=== PATIENT | female | born 1970 | race Caucasian/White ===

== ENCOUNTER 2022-09-09 09:45 | Outpatient (OUT) | payer OTHER, SELFPAY ==
--- NOTE | 2022-09-09 09:55 | MM_ITS ---
Patient: SADIE FORRESTER Exam Date: 09/09/2022 : 1970 Gender:F Ordering : DR. Marisa Duran D.O. Admission #: [id number] Family : Order #: [id number] CLICK HERE TO VIEW EXAM RADIOLOGY REPORT PROCEDURE: MM TOMOSYNTHESIS SCREENING BI COMPARISON: MG MAMM SCREEN AKANKSHA W CAD, 12/24/2019. MG MAMM SCREEN 3D AKANKSHA CAD, 01/07/2021. INDICATIONS: Screening Calculator Name NCI Breast Cancer Risk Assessment Tool 5 Year Breast Cancer Risk 0.60% Lifetime Breast Cancer Risk 6.00% Personal Breast Cancer No Personal Ovarian Cancer No Treatments None Family Cancers Grandmother-maternal with breast cancer at age ~55. LOCATION: [facility] BREAST COMPOSITION: Scattered areas fibroglandular density. FINDINGS: DIAGNOSTIC CATEGORY 1--NEGATIVE. NO CHANGE FROM COMPARISON ASSESSMENT. Bilateral scattered dilated blood vessels. Scattered benign-appearing calcifications are present. RIGHT BREAST: No significant suspicious finding. LEFT BREAST: No significant suspicious finding. RECOMMENDATIONS: ROUTINE MAMMOGRAM AND CLINICAL EVALUATION IN 12 MONTHS. PLEASE NOTE: A NORMAL MAMMOGRAM DOES NOT EXCLUDE THE POSSIBILITY OF BREAST CANCER. A CLINICALLY SUSPICIOUS PALPABLE LUMP SHOULD BE BIOPSIED. Dictated by: Storm Wood MD on 09/09/2022 at 12:37 Approved by: Storm Wood MD on 09/09/2022 at 12:39
== END 2022-09-09 09:46 | disposition home or self-care (01) ==
LOC: MAMMO 09:50
PROVIDERS: PCP Family Medicine; Visit Provider Family Medicine
DX: Z12.31 Encounter for screening mammogram for malignant neoplasm of breast (principal); Z80.3 Family history of malignant neoplasm of breast
CPT/HCPCS: 77063; 77067

== ENCOUNTER 2022-10-12 20:36 | Emergency (ER) | payer OTHER, SELFPAY ==
[2022-10-12 20:42] VITALS: BP 171/90; PULSE 78; RESP 24; TEMP 36.9; O2SAT 96; BMI 86.4
--- NOTE | 2022-10-12 20:51 | ECG_ITS ---
[facility] Test Date: 2022-10-12 Pat Name: SADIE FORRESTER Department: Room: - Gender: Female Management Information Systems Director: : 1970 Requested By: Order Number: [id number] Reading MD: SANA ABRAMS Measurements Intervals Gilbert Rate: 76 P: 65 LA: 152 QRS: 64 QRSD: 90 T: 61 QT: 396 QTc: 426 Interpretive Statements 1100 Sinus rhythm 8102 Low QRS voltage in chest leads 9120 atypical ECG No previous ECG available for comparison Electronically Signed On 10-13-2022 7:07:51 EDT by SANA ABRAMS
--- NOTE | 2022-10-12 21:24 | ED_ITS ---
HPI - Female Genitourinary General Chief complaint: Urogenital-Female Stated complaint: UTI, FLANK PAIN Time Seen by Provider: 10/12/22 21:14 Source: patient Mode of arrival: walk-in Limitations: no limitations History of Present Illness HPI Narrative: past history of recurrent UTIs. States she started another one yesterday. Has urgency and frequency and suprapubic pain. Mild nausea. No flank pain or fever. Has an appointment upcoming with her Urologist but not until next week. Related Data Allergies Allergy/AdvReac Type Severity Reaction Status Date / Time No Known Drug Allergies Allergy Verified 10/12/22 20:46 Review of Systems ROS Status of ROS 10 or more systems reviewed and unremarkable except as noted in history and below Exam Constitutional Vital Signs, click to edit/add: Last Vital Signs Temp 98.4 F 10/12/22 20:42 Pulse 78 10/12/22 20:42 Resp 24 10/12/22 20:42 BP 171/90 H 10/12/22 20:42 Pulse Ox 96 10/12/22 20:42 O2 Del Method Room Air 10/12/22 20:42 Common normals: no apparent distress, oriented x3, alert and well nourished Eye Common normals: EOMs intact bilaterally and conjunctivae normal Respiratory Common normals: normal respiratory effort, no retractions, no use of accessory muscles and clear to auscultation bilaterally Cardio Common normals: regular rate, regular rhythm, S1 normal heart sound and S2 normal heart sound GI Other: mild suprapubic tenderness Extremity Common normals: normal to inspection and no joint enlargement Neuro Common normals: oriented x3, CN's II-XII intact bilaterally, moves all extremiti es, no focal motor deficits and no sensory deficits noted Psych Appearance: grossly normal Course Vital Signs Vital signs: Vital Signs Temperature 98.4 F 10/12/22 20:42 Pulse Rate 78 10/12/22 20:42 Respiratory Rate 24 10/12/22 20:42 Blood Pressure 171/90 H 10/12/22 20:42 Pulse Oximetry 96 10/12/22 20:42 Oxygen Delivery Method Room Air 10/12/22 20:42 Temperature 98.4 F 10/12/22 20:42 Pulse Rate 78 10/12/22 20:42 Respiratory Rate 24 10/12/22 20:42 Blood Pressure 171/90 H 10/12/22 20:42 Pulse Oximetry 96 10/12/22 20:42 Oxygen Delivery Method Room Air 10/12/22 20:42 MDM - Female Genitourinary MDM Narrative Medical decision making narrative: patient has past history of recurrent UTI. Now presents with onset of UTI symptoms that started yesterday. Urgency, frequency, nausea. UA ordered and pending UA returned without obvious pyuria. Patient is quite certain she has a UTI due to her past history. Urine culture ordered. She is discharged home and advised to follow up with her Urologist Discharge Plan Discharge Chief Complaint: Urogenital-Female Clinical Impression: Dysuria Patient Disposition: Home, Self-Care Instructions: Dysuria (ED) Additional Instructions: follow up with your Urologist as planned Stand Alone Forms: Portal Instructions Referrals: Marisa Duran [Primary Care Provider] - 1 week
[2022-10-12] MEDS: PROMETHAZINE HCL 25 MG TABLET PO (21:36)
[2022-10-12] MEDS: PHENAZOPYRIDINE 100 MG TABLET 200 MG PO (21:36)
[2022-10-12] MEDS: LEVOFLOXACIN 500 MG TABLET PO (21:36)
--- NOTE | 2022-10-12 21:41 | PC.NURSE ---
pt presents to ED because pt states that last week she wasn't feeling well and didn't drink or move around much. pt states that when she does this she usually gets a uti afterwards or kidney infection. pt states that 2 days ago she started to have urinary urgency, frequency, burning, and cramping. denies blood in urine. no abdominal pain. pt states she also feels like she is having palpitations but usually has that happen when she gets uti's.
[2022-10-12 21:47] LABS: Bilirubin Urine NEGATIVE (NEGATIVE); Blood Urine NEGATIVE (NEGATIVE); Clarity Urine CLEAR (CLEAR); Color Urine YELLOW (YELLOW); Glucose Urine UA 250 mg/dL (NEGATIVE); Ketones Urine NEGATIVE (NEGATIVE); Leukocyte Esterase Urine NEGATIVE (NEGATIVE); Nitrite Urine NEGATIVE (NEGATIVE); Protein Urine NEGATIVE (NEG/TRACE); Specific Gravity Urine >=1.030 (1.005-1.025); Urobilinogen Urine 0.2 EU/dL (0.2-1.0); pH Urine 5.5 (5.0-9.0)
[2022-10-12 22:24] LABS: Urine Microscopic Indicated NO
--- NOTE | 2022-10-16 09:26 | PC.NURSE ---
0925 c+s reviewed by dr solo patel for macrobid 100mg po bid times 7 days called to pt preferred pharmacy and called and LM for pt. Padma Ahumada RN
== END 2022-10-12 22:28 | disposition home or self-care (01) ==
PROVIDERS: Emergency Provider Internal Medicine; PCP Family Medicine
DX: R30.0 Dysuria (principal); Z87.440 Personal history of urinary (tract) infections
CPT/HCPCS: 81003; 87086; 87150; 87186; 93005; 99284

== ENCOUNTER 2023-02-10 11:41 | Outpatient (OUT) | payer OTHER, SELFPAY ==
[2023-02-10 12:00] LABS: Bilirubin Urine NEGATIVE (NEGATIVE); Blood Urine SMALL (NEGATIVE); Clarity Urine CLEAR (CLEAR); Color Urine LT. YELLOW (YELLOW); Glucose Urine UA >=1000 mg/dL (NEGATIVE); Ketones Urine TRACE mg/dL (NEGATIVE); Leukocyte Esterase Urine SMALL (NEGATIVE); Nitrite Urine NEGATIVE (NEGATIVE); Protein Urine NEGATIVE (NEG/TRACE); Specific Gravity Urine 1.025 (1.005-1.025); Urobilinogen Urine 0.2 EU/dL (0.2-1.0)
== END 2023-02-10 11:42 | disposition home or self-care (01) ==
LOC: LAB 11:42
PROVIDERS: PCP Family Medicine; Visit Provider Urology
DX: R39.9 Unspecified symptoms and signs involving the genitourinary system (principal)
CPT/HCPCS: 81003; 87086; 87150; 87186

== ENCOUNTER 2023-07-24 12:40 | Outpatient (OUT) | payer OTHER, SELFPAY ==
--- NOTE | 2023-07-24 13:02 | XR_ITS ---
The [address] [address] Patient Name: SADIE FORRESTER MRN: [id number] date: 1970 Sex: F Assigned Patient Location: [facility] Current Patient Location: Accession/Order Number: [id number] Exam Date: 07/24/2023 13:05 Report Date: 07/25/2023 10:34 At the request of: BAHMAN LANDA Procedure: XR abdomen 1V EXAMINATION: XR abdomen 1V HISTORY: Kidney stone N20.0 COMPARISON: XR KUB 05/25/2021 FINDINGS: KIDNEY/URETER - RIGHT: No visible renal or ureteral calcifications. KIDNEY/URETER - LEFT: No visible renal or ureteral calcifications. PELVIS: No visible ureteral stones. Stable small right pelvic calcification favoring a phlebolith. BOWEL: No abnormal dilation or deviation. BONES: Joint space narrowing and degenerative changes of the hip joints. OTHER: Negative. No abnormal gaseous collections. XR/XR abdomen 1V IMPRESSION: 1. No appreciable urinary tract calculi. Electronically authenticated by: MARIA DE JESUS LYNNE Date: 07/25/2023 10:34
== END 2023-07-24 12:41 | disposition home or self-care (01) ==
LOC: RAD 12:43
PROVIDERS: PCP Family Medicine; Visit Provider Physician Assistant
DX: N20.0 Calculus of kidney (principal)
CPT/HCPCS: 74018

== ENCOUNTER 2024-06-26 15:20 | Outpatient (OUT) | payer OTHER, SELFPAY ==
--- OUTSIDE RECORDS SUMMARY | 2021-05-12 10:00 | XMS_ITS | Continuity of Care Document ---
Author Organization [facility] Address [address] [place] [address] [place] [address] Phone Care Team Providers Care Bias Binding Folder Name Role Phone Catarina Lou Unavailable Unavailable Procedures Procedure Date PSYCH DIAGNOSTIC EVALUATION PSYCL/NRPSYC TST PHY/QHP 1ST PSYCL/NRPSYC TST PHY/QHP EA OFFICE/OUTPATIENT VISIT, [facility] Advance Directives Directive Yes / No Effective Date File Name No Information Encounters Encounter Description Practice Location Reason(s) For Visit Diagnoses Date Provider Providers Copied on Encounter PSYCH DIAGNOSTIC EVALUATION [facility], [address] [place] [address], [id number], tel:[phone] [facility] Weight [facility] No Information Carmine Elmore. [address], [id number], [place]. tel:[phone] Referring Provider: Catarina Lou, [address] [place] [address], [place], [address]. tel:[phone] OFFICE/OUTPATI ENT VISIT, [facility], [address] [place] [address], [id number], tel:[phone] [facility] Weight [facility] Surgery No Information Ira Kolb. [address] [place] [address] [place], [id number], . tel:[phone] Referring Provider: Cortes Siegel, [address] [facility] [address], [place], [address]. tel:[phone] Family History Family Member Type Diagnosis Age At Onset No Information Payers Payer name Insurance type Covered green party ID Bernabe mayberry(s) Gary CI [id number] Social History Type Description Quantity Date Captured Comments Sex Female Smoking Status No Information Chief Complaint And Reason For Visit No Information Reason For Referral Reason For Referral No Information History Of Present Illness Encounter Date Complaint History Of Prese nt Illness No Information Functional Status Date Functional Assessmen t No Information Instructions Date Instruction Additional Infor mation No Information Assessments Type Assessment Date No Information Patient Care Teams Name Effective Dates (start - stop) Status Members No Information
--- OUTSIDE RECORDS SUMMARY | 2024-03-22 06:00 | XMS_ITS ---
Author Organization [facility] Address [address] [place] [id number] Care Team Providers Care Business Division Chair Name Role Phone Bobo Valdivia Primary Care Provider REASON FOR VISIT f/u hypothyroid Social History Sex Assigned At : Social History Observation Description Sex Assigned At Female Encounters Encounter Location Date Provider Diagnosis Main [address] [place] [id number] 03/22/2024 Bobo Valdivia Plan Of Treatment Next Appt Details Provider Name:Bobo Valdivia, 08/23/2024 11:00:00 AM, [address] [place], [place], [id number], Progress Notes * Savannah FORRESTER SDOB:[birth year] (54 yo F)Acc No.[id number]:03/22/2024 Patient: Savannah MORALEZ Provider: Dayana Valdivia :1970 A ge:54 Y S ex:Female Date:03/22/2024 Address:[address] [place], [place] [id number] Subjective: * Chief Complaints: * 1 . F/u hypothyroid. * Medical History: Objective: * Vitals: Assessment: Plan: * Treatment: * Billing Information: * Visit Code: * Procedure Codes: * Electronic signature of MARY JANE Rose on 06/26/2024 at 03:25 PM EDT Sign off status: Pending * Provider: Dayana Valdivia Date: 0 03/22/2024 Generated for García mccray/Svetlana/Karlee on: 0 06/26/2024 03:25 PM EDT
--- OUTSIDE RECORDS SUMMARY | 2024-06-26 15:24 | XMS_ITS | Encounter Summary ---
Author Organization [employer] Address [id number] [address] [place] [address] Care Team Providers Care Mid Level Net Developer Name Role Phone Services, [facility] Primary Care Provider Encounter Details Date Type Department Care Team (Late st Contact Info) Description 11/24/2020 Orders Only [facility] [address] [place] [address] External, Scanning Provider Social History Tobacco Use Types Packs/Day Years Used Date Smoking Tobacco: Former Cigarettes Smokeless Tobacco: Never Alcohol Use Standard Drinks/Week Comments Yes 0 (1 standard drink = 0.6 oz pur e alcohol) rarely Social Connection and Isolat ion Panel [NHANES] Answer Date Recorded In a typical week, how many times do you talk on the phone with family, friends, or neighbors? More than three times a week 12/30/2019 How often do you get togethe r with friends or relatives? More than three times a week 12/30/2019 How often do you attend chur ch or uatsdin services? Never 12/30/2019 Do you belong to any clubs o r organizations such as shinto groups, unions, fraternal or athletic groups, or school groups? Yes 12/30/2019 How often do you attend meet ings of the clubs or organizations you belong to? 1 to 4 times per year 12/30/2019 Are you , , di vorced, , never , or living with a partner? 12/30/2019 AUDIT-C Answer Date Recorded Q1: How often do you have a drink containing alc ohol? Monthly or less 12/30/2019 Q2: How many drinks containi ng alcohol do you have on a typical day when you are drinking? 1 or 2 12/30/2019 Q3: How often do you have si x or more drinks on one occasion? Less than monthly 12/30/2019 PHQ-2 Answer Date Recorded Total Score 0 12/30/2019 Childcare Answer Date Recorded Childcare Unknown 07/18/2018 Employment Answer Date Recorded Employment Unknown 07/18/2018 Purpose - Life Answer Date Recorded Purpose and direction in life Unknown Comments No Sex and Gender Information Value Date Recorded Sex Assigned at Not on file Legal Sex Female 11:33 AM EDT Gender Identity Not on file Sexual Orientation Not on file COVID-19 Exposure Response Date Recorded In the last month, have you been in contact with someone who was confirmed or suspected to have Coronavirus / COVID-19? No / Unsure 11/24/2020 1:01 PM EDT documented as of this encounter Plan of Treatment Upcoming Encounters Date Type Department Care Team (Late st Contact Info) Description 07/17/2024 2:00 PM EDT Office Visit [facility] [address] [place] [address] Chetna Coats, CHIEF COUNSEL-FORKLIFT SUPERVISOR [address] [place], [place] [id number] documented as of this encounter Goals Goal Patient Goal Type Associated Problems Recent Progress Patient-Stated? Author Discharge home General Yes Clarisse Purdy, RN Note: Evaluation of progress towards goal: Plan to discharge home with supportive spouse. documented as of this encounter Procedures Procedure Name Priority Date/Time Associated Diagnosis Comments MULTIPLE LABS Routine 11/13/2020 LIPID PROFILE Routine 11/13/2020 ECHO COMPLETE WO CONTRAST Routine 08/13/2020 documented in this encounter Results * Lipid profile (11/13/2020) External Cholesterol 163 MANUALLY TRANSCRIBED RESULTS External Cholesterol:Hdl 3.7 MANUALLY TRANSCRIBED RESULTS External Hdl Cholesterol 44 MANUALLY TRANSCRIBED RESULTS External Ldl (Calc) 75 MANUALLY TRANSCRIBED RESULTS External Triglycerides 216 MANUALLY TRANSCRIBED RESULTS External Very Low Lipoprotein 44 MANUALLY TRANSCRIBED RESULTS us Scanning Provider External LAB BLOOD ORDERABLES Edited Result - Final Performing Organization Address City/[facility]/ZIP Co de Phone Number MANUALLY TRANSCRIBED RESULTS * Multiple labs (11/13/2020) us Scanning Provider External PA IMAGING Final Result Performing Organization Address City/[facility] Co de Phone Number MANUALLY TRANSCRIBED RESULTS * Echo complete W/O contrast (08/13/2020) Anatomical Region Laterality Modality Chest N/A Ultrasound us Scanning Provider External CV ECHO ORDERABLES Fi nal Result documented in this encounter Visit Diagnoses Not on filedocumented in this encounter Additional Health Concerns Infection Onset Date Last Indicated Resolved Time Respiratory Rule-Out 04/10/2024 04/10/2024 025 5:27 PM EST Assessment Noted Time PHQ-9 Depression Total Score: 0 12/30/19 20 1:56 PM EST documented as of this encounter Care Teams Mid Level Net Developer Relationship Specialty Start Date End Date Services, [facility] [address] [place], [place] PCP - General Family Medicine 04/10/24 documented as of this encounter
--- OUTSIDE RECORDS SUMMARY | 2024-06-26 15:24 | XMS_ITS | Encounter Summary ---
Author Organization [employer] Address [id number] [address] [place] [address] Care Team Providers Care Fruit Loader Machine Operator Name Role Phone Services, [facility] Primary Care Provider Encounter Details Date Type Department Care Team (Late st Contact Info) Description 11/27/2020 Orders Only [facility] [address] [place] [address] External, Scanning Provider Social History [...] often do you attend chur ch or baptist services? Never 12/30/2019 Do you belong to any clubs o r organizations such as yazidi groups, unions, fraternal or athletic groups, or [...] have Coronavirus / COVID-19? No / Unsure 11/30/2020 12:58 PM EDT documented as of this encounter Plan of Treatment Upcoming Encounters Date Type Department Care Team (Late st Contact Info) Description 07/17/2024 2:00 PM EDT Office Visit [facility] [address] [place] [address] Chetna Coats, TAPE KELLER OPERATOR-LOGISTIC MANAGER [address] [place], [place] [id number] documented as of this encounter Goals Goal Patient Goal Type Associated Problems Recent Progress Patient-Stated? Author Discharge home General Yes Clarisse Purdy, RN Note: Evaluation of progress towards goal: Plan to discharge home with supportive spouse. documented as of this encounter Procedures Procedure Name Priority Date/Time Associated Diagnosis Comments MULTIPLE LABS Routine 08/13/2020 ECHO DOPPLER Routine 08/13/2020 ECG 12-LEAD Routine 04/10/2020 documented in this encounter Results * Multiple labs (08/13/2020) us Scanning Provider External IA IMAGING Final Result MANUALLY TRANSCRIBED RESULTS * Echo Doppler (08/13/2020) Anatomical Region Laterality Modality Chest N/A Ultrasound us Scanning Provider External CV ECHO ORDERABLES Fi nal Result * ECG 12 lead (04/10/2020) us Scanning Provider External ECG ORDERABLES Final Result MANUALLY TRANSCRIBED RESULTS documented in this encounter Visit Diagnoses Not on filedocumented in this encounter Additional Health Concerns Infection Onset Date Last Indicated Resolved Time Respiratory Rule-Out 04/10/2024 04/10/2024 025 5:27 PM EST Assessment Noted Time PHQ-9 Depression Total Score: 0 12/30/19 20 1:56 PM EST documented as of this encounter Care Teams Fruit Loader Machine Operator Relationship Specialty Start Date End Date Services, [facility] [address] [place], [place] PCP - General Family Medicine 04/10/24 documented as of this encounter
--- OUTSIDE RECORDS SUMMARY | 2024-06-26 15:24 | XMS_ITS | Encounter Summary ---
Author Organization [facility] Address [id number] [address] [place] [address] Care Team Providers Care Hatchery Man Name Role Phone Services, [facility] Primary Care Provider Encounter Details Date Type Department Care Team (Late st Contact Info) Description 02/17/2021 Orders Only [facility] [address] [place] [address] Ref Prov, [place] [address] Social History Tobacco Use Types Packs/Day Years Used Date Smoking Tobacco: Former Cigarettes 0.5 20 1 2011 Smokeless Tobacco: Never Alcohol Use Standard Drinks/Week [...] often do you attend chur ch or temple services? Never 12/30/2019 Do you belong to any clubs o r organizations such as congregation groups, unions, fraternal or athletic groups, or [...] have Coronavirus / COVID-19? No / Unsure 02/17/2021 2:31 PM EST documented as of this encounter Plan of Treatment Upcoming Encounters Date Type Department Care Team (Late st Contact Info) Description 07/17/2024 2:00 PM EDT Office Visit [facility] [address] [place] [address] Chetna Coats, TUNNEL WORKER-CASH VAN SALESPERSON [address] [place] [address], [address] [address] documented as of this encounter Goals Goal Patient Goal Type Associated Problems Recent Progress Patient-Stated? Author Discharge home General Yes Clarisse Purdy, LUIS Note: Evaluation of progress towards goal: Plan to discharge home with supportive spouse. documented as of this encounter Procedures Procedure Name Priority Date/Time Associated Diagnosis Comments GENERAL SLEEP STUDY Routine 11/12/2003 documented in this encounter Results * General sleep study (11/12/2003) us Not In System Ref Prov SLEEP CENTER ORDERABLES F inal Result [facility] [address] [facility] [place] [address] documented in this encounter Visit Diagnoses Not on filedocumented in this encounter Additional Health Concerns Infection Onset Date Last Indicated Resolved Time Respiratory Rule-Out 04/10/2024 04/10/2024 025 5:27 PM EST Assessment Noted Time PHQ-9 Depression Total Score: 0 12/30/19 20 1:56 PM EST documented as of this encounter Care Teams Hatchery Man Relationship Specialty Start Date End Date [facility], [facility] [address] [place], [place] PCP - General Family Medicine 04/10/24 documented as of this encounter
--- OUTSIDE RECORDS SUMMARY | 2024-06-26 15:24 | XMS_ITS | Encounter Summary ---
Author Organization [employer] Address [id number] [address] [place] [address] Care Team Providers Care Applied Biology Professor Name Role Phone Services, [facility] Primary Care Provider Reason for Visit * Reason Comments Med Refill Encounter Details Date Type Department Care Team (Late st Contact Info) Description 06/10/2024 Refill [facility] [address] [place] [address] Earnest Johnson, ART GILDER-CLAMP OPERATOR [address] [place], [place] [id number] Med Refill Social History Tobacco Use Types Packs/Day Years Used Date Smoking Tobacco: Former Cigarettes 0.5 20 1 - 2011 Smokeless Tobacco: Never Alcohol Use Standard [...] often do you attend chur ch or jain services? Never 12/30/2019 Do you belong to any clubs o r organizations such as sikh groups, unions, fraternal or athletic groups, or [...] Employment Answer Date Recorded Employment Unknown 07/18/2018 Hunger Screening Answer Date Recorded Within the past 12 months we worried whether our food would run out before we got money to buy more. Never True 05/17/2024 Within the past 12 months th e food we bought just didn't last and we didn't have money to get more. Never True 05/17/2024 Purpose - Life Answer Date Recorded Purpose and direction in life Unknown Comments No Sex and Gender Information Value Date Recorded Sex Assigned at Not on file Legal Sex Female 11:33 AM EDT Gender Identity Not on file Sexual Orientation Not on file documented as of this encounter Miscellaneous Notes * Telephone Encounter - Melissa Sánchez RN - 06/10/2024 12:27 AM EDT Ov-05/17/24 Lipid-02/17/23 New lipid order placed and letter sent 06/12/24 documented in this encounter Plan of Treatment Upcoming Encounters Date Type Department Care Team (Late st Contact Info) Description 07/17/2024 2:00 PM EDT Office Visit [facility] [address] [place] [address] Chetna Coats, ART GILDER-CLAMP OPERATOR [address] [facility], [address] [place] [address] Scheduled Orders Name Type Priority Associated Diagnoses Orde r Schedule Lipid panel Lab Routine Hyperlipidemia, unspecified hyperlipidemia type Mixed hyperlipidemia 1 Occurrences starting 06/12/2024 until 06/12/2025 documented as of this encounter Goals Goal Patient Goal Type Associated Problems Recent Progress Patient-Stated? Author Discharge home General Yes Clarisse Purdy, RN Note: Evaluation of progress towards goal: Plan to discharge home with supportive spouse. documented as of this encounter Visit Diagnoses Diagnosis Hyperlipidemia, unspecified hyperlipidemia type- Primary Mixed hyperlipidemia documented in this encounter Additional Health Concerns Assessment Noted Time PHQ-9 Depression Total Score: 0 12/30/19 20 1:56 PM EST documented as of this encounter Care Teams Applied Biology Professor Relationship Specialty Start Date End Date [facility], [facility] [address] [place], [place] PCP - General Family Medicine 04/10/24 documented as of this encounter
--- OUTSIDE RECORDS SUMMARY | 2024-06-26 15:25 | XMS_ITS | Encounter Summary ---
Author Organization [facility] Address [id number] [address] [place] [address] Care Team Providers Care Chief Of Party Name Role Phone Services, [facility] Primary Care Provider Encounter Details Date Type Department Care Team (Late st Contact Info) Description 10/12/2022 Orders Only [facility] [address] [place] [phone] Ina, Ronda, INTERLOCKING MACHINE OPERATOR Mixed hyperlipidemia Social History Tobacco Use Types Packs/Day Years [...] often do you attend chur ch or denominational services? Never 12/30/2019 Do you belong to any clubs o r organizations such as mormonism groups, unions, fraternal or athletic groups, or [...] got money to buy more. Never True 06/29/2022 Within the past 12 months th e food we bought just didn't last and we didn't have money to get more. Never True 06/29/2022 Purpose - Life Answer Date Recorded Purpose and direction in life Unknown Comments No Sex and Gender Information Value Date Recorded Sex Assigned at Not on file Legal Sex Female 11:33 AM EDT Gender Identity Not on file Sexual Orientation Not on file documented as of this encounter Plan of Treatment Upcoming Encounters Date Type Department Care Team (Late st Contact Info) Description 07/17/2024 2:00 PM EDT Office Visit [facility] [address] [place] [address] Chetna Coats, VICE CHANCELLOR-ANTIQUE FURNITURE REPRODUCER [address] [facility], [address] [address] documented as of this encounter Goals Goal Patient Goal Type Associated Problems Recent Progress Patient-Stated? Author Discharge home General Yes Clarisse Purdy, RN Note: Evaluation of progress towards goal: Plan to discharge home with supportive spouse. documented as of this encounter Procedures Procedure Name Priority Date/Time Associated Diagnosis Comments LIPID PROFILE Routine 10/07/2022 Mixed hyperlipidemia documented in this encounter Results * Lipid profile (10/07/2022) External Cholesterol 148 SUNQUEST External Cholesterol:Hdl 4.1 SUNQUEST External Hdl Cholesterol 36 SUNQUEST External Ldl (Calc) 50 SUNQUEST External Triglycerides 310 SUNQUEST External Very Low Lipoprotein 62 SUNQUEST 10/07/2022 us Mireya Feldman PA-C LAB BLOOD ORDERABLES Final Resu lt SUNQUEST documented in this encounter Visit Diagnoses Diagnosis Mixed hyperlipidemia documented in this encounter Additional Health Concerns Infection Onset Date Last Indicated Resolved Time Respiratory Rule-Out 04/10/2024 04/10/2024 025 5:27 PM EST Assessment Noted Time PHQ-9 Depression Total Score: 0 12/30/19 20 1:56 PM EST documented as of this encounter Care Teams Chief Of Party Relationship Specialty Start Date End Date Services, [facility] [address] [place] PCP - General Family Medicine 04/10/24 documented as of this encounter
--- OUTSIDE RECORDS SUMMARY | 2024-06-26 15:25 | XMS_ITS | Encounter Summary ---
Author Organization [facility] Address [address] [place] [address] Care Team Providers Care Rubber Belt Splicer Name Role Phone Marisa Duran Primary Care Provider [phone] Devin Guy MD Unavailable Unavailable Reason for Visit * Reason Comments Med Refill Encounter Details Date Type Department Care Team ([facility] Contact Info) Description 08/03/2023 Refill [facility] [address] [facility] [address] [place] [address] Gloria Briggs DO [address] [facility] [address] [place] [address] Social History Tobacco Use Types Packs/Day Years Used Date Smoking Tobacco: Former Cigarettes Smokeless Tobacco: Never Alcohol Use Standard Drinks/Week Comments Not Currently 0 (1 standard drink = 0.6 oz pur e alcohol) AUDIT-C Answer Date Recorded Q1: How often do you have a drink containing alcohol? Never 07/18/2022 Q2: How many drinks containi ng alcohol do you have on a typical day when you are drinking? Patient does not drink Q3: How often do you have si x or more drinks on one occasion? Never 07/18/2022 Comments Unknown Sex and Gender Information Value Date Recorded Sex Assigned at Not on file Legal Sex Female 8:14 PM EDT Gender Identity Not on file Sexual Orientation Not on file documented as of this encounter Plan of Treatment Upcoming Encounters Date Type Department Care Team ([facility] Contact Info) Description 08/16/2024 10:45 AM EDT Office Visit [facility] [address] [facility] [address] [place] [address] Gloria Briggs DO [address] [place] [address] 08/29/2024 2:15 PM EDT Office Visit [facility] [address] [place] [address] Brenda Blackwood MD [address] [place] [address] documented as of this encounter Visit Diagnoses Not on filedocumented in this encounter Care Teams Rubber Belt Splicer Relationship Specialty Start Date End Date Marisa Duran DO [address] [place] [address] PCP - General Family Medicine 08/01/22 Devin Guy MD [address] [place] [address] Referring Physician Neurology 04/27/23 documented as of this encounter
--- OUTSIDE RECORDS SUMMARY | 2024-06-26 15:25 | XMS_ITS | Encounter Summary ---
Author Organization [employer] [facility] Address [id number] [address] [place] [address] Care Team Providers Care Rackman Name Role Phone [facility], [facility] Primary Care Provider Encounter Details Date Type Department Care Team (Late st Contact Info) Description 03/07/2022 Telephone [facility] [address] [address] Izzy Jones Social History Tobacco Use Types Packs/Day Years [...] often do you attend chur ch or catholic services? Never 12/30/2019 Do you belong to any clubs o r organizations such as latter day groups, unions, fraternal or athletic groups, or [...] encounter Miscellaneous Notes * Telephone Encounter - Izzy Jones - 03/07/2022 2:12 PM EST TRIED TO GET HER BREO APPROVED THROUGH [facility] BUT THE INSURANCE CARD ON FILE DOES NOT HAVE ALLTHE INFO I NEEDED/ WE NEED THE RXBIN, PCN, AND GROUP LEFT MESSAGE FOR PT TO CALL BACK (PT IS SEEN IN [place]/ [place]) * Telephone Encounter - Leslie Cerna LPN - 03/07/2022 2:12 PM EST Pt has used Symbicort in the past and was only switched Breo because insurance preferred. Symbicortis not the preferred choice. I will send in Symbicort 160. documented in this encounter Plan of Treatment Upcoming Encounters Date Type Department Care Team (Late st Contact Info) Description 07/17/2024 2:00 PM EDT Office Visit [facility] [address] [facility] [address] [place] [address] Chetna Coats, SEAMAN OFFICER-BLUEPRINT BLOCKER [address] [facility], [address] [place] [address] documented as of this encounter Goals Goal Patient Goal Type Associated Problems Recent Progress Patient-Stated? Author Discharge home General Yes Clarisse Purdy, RN Note: Evaluation of progress towards goal: Plan to discharge home with supportive spouse. documented as of this encounter Visit Diagnoses Diagnosis Persistent asthma without complication, unspecified asthma severity- Primary documented in this encounter Additional Health Concerns Infection Onset Date Last Indicated Resolved Time Respiratory Rule-Out 04/10/2024 04/10/2024 025 5:27 PM EST Assessment Noted Time PHQ-9 Depression Total Score: 0 12/30/19 20 1:56 PM EST documented as of this encounter Care Teams Rackman Relationship Specialty Start Date End Date [facility] [address] [place], [place] PCP - General Family Medicine 04/10/24 documented as of this encounter
--- OUTSIDE RECORDS SUMMARY | 2024-06-26 15:25 | XMS_ITS | Encounter Summary ---
Author Organization [facility] Address [address] [place] [address] Care Team Providers Care Line Camera Operator Name Role Phone Marisa Duran Primary Care Provider [phone] Devin Guy MD Unavailable Unavailable Encounter Details Date Type Department Care Team (Late Contact Info) Description 02/20/2023 Orders Only [facility] [address] [facility] 230 [place] [address] A, Unknown Practice [address] [place], [place] [phone] Social History Tobacco Use Types Packs/Day Years [...] Encounters Date Type Department Care Team (Late Contact Info) Description 08/16/2024 10:45 AM EDT Office Visit [facility] [address] [address] [facility] 230 [place] [phone] Gloria Briggs DO [address] [place] [address] 08/29/2024 2:15 PM EDT Office Visit [facility] [address] [place] [address] Brenda Blackwood MD [address] [facility] [address] [place] [address] documented as of this encounter Procedures Procedure Name Priority Date/Time Associated Diagnosis Comments CHEST Routine 02/17/2023 8:46 AM EST documented in this encounter Results * CHEST (02/17/2023 8:46 AM EST) Anatomical Region Laterality Modality Radiographic Latrice ging us Unknown Practice A IMG XR PROCEDURES Final Resul t documented in this encounter Visit Diagnoses Not on filedocumented in this encounter Care Teams Line Camera Operator Relationship Specialty Start Date End Date Marisa Duran DO [address] [facility] [place] [address] PCP - General Family Medicine 08/01/22 Devin Guy MD [address] [facility] [place] [address] Referring Physician Neurology 04/27/23 documented as of this encounter
--- OUTSIDE RECORDS SUMMARY | 2024-06-26 15:25 | XMS_ITS | Encounter Summary ---
Author Organization [employer] [facility] Address [id number] [address] [place] [address] Care Team Providers Care Project Geologist Name Role Phone Services, [facility] Primary Care Provider Encounter Details Date Type Department Care Team (Late st Contact Info) Description 04/10/2024 Telephone [facility] [address] [facility] [place] [address] Hope Isaac, [facility] Social History Tobacco Use Types Packs/Day Years Used Date Smoking Tobacco: Former Cigarettes 0.5 20 2011 Smokeless Tobacco: Never Alcohol Use Standard [...] often do you attend chur ch or episcopal services? Never 12/30/2019 Do you belong to any clubs o r organizations such as taoism groups, unions, fraternal or athletic groups, or [...] got money to buy more. Never True 04/10/2024 Within the past 12 months th e food we bought just didn't last and we didn't have money to get more. Never True 04/10/2024 Purpose - Life Answer Date Recorded Purpose and direction in life Unknown Comments No Sex and Gender Information Value Date Recorded Sex Assigned at Not on file Legal Sex Female 11:33 AM EDT Gender Identity Not on file Sexual Orientation Not on file documented as of this encounter Miscellaneous Notes * Telephone Encounter - Hope Isaac CMA - 04/10/2024 3:36 PM EST Patient called in asking to be seen for appointment. Patient stated she was having extreme SOB and difficulty breathing. Patient stated she just finished water exercise and is out of breath. She saidSOB is with very little exertion over last few weeks. Patient sounded very out of breath over the phone. Patient was advised if having that much difficulty breathing she should go to ED to be evaluated. Patient was agreeable. * Telephone Encounter - ERON Elaine - 04/10/2024 3:36 PM EST Agree thanks documented in this encounter Plan of Treatment Upcoming Encounters Date Type Department Care Team (Late st Contact Info) Description 07/17/2024 2:00 PM EDT Office Visit [facility] [address] [facility] [address] [place] [address] Chetna Coats, FINANCIAL COUNSELOR-VERTICAL ROLL OPERATOR [address] [facility], [address] [place] [address] documented as of this encounter [...] documented as of this encounter Care Teams Project Geologist Relationship Specialty Start Date End Date Services, [facility] [address] [place], [place] PCP - General Family Medicine 04/10/24 documented as of this encounter
--- OUTSIDE RECORDS SUMMARY | 2024-06-26 15:25 | XMS_ITS | Patient Health Record ---
Author Organization [facility] [place] Address [address] [place] [address] Care Team Providers Care Experimental Rocket Sled Mechanic Name Role Phone None, Unknown or Primary Care Provider Unavailab le Reason For Referral No Information Plan Of Treatment No Information Insurance Providers Payer Name Payer Address Payer Phone Subscriber Number Group Number Insured Name Patient Relationship to Insured Coverage Start Date Coverage End Date SELF PAY ON PATIENT DEMOGRAPHICS Savannah Akhtar Self - patient is the insured [id number]
--- OUTSIDE RECORDS SUMMARY | 2024-06-26 15:25 | XMS_ITS | Encounter Summary ---
Author Organization [employer] [facility] [employer] Address [id number] [address] [place] [address] Care Team Providers Care Slurry Man Name Role Phone Services, [facility] Primary Care Provider Encounter Details Date Type Department Care Team (Late st Contact Info) Description 05/09/2022 Telephone [facility] [address] [address] Chetna Coats, DRAWER IN DOBBY LOOM-APPLICATION ENGINEER [address] [facility], [address] [place] [phone] Social History Tobacco Use Types Packs/Day Years [...] often do you attend chur ch or amish services? Never 12/30/2019 Do you belong to any clubs o r organizations such as moravian groups, unions, fraternal or athletic groups, or [...] encounter Miscellaneous Notes * Telephone Encounter - Radha Hutchinson - 05/09/2022 2:51 PM EDT Patient called and needs a 90 day script sent to [facility] in [place]/her insurance at first did not cover; however, now they will cover it but it has to be the 90 days * Telephone Encounter - Cat Erickson RN - 05/09/2022 2:51 PM EDT What script does she need? * Telephone Encounter - Radha Hutchinson - 05/09/2022 2:51 PM EDT Symbicort , I'm sorry, Patient needed Symbicort * Telephone Encounter - Cat Ericksno RN - 05/09/2022 2:51 PM EDT Scipt sent in Mar states right on script may give 90 days if insurance allows I think she should recheck with Pharmacy? Let me know if problems Thx * Telephone Encounter - Radha Durhamsonia - 05/09/2022 2:51 PM EDT LM for patient to check with pharmacy documented in this encounter Plan of Treatment Upcoming Encounters Date Type Department Care Team (Late st Contact Info) Description 07/17/2024 2:00 PM EDT Office Visit [facility] [address] [facility] [facility] [place] [phone] Chetna Coats, DRAWER IN DOBBY LOOM-APPLICATION ENGINEER [address] [place] [address], [address] [place] [address] documented as of this encounter Goals Goal [...] documented as of this encounter Care Teams Slurry Man Relationship Specialty Start Date End Date [facility], [facility] [address] [place], [place] PCP - General Family Medicine 04/10/24 documented as of this encounter
--- OUTSIDE RECORDS SUMMARY | 2024-06-26 15:25 | XMS_ITS | Encounter Summary ---
Author Organization [facility] Address [address] [place] [address] Care Team Providers Care Grading Clerk Name Role Phone Marisa Duran DO Primary Care Provider [phone] Devin Guy MD Unavailable Unavailable Reason for Visit * Reason Comments Med Refill Encounter Details Date Type Department Care Team (Late Contact Info) Description 06/13/2024 Refill [facility]ANIEL[facility] ABRAHAM [address] [place] [address] Izzy Charles PA [address] [place] [address] Anxiety Social History Tobacco Use Types Packs/Day Years Used Date Smoking Tobacco: Former Cigarettes Smokeless Tobacco: Never Alcohol Use Standard Drinks/Week Comments Yes 0 (1 standard drink = 0.6 oz pur e alcohol) AUDIT-C Answer Date Recorded Q1: How often do you have a drink containing alc ohol? Monthly or less 11/24/2023 Q2: How many drinks containi ng alcohol do you have on a typical day when you are drinking? 1 or 2 11/24/2023 Q3: How often do you have si x or more drinks on one occasion? Never 11/24/2023 PHQ-2 Answer Date Recorded Patient Health Questionnaire-2 Score 0 05/10/2024 Comments No Sex and Gender Information Value Date Recorded Sex Assigned at Not on file Legal Sex Female 8:14 PM EDT Gender Identity Not on file Sexual Orientation Not on file documented as of this encounter Plan of Treatment Upcoming Encounters Date Type Department Care Team (Late Contact Info) Description 08/16/2024 10:45 AM EDT Office Visit [facility] [address] [place] [address] Gloria Briggs DO [address] [place] [address] 08/29/2024 2:15 PM EDT Office Visit [facility] [address] [place] [address] Brenda Blackwood MD [address] [place] [address] documented as of this encounter Visit Diagnoses Diagnosis Anxiety Anxiety state, unspecified documented in this encounter Care Teams Grading Clerk Relationship Specialty Start Date End Date Marisa Duran DO [address] [place] [address] PCP - General Family Medicine 08/01/22 Devin Guy MD [address] [place] [address] Referring Physician Neurology 04/27/23 documented as of this encounter
--- OUTSIDE RECORDS SUMMARY | 2024-06-26 15:25 | XMS_ITS | Encounter Summary ---
Author Organization [employer] [facility] [employer] Address [id number] [address] [place] [address] Care Team Providers Care Design Engineer Products Name Role Phone Services, [facility] Primary Care Provider Encounter Details Date Type Department Care Team (Late st Contact Info) Description 02/10/2022 Orders Only [facility] [address] [facility] [place] [address] Leslie Cerna LPN Persistent asthma without complication, unspecified asthma severity Social History Tobacco Use Types Packs/Day Years [...] have Coronavirus / COVID-19? No / Unsure 01/20/2022 2:42 PM EST documented as of this encounter Plan of Treatment Upcoming Encounters Date Type Department Care Team (Late st Contact Info) Description 07/17/2024 2:00 PM EDT Office Visit [facility] [address] [facility] [place] [address] Chetna Coats, SOFTWARE VALIDATION TECHNICIAN-FLAME CUTTING MACHINE OPERATOR HELPER [address] [facility], [address] [place] [phone] documented as of this encounter Goals Goal Patient Goal Type Associated Problems Recent Progress Patient-Stated? Author Discharge home General Yes Clarisse Purdy, RN Note: Evaluation of progress towards goal: Plan to discharge home with supportive spouse. documented as of this encounter Visit Diagnoses Diagnosis Persistent asthma without complication, unspecified asthma severity documented in this encounter Additional Health Concerns Infection Onset Date Last Indicated Resolved Time Respiratory Rule-Out 04/10/2024 04/10/2024 025 5:27 PM EST Assessment Noted Time PHQ-9 Depression Total Score: 0 12/30/19 20 1:56 PM EST documented as of this encounter Care Teams Design Engineer Products Relationship Specialty Start Date End Date Services, [facility] [address] [place], [place] PCP - General Family Medicine 04/10/24 documented as of this encounter
--- OUTSIDE RECORDS SUMMARY | 2024-06-26 15:25 | XMS_ITS | Encounter Summary ---
Author Organization [facility] Address [address] [place] [address] Care Team Providers Care Associate Professor Of Physics Name Role Phone Marisa Duran Primary Care Provider [phone] Devin Guy MD Unavailable Unavailable Encounter Details Date Type Department Care Team (Late Contact Info) Description 06/07/2024 Abstract [facility] [address] [facility] 230 [place] [phone] Gloria Briggs DO [address] [facility] [address] [place] [address] Social History Tobacco Use Types Packs/Day Years [...] [address] [place] [address] Gloria Briggs DO [address] [place] [address] 08/29/2024 2:15 PM EDT Office Visit [facility] [address] [place] [address] Brenda Blackwood MD [address] [place] [address] documented as of this encounter Visit Diagnoses Not on filedocumented in this encounter Care Teams Associate Professor Of Physics Relationship Specialty Start Date End Date Marisa Duran DO [address] [place], [place] [phone] PCP - General Family Medicine 08/01/22 Devin Guy MD [address] [place] [address] Referring Physician Neurology 04/27/23 documented as of this encounter
--- OUTSIDE RECORDS SUMMARY | 2024-06-26 15:25 | XMS_ITS | Encounter Summary ---
Author Organization [employer] Address [id number] [address] [place] [address] Care Team Providers Care Assistant Golf Course Superintendent Name Role Phone Services, [facility] Primary Care Provider Encounter Details Date Type Department Care Team (Late st Contact Info) Description 05/10/2022 Orders Only [facility] [address] [phone] Cat Erickson RN Persistent asthma without complication, unspecified asthma severity [...] often do you attend chur ch or zoroastrian services? Never 12/30/2019 Do you belong to any clubs o r organizations such as anabaptism groups, unions, fraternal or athletic groups, or [...] Office Visit [facility] [address] [facility] [place] [address] Chetna Coats, SUPERVISOR FRUIT GRADING-HOG TENDER [address] [place] [address], [address] [place], [place] [phone] documented as of this encounter Goals Goal [...] documented as of this encounter Care Teams Assistant Golf Course Superintendent Relationship Specialty Start Date End Date Services, [facility] [address] [place] PCP - General Family Medicine 04/10/24 documented as of this encounter
--- OUTSIDE RECORDS SUMMARY | 2024-06-26 15:25 | XMS_ITS | Encounter Summary ---
Author Organization [employer] Address [id number] [place] [address] Care Team Providers Care Planograph Operator Name Role Phone Services, [facility] Primary Care Provider Encounter Details Date Type Department Care Team (Late st Contact Info) Description 05/02/2022 Orders Only [facility] [address] [place] [address] Dhara Callaway MA Essential hypertension; Mixed hyperlipidemia Social History Tobacco Use Types [...] often do you attend chur ch or alevism services? Never 12/30/2019 Do you belong to any clubs o r organizations such as scientology groups, unions, fraternal or athletic groups, or [...] Office Visit [facility] [address] [place] [address] Chetna Coats, CRISIS INTERVENTION SPECIALIST-LAUNDRY SUPERVISOR [address] [place] [address], [facility] [address] [phone] documented as of this encounter Goals Goal Patient Goal Type Associated Problems Recent Progress Patient-Stated? Author Discharge home General Yes Clarisse Purdy, RN Note: Evaluation of progress towards goal: Plan to discharge home with supportive spouse. documented as of this encounter Procedures Procedure Name Priority Date/Time Associated Diagnosis Comments MULTIPLE LABS Routine 04/29/2022 MAGNESIUM Routine 04/29/2022 Essential hypertension Mixed hyperlipidemia LIPID PROFILE Routine 04/29/2022 Essential hypertension Mixed hyperlipidemia BASIC METABOLIC PANEL Routine 04/29/2022 Essential hypertension Mixed hyperlipidemia documented in this encounter Results * Multiple labs (04/29/2022) 04/29/2022 us Scanning Provider External [place] [facility] Final Result Performing Organization Address [facility] Co de Phone Number MANUALLY TRANSCRIBED RESULTS * Basic Metabolic Panel (04/29/2022) 04/29/2022 us Carlos HINTON-C LAB BLOOD ORDERABLES Fin al Result Performing Organization Address [facility] Co de Phone Number SUNQUEST * Magnesium (04/29/2022) 04/29/2022 us Carlos HINTON-C LAB BLOOD ORDERABLES Fin al Result Performing Organization Address [facility] de Phone Number SUNQUEST * Lipid profile (04/29/2022) External Cholesterol 158 SUNQUEST External Cholesterol:Hdl 4.2 SUNQUEST External Hdl Cholesterol 38 SUNQUEST External Ldl (Calc) 74.6 SUNQUEST External Triglycerides 227 SUNQUEST External Very Low Lipoprotein 45.4 SUNQUEST 04/29/2022 Carlos HINTON-C LAB BLOOD ORDERABLES Fin al Result Performing Organization Address [facility] de Phone Number SUNQUEST documented in this encounter Visit Diagnoses Diagnosis Essential hypertension Unspecified essential hypertension Mixed hyperlipidemia documented in this encounter Additional Health Concerns Infection Onset Date Last Indicated Resolved Time Respiratory Rule-Out 04/10/2024 04/10/2024 025 5:27 PM EST Assessment Noted Time PHQ-9 Depression Total Score: 0 12/30/19 20 1:56 PM EST documented as of this encounter Care Teams Planograph Operator Relationship Specialty Start Date End Date Services, [facility] [address] [place] PCP - General Family Medicine 04/10/24 documented as of this encounter
--- OUTSIDE RECORDS SUMMARY | 2024-06-26 15:25 | XMS_ITS | Clinical Summary ---
Author Organization [facility] Address [address] [place] [address] Care Team Providers Care Inspector Poising Name Role Phone Marisa Duran DO Primary Care Provider [phone] Devin Guy MD Unavailable Unavailable Allergies No known active allergies Medications valsartan (Diovan) 320 MG tablet Take 320 mg by mouth in the morning. Active tamsulosin (Flomax) 0.4 MG 24 hr capsule Take 0.4 mg by mouth in the morning and 0.4 mg before bedtime. Active rosuvastatin (Crestor) 20 MG tablet Take 20 mg by mouth in the morning. 05/12/19 23 Active polyethylene glycol, PEG, 3350 (MiraLax) 17 GM/SCOOP powder Take 17 g by mouth 1 (one) time. Active oxybutynin (Ditropan) 5 MG tablet Take 5 mg by mouth in the morning and 5 mg before bedtime. 04/14/19 23 Active omeprazole (PriLOSEC) [address] capsule Take 20 mg by mouth in the morning and 20 mg in the evening. Take before meals. Active montelukast (Singulair) 10 MG tablet Take 10 mg by mouth 1 (one) time each day at the same time. Active metoprolol succinate XL (Toprol-XL) 25 MG 24 hr tablet Take 25 mg by mouth in the morning and 25 mg before bedtime. Active levothyroxine (Synthroid, Levoxyl) 25 MCG tablet Take 25 mcg by mouth in the morning. Take before meals. Active ipratropium-al buterol (Duo-Neb) 0.5-2.5 mg/3 mL nebulizer solution Take 3 mL by nebulization in the morning and 3 mL at noon and 3 mL in the evening and 3 mL before bedtime. 07/04/19 23 Active hydroCHLOROthi azide (HYDRODiuril) 25 MG tablet Take 25 mg by mouth in the morning and 25 mg before bedtime. Active Fluticasone-Sa lmeterol 250-50 MCG/ACT aerosol powder Inhale 1 puff in the morning and 1 puff in the evening. 07/04/19 23 Active Cranberry (RA Cranberry) 500 MG capsule Take by mouth Daily. Active allopurinol (Zyloprim) 100 MG tablet Take 200 mg by mouth Daily 11/07/19 24 Active Blood Pressure Monitoring (Blood Pressure Digital Soln) kit 07/14/19 24 Active OXcarbazepine (Trileptal) 300 MG tabletIndicati ons:Neuropathi c pain TAKE 1 TABLET BY MOUTH IN THE MORNING AND 2 TABLETS BEFORE BEDTIME 270 tablet 5 02/18/19 25 Active Accu-Chek Guide Test test stripIndicatio ns:Type 2 diabetes mellitus with peripheral neuropathy (CMS/HCC) USE DIRECTED TO TEST IN THE MORNING 100 strip 3 05/07/19 25 Active cyclobenzaprin e (Flexeril) 10 MG tabletIndicati ons:Muscle spasm TAKE 1 TABLET BY MOUTH EVERY DAY AT BEDTIME NEEDED 90 tablet 05/07/19 25 Active NovoLOG MIX 70/30 FLEXPEN (70-30) 100 UNIT/ML injectionIndic ations:Type 2 diabetes mellitus with peripheral neuropathy (CMS/HCC) 45 units breakfast and dinner 30 mL 3 05/11/19 25 Active Tirzepatide (Mounjaro) 7.5 MG/0.5ML solution auto-injectorI ndications:Typ e 2 diabetes mellitus with peripheral neuropathy (CMS/HCC) INJECT 7.5 MG UNDER THE SKIN 1 (ONE) TIME PER WEEK 2 mL 3 05/15/19 25 Active DULoxetine (Cymbalta) [address] capsuleIndicat ions:Anxiety Do not crush or chew.TAKE 1 CAPSULE BY MOUTH EVERY DAY FOR 90 DAYS 90 capsule 1 05/21/19 25 Active ALPRAZolam (Xanax) 0.25 MG tabletIndicati ons:Anxiety TAKE 1 TABLET (0.25 MG) BY MOUTH NEEDED AT BEDTIME FOR ANXIETY FOR UP TO 14 DAYS FILL 03/20/24 14 tablet 06/13/19 25 Active DULoxetine (Cymbalta) [address] capsuleIndicat ions:Anxiety TAKE 1 CAPSULE BY MOUTH EVERY DAY 90 capsule 1 06/14/19 25 Active ALPRAZolam (Xanax) 0.25 MG tabletIndicati ons:Anxiety TAKE 1 TABLET (0.25 MG) BY MOUTH NEEDED AT BEDTIME FOR ANXIETY FOR UP TO 14 DAYS 14 tablet 03/18/19 25 025 Discontinued Active Problems Problem Noted Date Diagnosed Date Vitamin D deficiency 11/24/2023 Type 2 diabetes mellitus wit h hyperglycemia, with long-term current use of insulin 11/24/2023 Headache 06/21/2023 Migraine 06/21/2023 Cervical radiculopathy at C6 06/21/2023 Lumbar spondylosis 06/21/2023 Median neuropathy 06/21/2023 Seizure disorder 06/21/2023 Back ache 06/21/2023 Cervical spondylosis 06/21/2023 Radiculitis, lumbosacral 06/21/2023 Vertigo 06/21/2023 Idiopathic intracranial hypertension 06/21/2023 LINDA (obstructive sleep apnea) 06/21/2023 Pseudotumor cerebri 06/21/2023 Benign paroxysmal positional vertigo due to bilateral vestibular disorder 06/21/2023 Tinnitus of right ear 06/21/2023 Anxiety 06/21/2023 PVC (premature ventricular contraction) 02/16/19 24 Weak urine stream 08/01/2022 Urinary urgency 08/01/2022 Stress incontinence 08/01/2022 Other urethral stricture, female 08/01/2022 Obstructive sleep apnea syndrome 08/01/2022 Nocturia 08/01/2022 Moderate persistent asthma without complication 08/01/2022 Microscopic hematuria 08/01/2022 History of seizures 08/01/2022 Incomplete bladder emptying 08/01/2022 Flank pain 08/01/2022 Overview (08/01/2022): Intermittent Rt pain Type 2 diabetes mellitus with peripheral neuropa thy 08/01/2022 Assessment & Plan (05/10/2024 12:38 PM EDT): During the appointment today all pertinent labs, imaging, health maintenance, and glucose readings were reviewed. Encouraged to check blood glucose throughout the day with some fasting and some PP readings. They are to bring their glucose meter/cgm in to all appointments. All of the patients questions, treatment options, and current care plan and goals were discussed. A copy of this along with pertinent instructions were given to the patient at the end of the appointment. The patient voices understanding of all of this and is to call in between appointments if they have any problems or questions. Savannah Akhtar is struggling to gain control of their diabetes. I am very concerned for diabetes related complications. , Discussed dietary changes at length. Encouraged to limit simple carbs and focus more on healthy protein/fat with all meals and snacks. They should also avoid any sugary drinks. , Discussed importance of checking blood glucose regularly and bringing them in to their appointment in order for me to better adjust their medications. , Instructed on the importance of taking insulin before eating. If it has been more than 30-45 min since eating they should not give the meal dose but should just give a correction insulin dose. , Instructions given today include: Insulin instructions and Dietary education. She needs to make sure she eats when she takes her insulin. She needs to focus on healthy proteins and there are a lot of proteins she can have that won't increase her risk for kidney stones. Will refer to sander setter for better information on this. Will increase insulin. Assessment & Plan (11/26/2023 7:49 PM EDT): During the appointment today all pertinent labs, imaging, health maintenance, and glucose readings were reviewed. Encouraged to check blood glucose throughout the day with some fasting and some PP readings. They are to bring their glucose meter/cgm in to all appointments. All of the patients questions, treatment options, and current care plan and goals were discussed. A copy of this along with pertinent instructions were given to the patient at the end of the appointment. The patient voices understanding of all of this and is to call in between appointments if they have any problems or questions. Savannah Akhtar is struggling to gain control of their diabetes. I am very concerned for diabetes related complications. , Discussed dietary changes at length. Encouraged to limit simple carbs and focus more on healthy protein/fat with all meals and snacks. They should also avoid any sugary drinks. , Discussed importance of checking blood glucose regularly and bringing them in to their appointment in order for me to better adjust their medications. , Instructed on the importance of taking insulin before eating. If it has been more than 30-45 min since eating they should not give the meal dose but should just give a correction insulin dose. , Instructed on the proper insulin injection technique either in the abdomen, upper outer thigh, or back of the arm. They are to rotate injection sites to prevent scar tissue. , Instructions given today include: Insulin instructions and Dietary education. Will stop lantus and change to premixed insulin. Stop ozempic and change to mounjaro to see if she can get more weight loss. She has to work on improving her diet and keeping a food journal. 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 03/03/2006 Hypothyroidism 03/03/2006 GERD (gastroesophageal reflux disease) 3 Resolved Problems Problem Noted Date Diagnosed Date Resolved Date Type 2 diabetes mellitus wit hout complications 03/03/2006 08/01/2022 Encounters Date Type Department Care Team Description 06/13/2024 Refill [facility] [address] [place] [address] Izzy Charles PA Anxiety 06/12/2024 Refill [facility] [address] [place] [phone] Izzy Charles PA Anxiety 06/07/2024 Abstract [facility] [address] [place] [id number] Gloria Briggs, 05/20/2024 Refill [facility] [address] [place] [phone] Aniya Daniel MA Anxiety 05/13/2024 Refill [facility] [address] [place] [phone] Gloria Briggs, DO Type 2 diabetes mellitus with peripheral neuropathy (CMS/HCC) 05/10/2024 10:45 AM EDT Office Visit [facility] [address] [place] [address] Gloria Briggs, DO Class 3 severe obesity due to excess calories with serious comorbidity and body mass index (BMI) of 60.0 to 69.9 in adult (Primary Dx); Type 2 diabetes mellitus with peripheral neuropathy (CMS/HCC); Type 2 diabetes mellitus with hyperglycemia, with long-term current use of insulin (CMS/HCC) 05/10/2024 Travel 05/04/2024 Refill [place] [address] [phone] Izzy Charles PA Muscle spasm 05/04/2024 Refill [facility] [address] [place] [address] Gloria Briggs, DO Type 2 diabetes mellitus with peripheral neuropathy (CMS/HCC) 04/25/2024 1:45 PM EDT Office Visit [place] [address] [phone] Devin Guy MD Lumbar radiculopathy; Lumbar spondylosis; Vertigo; Chronic migraine without aura without status migrainosus, not intractable (CMS/HCC); Obstructive sleep apnea syndrome; Cervical radiculopathy at C6; Alteration of awareness; Anxiety 04/25/2024 Bamboo flowsheet [place] [address] [phone] Devin Guy MD 04/24/2024 Telephone [facility] [address] [place] [address] Brenda Blackwood MD 04/18/2024 1:30 PM EDT Office Visit [facility] [address] [place] [address] Brenda Blackwood MD ASCUS of cervix with negative high risk HPV; Encounter for screening for cervical cancer 04/18/2024 Travel 04/06/2024 Refill [facility] [address] [place] [address] Devin Guy MD Muscle spasm from Last 3 Months Immunizations Immunization Administration Dates Next Due Hep B, adult 05/24/2022 Influenza Whole 11/12/2008 Tdap 05/24/2022 Family History Medical History Relation Name Comments Diabetes Father Hypertension Father Stroke Father Cancer Maternal Grandmother Diabetes Mother Relation Name Status Comments Father Maternal Grandmother Mother Social History Tobacco Use Types Packs/Day Years Used Date Smoking Tobacco: Former Cigarettes Smokeless Tobacco: Never Tobacco Cessation:Counseling Given: Not Answered Alcohol Use Standard Drinks/Week Comments Yes 0 [...] on file Sexual Orientation Not on file Last Filed Vital Signs Vital Sign Reading Time Taken Comments Blood Pressure 122/80 05/10/2024 10:57 AM EDT Pulse 74 05/10/2024 10:57 AM EDT Temperature 36.8 C (98.3 F) 05/10/2024 10:57 AM EDT Respiratory Rate - - Oxygen Saturation 95% 05/10/2024 10:57 AM EDT Inhaled Oxygen Concentration - - Weight 165 kg (363 lb) 05/10/2024 10:57 AM EDT Height 165.1 cm (5' 5 ) 05/10/2024 10:57 AM EDT Body Mass Index 60.41 05/10/2024 10:57 AM EDT Plan of Treatment Upcoming Encounters Date Type Department Care Team (Late st Contact Info) Description 08/16/2024 10:45 AM EDT Office Visit [facility] [address] [place] [address] Gloria Briggs DO [address] [place] [address] 08/29/2024 2:15 PM EDT Office Visit [facility] [address] [place] [address] Brenda Blackwood MD [address] [place] [address] Health Maintenance Due Date Last Done Comments CT Colonography 1972 Colonoscopy 1972 Colorectal Cancer Screening 1972 FIT-DNA 1972 FIT 1972 FOBT 1972 Sigmoidoscopy 1972 Mammogram 09/13/2024 09/14/2023, 02/07, 11/02/2018, Additional history exists Influenza Vaccine (Season Ended) 2024 11/13/19 09 Pap Smear 08/23/2026 08/24/2023 Cervical Cancer Screening 04/18/2029 HPV/Cotest 04/18/2029 04/18/2024, 08/24/2023 Procedures Procedure Name Priority Date/Time Associated Diagnosis Comments POCT GLYCOSYLATED HEMOGLOBIN (HGB A1C) Routine 05/10/2024 11:16 AM EDT Type 2 diabetes mellitus with peripheral neuropathy (CMS/HCC) IGP, APT HPV,RFX 16/18,45 Routine 04/18/2024 12:00 AM EDT ASCUS of cervix with negative high risk HPV Encounter for screening for cervical cancer BI MAMMOGRAM SCREENING TOMOSYNTHESIS BILATERAL Routine 09/14/2023 1:59 PM EDT Encounter for screening mammogram for malignant neoplasm of breast THINPREP TIS PAP AND HPV MRNA E6/E7 Routine 08/24/2023 12:00 AM EDT Screening for malignant neoplasm of cervix Encounter for gynecological examination without abnormal finding from Last 3 Months or Most Recently Relevant to Health Maintenance Results * (ABNORMAL) POCT glycosylated hemoglobin (Hb A1C) docked device (05/10/2024 11:16 AM EDT) Hemoglobin A1C 9.1 Blood Venous blood specimen / Unknown 05/10/2024 11:16 AM EDT Gloria Briggs DO POINT OF CARE TEST ENTER/E DIT ORDERABLES Final Result * IGP, APT HPV,RFX 16/18,45 (04/18/2024 12:00 AM EDT) Diagnosis: Comment [facility] Comment:NEGATIVE FOR INTRAEP ITHELIAL LESION OR MALIGNANCY. Specimen Adequacy: Comment [facility] Comment: Satisfactory for evaluation. Endocervical and/or squamous metaplastic cells (endocervical component) are present. Clinician Provided ICD10: Comment [facility] Comment: R87.610 Z12.4 Performed By: Comment [facility] Comment:Ronda Dyer, Cytotec hnologist (ASCP) Cyto Comments . [facility] Note: Comment [facility] Comment: The Pap smear is a screening test designed to aid in the detection of premalignant and malignant conditions of the uterine cervix. It is not a diagnostic procedure and should not be used as the sole means of detecting cervical cancer. Both false-positive and false-negative reports do occur. Test Methodology: Comment [facility] Comment: This liquid based ThinPrep(R) pap test was screened with the use of an image guided system. HPV Aptima Negative Negative [facility] Comment: This nucleic acid amplification test detects fourteen high-risk HPV types (16,18,31,33,35,39,45,51,52,56,58,59,66,68) without differentiation. Vaginal Fluid 04/18/2024 04/19/2024 Narrative [facility] - 04/22/2024 7:06 PM EDT Performed at: [facility] [address] [place], [place] [id number] Magnetic Tape Composer Operator: Jass Spicer MD, Phone: [phone] Performed at: 02 - [facility] [address], [place] [id number] Magnetic Tape Composer Operator: Rebeca Poe MD, Phone: [phone] Performed at: 03 - [facility] [address], [place] [id number] Magnetic Tape Composer Operator: Rebeca Poe MD, Phone: [phone] Specimen Comment: No. of containers..01 ThinPrep Vial us Brenda Blackwood MD LAB BLOOD ORDERABLES Final Res ult [facility] * Bilateral screening mammogram with tomosynthesis (09/14/2023 1:59 PM EDT) Anatomical Region Laterality Modality Breast Bilateral Mammography 09/21/2023 11:5 6 AM EDT Impressions 09/21/2023 12:51 PM EDT BIRADS 1 - Negative Follow-up: Routine Screening Mamm Board Certified Radiologists. Accredited by the ACR and FDA. MAMMOGRAPHY IS VERY IMPORTANT TO YOUR HEALTH. THE [employer] [employer] GUIDELINES RECOMMEND THAT WOMEN 40 YEARS OF AGE AND OLDER SHOULD HAVE A MAMMOGRAM EVERY YEAR. A REMINDER LETTER WILL BE SENT AT THE APPROPRIATE TIME. THIS FACILITY UTILIZES A REMINDER SYSTEM TO ENSURE ALL PATIENTS RECEIVE REMINDER NOTIFICATIONS AT THE APPROPRIATE TIME BASED ON THE RECOMMENDATIONS OF THIS EXAM. THIS INCLUDES REMINDERS FOR ROUTINE SCREENING MAMMOGRAMS, DIAGNOSTIC MAMMOGRAMS IN WHICH THE PATIENT IS ASKED TO RETURN FOR ADDITIONAL VIEWS, OR OTHER BREAST IMAGING INTERVENTIONS WHEN APPROPRIATE. THE PATIENT WILL BE PLACED IN THE APPROPRIATE REMINDER SYSTEM INCLUDING A REMINDER AT THE APPROPRIATE TIME FOR ANY PENDING ADDITIONAL VIEWS. TRANSCRIBED BY: ELECTRONICALLY SIGNED BY: Roly Sharpe MD Narrative 09/21/2023 12:51 PM EDT EXAMINATION: BI MAMMOGRAM SCREENING TOMOSYNTHESIS BILATERAL CLINICAL HISTORY:screening COMPARISON: November 02, 2018. RESULT: Density: The breasts are almost entirely fatty Overall appearance is stable. There is no suspicious mass, asymmetry, architectural distortion, or calcification Procedure Note Roly Sharpe MD - 09/21/2023 EXAMINATION: BI MAMMOGRAM SCREENING TOMOSYNTHESIS BILATERAL CLINICAL HISTORY:screening COMPARISON: November 02, 2018. RESULT: Density: The breasts are almost entirely fatty Overall appearance is stable. There is no suspicious mass, asymmetry, architectural distortion, orcalcification IMPRESSION: BIRADS 1 - Negative Follow-up: Routine Screening Mamm Board Certified Radiologists. Accredited by the ACR and FDA. MAMMOGRAPHY IS VERY IMPORTANT TO YOUR HEALTH. THE [employer] CANC[employer] SOCIETYGUIDELINES RECOMMEND THAT WOMEN 40 YEARS OF AGE AND OLDER SHOULD HAVE AMAMMOGRAM EVERY YEAR. A REMINDER LETTER WILL BE SENT AT THE APPROPRIATE TIME. THIS FACILITYUTILIZES A REMINDER SYSTEM TO ENSURE ALL PATIENTS RECEIVE REMINDERNOTIFICATIONS AT THE APPROPRIATE TIME BASED ON THE RECOMMENDATIONS OF THISEXAM. THIS INCLUDES REMINDERS FOR ROUTINE SCREENING MAMMOGRAMS, DIAGNOSTICMAMMOGRAMS IN WHICH THE PATIENT IS ASKED TO RETURN FOR ADDITIONAL VIEWS,OR OTHER BREAST IMAGING INTERVENTIONS WHEN APPROPRIATE. THE PATIENT WILLBE PLACED IN THE APPROPRIATE REMINDER SYSTEM INCLUDING A REMINDER AT THEAPPROPRIATE TIME FOR ANY PENDING ADDITIONAL VIEWS. TRANSCRIBED BY: ELECTRONICALLY SIGNED BY: Roly Sharpe MD us Brenda Blackwood MD IMG BI PROCEDURES Final Result * (ABNORMAL) THINPREP TIS PAP AND HPV MRNA E6/E7 (08/24/2023 12:00 AM EDT) CLINICAL INFORMATION [facility] Comment:None given LMP [facility] Comment:NONE GIVEN PREV. PAP [facility] Comment:NONE GIVEN PREV. BX [facility] Comment:NONE GIVEN SOURCE [facility] Comment:None given STATEMENT OF ADEQUACY [facility] Comment: Satisfactory for evaluation. Endocervical/transformation zone component present. GENERAL CATEGORIZATION (A) [facility] Comment:Cytology Results: Ep ithelial Cell Abnormality INTERPRETATION/RESU LT (A) [facility] Comment: Atypical Squamous Cells of Undetermined Significance (ASC-US) COMMENT [facility] Comment: This Pap test has been evaluated with computer assisted technology. DESKTOP ARCHITECT [facility] Comment: [facility], CT(ASCP) CT Screening Location: [place] [address] PATHOLOGIST [facility] Comment: Irving Esposito MD, PhD, M.B.A. Board Certified in Anatomic and Clinical Pathology Board Certified in Cytopathology (electronic signature) For questions regarding this report call Anatomic Pathology at [phone] (ALWAYS MESSAGE) [facility] Comment: EXPLANATORY NOTE: The Pap is a screening test for cervical cancer. It is not a diagnostic test and is subject to false negative and false positive results. It is most reliable when a satisfactory sample, regularly obtained, is submitted with relevant clinical findings and history, and when the Pap result is evaluated along with historic and current clinical information. HPV MRNA E6/E7 Not Detected Not Detected [facility] Comment: Methodology: Bioprocess Engineer-Mediated Amplification This assay detects E6/E7 viral messenger RNA (mRNA) from 14 high-risk HPV types (16,18,31,33,35,39,45,51,52,56,58,59,66,68). Cervical sources are required for HPV testing. If a vaginal source from a patient who has had a total hysterectomy with removal of cervix was submitted, please contact the testing laboratory for alternative testing options. For additional information, please refer to http://education.Synthace/faq/WBY803s3 (This link if provided for information/ educational purposes only.) Swab 08/24/2023 08/25/2023 12: 37 AM EDT Narrative Resulting Agency Comment Performing Organization Information Site ID: [id number] Name: [facility] Address: [address] [place] [address], [address] [place] [id number] Director: Phillip Poole MD Site ID: [id number] [facility] Address: [address] [place] [id number] Director: Irving Esposito Brenda Blackwood MD LAB CYTOLOGY ORDERABLES Final Result [facility] from Last 3 Months or Most Recently Relevant to Health Maintenance Insurance [employer] Care Teams Inspector Poising Relationship Specialty Start Date End Date Marisa Duran DO [address] [place], [place] [id number] PCP - General Family Medicine 08/01/22 Devin Guy MD [address] [place] [address] Referring Physician Neurology 04/27/23
--- OUTSIDE RECORDS SUMMARY | 2024-06-26 15:25 | XMS_ITS | Encounter Summary ---
Author Organization [facility] Address [address] [place] [address] Care Team Providers Care Toggler Name Role Phone Gloria Briggs DO Primary Care Provider [phone] Marisa [place]an DO Primary Care Provider [phone] Devin Guy MD Unavailable Unavailable Encounter Details Date Type Department Care Team ([facility] Contact Info) Description 07/20/2022 Abstract [facility] [address] [facility] [address] [place] [address] Gloria Briggs, DO [address] [facility] [address] [place] [address] Social History Tobacco Use Types Packs/Day Years Used Date Smoking Tobacco: Former Cigarettes Smokeless Tobacco: Never Tobacco Cessation:Counseling Given: Not Answered Alcohol Use Standard Drinks/Week Comments Not Currently [...] Upcoming Encounters Date Type Department Care Team ([facility] Contact Info) Description 08/16/2024 10:45 AM EDT Office Visit [facility] [address] [place] [phone] Gloria Briggs DO [address] [place] [address] 08/29/2024 2:15 PM EDT Office Visit [facility] OB [address] [place] [address] Brenda Blackwood MD [address] [place] [address] documented as of this encounter Visit Diagnoses Not on filedocumented in this encounter Care Teams Toggler Relationship Specialty Start Date End Date Gloria Briggs DO PCP - General Family Medicine 07/15/22 07/31/22 Marisa Duran DO [address] [place] [address] PCP - General Family Medicine 08/01/22 Devin Guy MD [address] [place] [address] Referring Physician Neurology 04/27/23 documented as of this encounter
--- OUTSIDE RECORDS SUMMARY | 2024-06-26 15:25 | XMS_ITS | Encounter Summary ---
Author Organization [facility] Address [address] [place] [address] Care Team Providers Care Inserting Machine Operator Name Role Phone Marisa Duran Primary Care Provider [phone] Devin Guy MD Unavailable Unavailable Encounter Details Date Type Department Care Team ([facility] Contact Info) Description 03/08/2023 Orders Only [facility] [address] [facility] [address] [place] [phone] A, Unknown Practice [address] [place], [place] [phone] Social History Tobacco Use Types Packs/Day Years [...] 08/16/2024 10:45 AM EDT Office Visit [facility] [address] [facility] [address] [facility] [address] [place] [phone] Gloria Briggs DO [address] [place] [address] 08/29/2024 2:15 PM EDT Office Visit [facility] [address] [place] [address] Brenda Blackwood MD [address] [place] [address] documented as of this encounter Procedures Procedure Name Priority Date/Time Associated Diagnosis Comments CARDIAC EVENT MONITOR Routine 02/17/2023 12:14 PM EST PFT COMPLETE Routine 02/17/2023 9:36 AM EST documented in this encounter Results * Cardiac event monitor (02/17/2023 12:14 PM EST) Anatomical Region Laterality Modality Heart Other us Unknown Practice A CV CARDIAC SERVICES PROCEDURE S Final Result * Pulmonary function testing (02/17/2023 9:36 AM EST) Anatomical Region Laterality Modality Radiographic Latrice ging us Unknown Practice A IMG XR PROCEDURES Final Resul t documented in this encounter Visit Diagnoses Not on filedocumented in this encounter Care Teams Inserting Machine Operator Relationship Specialty Start Date End Date Marisa Duran DO [address] [place] [address] PCP - General Family Medicine 08/01/22 Devin Guy MD [address] [place] [address] Referring Physician Neurology 04/27/23 documented as of this encounter
--- OUTSIDE RECORDS SUMMARY | 2024-06-26 15:25 | XMS_ITS | Encounter Summary ---
Author Organization [employer] Address [id number] [place] [address] Care Team Providers Care Senior Stock Plan Administrator Name Role Phone Services, [facility] Primary Care Provider Encounter Details Date Type Department Care Team (Late st Contact Info) Description 08/18/2023 Orders Only [facility] [address] [phone] Izzy Jones Persistent asthma without complication, unspecified asthma severity (Primary Dx) Social History Tobacco Use Types Packs/Day Years [...] often do you attend chur ch or yarsani services? Never 12/30/2019 Do you belong to any clubs o r organizations such as oriental orthodox groups, unions, fraternal or athletic groups, or [...] got money to buy more. Never True 02/16/2023 Within the past 12 months th e food we bought just didn't last and we didn't have money to get more. Never True 02/16/2023 Purpose - Life Answer Date Recorded Purpose [...] [facility] [address] [address] Chetna Coats, HAND BRUSH FILLER-RELIGIOUS EDUCATION TEACHER [address] [place] [address], [address] [place] [address] documented as of this encounter Goals [...] documented as of this encounter Care Teams Senior Stock Plan Administrator Relationship Specialty Start Date End Date [facility], [facility] [address] [place], [place] PCP - General Family Medicine 04/10/24 documented as of this encounter
--- OUTSIDE RECORDS SUMMARY | 2024-06-26 15:25 | XMS_ITS | Encounter Summary ---
Author Organization [facility] Address [address] [place] [address] Care Team Providers Care Phlebotomist Associate Name Role Phone Marisa Duran DO Primary Care Provider [phone] Devin Guy MD Unavailable Unavailable Reason for Visit * Reason Comments Med Refill Encounter Details Date Type Department Care Team (Late Contact Info) Description 06/12/2024 Refill DANIELLE ABRAHAM [address] [place] [address] Izzy Charles PA [address] [place] [address] Anxiety Social History Tobacco Use Types Packs/Day [...] [address] [place] [phone] Gloria Briggs DO [address] [place] [address] 08/29/2024 2:15 PM EDT Office Visit [facility] [address] [place] [address] Brenda Blackwood MD [address] [place] [address] documented as of this encounter Visit Diagnoses Diagnosis Anxiety Anxiety state, unspecified documented in this encounter Care Teams Phlebotomist Associate Relationship Specialty Start Date End Date Marisa Duran DO [address] [place] [address] PCP - General Family Medicine 08/01/22 Devin Guy MD [address] [place] [address] Referring Physician Neurology 04/27/23 documented as of this encounter
--- OUTSIDE RECORDS SUMMARY | 2024-06-26 15:25 | XMS_ITS | Encounter Summary ---
Author Organization [facility] Address [address] [place] [address] Care Team Providers Care Clinical Physician Assistant Name Role Phone Pcp, No VAULT KEEPER Primary Care Provider Unavailabl e Pcp, No VAULT KEEPER Primary Care Provider Unavailabl e Source Comments In the event this information is protected by the Federal Confidentiality of Alcohol and Drug AbusePatient Records regulations: The Federal rules restrict any use of the information to criminally investigate or prosecute any alcohol or drug abuse patient.[facility] Encounter Details Date Type Department Care Team (Late st Contact Info) Description 01/05/2006 Abstract General Surgery [address] [place], [place] [phone] Austyn Cohen Social History Tobacco Use Types Packs/Day Years Used Date Smoking Tobacco: Never Assessed Comments No Sex and Gender Information Value Date Recorded Sex Assigned at Not on file Legal Sex Female 8:04 AM EST Gender Identity Not on file Sexual Orientation Not on file documented as of this encounter Progress Notes * 01/05/2006 11:19 AM ESTThis 35 year old female submitted a completed questionnaire to [facility] for consideration of weight management surgery. Her history below is as outlined by the patient in her questionnaire response. WEIGHT HISTORY Pt states that her current height is 66 inches and her current weight is 381 #. Wt over time: Age 12 pt was 150 lbs Age 20 pt was 156 lbs. Age 27 pt was 190 lbs. Age 32 pt was 305 lbs. Heaviest weight, not counting pregnancies: 381 Diets Attempted: Atkins in 1999 over 3 months with weight loss of 0 #. Cabbage Soup in 2004 over 2 months with weight loss of 0 #. Grapefruit in 2000 over 1 months with weight loss of 0 #. Herbal Life Diet in 1999 over 4 months with weight loss of 10 #. Low Calorie in 2002 over 3 months with weight loss of 30 #. Metabolife in 1999 over 3 months with weight loss of 0 #. SlimFast in 2001 over 6 months with wieght loss of 0 #. TOPS in 1996 over 12 months with weight loss of 30 #. Weight Watchers in 2005 over months 4 with weight loss of 0 #. Diet Medications taken: Ionamin started in 2000 for 3 with 0 lb wt loss. Meridia started in 2000 for 3 with 0 lb wt loss. Xenical started in 2000 for 1 with 0 lb wt loss. Of the medications taken, which were physician supervised? Ionamin, Meridia and Xenical Behavioral Diet Measures: structured cabling technician 2003 for 6 mos 20lb loss MEDICATIONS Allergies: Review of patient's allergies indicates: No Known Allergies. Current Medications: There are no current hospital/outpatient medications on file PRIOR SURGERY: PAST SURGICAL HISTORY: DELIVERY ONLY - 1992, 1999 (, low cervical) LIGATE FALLOPIAN TUBE - 1999 (Tubal ligation) REMOVAL OF TONSILS,<12 Y/O (Tonsillectomy) REMOVAL ADENOIDS,PRIMARY,<12 Y/O (Adenoidectomy) Prior difficulty with anesthesia: No. 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 None. Therapy or medications for any emotional disorders? Depression in [address] Cantor. Current therapy: Yes. Hospitalized: No Anxiety in [address] Cantor. Current therapy: Yes. Hospitalized: No SOCIAL HISTORY Current workstatus: Retired from a Not answered on questionaire. Caffeine History: Coffee: 1 - 6 oz. servings. Tobacco History: Patient currently uses Cigarettes Pt started using tobacco at age 18; with 3 yrs of regular use. Pt. use is .25 ppd., attempted to quit 20 times, with the longest period of cessationbeing 6 years. Trigger which led back to smoking was stress Alcohol History: No, patient denies use. History of alcohol dependency: No. Drug History: No, patient denies history of drug use. 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 07/12. Performed by Dr. Byrne, whose phone # is [phone]. Did you have a PAP test at the time of this exam? Yes. Have you ever had an abnormal PAP test? No PCOS Screening: Menstrual Irregularity: Not on BCPs, 8 or fewer periods per year. and No periods for extended period of time (4 or more months)., Skin Problems: Skin tags and Weight & Insulin-based Problems: Excess weight centered around middle, Sudden, unexplained weight gain, Shaking, lack ofconcentration, uncontrollable hunger, or mood swings, 2 or more hrs. after meal, Diabetes and Family hx of diabetes, heart disease or HTN EPWORTH SLEEPINESS SCALE SCORE: 11 Observed Sleep Apnea: Yes Family hx sleep apnea: Yes, mother BINGE EATING SCORE (Eating Habits Checklist): 16 EXERCISE HABITS QUESTIONNAIRE Past week different in terms of extended injury, illness or vacation? No In past week has patient been more active than usual. In past week climbed UP avg 0 flights of stairs In past week walked an avg of 0 blocks per day Sport or recreation in past week: No sport. Avg. hrs / week watching TV / Cable / VCR: 2 - 5 Excluding TV time, avg. hrs / week spent sittin - 5 GRWQ Pt's Goal Wt: 160 lbs Dream Weight: 150 lbs Happy Weight: 160 lbs. Acceptable Weight: 200 lbs. Disappointing Weight: 201 lbs Single most important thing that pt. expects to change as result of wt loss: health Patient was referred to this program by [employer] Hilda Blanco Rn documented in this encounter Plan of Treatment Not on file documented as of this encounter Visit Diagnoses Not on filedocumented in this encounter Care Teams Clinical Physician Assistant Relationship Specialty Start Date End Date PcpCecily, VAULT KEEPER PCP - General 06/16/06 10/07/07 Pcp No, VAULT KEEPER PCP - General 10/28/05 06/05/06 documented as of this encounter
--- OUTSIDE RECORDS SUMMARY | 2024-06-26 15:25 | XMS_ITS | Clinical Summary ---
Author Organization [facility] Address [facility] [place] [address] Care Team Providers Care Underwriting Assistant Name Role Phone Unavailable Primary Care Provider Unavailabl e Allergies No known active allergies Medications * This document contains information received from the source organization and may not represent a complete record from that organization. GLUCOPHAGE 500 MG TAB Take one(1) tablet twice daily. 0 7 Active SINGULAIR 10 MG TAB Take one(1) tablet daily at bedtime. 0 7 Active NEXIUM 40 MG CAP Take one(1) capsule daily. 0 7 Active SYNTHROID 25 MCG TAB Take one(1) tablet daily. 0 7 Active CLARITIN 10 MG TAB Take one(1) tablet daily as needed for allergy symptoms. 0 7 Active ZONEGRAN 100 MG CAP Take one(1) tablet daily. 0 7 Active ASTELIN 137 MCG NASAL SPRAY AEROSOL Take 2 puffs per nostril twice daily. 0 7 Active CYMBALTA 60 MG CAP Take one(1) capsule daily. 0 7 Active TOPAMAX 25 MG TAB Take one(1) tablet daily. 0 7 Active XOPENEX 0.31 MG/3 ML SOLN FOR INHALATION TAKES 2 PUFFS PRN FOR SHORTNESS OF BREATH 0 7 Active NASONEX 50 MCG/ACTUATION SPRAY [place] twice in each nostril once daily. 0 7 Active ADVAIR DISKUS 250 MCG-50 MCG/DOSE FOR INHALATION Take one(1) inhalation twice daily; rinse and gargle mouth with water after each use. 0 7 Active BYETTA 5 MCG/0.02 ML PER DOSE SUB-Q PEN INJECTOR TAKES 1 INJECTION TWICE DAILY 0 7 Active sulfamethoxazole- trimethoprim (BACTRIM) 80-400 mg ORAL TabIndications:Un specified local infection of skin and subcutaneous tissue Take one(1) tablet two(2) times daily. 0 7 Active Active Problems Problem Noted Date Diagnosed Date Morbid obesity 03/03/2006 Type II or unspecified type diabetes mellitus without mention of complication, not stated as uncontrolled 03/03/2006 Unspecified sleep apnea 03/03/2006 Chronic obstructive asthma, unspecified 03/03/19 07 Esophageal reflux 03/03/2006 Localization-related (focal) (partial) epilepsy and epileptic syndromes with simple partial seizures, without mention of intractable epilepsy 03/03/2006 Depressive disorder, not elsewhere classified Unspecified hypothyroidism 03/03/2006 Family History Medical History Relation Comments Aneurysm Father obesity [Other] Mother Aneurysm Paternal Grandmother Relation Status Comments Brother 1 Alive Brother 2 Alive Father (Age 58) Maternal Grandfather Alive Maternal Grandmother Alive Mother (Age 55) Paternal Grandfather Alive Paternal Grandmother (Age 72) Social History Tobacco Use Types Packs/Day Years Used Date Smoking Tobacco: Never Assessed Comments No Sex and Gender Information Value Date Recorded Sex Assigned at Not on file Legal Sex Female 8:04 AM EST Gender Identity Not on file Sexual Orientation Not on file Last Filed Vital Signs Vital Sign Reading Time Taken Comments Blood Pressure 146/79 08/11/2006 2:21 PM EDT Pulse 85 08/11/2006 2:21 PM EDT Temperature - - Respiratory Rate - - Oxygen Saturation - - Inhaled Oxygen Concentration - - Weight 171 kg (377 lb) 12/04/2006 11:54 AM EDT Height 160 cm (5' 3 ) 12/04/2006 11:54 AM EDT Body Mass Index 66.78 12/04/2006 11:54 AM EDT Plan of Treatment Health Maintenance Due Date Last Done Comments Anxiety Screening 02/13/1990 Depression Screening 02/13/1990 HIV Screening 02/13/1990 Hepatitis C Screening 02/13/1990 DTaP,Tdap,Td Vaccine (1 - Tdap) 02/13/1991 Hepatitis B Vaccine (1 of 3 - 19+ 3-dose series) 02/13 Cervical Cancer Screening 02/13/[address] Colonography 02/13/2017 Cologuard (FIT-DNA) 02/13/2017 Colonoscopy 02/13/2017 Colorectal Cancer Screening 02/13/2017 Diabetes Screening 02/13/2017 03/03/2006 Fecal Occult Blood 02/13/2017 Lipid Screening 02/13/2017 03/03/2006 Sigmoidoscopy 02/13/2017 Pneumococcal Vaccine: 50+ (1 of 1 - PCV) 02/13/2022 Shingrix Vaccine (1 of 2) 02/13/2022 Covid-19 Vaccine (1 - season) 2023 Influenza Vaccine (Season Ended) 2024 Procedures Procedure Name Priority Date/Time Associated Diagnosis Comments COMPREHENSIVE METABOLIC PANEL Routine 03/03/2006 11:58 AM EST Morbid Obesity LIPID PANEL, FASTING Routine 03/03/2006 11:58 AM EST Morbid Obesity from Last 3 Months or Most Recently Relevant to Health Maintenance Results * (ABNORMAL) LIPID PANEL BASIC (03/03/2006 11:58 AM EST) Triglyceride 255(H) 30 - 149 mg/dL [facility] Cholesterol, Total 210(H) 100 - 199 mg/dL [facility] HDL Cholesterol 36(L) >55 mg/dL [facility] VLDL Cholesterol 51(H) 6 - 40 mg/dL [facility] LDL Cholesterol, Calculated 123 60 - 129 mg/dL [facility] Fasting Time 0 hrs [facility] TC:HDL Ratio 5.83(H) 1.00 - 5.00 [facility] LDL:HDL Ratio 3.42 0.50 - 3.55 [facility] Blood specimen (specimen) BLOOD SPECIMEN / Unknown 03/03/2006 11:58 AM EST Austyn Cohen LABORAT[facility] Final Result [facility] [address] [place] [address] * (ABNORMAL) COMP METABOLIC PANEL (03/03/2006 11:58 AM EST) Protein, Total 6.9 6.0 - 8.4 g/dL [facility] Albumin 3.9 3.5 - 5.0 g/dL [facility] Calcium 9.1 8.5 - 10.5 mg/dL [facility] Bilirubin, Total 0.4 0.0 - 1.5 mg/dL [facility] Alkaline Phosphatase 88 40 - 150 U/L [facility] AST 42(H) 7 - 40 U/L [facility] Glucose 113(H) 65 - 100 mg/dL [facility] BUN 13 8 - 25 mg/dL [facility] Creatinine 0.5(L) 0.7 - 1.4 mg/dL [facility] Sodium 139 132 - 148 mmol/L [facility] Potassium 3.6 3.5 - 5.0 mmol/L [facility] Chloride 103 98 - 110 mmol/L [facility] CO2 23 23 - 32 mmol/L [facility] Anion Gap 13 0 - 15 mmol/L [facility] ALT 45 0 - 45 U/L [facility] Blood specimen (specimen) BLOOD SPECIMEN / Unknown 03/03/2006 11:58 AM EST Austyn Cohen [facility] Final Result Performing Organization Address City/State/[facility] Co de Phone Number [facility] [address] [facility] [place] [phone] from Last 3 Months or Most Recently Relevant to Health Maintenance Insurance [employer] PPO
--- OUTSIDE RECORDS SUMMARY | 2024-06-26 15:25 | XMS_ITS | Clinical Summary ---
Author Organization [facility] Address [address] [place] [address] Care Team Providers Care Career Guidance Counselor Name Role Phone Unavailable Primary Care Provider Unavailabl e Social History Tobacco Use Types Packs/Day Years Used Date Smoking Tobacco: Never Assessed Comments Unknown Sex and Gender Information Value Date Recorded Sex Assigned at Not on file Legal Sex Female 9:42 PM EST Gender Identity Not on file Sexual Orientation Not on file Plan of Treatment Not on file
--- OUTSIDE RECORDS SUMMARY | 2024-06-26 15:25 | XMS_ITS | Encounter Summary ---
Author Organization [employer] Address [id number] [place] [address] Care Team Providers Care House Admin Name Role Phone Services, [facility] Primary Care Provider Encounter Details Date Type Department Care Team (Late st Contact Info) Description 03/20/2023 Telephone [facility] [address] [facility] [place] [place] [address] Virgilio Celestin CMA Social History Tobacco Use Types Packs/Day Years [...] often do you attend chur ch or holiness services? Never 12/30/2019 Do you belong to any clubs o r organizations such as baptist groups, unions, fraternal or athletic groups, or [...] Office Visit [facility] [address] [facility] [place] [place] [address] Chetna Coats, DUCTFIXING PLUMBER-JUVENILE PROBATION OFFICER [address] [place] [address], [address] [place] [address] documented as of this encounter [...] documented as of this encounter Care Teams House Admin Relationship Specialty Start Date End Date Services, [facility] [address] [place], [place] PCP - General Family Medicine 04/10/24 documented as of this encounter
--- OUTSIDE RECORDS SUMMARY | 2024-06-26 15:25 | XMS_ITS | Clinical Summary ---
Author Organization [employer] [facility] Address [id number] [address] [place] [address] Care Team Providers Care Sales Representative [employer] Name Role Phone Services, [facility] Primary Care Provider Allergies No known active allergies Medications tamsulosin (FLOMAX) 0.4 mg capsuleIndicat ions:urolithia sis Take 1 capsule (0.4 mg total) by mouth in the morning and 1 capsule (0.4 mg total) before bedtime. Indications: stones in the urinary tract. Active omeprazole 20 mg tablet,disinte grat, delay relIndications :gastroesophag eal reflux disease,heartb urn Take 20 mg by mouth 2 (two) times a day Indications: gastroesophageal reflux disease, heartburn. Active cyclobenzaprin e (FLEXERIL) 10 mg tablet Take 1 tablet (10 mg total) by mouth as needed. Active OXcarbazepine (TRILEPTAL) 300 mg tablet One tablet in AM, two in PM Active montelukast (SINGULAIR) 10 mg tabletIndicati ons:maintenanc e therapy for asthma Take 1 tablet (10 mg total) by mouth nightly Indications: controller medication for asthma. Active levothyroxine (SYNTHROID, LEVOTHROID) 25 MCG tabletIndicati ons:hypothyroi dism Take 1 tablet (25 mcg total) by mouth in the morning. Indications: a condition with low thyroid hormone levels. Active acetaminophen (TYLENOL) 500 mg tablet Take 1 tablet (500 mg total) by mouth every 6 (six) hours as needed for pain. 30 tablet Active cranberry 500 mg capsule Take by mouth daily. Active fluticasone propionate (FLONASE) 50 mcg/actuation nasal spray Administer 2 sprays into each nostril in the morning and 2 sprays before bedtime. Active oxybutynin (DITROPAN) 5 mg tablet 2 (two) times a day. Active inhalational spacing device (AEROCHAMBER MV) spacerIndicati ons:Persistent asthma without complication, unspecified asthma severity 1 each by miscellaneous route 2 (two) times a day. 1 each 2 022 Active ipratropium-al buteroL (DUONEB) 0.5 mg-3 mg(2.5 mg base)/3 mL nebulizerIndic ations:Persist ent asthma without complication, unspecified asthma severity Inhale 3 mL by nebulization in the morning and 3 mL at noon and 3 mL before bedtime. 360 mL 1 Active Additional Information Patient taking differently:3 mL nebulization3 times daily PRN, Reported on 05/17/2024 MIRALAX 17 gram/dose powder MIX 17 CAPSULS MIXED IN BEVERAGE OF CHOICE ONCE A DAY 30 DAY(S) Active duloxetine HCl (CYMBALTA ORAL) Take by mouth daily. Active hydroCHLOROthi azide (HYDRODIURIL) 25 mg tablet Take 1 tablet (25 mg total) by mouth 2 (two) times a day before meals. Active insulin glargine,hum.r ec.anlog (BASAGLAR KWIKPEN U-100 INSULIN) 100 unit/mL (3 mL) insulin pen Active albuterol (PROVENTIL HFA;VENTOLIN HFA) 90 mcg/actuation inhalerIndicat ions:Persisten t asthma without complication, unspecified asthma severity Inhale 2 puffs every 6 (six) hours as needed for wheezing. 18 g 6 024 Active allopurinoL (ZYLOPRIM) 100 mg tablet Take 2 tablets (200 mg total) by mouth in the morning and 2 tablets (200 mg total) before bedtime. Active ALPRAZolam (XANAX) 0.25 mg tablet Take 1 tablet (0.25 mg total) by mouth nightly as needed for anxiety. Active NovoLOG Mix 70-30FlexPen U-100 100 unit/mL (70-30) insulin pen Inject 35 Units under the skin in the morning and 35 Units in the evening. Inject before meals. Active MOUNJARO 7.5 mg/0.5 mL pen injector Inject 7.5 mg under the skin once a week. Active valsartan (DIOVAN) 320 mg tabletIndicati ons:Essential hypertension, benign Take 1 tablet (320 mg total) by mouth in the morning. 90 tablet 025 Active metoprolol succinate XL (TOPROL XL) 25 mg 24 hr tablet Take 1 tablet (25 mg total) by mouth in the morning and 1 tablet (25 mg total) before bedtime. 180 tablet 025 Active rosuvastatin (CRESTOR) 20 mg tablet TAKE 1 TABLET (20 MG TOTAL) BY MOUTH IN THE MORNING. 30 tablet 025 Active fluticasone propion-salmet Shanika (ADVAIR) 250-50 mcg/dose DISKUSIndicati ons:Persistent asthma without complication, unspecified asthma severity INHALE 1 PUFF IN THE MORNING AND BEFORE BEDTIME 60 each 2 025 Active rosuvastatin (CRESTOR) 20 mg tabletIndicati ons:hyperlipid emia TAKE 1 TABLET (20 MG TOTAL) BY MOUTH IN THE MORNING. INDICATIONS: EXCESSIVE FAT IN THE BLOOD. 90 tablet 3 024 2024 Discontinued Active Problems Problem Noted Date Diagnosed Date PVC (premature ventricular contraction) 02/16/19 24 Palpitations 02/16/2023 Shortness of breath 02/16/2023 Primary hypertension 01/20/2022 Mixed hyperlipidemia 01/20/2022 BMI 50.0-59.9, adult 11/24/2020 Headache 12/30/2019 Resolved Problems Problem Noted Date Diagnosed Date Resolved Date Left ventricular systolic dysfunction 01/20/2022 05/17/2024 Encounters Date Type Department Care Team Description 06/11/2024 Refill [facility]Sleep Medicine [address] [place] [address] Chetna Coats, PAINTER MAINTENANCE[employer] Persistent asthma without complication, unspecified asthma severity 06/10/2024 Refill [facility] Cardiology [address] [place] [phone] Johnson Earnest L, PAINTER MAINTENANCE[employer] Med Refill 06/07/2024 7:50 AM EDT - 06/07/2024 11:59 PM EDT Hospital Encounter [facility] - Stress Imaging [address] [place] [address] Chris Eason MD Discharge Disposition: Home 06/07/2024 7:50 AM EDT - 06/07/2024 11:59 PM EDT Hospital Encounter [facility] [address] [place] [address] Chris Eason MD Discharge Disposition: Home 06/06/2024 9:14 AM EDT - 06/06/2024 11:59 PM EDT Hospital Encounter [facility] [address] [place] [address] Chris Eason MD Discharge Disposition: Home 06/06/2024 8:55 AM EDT - 06/06/2024 9:13 AM EDT Hospital Encounter [facility] [address] [place] [address] Chris Eason MD Discharge Disposition: Home 06/06/2024 8:32 AM EDT - 06/06/2024 8:54 AM EDT Hospital Encounter [facility] - Cardiovascular [address] [place] [address] Chris Eason MD Shortness of breath; Primary hypertension Discharge Disposition: Home 06/06/2024 8:20 AM EDT - 06/06/2024 8:31 AM EDT Hospital Encounter [facility] - Pulmonary Function [address] [place] [address] Asthma, unspecified asthma severity, unspecified whether complicated, unspecified whether persistent Discharge Disposition: Home 06/06/2024 Travel 05/17/2024 10:15 AM EDT Office Visit [facility] [address] [place] [phone] Chris Eason MD Shortness of breath (Primary Dx); Primary hypertension 05/17/2024 Travel 05/16/2024 Telephone [facility] [address] [place] [phone] Dhara Bazzi CMA 04/29/2024 Refill [facility] [address] [facility] [phone] Megan Del Toro, LUIS Med Refill 04/22/2024 Refill [facility] [address] [place] [phone] Laxmi Vallejo LPN Med Refill 04/17/2024 Orders Only [facility] [address] [place] [address] Jane Lind RMA Asthma, unspecified asthma severity, unspecified whether complicated, unspecified whether persistent (Primary Dx) 04/17/2024 Travel 04/17/2024 Refill [facility] [address] [place] [phone] Chetna Coats, PAINTER MAINTENANCE-WELDER 2[employer]IFT 04/10/2024 4:20 PM EST - 04/10/2024 7:33 PM EST Emergency [facility] - Emergency [address] [place] [phone] Migel Valle MD Moderate asthma with exacerbation, unspecified whether persistent (Primary Dx) Discharge Disposition: Home 04/10/2024 Travel 04/10/2024 Telephone [facility] [address] [place] [phone] Hope Isaac, [employer] from Last 3 Months Immunizations No known immunizations Family History Medical History Relation Name Comments Heart disease Father Hyperlipidemia Father Hypertension Father Stroke Father Heart disease Mother Hyperlipidemia Mother Hypertension Mother Pneumonia Mother Breast cancer Neg Hx Relation Name Status Comments Father Mother Social History Tobacco Use Types Packs/Day Years Used Date Smoking Tobacco: Former Cigarettes 0.5 20 1 992 - 2012 Smokeless Tobacco: Never Tobacco Cessation:Counseling Given: Not [...] any clubs o r organizations such as denominational groups, unions, fraternal or athletic groups, or [...] Sign Reading Time Taken Comments Blood Pressure 124/78 05/17/2024 10:23 AM EDT Pulse 78 05/17/2024 10:23 AM EDT Temperature 36.8 C (98.3 F) 04/10/2024 4:14 PM EST Respiratory Rate 17 04/10/2024 7:09 PM EST Oxygen Saturation 98% 05/17/2024 10:23 AM EDT Inhaled Oxygen Concentration - - Weight 164.7 kg (363 lb) 06/06/2024 7:12 AM EDT Height 165.1 cm (5' 5 ) 06/06/2024 7:12 AM EDT Body Mass Index 60.41 06/06/2024 7:12 AM EDT Plan of Treatment Upcoming Encounters Date Type Department Care Team (Late st Contact Info) Description 07/17/2024 2:00 PM EDT Office Visit [facility] [address] [place] [phone] Chetna Coats, PAINTER MAINTENANCE[employer]WELDER [employer] [address] [place] [address], [address] [place] [phone] Health Maintenance Due Date Last Done Comments Depression Screening 1984 Adult BMI Follow Up Plan 02/13/1990 Pap Smear 02/13/1993 Zoster (Shingles) Vaccine (1 of 2) 02/13/2022 COVID-19 Vaccine (2023-2 5 season) 2023 06/06/2021, 02/17/2021, 07/07/2020, Additional history exists Influenza Vaccine 10/07/2024 11/12/2008 Adult BMI Screening 06/06/2025 06/06/2024 Tobacco Screening 06/06/2025 06/06/2024 DTaP,Tdap and Td Vaccines (2 - Td or Tdap) 05/24/2032 05/24/2022 Goals Goal Patient Goal Type Associated Problems Recent Progress Patient-Stated? Author Discharge home General Yes Clarisse Purdy, RN Note: Evaluation of progress towards goal: Plan to discharge home with supportive spouse. Medical Devices Not on file Procedures Procedure Name Priority Date/Time Associated Diagnosis Comments NUC STRESS LEXISCAN Routine 06/07/2024 9 :04 AM EDT Shortness of breath Primary hypertension SPIROMETRY AND DLCO Routine 06/06/2024 8 :46 AM EDT Asthma, unspecified asthma severity, unspecified whether complicated, unspecified whether persistent TROP I, HIGH SENSITIVITY 1 HOUR STAT 04/10/2024 6:10 PM EST XR CHEST 1 VW STAT 04/10/2024 5:09 PM EST TROPONIN I, HIGH SENSITIVITY STAT 04/10/2024 5:00 PM EST MAGNESIUM STAT 04/10/2024 5:00 PM EST D-DIMER STAT 04/10/2024 5:00 PM EST COMPREHENSIVE METABOLIC PANEL STAT 04/10/2024 5:00 PM EST CBC WITH AUTO DIFFERENTIAL STAT 04/10/2024 5:00 PM EST ECG 12-LEAD STAT 04/10/2024 4:25 PM EST SARS/FLU A+B/RSV BY NAAT/MOLECULAR (M4RT COLLECTION TUBE) STAT 04/10/2024 4:17 PM EST from Last 3 Months Results * Nuc stress Lexiscan (06/07/2024 9:04 AM EDT) Target HR 168 bpm SECTRAIECG HR 67 bpm SECTRAIECG Baseline Systolic BP 164 mmHg SECTRAIECG Diastolic BP 93 mmHg SECTRAIECG Stress peak HR 99 bpm SECTRAIECG Stress peak systolic BP 198 mmHg SECTRAIECG Diastolic BP 95 mmHg SECTRAIECG HR 85 bpm SECTRAIECG Stress recovery systolic BP 182 mmHg SECTRAIECG Diastolic BP 98 mmHg SECTRAIECG Percent HR 59 % SECTRAIECG Nuc Stress EF 72 % SECTRAIECG End diastolic volume (mL) 166 mL SECTRAIECG End systolic volume (mL) 47 mL SECTRAIECG TID 1.32 SECTRAIECG Anatomical Region Laterality Modality Chest N/A Nuclear Medicine , Nuclear Medicine Narrative 06/07/2024 12:47 PM EDT The stress ECG was negative. Stress Function Comments: Left ventricular function post-stress is normal. Stress ejection fraction is 72%. The stress end diastolic cavity size is normal. The stress end systolic cavity size is mildly enlarged. Perfusion Comments: Left ventricular perfusion is probably normal. Based on the perfusion study data, risk of cardiovascular events is low risk. Stress Findings A Lexiscan protocol was performed. A pharmacological stress test was performed using regadenoson. The patient reached the end of the protocol. The patient reported dyspnea, flushing and shortness of breath during the stress test. Symptoms began during stress and ended during recovery. ECG Baseline ECG indicates sinus rhythm. There were no arrhythmias during stress. The stress ECG was negative. Isotope Administration The isotope used for nuclear imaging was technetium sestamibi. Imaging was performed at rest after an administration on 06/07/2024 at 07:55 EDT of 32 mCi. Imaging was performed at peak stress after an administration on 06/06/2024 at 09:06 EDT of 32.2 mCi. Nuclear Study Quality A Lexiscan protocol was performed. Perfusion Comments Left ventricular perfusion is probably normal. Based on the perfusion study data, risk of cardiovascular events is low risk. Technically difficult study. Perfusion Defect There is a left ventricular function defect that is moderate to large in size with severe reduction in uptake present in the anterior location(s) that is fixed. The defect appears to be probable artifact. There is a left ventricular function defect that is small to moderate in size with severe reduction in uptake present in the inferior location(s) that is fixed. The defect appears to be an artifact. Perfusion Defect Conclusion TID ratio is 1.32. Stress Function Comments Left ventricular function post-stress is normal. Stress ejection fraction is 72%. The stress end diastolic cavity size is normal. The stress end systolic cavity size is mildly enlarged. us Chris Eason MD CV STRESS ORDERABLES Final Re sult * SPIROMETRY AND DLCO (06/06/2024 8:46 AM EDT) Narrative MANUALLY TRANSCRIBED RESULTS - 06/12/2024 11:56 AM EDT Patient gave good effort and data was reproducible. FEV1/FVC is 77 with FEV1 74% predicted or 1.88 L in forced vital capacity 72% predicted or 2.43 L Diffusion capacity is mildly impaired at 70 Impression: Combined mild obstructive and suggested mild restrictive physiology is demonstrated. This could be further characterized by repeat testing utilizing lung volumes however maybe related to body habitus. Diffusion capacity is mildly impaired. This can be seen an underlying emphysema, anemia, early interstitial lung disease, pulmonary vascular disease or pulmonary hypertension. Please correlate with clinical and radiographic data Chetna Coats PAINTER MAINTENANCE[employer]WELDER 2ND [employer] PFT ORDERABLES Final R esult MANUALLY TRANSCRIBED RESULTS * Troponin I, High Sensitivity 1 Hour (04/10/2024 6:10 PM EST) 1 Hour Trop I, High Sensitivity 4 <16 ng/L 04/10/2024 7:03 PM EST [facility] Blood Serum / Unknown 04/10/2024 6 :10 PM EST 04/10/2024 6:12 PM EST us Enedina Weber [employer]INTER MAINTENA[employer] LAB BLOOD ORDERABLES Final Result Performing Organization Address City/[facility] Co de Phone Number [address] [place] [address] * X-ray chest 1 view (04/10/2024 5:09 PM EST) Anatomical Region Laterality Modality Body, Chest N/A Computed Radiogr aphy 04/10/2024 5:09 PM EST Narrative 04/10/2024 5:10 PM EST STUDY: XR CHEST 1 VW INDICATION: Shortness of breath. COMPARISON: 02/17/2023 FINDINGS/IMPRESSION: * No acute cardiopulmonary process, by radiograph. Finalized by Tom Ji on 04/10/2024 5:10 PM Procedure Note Tom Ji MD - 04/10/2024 STUDY: XR CHEST 1 VW INDICATION: Shortness of breath. COMPARISON: 02/17/2023 FINDINGS/IMPRESSION: * No acute cardiopulmonary process, by radiograph. Finalized by Tom Ji on 04/10/2024 5:10 PM Enedina LITTLEJOHN IMG DIAGNOSTIC IMAGING ORD ERABLES Final Result * Troponin I, High Sensitivity (04/10/2024 5:00 PM EST) Pathologist [facility] Troponin I, High Sensitivity 5 <16 ng/L 04/10/2024 5:31 PM [facility] Blood Serum / Unknown 04/10/2024 5 :00 PM EST 04/10/2024 5:02 PM EST Enedina LITTLEJOHN LAB BLOOD ORDERABLES Final Result Performing Organization Address City/State/[facility] Co de Phone Number [address], [place] [address] * CBC auto differential (04/10/2024 5:00 PM EST) Pathologist [facility] White Blood Cells 8.3 4.0 - 11.0 X10E9/L 04/10/2024 5:17 PM [facility] RBC count 4.80 3.80 - 5.20 X10E12/L 04/10/2024 5:17 PM [facility] Hemoglobin 14.5 11.7 - 15.5 g/dL 04/10/2024 5:17 PM [facility] Hematocrit 41.0 35 - 47 % 04/10/2024 5:17 PM [facility] MCV 86 80 - 100 fL 04/10/2024 5:17 PM [facility] MCH 30.2 27 - 34 pg 04/10/2024 5:17 PM [facility] MCHC 35.4 32 - 36 g/dL 04/10/2024 5:17 PM [facility] RDW 15.0 11.5 - 15.0 % 04/10/2024 5:17 PM [facility] Platelets 156 150 - 450 X10E9/L 04/10/2024 5:17 PM [facility] MPV 9.0 7 - 12 fL 04/10/2024 5:17 PM [facility] % neutrophils 68.9 % 04/10/2024 5:17 PM [facility] % lymphocytes 18.6 % 04/10/2024 5:17 PM [facility] % monocytes 8.0 % 04/10/2024 5:17 PM [facility] % eosinophils 3.9 % 04/10/2024 5:17 PM [facility] % Basophils 0.6 % 04/10/2024 5:17 PM [facility] Neutrophils Absolute (A) 5.8 1.5 - 6.6 X10E9/L 04/10/2024 5:17 PM [facility] Lymphocytes Absolute 1.6 1.0 - 3.5 X10E9/L 04/10/2024 5:17 PM [facility] Monocytes Absolute 0.7 0 - 0.9 X10E9/L 04/10/2024 5:17 PM [facility] Eosinophils Absolute 0.3 0.0 - 0.4 X10E9/L 04/10/2024 5:17 PM [facility] Basophils Absolute 0.1 0.0 - 0.2 X10E9/L 04/10/2024 5:17 PM [facility] Blood Blood / Unknown 04/10/2024 5 :00 PM EST 04/10/2024 5:02 PM EST us Enedina Weber PAINTER MAINTENANCE[employer] LAB BLOOD ORDERABLES Final Result [facility] [address], [place] [address] * D-Dimer (04/10/2024 5:00 PM EST) D-dimer 218 <255 ng/mL DDU 04/10/2024 5:27 PM [facility] Comment: Results <255 ng/mL DDU: The presence of a VTE can safely be excluded with a negative D-Dimer result and Wells score. A negative result doesn't exclude the possibility of DIC. The test be repeated along with other diagnostic tests if the patient's symptoms persist or worsen. [email or web address] Blood (PLASMA) 04/10/2024 5: 00 PM EST 04/10/2024 5:02 PM EST Enedina Weber PAINTER MAINTENANCE[employer] LAB BLOOD ORDERABLES Final Result Performing Organization Address City/[facility]/[place] [address] * (ABNORMAL) Magnesium (04/10/2024 5:00 PM EST) Pathologist [facility] Magnesium 1.7(L) 1.8 - 2.6 mg/dL 04/10/2024 5:23 PM [facility] Blood (PLASMA) 04/10/2024 5: 00 PM EST 04/10/2024 5:02 PM EST Enedina Weber PAINTER MAINTENANCE[employer] LAB BLOOD ORDERABLES Final Result Performing Organization Address [facility]/[place] [address] * (ABNORMAL) Comprehensive metabolic panel (04/10/2024 5:00 PM EST) Sodium 136 134 - 146 mmol/L 04/10/2024 5:20 PM [facility] Potassium, Bld 3.6 3.5 - 5.0 mmol/L 04/10/2024 5:20 PM [facility] Chloride 105 98 - 109 mmol/L 04/10/2024 5:20 PM [facility] CO2 23 22 - 32 mmol/L 04/10/2024 5:20 PM [facility] Anion gap 8 5 - 15 mmol/L 04/10/2024 5:20 PM [facility] BUN 15 5 - 23 mg/dL 04/10/2024 5:23 PM [facility] Creatinine 0.59 0.40 - 1.00 mg/dL 04/10/2024 5:23 PM [facility] Comment:METHOD TRACEABLE TO IDNY STANDARD Glucose 253(H) 65 - 99 mg/dL 04/10/2024 5:20 PM [facility] Calcium 8.7 8.5 - 10.5 mg/dL 04/10/2024 5:20 PM [facility] Total Protein 6.9 6.0 - 8.0 g/dL 04/10/2024 5:23 PM [facility] Albumin 3.7 3.2 - 5.3 g/dL 04/10/2024 5:23 PM [facility] Alkaline Phosphatase 93 39 - 130 U/L 04/10/2024 5:23 PM [facility] AST 21 0 - 41 U/L 04/10/2024 5:23 PM [facility] ALT 21 0 - 31 U/L 04/10/2024 5:23 PM [facility] Total bilirubin 0.6 0.3 - 1.2 mg/dL 04/10/2024 5:23 PM [facility] eGFR (CKD-EPI)non-rac e dependent >90 >59 ml/min/1.7 3sq.m 04/10/2024 5:23 PM [facility] Comment: Reported eGFR is based on the CKD-EPI 2020 equation that does not use a race coefficient. Blood (PLASMA) 04/10/2024 5: 00 PM EST 04/10/2024 5:02 PM EST Enedina Weber [employer]INTER MAINTENAN[employer] LAB BLOOD ORDERABLES Final Result [facility] [address], [place] [address] * ECG 12 lead (04/10/2024 4:25 PM EST) 04/10/2024 4:25 PM EST Narrative TRACEMASTERVUE - 04/10/2024 5:56 PM EST us Migel Valle MD ECG ORDERABLES Final Result [facility] * SARS/FLU A+B/RSV by NAAT/Molecular (M4RT Collection Tube) (04/10/2024 4:17 PM EST) Pathologist [facility] FLU A PCR Negative Negative^Ne gative 04/10/2024 5:27 PM EST [facility] FLU B PCR Negative Negative^[facility] [place] 04/10/2024 5:27 PM EST [facility] RSV by PCR Negative Negative^[facility] [place] 04/10/2024 5:27 PM [facility] SARS CoV 2 BY PCR Not Detected Not Detected^No t Detected 04/10/2024 5:27 PM [facility] Comment: NOTE The Xpert Xpress SARS-CoV-2/Flu/RSV Plus test is a rapid, multiplexed real-time RT-PCR test intended for the simultaneous qualitative detection and differentiation of SARS-CoV-2, influenza A, influenza B and respiratory syncytial virus (RSV) viral RNA from individuals suspected of respiratory viral infection consistent with COVID-19 by their healthcare provider. This test has not been validated in asymptomatic patients. The Xpert Xpress SARS-CoV-2 test is intended for use by qualified and trained operators who are performing tests using either GeneGTI DX or GeneGonway systems and is limited to laboratories that meet the CLIA requirements to perform high and moderate complexity tests. The Xpert Xpress SARS-CoV-2/Flu/RSV Plus is only for use under the Food and Drug Administration's Emergency Use Authorization. Results are for the simultaneous detection and differentiation of SARS-CoV-2, influenza A, influenza B and RSV nucleic acids in clinical specimens. SARS-CoV-2, influenza A, influenza B and RSV RNA identified by this test are generally detectable in upper respiratory samples during the acute phase of infection. Positive results are indicative of the presence of the identified virus, but do not rule out bacterial infection or co-infection with other pathogens not detected by this test. Clinical correlation with patient history and other diagnostic information is necessary to determine patient infection status. The agent detected may not be the definite cause of disease. Negative results do not preclude SARS-CoV-2, influenza A, influenza B and RSV infection and should not be used as the sole basis for treatment or other patient management decisions. Negative results must be combined with clinical observations, patient history and epidemiological information. An Invalid result may occur with specimen-associated inhibition unable to be resolved with specimen repeat. Fact Sheet for Healthcare Providers: https://www.fda.gov/media/974281/download Fact Sheet for Patients: https://www.fda.gov/media/717332/download Nasopharyngeal structure / Unknown 04/10/2024 4:17 PM EST 04/10/2024 4:26 PM EST Migel Valle MD MICROBIOLOGY - GENERAL ORDERAB LES Final Result Performing Organization Address City/State/[facility] Co de Phone Number [address], [place] [address] from Last 3 Months Insurance [employer] Advance Directives * Full Code (Latest Code Status on File) Date Activated Date Inactivated Comments 12/30/2019 4:52 AM 12/31/2019 6:44 PM Care Teams Sales Representative [employer] Relationship Specialty Start Date End Date [facility], [place] [id number] [facility] [place] [place] [facility] - General Family Medicine 04/10/24
--- OUTSIDE RECORDS SUMMARY | 2024-06-26 15:27 | XMS_ITS | CCD ---
Author Organization [facility] Care Team Providers Care 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 Name Role Phone MARISA GILLIS Primary Care Physician Felix Jaquez Unavailable CHETNA COATS Consulting Unavailable MISC, DR PALM Primary Care Unavailable CHETNA COATS Attending Unavailable KREDANIEL, CHETNA Admitting Unavailable KARASIK ., DR CHUNG Consulting Unavailabl e MISC, DR PALM Primary Care Unavailable KARASIK ., DR CHUNG Attending Unavailabl e KARASIK ., DR CHUNG Admitting Unavailabl e ZIEBER, DR MARIA DE JESUS Pan Consulting Unavailable EVA COATSE Consulting Unavailable MISC, DR PALM Primary Care Unavailable CHETNA COATS Attending Unavailable KREDANIEL, CHETNA Admitting Unavailable KARASIK ., DR CHUNG Consulting Unavailabl e MISC, DR PALM Primary Care Unavailable KARASIK ., DR CHUNG Attending Unavailabl e KARASIK ., DR CHUNG Admitting Unavailabl e KARASIK ., DR CHUNG Consulting Unavailabl e MISC, DR PALM Primary Care Unavailable KARASIK ., DR CHUNG Attending Unavailabl e KARASIK ., DR CHUNG Admitting Unavailabl e PETZNICK, DR TOTH Primary Care Unavailable DHARA PERKINS Attending Unavailable DHARA PERKINS Admitting Unavailable SAMSA .NILSON Consulting Unavailable SAMSA ., NILSON Attending Unavailable SAMSA .NILSON Admitting Unavailable PETMENDEZ, DR TOTH Primary Care Unavailable TYESHA .WHIT Consulting Unavailable HAY ., DR LAWSON Consulting Unavailable PETMENDEZ, DR TOTH Primary Care Unavailable HAY ., DR LAWSON Attending Unavailable HAY ., DR LAWSON Admitting Unavailable ZIEBER, DR MARIA DE JESUS Pan Consulting Unavailable WHIT CHAUHAN Attending Unavailable TYESHA .WHIT Admitting Unavailable PETZNTHIAGO, DR TOTH Primary Care Unavailable GRECHNY ., MARY JANE AGUILA Consulting Unavailmaggie ARAMBULA ., WHIT Consulting Unavailable GREGORIODHARA Consulting Unavailable MISC, DR PALM Primary Care Unavailable GREGORIODHARA SUNSHINE Attending Unavailable GREGORIODHARA SUNSHINE Admitting Unavailable MISC, DR PALM Consulting Unavailable MISC, DR PALM Primary Care Unavailable MISC, DR PALM Attending Unavailable MISC, DR PALM Admitting Unavailable GREGORIODHARA SUNSHINE Consulting Unavailable MISC, DR PALM Primary Care Unavailable GREGORIO, DHARA Attending Unavailable GREGORIODHARA SUNSHINE Admitting Unavailable MISC, DR PALM Consulting Unavailable MISC, DR PALM Primary Care Unavailable MISC, DR PALM Attending Unavailable MISC, DR PALM Admitting Unavailable ZIEBER, DR MARIA DE JESUS Pan Consulting Unavailable Rumschlag, DO Marisa Primary Care Provider MD Felix Jaquez Attending Provider Rumschlag, Marisa Primary Care Unavailable Felix Jaquez Attending Unavailable Felix Jaquez Admitting Unavailable CHETNA COATS Attending Unavailable RUMSCHLAG, MARISA K Referring Unavailable RUMSCHLAG, MARISA K Primary Care Unavailable Rumschlag DO, Marisa Primary Care Provider Maria De Jesus Guy MD Unavailable Rumschlag DO, Marisa K Primary Care Provider [phone] DHARA PERKINS Attending Unavailable RUMSCHLAG, MARISA Primary Care Unavailable DHARA PERKINS Admitting Unavailable GREGORIODHARA SUNSHINE Attending Unavailable RUMSCHLAG, MARISA Primary Care Unavailable Services, Pending [facility] To [facility] Primary Care Provider RUMSCHLAG, MARISA Primary Care Unavailable BATSHEVA PERKINS Attending Unavailab le RUMSCHLAG, MARISA Primary Care Unavailable GREGORIOBATSHEVA SUNSHINE Attending Unavailab le RUMSCHLAG, MARISA Primary Care Unavailable BATSHEVA PERKINS Attending Unavailab le BATSHEVA PERKINS Admitting Unavailab le GREGORIOBATSHEVA SUNSHINE Attending Unavailab le RUMSCHLAG, MARISA Primary Care Unavailable IZZY CHARLES Attending Unavailable HUBBARD, PENOLA P Attending Unavailable HUBBARD, PENOLA P Referring Unavailable HUBBARD, PENOLA P Referring Unavailable HUBBARD, BRENDA P Attending Unavailable JULIETTE CANTOR Attending Unavailable JULIETTE CANTOR Referring Unavailable GLORIA SARABIA Attending Unavailable TRACY, IZZY Attending Unavailable BENECHARY, MARIA DE JESUS Attending Unavailable IZZY CHARLES Referring Unavailable HAYDEE, BRENDA Hardin Attending Unavailable ZAKIYA, MARIA DE JESUS Attending Unavailable GLORIA SARABIA Attending Unavailable Services, [facility] Provider Maria De Jesus Guy MD Unavailable Unavailable SERVICES, [facility] Unava ilable YUE RICKETTS Attending Unavailable ELMODINA Attending Unavailable SERVICES, [facility] Unava ilable CHETNA COATS Referring Unavailable SERVICES, [facility] Unava ilable ELMO, DINA D Attending Unavailable ELMO, DINA D Referring Unavailable SERVICES, [facility] Unava ilable ELMO, DINA D Attending Unavailable ELMO, DINA D Referring Unavailable SERVICES, [facility] Unava ilable ELMO, DINA D Attending Unavailable ELMO, DINA D Referring Unavailable SERVICES, [facility] Unava ilable ELMO, DINA D Attending Unavailable ELMO, DINA D Referring Unavailable SERVICES, [facility] Unava ilable Allergies Allergy Classification Reported Allergen(s) Allergy Type Date of Onset Reaction(s) Facility (2 sources) Adhesive bandage Drug allergy (disorder) 6 [facility] Repository (2 sources) No Known Medication Allergies; Translations: [No Known Medication Allergies] Propensity to adverse reactions (disorder) [facility] Repository Medications Current Medications Medication Drug Class(es) Dates Sig (Normalized) Sig (Original) acetaminophen 500 mg oral tablet (18 sources) Start: 12-31-2019 take 1 tablet by mouth every six hours as needed for pain acetaminophen (TYLENOL) 500 mg tablet Take 1 tablet (500 mg total) by mouth every 6 (six) hours as needed for pain. 30 tablet 12/31/2019 Active [id number] 200 actuat albuterol 0.09 mg/actuat metered dose inhaler (13 sources) beta2-Adrenergic Agonist Start: 08-18-2023 take 2 puff(s) by inhalation every six hours as needed for wheezing albuterol (PROVENTIL HFA;VENTOLIN HFA) 90 mcg/actuation inhaler Indications: Persistent asthma without complication, unspecified asthma severity Inhale 2 puffs every 6 (six) hours as needed for wheezing. 18 g 6 08/18/2023 Active Start: 12-07-2020 take 2.5 mg by inhal ation every six hours albuterol 0.083% Inh Shelby 3 mL 2.5 mg, 3 mL, NEB, q6hr, 120 EA, Refill(s) 0 Start Date: 12/07/20 Status: Ordered Start: 12-07-2020 take 2.5 mg by inhal ation every six hours albuterol 0.083% Inh Shelby 3 mL 2.5 mg, 3 mL, NEB, q6hr, 120 EA, Refill(s) 0 Start Date: 12/07/20 Status: Ordered albuterol 0.833 mg/ml / ipratropium bromide 0.167 mg/ml inhalation solution (20 sources) Anticholinergic, beta2-Adrenergic Agonist Start: 07-03-2022 ipratropium-albuterol (Duo-Neb) 0.5-2.5 mg/3 mL nebulizer solution Take 3 mL by nebulization in the morning and 3 mL at noon and 3 mL in the evening and 3 mL before bedtime. 07/03/2022 Active Start: 04-28-2021 End: 02-16-2023 ipratropium-albuteroL (DUONE B) 0.5 mg-3 mg(2.5 mg base)/3 mL nebulizer Indications: Persistent asthma without complication, unspecified asthma severity Inhale 3 mL by nebulization in the morning and 3 mL at noon and 3 mL before bedtime. 360 mL 1 04/28/2021 Active Start: 05-29-2020 take 1 mL by inhalat ion four times daily Ipratropium-Albuterol (Duoneb) 0.5 mg-3 mg(2.5 mg base)/3 mL Solution For Nebulization Active 3 ML INHALATION Four times daily May 29, 2020 12:00am take 1 puff(s) by in halation every six hours as needed Ipratropium-Albuterol 0.5-2.5 (3) MG/3ML 1 puff as needed Inhalation every 6 hrs Active allopurinol 100 mg oral tablet (20 sources) Xanthine Oxidase Inhibitor Start: 07-04-2023 take 2 tablets by mouth once daily allopurinol (Zyloprim) 100 MG tablet Take 200 mg by mouth Daily 11/07/2023 Active ALPRAZolam 0.25 mg oral tablet (20 sources) Benzodiazepine Start: 03-18-2024 End: 06-12-2024 ALPRAZolam (Xanax) 0.25 MG tablet Indications: Anxiety TAKE 1 TABLET (0.25 MG) BY MOUTH NEEDED AT BEDTIME FOR ANXIETY FOR UP TO 14 DAYS FILL 03/20/24 14 tablet 06/12/2024 Active Start: 09-07-2023 End: 03-04-2024 ALPRAZolam (Xanax) 0.25 MG t ablet Indications: Anxiety TAKE 1 TABLET (0.25 MG) BY MOUTH NEEDED AT BEDTIME FOR ANXIETY FOR UP TO 14 DAYS 14 tablet 02/19/2024 03/04/2024 Active take 1 tablet by zuleika th once daily as needed for anxiety ALPRAZolam (XANAX) 0.25 mg tablet Take 1 tablet (0.25 mg total) by mouth nightly as needed for anxiety. Active Blood Pressure Monitoring (Blood Pressure Digital Soln) kit (16 sources) Start: 07-14-2023 Blood Pressure Monitoring (Blood Pressure Digital Soln) kit 07/14/2023 Active Budesonide / formoterol (2 sources) Corticosteroid, beta2-Adrenergic Agonist Symbicort Active budesonide-formotero l 80 mcg-4.5 mcg/inh Inh Aer w/adapter (1 source) Start: 12-07-2020 take 2 puff(s) by inhalation twice daily budesonide-formoter ol 80 mcg-4.5 mcg/inh Inh Aer w/adapter 2 puff(s), Inhalation, BID, Asthma Start Date: 12/07/20 Status: Ordered 24 hr buPROPion hydrochloride 300 mg extended release oral tablet (2 sources) Aminoketone Start: 05-29-2020 End: 12-09-2022 take 300 mg by mouth once daily buPROPion 300 mg, Oral, Daily, Refills(s) 0, Depression Start Date: 10/03/20 Status: Ordered cholecalciferol 0.05 mg oral tablet (8 sources) Vitamin D Start: 05-29-2020 take 1 tablet by mouth once daily Cholecalciferol (Vitamin D3) (Vitamin D3) 50 mcg (2,000 unit) Tablet Active 50 MCG PO Daily May 29, 2020 12:00am End: 11-24-2023 take 1 capsule by mouth once daily cholecalciferol (Vitamin D-3) 25 MCG (1000 UT) capsule Take 1,000 Units by mouth 1 (one) time each day at the same time. 11/24/2023 Discontinued cinnamon bark 500 mg oral capsule (1 source) Start: 05-29-2020 take 1 capsule by mouth once daily Cinnamon Bark (Cinnamon) 500 mg Capsule Active 1000 MG PO Daily May 29, 2020 12:00am Cinnamon Preparation (5 sources) Non-Standardized Food Allergenic Extract Start: 02-21-2020 take 1000 mg by mouth twice daily cinnamon 1,000 mg, Oral, BID, Refills(s) 0, Prophylaxis Start Date: 02/21/20 Status: Ordered citric acid 1002 mg / potassium citrate 3300 mg powder for oral solution (1 source) Calculi Dissolution Agent, Anti-coagulant Start: 04-13-2022 citric acid-potassium citrate 30 mEq oral powder See Instructions, 60 packet(s), Refill(s) 11, called to pharmacy (Rx), twice daily, dissolve in water., 160, cm, 04/13/22 13:14:00 EST, Height/Length Dosing, 163, kg, 04/13/22 13:14:00 EST, Weight Dosing Start Date: 04/13/22 Status: Ordered Cranberry (20 sources) Non-Standardized Food Allergenic Extract, Non-Standardized Plant Allergenic Extract Start: 05-29-2020 take 500 mg by mouth twice daily Cranberry Active 500 MG PO Twice daily May 29, 2020 12:00am take 1 capsule by mouth once tomasa ly Cranberry (RA Cranberry) 500 MG capsule Take by mouth Daily. Active take 1 capsule by mouth once tomasa ly cranberry 500 mg capsule Take by mouth daily. Active take 1 capsule by mouth once tomasa ly cranberry 500 mg capsule Take by mouth daily. 0 Active cyclobenzaprine hydrochloride 10 mg oral tablet (20 sources) Muscle Relaxant Start: 02-21-2020 End: 05-08-2024 take 1 tablet by mouth once daily at bedtime as needed cyclobenzaprine (Flexeril) 10 MG tablet Indications: Muscle spasm TAKE 1 TABLET BY MOUTH EVERY DAY AT BEDTIME NEEDED 90 tablet 05/06/2024 Active DULoxetine 60 mg delayed release oral capsule (20 sources) Serotonin and Norepinephrine Reuptake Inhibitor Start: 05-20-2024 take 1 capsule by mouth once daily DULoxetine (Cymbalta) [address] capsule Indications: Anxiety Do not crush or chew.TAKE 1 CAPSULE BY MOUTH EVERY DAY FOR 90 DAYS 90 capsule 1 05/20/2024 Active Start: 10-27-2023 take 1 capsule by mo [facility] once daily DULoxetine (Cymbalta) [address] capsule Indications: Anxiety TAKE 1 CAPSULE BY MOUTH EVERY DAY FOR 90 DAYS 90 capsule 1 02/19/2024 Active Start: 04-13-2022 End: 11-24-2023 take 1 capsule by mouth once daily DULoxetine (Cymbalta) [address] capsule Indications: Anxiety TAKE 1 CAPSULE BY MOUTH EVERY DAY 90 capsule 1 09/07/2023 Active duloxetine HCl ( CYMBALTA ORAL) Take by mouth daily. Active duloxetine HCl ( CYMBALTA ORAL) Take by mouth daily. 0 Active fluticasone / salmeterol (20 sources) Corticosteroid, beta2-Adrenergic Agonist Start: 06-11-2024 take 1 puff(s) by inhalation at bedtime fluticasone propion-salmeteroL (ADVAIR) 250-50 mcg/dose DISKUS Indications: Persistent asthma without complication, unspecified asthma severity INHALE 1 PUFF IN THE MORNING AND BEFORE BEDTIME 60 each 2 06/11/2024 Active Start: 07-20-2023 take 1 puff(s) by in halation at bedtime fluticasone propion-salmeteroL (ADVAIR) 250-50 mcg/dose DISKUS Indications: Persistent asthma without complication, unspecified asthma severity INHALE 1 PUFF IN THE MORNING AND BEFORE BEDTIME 60 each 6 07/20/2023 Active Start: 03-17-2023 End: 07-20-2023 take 1 puff(s) by inhalation in the morning fluticasone propion-salmeteroL (ADVAIR DISKUS) 250-50 mcg/dose DISKUS Indications: Persistent asthma without complication, unspecified asthma severity Inhale 1 puff in the morning and 1 puff before bedtime. 60 each 3 03/17/2023 07/20/2023 Discontinued Start: 03-17-2023 take 1 puff(s) by in halation in the morning fluticasone propion-salmeteroL (ADVAIR DISKUS) 250-50 mcg/dose DISKUS Indications: Persistent asthma without complication, unspecified asthma severity Inhale 1 puff in the morning and 1 puff before bedtime. 60 each 3 03/17/2023 Active Start: 12-09-2022 Fluticasone Pr opion-Salmeterol (Advair Diskus) 250-50 mcg/dose blister with device Active 1 INH INHALATION Twice daily December 09, 2022 12:00am Start: 11-21-2022 End: 03-17-2023 take 1 puff(s) by inhalation at bedtime fluticasone propion-salmeteroL (ADVAIR DISKUS) 250-50 mcg/dose DISKUS Indications: Persistent asthma without complication, unspecified asthma severity INHALE 1 PUFF IN THE MORNING AND BEFORE BEDTIME 60 each 3 11/21/2022 03/17/2023 Discontinued (Reorder) Start: 07-03-2022 take 1 puff(s) by in halation in the morning Fluticasone-Salmeterol 250-50 MCG/ACT aerosol powder Inhale 1 puff in the morning and 1 puff in the evening. 07/03/2022 Active fluticasone 0.05 mg/inh Nasal Beason (5 sources) Start: 12-07-2020 take 2 spray(s) nasal route twice daily fluticasone 0.05 mg/inh Nasal Beason 2 spray(s), Nasal, BID, each nostril, Allergy symptoms Start Date: 12/07/20 Status: Ordered hydroCHLOROthiazide 25 mg oral tablet (20 sources) Thiazide Diuretic Start: 05-26-2021 End: 09-23-2021 take 1 tablet by mouth twice daily before mealtime hydroCHLOROthiazide (HYDRODIURIL) 25 mg tablet Take 1 tablet (25 mg total) by mouth 2 (two) times a day before meals. 05/26/2021 Active take 1 tablet by zuleika th every twenty-four hours hydroCHLOROthiazide 25 MG 1 tablet in e morning Orally Once a day Active inhalational spacing device (AEROCHAMBER MV) spacer (18 sources) Start: 02-17-2021 inhalational s pacing device (AEROCHAMBER MV) spacer Indications: Persistent asthma without complication, unspecified asthma severity 1 each by miscellaneous route 2 (two) times a day. 1 each 2 02/17/2021 Active 3 ml insulin aspart protamine, human 70 unt/ml / insulin aspart, human 30 unt/ml pen injector (20 sources) Insulin Analog Start: 05-10-2024 NovoLOG MIX 70 /30 FLEXPEN (70-30) 100 UNIT/ML injection Indications: Type 2 diabetes mellitus with peripheral neuropathy (CMS/HCC) 45 units breakfast and dinner 30 mL 3 05/10/2024 Active Start: 05-10-2024 NovoLOG MIX 70 /30 FLEXPEN (70-30) 100 UNIT/ML injection Indications: Type 2 diabetes mellitus with peripheral neuropathy (CMS/HCC) 45 units breakfast and dinner 30 mL 3 05/10/2024 Active Start: 11-28-2023 End: 05-10-2024 NovoLOG MIX 70/30 FLEXPEN (7 0-30) 100 UNIT/ML injection Indications: Type 2 diabetes mellitus with peripheral neuropathy (CMS/HCC) 35 units breakfast and dinner 30 mL 3 11/28/2023 05/10/2024 Discontinued (Dose adjustment) Start: 11-24-2023 insulin aspart protamine-insulin aspart (NovoLOG MIX 70/30 FLEXPEN) (70-30) 100 UNIT/ML injection Indications: Type 2 diabetes mellitus with peripheral neuropathy (CMS/HCC) 35 units breakfast and dinner 30 mL 3 11/24/2023 Active NovoLOG Mix 70-3 0FlexPen U-100 100 unit/mL (70-30) insulin pen Inject 35 Units under the skin in the morning and 35 Units in the evening. Inject before meals. Active insulin detemir 100 unt/ml injectable solution (6 sources) Insulin Analog Start: 12-07-2020 inject 30 [IU] by subcutaneous injection once daily at bedtime Levemir 100 units/mL Injection-Insulin 30 unit(s), SubCutaneous, Once a day (at bedtime), Blood glucose Start Date: 12/07/20 Status: Ordered Levemir Active 200 actuat ipratropium bromide 0.017 mg/actuat metered dose inhaler (1 source) Anticholinergic Start: 05-29-2020 take 1 puff(s) by inhalation twice daily Ipratropium [place] Active 2 PUFF INHALATION Twice daily May 29, 2020 12:00am Levemir 100 units/mL Injection-Insulin (1 source) Start: 12-07-2020 inject 30 [IU] by subcutaneous injection once daily at bedtime Levemir 100 units/mL Injection-Insulin 30 unit(s), SubCutaneous, Once a day (at bedtime), Blood glucose Start Date: 12/07/20 Status: Ordered levothyroxine sodium 0.025 mg oral tablet (20 sources) l-Thyroxine Start: 05-29-2020 take 25 ug by mouth once daily Levothyroxine Active 25 MCG PO Daily May 29, 2020 12:00am take 1 tablet by zuleika th once daily in the morning Levothyroxine Sodium 25 MCG 1 tablet in the morning on an empty stomach Orally Once a day Active liraglutide (2 sources) GLP-1 Receptor Agonist Start: 01-26-2021 inject 1.8 mg by subcutaneous injection once daily Victoza 1.8 mg, SubCutaneous, Daily, Blood glucose Start Date: 01/26/21 Status: Ordered Start: 05-29-2020 End: 12-09-2022 Liraglutide (Weight Loss) (S axenda) 3 mg/0.5 mL (18 mg/3 mL) Pen Injector Discontinued 3 MG SUBCUT Daily May 29, 2020 12:00am December 09, 2022 9:38am 24 hr metoprolol succinate 25 mg extended release oral tablet (20 sources) beta-Adrenergic Lisa Start: 03-14-2023 End: 04-29-2024 take 1 tablet by mouth every twenty-four hours in the morning, then take 1 tablet by mouth at bedtime metoprolol succinate XL (TOPROL XL) 25 mg 24 hr tablet Take 1 tablet (25 mg total) by mouth in the morning and 1 tablet (25 mg total) before bedtime. 180 tablet 04/29/2024 Active Start: 01-26-2021 take 1 tablet by zuleika th at bedtime Metoprolol succinate 25 mg ER Tablet 25 mg, Oral, Bedtime, High blood pressure Start Date: 01/26/21 Status: Ordered Start: 01-26-2021 End: 03-14-2023 take 1 tablet by mouth once daily in the morning metoprolol succinate XL (TOPROL XL) 25 mg 24 hr tablet TAKE 1 TABLET BY MOUTH EVERY DAY IN THE MORNING 90 tablet 3 04/25/2022 03/14/2023 Discontinued (Reorder) montelukast 10 mg oral tablet (20 sources) Leukotriene Receptor Antagonist Start: 08-06-2008 take 1 tablet by mouth once daily Singulair 10 mg Tab 10 mg = 1 tab(s), Oral, Daily, Refills(s) 0, Asthma Start Date: 08/06/08 Status: Ordered MOUNJARO 7.5 mg/0.5 mL pen injector (8 sources) inject 7.5 mg by subcutaneous injection every week MOUNJARO 7.5 mg/0.5 mL pen injector Inject 7.5 mg under the skin once a week. Active omeprazole 20 mg delayed release oral tablet (20 sources) Proton Pump Inhibitor Start: 05-29-2020 take 20 mg by mouth twice daily Omeprazole Active 20 MG PO Twice daily May 29, 2020 12:00am Start: 08-06-2012 take 2 capsules by [facility] once daily Prilosec 10 mg Cap-EC 20 mg = 2 cap(s), Oral, Daily, Refills(s) 0, Other (see comment) Start Date: 08/06/12 Status: Ordered take 1 capsule by mo [facility] in the morning omeprazole (PriLOSEC) [address] capsule Take 20 mg by mouth in the morning and 20 mg in the evening. Take before meals. Active take 1 tablet by zuleika twice daily omeprazole 20 mg tablet,disintegrat, delay rel Indications: gastroesophageal reflux disease , heartburn Take 20 mg by mouth 2 (two) times a day Indications: gastroesophageal reflux disease, heartburn. Active OXcarbazepine 300 mg oral tablet (20 sources) Anti-epileptic Agent Start: 10-26-2020 take 1 tablet by mouth once daily in the evening Trileptal 600 mg Tab 600 mg = 1 tab(s), Oral, qPM, Refills(s) 0, Neuropathy Start Date: 10/26/20 Status: Ordered Start: 05-29-2020 End: 02-19-2024 take 1 tablet by mouth in the morning, then take 2 tablets by mouth at bedtime OXcarbazepine (Trileptal) 300 MG tablet Indications: Neuropathic pain TAKE 1 TABLET BY MOUTH IN THE MORNING AND 2 TABLETS BEFORE BEDTIME 270 tablet 5 02/19/2024 Active Start: 08-06-2013 take 1 tablet by zuleika th once daily Trileptal 300 mg Tab 300 mg = 1 tab(s), Oral, Daily, Refills(s) 0, Neuropathy Start Date: 08/06/13 Status: Ordered take 3 tablets by mo [facility] once daily OXcarbazepine 300 MG 3 tabs Orally daily Active oxybutynin chloride 5 mg oral tablet (20 sources) Cholinergic Muscarinic Antagonist Start: 04-13-2022 take 1 tablet by mouth in the morning oxybutynin (Ditropan) 5 MG tablet Take 5 mg by mouth in the morning and 5 mg before bedtime. 04/13/2022 Active Start: 11-06-2020 End: 02-06-2022 oxybutynin (DITROPAN) 5 mg t ablet 2 (two) times a day. 11/06/2020 Active take 1 tablet by zuleika th every twelve hours oxyBUTYnin Chloride ER 5 MG 1 tablet Orally bid Active Ozempic (3 sources) Start: 05-26-2021 Ozempic SubCut aneous, qWeek, Refill(s) 0 Start Date: 05/26/21 Status: Ordered Ozempic Active OZEMPIC 2 mg/dose (8 mg/3 mL) pen injector (8 sources) inject 2 mg by subcu taneous injection every week OZEMPIC 2 mg/dose (8 mg/3 mL) pen injector INJECT 2 MG SUBCUTANEOUSLY WEEKLY Active inject 2 mg by subcu taneous injection every week OZEMPIC 2 mg/dose (8 mg/3 mL) pen inject or INJECT 2 MG SUBCUTANEOUSLY WEEKLY 0 Active polyethylene glycol 3350 09031 mg powder for oral solution (20 sources) Osmotic Laxative Start: 06-02-2021 take 17 g by mouth once daily Polyethylene Glycol 3350 17 GM/SCOOP 17gm Orally Once a day for 30 day(s) May, Active Prilosec 10 mg Cap-EC (1 source) Start: 08-06-2012 take 2 capsules by mouth once daily Prilosec 10 mg Cap-EC 20 mg = 2 cap(s), Oral, Daily, Refills(s) 0, Other (see comment) Start Date: 08/06/12 Status: Ordered rosuvastatin calcium 20 mg oral tablet (20 sources) HMG-CoA Reductase Inhibitor Start: 05-11-2022 End: 06-12-2024 take 1 tablet by mouth in the morning rosuvastatin (Crestor) 20 MG tablet Take 20 mg by mouth in the morning. 05/11/2022 Active Start: 05-29-2020 take 5 mg by mouth once daily Rosuvastatin Active 5 MG PO Daily May 29, 2020 12:00am Start: 02-21-2020 take 2 tablets by mo [facility] once daily rosuvastatin 5 mg Tab 10 mg = 2 tab(s), Oral, Daily, Refills(s) 0, High cholesterol Start Date: 02/21/20 Status: [facility] Rosuvastatin Calcium 10 MG 1 tablet Orally Once a day Active Ozempic (7 sources) Start: 05-26-2021 Ozempic SubCut aneous, qWeek, Refill(s) 0 Start Date: 05/26/21 Status: Ordered Start: 05-17-2021 End: 02-16-2023 inject 1 mg by subcutaneous injection every week, then inject 0.5 mg by subcutaneous injection every week semaglutide 1 mg/dose (2 mg/1.5 mL) pen injector Inject 1 mg under the skin once a week. INJECT 0.5MG UNDER THE SKIN WEEKLY 0 05/17/2021 02/16/2023 Discontinued (Therapy completed) Semaglutide (Ozempic) 2 mg/dose (8 mg/3 mL) Pen Injector (1 source) Start: 12-09-2022 inject 2 mg by subcutaneous injection every week Semaglutide (Ozempic) 2 mg/dose (8 mg/3 mL) Pen Injector Active 2 MG SUBCUT every week December 09, 2022 12:00am sulfamethoxazole 800 mg / trimethoprim 160 mg oral tablet (8 sources) Dihydrofolate Reductase Inhibitor Antibacterial, Sulfonamide Antimicrobial Start: 02-13-2023 take 1 tablet by mouth once in the morning sulfamethoxazol e-trimethoprim (BACTRIM DS) 800-160 mg per tablet Take 1 tablet by mouth in the morning and 1 tablet before bedtime. 02/13/2023 Active tamsulosin hydrochloride 0.4 mg oral capsule (20 sources) alpha-Adrenergic Lisa Start: 02-08-2023 take 1 capsule by mouth twice daily Flomax 0.4 mg Cap 0.4 mg = 1 cap(s), Oral, BID, # 90 cap(s), Refills(s) 3, Pharmacy: [facility]/pharmacy #[id number], 160, cm, 04/13/22 13:14:00 EST, Height/Length Dosing, 163, kg, 04/13/22 13:14:00 EST, Weight Dosing Start Date: 02/08/23 Status: Ordered Start: 05-29-2020 take 0.4 mg by mouth once leesa y Tamsulosin Active 0.4 MG PO Daily May 29, 2020 12:00am Start: 05-15-2020 End: 06-24-2022 take 1 capsule by mouth twice daily tamsulosin 0.4 mg Cap 0.4 mg = 1 cap(s), Oral, BID, X 90 day(s), # 180 cap(s), Refills(s) 3, Pharmacy: [facility]/pharmacy #[id number], 160, cm, 05/26/21 14:26:00 EDT, Height/Length Dosing, 169.2, kg, 05/26/21 14:26:00 EDT, Weight Dosing Start Date: 06/29/21 Stop Date: 06/24/22 Status: Ordered take 1 capsule by [facility] every twenty-four hours in the morning tamsulosin (Flomax) 0.4 MG 24 hr capsule Take 0.4 mg by mouth in the morning and 0.4 mg before bedtime. Active Tirzepatide (Mounjaro) 7.5 MG/0.5ML solution auto-injector (16 sources) Start: 05-14-2024 inject 7.5 mg by subcutaneous injection every week Tirzepatide (Mounjaro) 7.5 MG/0.5ML solution auto-injector Indications: Type 2 diabetes mellitus with peripheral neuropathy (CMS/HCC) INJECT 7.5 MG UNDER THE SKIN 1 (ONE) TIME PER WEEK 2 mL 3 05/14/2024 Active Start: 11-24-2023 inject 7.5 mg by sub cutaneous injection every week Tirzepatide (Mounjaro) 7.5 MG/0.5ML solution auto-injector Indications: Type 2 diabetes mellitus with peripheral neuropathy (CMS/HCC) Inject 7.5 mg under the skin 1 (one) time per week 2 mL 3 11/24/2023 Active valsartan 320 mg oral tablet (20 sources) Angiotensin 2 Receptor Lisa Start: 12-07-2020 End: 04-22-2024 take 1 tablet by mouth in the morning valsartan (DIOVAN) 320 mg tablet Indications: Essential hypertension, benign Take 1 tablet (320 mg total) by mouth in the morning. 90 tablet 04/22/2024 Active Vitamin D (5 sources) Start: 02-21-2020 Vitamin D 2,00 0 International_Unit, Oral, Daily, Refills(s) 0, Prophylaxis Start Date: 02/21/20 Status: Ordered Completed/Discontinued Medications Medication Drug Class(es) Dates Sig (Normalized) Sig (Original) amoxicillin 500 mg / clavulanate 125 mg oral tablet (2 sources) Penicillin-class Antibacterial Start: 10-23-2023 End: 11-24-2023 take 1 tablet by mouth every eight hours amoxicillin-clavula london (Augmentin) 500-125 MG tablet Take 1 tablet by mouth every 8 (eight) hours 10/23/2023 11/24/2023 Discontinued cyproheptadine hydrochloride 4 mg oral tablet (1 source) Start: 05-29-2020 End: 12-09-2022 take 4 mg by mouth once daily at bedtime Cyproheptadine Discontinued 4 MG PO Daily at bedtime May 29, 2020 12:00am December 09, 2022 9:35am ertugliflozin 15 mg oral tablet (1 source) Start: 05-29-2020 End: 12-09-2022 take 1 tablet by mouth every week Ertugliflozin (Steglatro) 15 mg Tablet Discontinued 15 MG PO every week May 29, 2020 12:00am December 09, 2022 9:36am on Monday fluconazole 150 mg oral tablet (2 sources) Azole Antifungal Start: 10-30-2023 End: 11-24-2023 fluconazole (Diflucan) 150 MG tablet TAKE 1 TAB(S) ORALLY ONCE TAKE 1 TAB - IF STILL SYMPTOMATIC AFTER 48 HOURS, PLEASE TAKE SECOND TAB. 10/30/2023 11/24/2023 Discontinued Fluticasone Furoate (20 sources) Corticosteroid Start: 05-29-2020 End: 12-09-2022 take 200 ug by inhalation once daily Fluticasone Furoate (Arnuity Ellipta) 200 mcg/actuation Blister With Device Discontinued 1 INH INHALATION Daily May 29, 2020 12:00am December 09, 2022 9:36am take 2 spray(s) nasa l route in the morning fluticasone propionate (FLONASE) 50 mcg/actuation nasal spray Administer 2 sprays into each nostril in the morning and 2 sprays before bedtime. Active take 1 spray(s) nasal route once daily Fluticasone Propionate 50 MCG/ACT 1 spray in each nostril Nasally Once a day Active icosapent ethyl 1000 mg oral capsule (3 sources) Start: 10-17-2022 End: 02-16-2023 take 2 capsules by mouth at bedtime icosapent ethyL (VASCEPA) 1 gram capsule Take 2 capsules (2 g total) by mouth in the morning and 2 capsules (2 g total) before bedtime. 360 capsule 3 10/17/2022 02/16/2023 Discontinued 3 ml insulin glargine 100 unt/ml pen injector (20 sources) Insulin Analog Start: 03-17-2023 End: 11-24-2023 insulin glargine (Lantus SoloStar) 100 UNIT/ML pen Indications: Type 2 diabetes mellitus with peripheral neuropathy (CMS/HCC) Inject 60 Units under the skin in the morning. 30 mL 3 03/17/2023 11/24/2023 Discontinued Start: 12-09-2022 Insulin Glargi ne (Basaglar Kwikpen U-100 Insulin) 100 unit/mL (3 mL) insulin pen Active 60 UNIT SUBCUT Daily December 09, 2022 12:00am insulin glargine ,hum.rec.anlog (BASAGLAR KWIKPEN U-100 INSULIN) 100 unit/mL (3 mL) insulin pen Active irbesartan 150 mg oral tablet (1 source) Angiotensin 2 Receptor Lisa Start: 05-29-2020 End: 12-09-2022 take 150 mg by mouth once daily Irbesartan Discontinued 150 MG PO Daily May 29, 2020 12:00am December 09, 2022 9:37am metFORMIN hydrochloride 1000 mg oral tablet (1 source) Biguanide Start: 05-29-2020 End: 12-09-2022 take 1000 mg by mouth twice daily Metformin Discontinued 1000 MG PO Twice daily May 29, 2020 12:00am December 09, 2022 9:38am 1 ml methylPREDNISolone acetate 40 mg/ml injection (4 sources) Corticosteroid Start: 10-04-2023 End: 10-04-2023 methylPREDNISolone acetate (DEPO-Medrol) injection 40 mg Start: 10-04-2023 End: 10-04-2023 40 mg, Intra-articular, Once PRN Procedure, Starting on Mon10/04/23 at 1328, For 1 dose potassium bicarbonate 25 meq effervescent oral tablet (10 sources) Start: 07-04-2023 End: 06-28-2024 take 4 tablets by mouth once daily Klor-Con/EF 25 mEq oral tablet, effervescent 50 mEq = 2 tab(s), Oral, Daily, dissolve in 4 ounces of water, X 30 day(s), # 60 tab(s), Refills(s) 11, Pharmacy: [facility]/pharmacy #[id number], 160, cm, 07/04/23 13:05:00 EDT, Height/Length Dosing, 163, kg, 07/04/23 13:05:00 EDT, Weight Dosing Start Date: 07/04/23 Stop Date: 06/28/24 Status: Ordered End: 11-24-2023 take 1 tablet by mouth once daily Klor-Con/EF 25 MEQ effervescent tablet Take 25 mEq by mouth Daily 11/24/2023 Discontinued Semaglutide, 2 MG/DOSE, (Ozempic, 2 MG/DOSE,) 8 MG/3ML solution pen-injector (7 sources) Start: 10-02-2023 End: 11-24-2023 Semaglutide, 2 MG/DOSE, (Ozempic, 2 MG/DOSE,) 8 MG/3ML solution pen-injector Indications: Type 2 diabetes mellitus with peripheral neuropathy (CMS/HCC) Inject 2 mg under the skin every 7 (seven) days 3 mL 10/02/2023 11/24/2023 Discontinued Start: 10-02-2023 End: 10-01-2024 Semaglutide, 2 MG/DOSE, (Oze mpic, 2 MG/DOSE,) 8 MG/3ML solution pen-injector Indications: Type 2 diabetes mellitus with peripheral neuropathy (CMS/HCC) Inject 2 mg under the skin every 7 (seven) days 3 mL 10/02/2023 10/01/2024 Active Start: 08-01-2022 End: 10-02-2023 inject 2 mg by subcutaneous injection every week Semaglutide, 2 MG/DOSE, (Ozempic, 2 MG/DOSE,) 8 MG/3ML solution pen-injector Indications: Type 2 diabetes mellitus with peripheral neuropathy (CMS/HCC) Inject 2 mg under the skin 1 (one) time per week. 9 mL 3 08/01/2022 10/02/2023 Discontinued zinc sulfate 220 mg oral tablet (3 sources) End: 02-16-2023 zinc sulfate 50 mg zinc (220 mg) tablet Take by mouth daily. 0 02/16/2023 Discontinued (Therapy completed) Problems Active Problems Problem Classification Problem Date Documented Da te Episodic/Chronic Administrative/social admission (2 sources) Other specified counseling; Translations: [Patient encounter status] Onset: 4 03-17-2023 Episodic Anxiety disorders (20 sources) Anxiety; Translations: [Anxiety disorder, unspecified] Onset: 4 06-21-2023 Chronic Asthma (20 sources) Asthma; Translations: [Unspecified asthma, uncomplicated] Onset: 2 12-07-2020 Chronic Benign neoplasm of uterus (1 source) Leiomyoma of uterus, unspecified; Translations: [LEIOMYOMA OF UTERUS UNSPECIFIED] Onset: 2 Episodic Cancer of cervix (3 sources) Atypical squamous cells of undetermined significance on cervical Papanicolaou smear; Translations: [Atypical squamous cells of undetermined significance on cytologic smear of cervix (ASC-US)] 09-28-2023 Episodic Cardiac dysrhythmias (20 sources) Multiple premature ventricular complexes; Translations: [Ventricular premature depolarization] Onset: 4 11-24-2023 Chronic Congestive heart failure; nonhypertensive (5 sources) Heart failure 10-26-2020 Chronic Diabetes mellitus with complications (20 sources) Type 2 diabetes mellitus with diabetic neuropathy, unspecified; Translations: [Type 2 diabetes mellitus with hyperglycemia] Onset: 2 Chronic Disorders of lipid metabolism (20 sources) Mixed hyperlipidemia; Translations: [Mixed hyperlipidemia] Onset: 2 08-01-2022 Chronic Epilepsy; convulsions (20 sources) Epilepsy, unspecified, not intractable, without status epilepticus; Translations: [Localization-related epilepsy] Onset: 7 08-01-2022 Chronic Esophageal disorders (20 sources) Gastroesophageal reflux disease; Translations: [Gastro-esophageal reflux disease without esophagitis] Onset: 3 08-06-2018 Chronic Essential hypertension (20 sources) Hypertensive disorder; Translations: [Essential (primary) hypertension] Onset: 2 12-17-2020 Chronic Genitourinary symptoms and ill-defined conditions (20 sources) Urge incontinence; Translations: [Genuine stress incontinence] Onset: 2 Chronic Headache; including migraine (20 sources) Migraine; Translations: [Migraine, unspecified, not intractable, without status migrainosus] Onset: 4 06-21-2023 Chronic Immunizations and screening for infectious disease (1 source) Encounter for screening for human papillomavirus (HPV); Translations: [ENC SCREENING HUMAN PAPILLOMAVIRUS] Onset: 3 Episodic Nutritional deficiencies (16 sources) Vitamin D deficiency; Translations: [Vitamin D deficiency, unspecified] Onset: 4 11-24-2023 Chronic Osteoarthritis (20 sources) Idiopathic osteoarthritis; Translations: [Primary osteoarthritis, unspecified site] Onset: 1 08-01-2022 Chronic Other and ill-defined heart disease (20 sources) Left ventricular systolic dysfunction; Translations: [Heart disease, unspecified] Onset: 2 Resolved: 5 08-01-2022 Chronic Other connective tissue disease (1 source) Neuropathic pain; Translations: [Neuralgia and neuritis, unspecified] 02-19-2024 Episodic Other gastrointestinal disorders (2 sources) Altered bowel function; Translations: [Change in bowel habit] Episodic Other gastrointestinal disorders (2 sources) Constipation; Translations: [Constipation, unspecified] Episodic Other lower respiratory disease (20 sources) Dyspnea; Translations: [Shortness of breath] Onset: 4 02-16-2023 Episodic Other nervous system disorders (20 sources) Neuropathy; Translations: [Polyneuropathy, unspecified] Onset: 7 08-06-2018 Chronic Other nervous system disorders (1 source) Polyneuropathy, unspecified; Translations: [POLYNEUROPATHY UNSPECIFIED] Onset: 2 Chronic Other nervous system disorders (20 sources) Median neuropathy; Translations: [Other lesions of median nerve, unspecified upper limb] Onset: 4 06-21-2023 Chronic Other nervous system disorders (20 sources) Benign intracranial hypertension; Translations: [Benign intracranial hypertension] Onset: 4 06-21-2023 Chronic Other nutritional; endocrine; and metabolic disorders (10 sources) Morbid obesity; Translations: [Morbid (severe) obesity due to excess calories] Onset: 7 08-06-2018 Chronic Other nutritional; endocrine; and metabolic disorders (1 source) Morbid (severe) obesity due to excess calories; Translations: [MORBID SEVERE OBES D/T EXCESS SENG] Onset: 2 Chronic Other nutritional; endocrine; and metabolic disorders (1 source) Body mass index (BMI) 60.0-69.9, adult; Translations: [BODY MASS INDEX BMI 60.0-69.9 ADULT] Onset: 2 Chronic Other nutritional; endocrine; and metabolic disorders (1 source) Body mass index (BMI) 50.0-59.9, adult; Translations: [Body mass index (BMI) 50.0-59.9, adult] Onset: 4 Chronic Other nutritional; endocrine; and metabolic disorders (20 sources) Severe obesity; Translations: [Class 3 severe obesity due to excess calories with serious comorbidity and body mass index (BMI) of 60.0 to 69.9 in adult (CMS/[facility])] Onset: 7 11-24-2023 Chronic Other nutritional; endocrine; and metabolic disorders (20 sources) Obesity caused by energy imbalance; Translations: [Other obesity due to excess calories] Onset: 3 08-01-2022 Chronic Other nutritional; endocrine; and metabolic disorders (17 sources) Body mass index 40+ - severely obese; Translations: [Body mass index (BMI) 50.0-59.9, adult] Onset: 1 02-16-2023 Chronic Other screening for suspected conditions (not mental disorders or infectious disease) (7 sources) Encounter for screening for malignant neoplasm of cervix; Translations: [Cancer cervix screening status] Onset: 3 Episodic Residual codes; unclassified (5 sources) Sleep apnea 12-17-2020 Chronic Comment on above: uses cpap Residual codes; unclassified (2 sources) Obstructive sleep apnea (adult) (pediatric); Translations: [OBSTRUCTIVE SLEEP APNEA] Onset: 2 Chronic Residual codes; unclassified (1 source) Sleep apnea, unspecified; Translations: [SLEEP APNEA UNSPECIFIED] Onset: 2 Chronic Residual codes; unclassified (20 sources) Obstructive sleep apnea syndrome; Translations: [Obstructive sleep apnea (adult) (pediatric)] Onset: 3 08-01-2022 Chronic Residual codes; unclassified (2 sources) Lack of awareness; Translations: [Unspecified symptoms and signs involving cognitive functions and awareness] 04-25-2024 Episodic Spondylosis; intervertebral disc disorders; other back problems (20 sources) Lumbar spondylosis; Translations: [Spondylosis without myelopathy or radiculopathy, lumbar region] Onset: 4 06-21-2023 Chronic Thyroid disorders (20 sources) Hypothyroidism; Translations: [Hypothyroidism, unspecified] Onset: 7 08-06-2018 Chronic Unclassified (5 sources) History of clinical finding in subject 01-01-2021 Unclassified (1 source) Encounter for screening for malignant neoplasm of colon; Translations: [Encounter for screening for malignant neoplasm of colon] Onset: 3 Unclassified (1 source) TROUBLE BREATHING W EXERCISE Onset: 5 Urinary tract infections (9 sources) Infective cystitis; Translations: [Tubulo-interstitial nephritis, not specified as acute or chronic] Onset: 2 10-28-2020 Episodic Past or Other Problems Problem Classification Problem Date Documented Da te Episodic/Chronic Abdominal pain (20 sources) Flank pain; Translations: [Pelvic and perineal pain] Onset: 10-27-2021 07-07-2018 Episodic Comment on above: Intermittent Rt pain Bacterial infection; unspecified site (1 source) Klebsiella pneumoniae [K. pneumoniae] as the cause of diseases classified elsewhere; Translations: [K PNEUMONIAE CAUSE OF DZ CLASS ELSW] Onset: 11-04-2021 Episodic Calculus of urinary tract (20 sources) Kidney stone; Translations: [Calculus of kidney] Onset: 02-07-2016 Episodic Cardiac dysrhythmias (17 sources) Palpitations; Translations: [Palpitations] Onset: 02-16-2023 02-16-2023 Episodic Conditions associated with dizziness or vertigo (20 sources) Vertigo; Translations: [Dizziness and giddiness] Onset: 06-21-2023 06-21-2023 Episodic Diabetes mellitus without complication (20 sources) Diabetes mellitus; Translations: [Type 2 diabetes mellitus without complications] Onset: 03-03-2006 Resolved: 08-01-2022 10-26-2020 Chronic Fluid and electrolyte disorders (1 source) Dehydration; Translations: [DEHYDRATION] Onset: 11-04-2021 Episodic Genitourinary symptoms and ill-defined conditions (20 sources) Blood in urine; Translations: [Dysuria] Onset: 08-01-2022 05-15-2020 Episodic Headache; including migraine (20 sources) Headache; Translations: [Headache] Onset: 12-30-2019 06-21-2023 Episodic Malaise and fatigue (3 sources) Weakness; Translations: [WEAKNESS] Onset: 10-29-2021 Episodic Mood disorders (18 sources) Mood disorders Onset: 12-30-2019 12-30-2019 Mycoses (4 sources) Candidiasis, unspecified; Translations: [CANDIDIASIS UNSPECIFIED] Onset: 01-12-2022 Episodic Other aftercare (1 source) group home (current) use of insulin; Translations: [[facility] CURRENT USE OF INSULIN] Onset: 11-04-2021 Episodic Other aftercare (1 source) Other rat exterminator (current) drug therapy; Translations: [OTH DEPUTY ATTORNEY GENERAL CURRENT DRUG THERAPY] Onset: 11-04-2021 Episodic Other aftercare (20 sources) Long-term current use of insulin; Translations: [group home (current) use of insulin] Onset: 11-10-2020 11-24-2023 Episodic Other diseases of bladder and urethra (20 sources) Urethral stricture; Translations: [Other urethral stricture, female] Onset: 08-01-2022 05-15-2020 Episodic Other ear and sense organ disorders (20 sources) Tinnitus of right ear; Translations: [Tinnitus, right ear] Onset: 06-21-2023 06-21-2023 Episodic Other gastrointestinal disorders (1 source) Constipation, unspecified Onset: 06-02-2021 Resolved: 06-02-2021 Episodic Other gastrointestinal disorders (1 source) Change in bowel habit Onset: 06-02-2021 Resolved: 06-02-2021 Episodic Other gastrointestinal disorders (1 source) Diarrhea, unspecified; Translations: [DIARRHEA UNSPECIFIED] Onset: 11-04-2021 Episodic Other lower respiratory disease (1 source) Shortness of breath; Translations: [Shortness of breath] Onset: 02-16-2023 Episodic Other non-traumatic joint disorders (2 sources) Pain in left knee; Translations: [Pain in joint, lower leg] 10-02-2023 Episodic Residual codes; unclassified (18 sources) Personal history of other specified conditions; Translations: [Personal history of other specified diseases] Onset: 08-01-2022 08-01-2022 Episodic Residual codes; unclassified (3 sources) History of clinical finding in subject; Translations: [Personal history of other specified conditions] Onset: 08-01-2022 08-01-2022 Episodic Screening and history of mental health and substance abuse codes (1 source) Personal history of nicotine dependence; Translations: [PERSONAL HISTORY OF NICOTINE DEPEND] Onset: 11-04-2021 Episodic Spondylosis; intervertebral disc disorders; other back problems (20 sources) Chronic neck pain; Translations: [Cervicalgia] Onset: 08-01-2022 08-01-2022 Episodic Viral infection (6 sources) Disease caused by 2019-nCoV; Translations: [COVID-19] Onset: 11-04-2021 12-17-2020 Comment on above: 10-29-20 Results Test Name Value Interpretation Reference Range Facility HbA1c (Bld) [Mass fraction]o n 05-10-2024 Interpretation and review of laboratory results Abnormal [facility] - Hematology and Cell countson 05-10-2024 HbA1c (Bld) [Mass fraction] 9.1 % [facility] Reminderson 04-25-2024 Reminders Reminders From: Tierney Hoffman To: EU - Recalls Gregorio; Sent: 07/04/2023 13:44:30 EDT Show up: 04/05/2024 12:44:00 EST Subject: KUB, Litholink, and blood work Reminder Message Pt needs to get a KUB and complete repeat Litholink and blood work prior to appt in 1 year. Pt called about KUB order and litholink. Both were ordered, see other message. Normal [facility] CBC AND AUTO DIFFon 04-11-19 25 ABSOLUTE BASOPHIL 0.1 X10E9/L Normal 0.0-0.2 [facility] Comment on above: Performed By: #### 8 9579-7, 68545-9, 82077-0, CBCA, CMP #### [facility] ([id number]) [address] [place] [address] 12495 ABSOLUTE NEUTROPHIL 5.8 X10E9/L Normal 1.5-6.6 [facility] Comment on above: Performed By: #### 8 9579-7, 79244-2, 62790-7, CBCA, CMP #### [facility] ([id number]) [address] [place] [address] 49675 Basophils/100 WBC (Bld) 0.6 % Normal [facility] Comment on above: Performed By: #### 8 9579-7, 58891-3, 58628-3, CBCA, CMP #### [facility] ([id number]) [address] [place] [address] 29485 Eosinophils (Bld) [#/Vol] 0.3 10*3/uL Normal 0.0-0.4 [facility] Comment on above: Performed By: #### 8 9579-7, 96835-8, 54811-3, CBCA, CMP #### [facility] ([id number]) [address] [place] [address] 78695 Eosinophils/100 WBC (Bld) 3.9 % Normal [facility] Comment on above: Performed By: #### 8 9579-7, 08582-1, 83991-1, CBCA, CMP #### [facility] ([id number]) [address] [place] [address] 63228 Erythrocyte distribution width (RBC) [Ratio] 15.0 % Normal 11.5-15.0 [facility] Comment on above: Performed By: #### 8 9579-7, 45517-8, 98778-0, CBCA, CMP #### [facility] ([id number]) [address] [place] [address] 39120 Hematocrit (Bld) [Volume fraction] 41.0 % Normal 35-47 [facility] Comment on above: Performed By: #### 8 9579-7, , 47749-0, CBCA, CMP #### [facility] ([id number]) [address] [place] [address] 41837 Hemoglobin (Bld) [Mass/Vol] 14.5 g/dL Normal 11.7-15.5 [facility] Comment on above: Performed By: #### 8 9579-7, , 61757-5, CBCA, CMP #### [facility] ([id number]) [address] [place] [address] 85358 Lymphocytes (Bld) [#/Vol] 1.6 10*3/uL Normal 1.0-3.5 [facility] Comment on above: Performed By: #### 8 9579-7, , 96560-2, CBCA, CMP #### [facility] ([id number]) [address] [place] [address] 84483 Lymphocytes/100 WBC (Bld) 18.6 % Normal [facility] Comment on above: Performed By: #### 8 9579-7, , 93194-4, CBCA, CMP #### [facility] ([id number]) [address] [place] [address] 94454 MCH (RBC) [Entitic mass] 30.2 pg Normal 27-34 [facility] Comment on above: Performed By: #### 8 9579-7, 33996-8, 41632-9, CBCA, CMP #### [facility] ([id number]) [address] [place] [address] 71345 MCHC (RBC) [Mass/Vol] 35.4 g/dL Normal 32-36 [facility] Comment on above: Performed By: #### 8 9579-7, , 03591-6, CBCA, CMP #### [facility] ([id number]) [address] [place] [address] 19985 MCV (RBC) [Entitic vol] 86 fL Normal 80-100 [facility] Comment on above: Performed By: #### 8 9579-7, , 69031-9, CBCA, CMP #### [facility] ([id number]) [address] [place] [address] 98342 Monocytes (Bld) [#/Vol] 0.7 10*3/uL Normal 0-0.9 [facility] Comment on above: Performed By: #### 8 9579-7, , 71271-4, CBCA, CMP #### [facility] ([id number]) [address] [place] [address] 84997 Monocytes/100 WBC (Bld) 8.0 % Normal [facility] Comment on above: Performed By: #### 8 9579-7, , 04920-9, CBCA, CMP #### [facility] ([id number]) [address] [place] [address] 24433 Neutrophils/100 WBC (Bld) 68.9 % Normal [facility] Comment on above: Performed By: #### 8 9579-7, , 47151-4, CBCA, CMP #### [facility] ([id number]) [address] [place] [address] 90355 Platelet mean volume (Bld) [Entitic vol] 9.0 fL Normal 7-12 [facility] Comment on above: Performed By: #### 8 9579-7, 92607-5, 36384-7, CBCA, CMP #### [facility] ([id number]) [address] [place] [address] 17513 Platelets (Bld) [#/Vol] 156 10*3/uL Normal 150-450 [facility] Comment on above: Performed By: #### 8 9579-7, , 47349-2, CBCA, CMP #### [facility] ([id number]) [address] [place] [address] 52433 RBC COUNT 4.80 X10E12/L Normal 3.80-5.20 [facility] Comment on above: Performed By: #### 8 9579-7, , 13278-3, CBCA, CMP #### [facility] ([id number]) [address] [place] [address] 54934 WBC (Bld) [#/Vol] 8.3 10*3/uL Normal 4.0-11.0 [facility] Comment on above: Performed By: #### 8 9579-7, 24073-2, 25682-4, CBCA, CMP #### [facility] ([id number]) [address] [place] [address] 22062 COMPREHENSIVE METABOLIC PANE Henrique 04-10-2024 Albumin [Mass/Vol] 3.7 g/dL Normal 3.2-5.3 [facility] Comment on above: Performed By: #### 8 9579-7, 92854-7, 76697-3, CBCA, CMP #### [facility] ([id number]) [address] [place] [address] 82846 ALP [Catalytic activity/Vol] 93 U/L Normal 39-130 [facility] Comment on above: Performed By: #### 8 9579-7, 99530-5, 38183-8, CBCA, CMP #### [facility] ([id number]) [address] [place], [place] [address] 29751 ALT [Catalytic activity/Vol] 21 U/L Normal 0-31 [facility] Comment on above: Performed By: #### 8 9579-7, 60304-7, 81834-1, CBCA, CMP #### [facility] ([id number]) [address] [place] [address] 36562 Anion gap [Moles/Vol] 8 mmol/L Normal 5-15 [facility] Comment on above: Performed By: #### 8 9579-7, 76210-8, 46911-1, CBCA, CMP #### [facility] ([id number]) [address] [place] [address] 07320 AST [Catalytic activity/Vol] 21 U/L Normal 0-41 [facility] Comment on above: Performed By: #### 8 9579-7, 79840-7, 72096-1, CBCA, CMP #### [facility] ([id number]) [address] [place] [address] 54079 Bilirubin [Mass/Vol] 0.6 mg/dL Normal 0.3-1.2 [facility] Comment on above: Performed By: #### 8 9579-7, , 55238-4, CBCA, CMP #### [facility] ([id number]) [address] [place] [address] 35150 Calcium [Mass/Vol] 8.7 mg/dL Normal 8.5-10.5 [facility] Comment on above: Performed By: #### 8 9579-7, 54175-7, 33329-4, CBCA, CMP #### [facility] ([id number]) [address] [place] [address] 68886 Chloride [Moles/Vol] 105 mmol/L Normal 98-109 [facility] Comment on above: Performed By: #### 8 9579-7, 55475-2, 33165-5, CBCA, CMP #### [facility] ([id number]) [address] [place] [address] 45636 CO2 [Moles/Vol] 23 mmol/L Normal 22-32 [facility] Comment on above: Performed By: #### 8 9579-7, 01516-2, 89655-8, CBCA, CMP #### [facility] ([id number]) [address] [place] [address] 60517 Creatinine [Mass/Vol] 0.59 mg/dL Normal 0.40-1.00 [facility] Comment on above: Result Comment: METH OD TRACEABLE TO IDMS STANDARD Performed By: #### 8 9579-7, 67578-1, 75046-8, CBCCasey, CMP #### [facility] ([id number]) [address] [place] [address] 98131 eGFR (CKD-EPI) NON-RACE DEPENDENT >90 Normal >59 [facility] Comment on above: Result Comment: Reported eGFR is based on the CKD-EPI 2020 equation that does not use a race coefficient. Performed By: #### 8 9579-7, 00123-1, 65531-3, CBCA, CMP #### [facility] ([id number]) [address] [place] [address] 79211 Glucose [Mass/Vol] 253 mg/dL High 65-99 [facility] Comment on above: Performed By: #### 8 9579-7, 76312-4, 39548-2, CBCA, CMP #### [facility] ([id number]) [address] [place] [address] 20247 Potassium [Moles/Vol] 3.6 mmol/L Normal 3.5-5.0 [facility] Comment on above: Performed By: #### 8 9579-7, 58311-3, 76044-8, CBCA, CMP #### [facility] ([id number]) [address] [place] [address] 65836 Protein [Mass/Vol] 6.9 g/dL Normal 6.0-8.0 [facility] Comment on above: Performed By: #### 8 9579-7, 04894-6, 73051-1, CBCA, CMP #### [facility] ([id number]) [address] [place] [address] 24121 Sodium [Moles/Vol] 136 mmol/L Normal 134-146 [facility] Comment on above: Performed By: #### 8 9579-7, 72250-6, 99779-9, CBCA, CMP #### [facility] ([id number]) [address] [place] [address] 30107 Urea nitrogen [Mass/Vol] 15 mg/dL Normal 5-23 [facility] Comment on above: Performed By: #### 8 9579-7, 88257-8, 28701-3, CBCA, CMP #### [facility] ([id number]) [address] [place] [address] 60672 Fibrin D-dimer DDU (PPP) [Ma ss/Vol]on 04-10-2024 D DIMER 218 ng/mL DDU Normal <255 [facility] Comment on above: Result Comment: Results <255 ng/mL DDU: The presence of a VTE can safely be excluded with a negative D-Dimer result and Wells score. A negative result doesn't exclude the possibility of DIC. The test be repeated along with other diagnostic tests if the patient's symptoms persist or worsen. [email or web address] Performed By: #### 8 9579-7, 84704-4, 55221-6, CBCA, CMP #### [facility] ([id number]) [address], [place] [address] MAGNESIUMon 04-10-2024 Magnesium [Mass/Vol] 1.7 mg/dL Low 1.8-2.6 [facility] Comment on above: Performed By: #### 8 9579-7, 15377-5, 59949-0, CBCA, CMP #### [facility] ([id number]) [address], [place] [address] Reminderson 04-10-2024 Reminders Reminders From: Sidra Keller To: EU - Administrative; Sent: 07/04/2023 13:38:44 EDT Show up: 02/08/2024 13:38:00 EST Subject: Ambulatory Reminder Due Date/Time: 06/15/2024 13:38:00 EDT Reminder/Recall Patinet needs scheduled for a 1 yr f/u with KRYSTAL and Lalo, due in June of 2024 Called patient on 05 April 2024 at 1502; patient did not pick pulling machine tender, LVM Pt is scheduled 06/28/24. Normal [facility] SARS/FLU A+B/RSV by NAAT/Mol ecularon 04-10-2024 SARS/FLU A+B/RSV by NAAT/Molecular FLU A PCR Negative (qualifier value) FLU B PCR Negative (qualifier value) RSV by PCR Negative (qualifier value) SARS CoV 2 Not detected (qualifier value) NOTE The Xpert Xpress SARS-CoV-2/Flu/RSV Plus test [...] operators who are performing tests using either FlowPay or FireScope systems and is limited to laboratories that [...] specimen repeat. Fact Sheet for Healthcare Providers: https://www.fda.gov/me arianne/264602/download Fact Sheet for Patients: https://www.fda.gov/ga arianne/633260/download Normal [facility] Comment on above: Performed By: #### C OVFLR #### [facility] ([id number]) [address] [place] [address] 66550 Troponin I.cardiac High sens itivity method [Mass/Vol]on 04-10-2024 1 HOUR TROP I, HIGH SENSITIVITY 4 ng/L Normal <16 [facility] Comment on above: Performed By: #### 8 9579-7 #### [facility] ([id number]) [address] [place] [address] 25822 TROPONIN I, HIGH SENSITIVITY 5 ng/L Normal <16 [facility] Comment on above: Performed By: #### 8 9579-7, 57813-4, 25994-9, CBCA, CMP #### [facility] ([id number]) [address] [place] [address] 70741 XR CHEST 1 VWon 04-10-2024 XR CHEST 1 VW XR CHEST 1 VW STUDY: XR CHEST 1 VW INDICATION: Shortness of breath. COMPARISON: 02/17/2023 FINDINGS/IMPRESSION: * No acute cardiopulmonary process, by radiograph. Finalized by Tom Ji on 04/10/2024 5:10 PM Normal [facility] EMG 2 Extremitieson 02-28-19 [facility] NVC 9-10 Nerveson 02-29-2024 [facility] HbA1c (Bld) [Mass fraction]o n 11-24-2023 Interpretation and review of laboratory results Abnormal [facility] Laboratory - Hematology and Cell countson 11-24-2023 HbA1c (Bld) [Mass fraction] 8.5 % [facility] XR Knee - left 1 or 2 Viewso n 10-05-2023 Imaging Result: October 04, 2023 x-rays AP weight-bearing bilateral knees and lateral of the left knee demonstrate medial compartment narrowing bilateral knees with subchondral sclerosis and more than 50 percent collapse of the joint space. No fractures detected. Impression: Advanced osteoarthritis bilateral knees Pelon Farrell D.O. [facility] XR Knee - left 1 or 2 ViewsO rdered By: Oumar Farrell on 10-05-2023 [facility] Work Phone: No Panel Informationon 10-03 Juliette Cantor NP 10/09/2023 8:46 AM L Inj/Asp: L knee on 10/04/2023 1:28 PM Indications: pain Details: 20 G needle, anterolateral approach Medications: 40 mg methylPREDNISolone acetate 40 MG/ML UTILIZING ASEPTIC TECHNIQUE PT GIVEN INJECTION IN LEFT KNEE, NEUROVASC INTACT S/P INJ, TOLERATED WELL Procedure, treatment alternatives, risks and benefits explained, specific risks discussed. Consent was given by the patient. [facility] XR Knee - left 1 or 2 Viewso n 10-04-2023 Radiology Study observation (narrative) [facility] Ambulatory Visit Summaryon 0 09-18-2023 Ambulatory Visit Summary Ambulatory Visit Summary MICHELLE AKHTARBREANNE Rouse :1970 Visit Date:09/18/2023 Ambulatory Visit Instructions Your Care Team Attending Physician - DHARA PERKINS PA-C Primary Care Physician - MARISA GILLIS DO This Is Your Medications List albuterol (albuterol 0.083% Inh Shelby 3 mL) allopurinol (allopurinol 100 mg Tab) cinnamon cyclobenzaprine (cyclobenzaprine 10 mg Tab) duloxetine (duloxetine 30 mg oral delayed release capsule) ergocalciferol (Vitamin D) fluticasone nasal (fluticasone 0.05 mg/inh Nasal Beason) hydrochlorothiazide (hydrochlorothiazide 25 mg Tab) insulin detemir (Levemir 100 units/mL Injection-Insulin) metoprolol (Metoprolol succinate 25 mg ER Tablet) montelukast (Singulair 10 mg Tab) omeprazole (Prilosec 10 mg Cap-EC) oxcarbazepine (Trileptal 300 mg Tab) oxybutynin (oxybutynin 5 mg Tab) potassium bicarbonate (Klor-Con/EF 25 mEq oral tablet, effervescent) rosuvastatin (rosuvastatin 5 mg Tab) semaglutide (Ozempic) tamsulosin (Flomax 0.4 mg Cap) valsartan (valsartan 320 mg Tab) Procedures Performed Cystoscopy (01/28/2021), ESWL - Extracorporeal shockwave lithotripsy for renal calculus (12/17/2020), Cystoscope (10/03/2020), Cystourethroscopy with dilation of urethral stricture (02/28/2020), Cystoscopic removal of ureteric stent (12/22/2016), Cystourethroscopy with dilation of urethral stricture (11/30/2016), Stent placement (11/30/2016), delivery (02/06/1999), Tubal ligation (02/06/1999), Tonsillectomy (02/06/1977), Meniscal repair. Medications What How Much When Instructions Unchanged albuterol (albuterol 0.083% Inh Shelby 3 mL) 3 Milliliter Nebulized inhalation (aerosol) Every 6 hours Unchanged allopurinol (allopurinol 100 mg Tab) 2 Tablets By Mouth Every day Unchanged cinnamon 1,000 Milligram By Mouth 2 times a day Unchanged cyclobenzaprine (cyclobenzaprine 10 mg Tab) 1 Tablets By Mouth At bedtime as needed for for spasm Unchanged duloxetine (duloxetine 30 mg oral delayed release capsule) Unchanged ergocalciferol (Vitamin D) 2,000 International unit By Mouth Every day Unchanged fluticasone nasal (fluticasone 0.05 mg/ inh Nasal Beason) 2 Sprays Nasal Inhalation 2 times a day each nostril Unchanged hydrochlorothiazide (hydrochlorothiazide 25 mg Tab) 1 Tablets By Mouth 2 times a day Unchanged insulin detemir (Levemir 100 units/ mL Injection-Insulin) 30 Units Subcutaneous Once a day (at bedtime) Unchanged metoprolol (Metoprolol succinate 25 mg ER Tablet) 25 Milligram By Mouth At bedtime Unchanged montelukast (Singulair 10 mg Tab) 1 Tablets By Mouth Every day Unchanged omeprazole (Prilosec 10 mg Cap-EC) 2 Capsules By Mouth Every day Unchanged oxcarbazepine (Trileptal 300 mg Tab) 1 Tablets By Mouth Every day Unchanged oxybutynin (oxybutynin 5 mg Tab) 1 Tablets By Mouth 2 times a day Unchanged potassium bicarbonate (Klor-Con/ EF 25 mEq oral tablet, effervescent) 2 Tablets By Mouth Every day Duration: 30 Days dissolve in 4 ounces of water Unchanged rosuvastatin (rosuvastatin 5 mg Tab) 2 Tablets By Mouth Every day Unchanged semaglutide (Ozempic) Subcutaneous Every week Unchanged tamsulosin (Flomax 0.4 mg Cap) 1 Capsules By Mouth 2 times a day Unchanged valsartan (valsartan 320 mg Tab) 1 Tablets By Mouth Every day Allergies No Known Medication Allergies Problems Ongoing - Any problem that you are currently receiving treatment for. Dysuria Flank pain GERD (gastroesophageal reflux disease) Hematuria High blood pressure History of renal stone History of seizures History of UTI Hypothyroid Incomplete bladder emptying Kidney stones Kidney stones Microscopic hematuria Morbid obesity Neuropathy Nocturia Other urethral stricture, female Post-void dribbling Sleep apnea Stress incontinence Urge incontinence Urinary urgency Weak urine stream Historical - Any problem that you are no longer receiving treatment for. COVID Patient Survey You may receive a survey via text or e-mail asking about your office visit. Please share your experience with us by completing your survey. We appreciate your feedback and thank you for choosing us for your care. Normal [facility] CHEMISTRYOrdered By: SYSTEM SYSTEM on 09-18-2023 Anion gap [Moles/Vol] 14 mmol/L Normal 6 - 16 mEq/L R emisol Chem Chloride [Moles/Vol] 101 mmol/L Normal 101 - 1 11 mmol/L Remisol Chem CO2 [Moles/Vol] 27 mmol/L Normal 21 - 31 mmol/L Remisol Chem Potassium [Moles/Vol] 4.2 mmol/L Normal 3.5 - 5.3 mmol/L Remisol Chem Sodium [Moles/Vol] 138 mmol/L Normal 135 - 145 mmol/L Remisol Chem Lyteson 09-18-2023 Anion gap [Moles/Vol] 14 mmol/L Normal 6-16 [facility] Comment on above: Performed By: #### 2 [id number] #### [facility] Laboratory [address] [place] [address] Chloride [Moles/Vol] 101 mmol/L Normal 101-111 [facility] Comment on above: Performed By: #### 2 [id number] #### [facility] [address] [place] [address] CO2 [Moles/Vol] 27 mmol/L Normal 21-[address] [facility] Comment on above: Performed By: #### 2 [id number] #### [facility] [address] [place] [address] Potassium [Moles/Vol] 4.2 mmol/L Normal 3.5-5.3 [facility] Comment on above: Performed By: #### 2 [id number] #### [facility] [address] [place] [address] Sodium [Moles/Vol] 138 mmol/L Normal 135-145 [facility] Comment on above: Performed By: #### 2 [id number] #### [facility] [address] [place] [address] BI MAMMOGRAM SCREENING TOMOS YNTHESIS BILATERALon 08-24-2023 BI MAMMOGRAM SCREENING TOMOSYNTHESIS BILATERAL This is a summary report. The complete report is available in the patient's medical record. If you cannot access the medical record, please contact the sending organization for a detailed fax or copy. EXAMINATION: BI MAMMOGRAM SCREENING TOMOSYNTHESIS BILATERAL CLINICAL HISTORY:screening COMPARISON: November 02, 2018. RESULT: Density: The breasts are almost entirely fatty Overall appearance is stable. There is no suspicious mass, asymmetry, architectural distortion, or calcification IMPRESSION: BIRADS 1 - Negative Follow-up: Routine Screening Mamm Board Certified Radiologists. Accredited by the ACR and FDA. MAMMOGRAPHY IS VERY IMPORTANT TO YOUR HEALTH. THE [employer] GUIDELINES RECOMMEND THAT WOMEN 40 [...] BY: ELECTRONICALLY SIGNED BY: Roly Sharpe MD Normal Not Available Comment on above: Order Comment: Spot compression and us prn RAD - MISCon 07-26-2023 RAD - MISC [id number] TIFF Normal [facility] Lab Reportson 07-11-2023 Lab Reports [id number] 0TIFF Normal [facility] Ambulatory Visit Summaryon 0 07-04-2023 Ambulatory Visit Summary SADIE AKHTAR :1970 Visit Date:07/04/2023 Ambulatory Visit Instructions Your Diagnosis Kidney stones Urge incontinence History of UTI Tests Performed XR Abdomen 1 View -- Results Pending -- Please visit your patient portal for your results or contact your primary care physician. Your Care Team Attending Physician - DHARA PERKINS PA-C Primary Care Physician - MARISA GILLIS DO This Is Your Medications List oxybutynin (oxybutynin 5 mg Tab) Contact prescribing physician if questions or concerns albuterol (albuterol 0.083% Inh Shelby 3 mL) cinnamon citric acid-potassium citrate (citric acid-potassium citrate 30 mEq oral powder) cyclobenzaprine (cyclobenzaprine 10 mg Tab) duloxetine (duloxetine 30 mg oral delayed release capsule) ergocalciferol (Vitamin D) fluticasone nasal (fluticasone 0.05 mg/inh Nasal Beason) hydrochlorothiazide (hydrochlorothiazide 25 mg Tab) insulin detemir (Levemir 100 units/mL Injection-Insulin) metoprolol (Metoprolol succinate 25 mg ER Tablet) montelukast (Singulair 10 mg Tab) omeprazole (Prilosec 10 mg Cap-EC) oxcarbazepine (Trileptal 300 mg Tab) rosuvastatin (rosuvastatin 5 mg Tab) semaglutide (Ozempic) tamsulosin (Flomax 0.4 mg Cap) valsartan (valsartan 320 mg Tab) Procedures Performed Cystoscopy (01/28/2021), ESWL - Extracorporeal shockwave lithotripsy for renal calculus (12/17/2020), Cystoscope (10/03/2020), Cystourethroscopy with dilation of urethral stricture (02/28/2020), Cystoscopic removal of ureteric stent (12/22/2016), Cystourethroscopy with dilation of urethral stricture (11/30/2016), Stent placement (11/30/2016), delivery (02/06/1999), Tubal ligation (02/06/1999), Tonsillectomy (02/06/1977), Meniscal repair. Discharge Vitals Height 160 cm Height 63 in Weight 163 kg Weight 358.6 lb BMI 63.67 What to do next You Need to Schedule the Following Appointments Follow Up with DHARA PERKINS PA-C, URL When: Where: [address] [place] [address] [id number] Medications What How Much When Instructions Unchanged oxybutynin (oxybutynin 5 mg Tab) 1 Tablets By Mouth 2 times a day Unchanged albuterol (albuterol 0.083% Inh Shelby 3 mL) 3 Milliliter Nebulized inhalation (aerosol) Every 6 hours Contact prescribing physician if questions or concerns Unchanged cinnamon 1,000 Milligram By Mouth 2 times a day Contact prescribing physician if questions or concerns Unchanged citric acid-potassium citrate (citric acid-potassium citrate 30 mEq oral powder) See instructions twice daily, dissolve in water. Contact prescribing physician if questions or concerns Unchanged cyclobenzaprine (cyclobenzaprine 10 mg Tab) 1 Tablets By Mouth At bedtime as needed for for spasm Contact prescribing physician if questions or concerns Unchanged duloxetine (duloxetine 30 mg oral delayed release capsule) Contact prescribing physician if questions or concerns Unchanged ergocalciferol (Vitamin D) 2,000 International unit By Mouth Every day Contact prescribing physician if questions or concerns Unchanged fluticasone nasal (fluticasone 0.05 mg/ inh Nasal Beason) 2 Sprays Nasal Inhalation 2 times a day each nostril Contact prescribing physician if questions or concerns Unchanged hydrochlorothiazide (hydrochlorothiazide 25 mg Tab) 1 Tablets By Mouth 2 times a day Contact prescribing physician if questions or concerns Unchanged insulin detemir (Levemir 100 units/ mL Injection-Insulin) 30 Units Subcutaneous Once a day (at bedtime) Contact prescribing physician if questions or concerns Unchanged metoprolol (Metoprolol succinate 25 mg ER Tablet) 25 Milligram By Mouth At bedtime Contact prescribing physician if questions or concerns Unchanged montelukast (Singulair 10 mg Tab) 1 Tablets By Mouth Every day Contact prescribing physician if questions or concerns Unchanged omeprazole (Prilosec 10 mg Cap-EC) 2 Capsules By Mouth Every day Contact prescribing physician if questions or concerns Unchanged oxcarbazepine (Trileptal 300 mg Tab) 1 Tablets By Mouth Every day Contact prescribing physician if questions or concerns Unchanged rosuvastatin (rosuvastatin 5 mg Tab) 2 Tablets By Mouth Every day Contact prescribing physician if questions or concerns Unchanged semaglutide (Ozempic) Subcutaneous Every week Contact prescribing physician if questions or concerns Unchanged tamsulosin (Flomax 0.4 mg Cap) 1 Capsules By Mouth 2 times a day Contact prescribing physician if questions or concerns Unchanged valsartan (valsartan 320 mg Tab) 1 Tablets By Mouth Every day Contact prescribing physician if questions or concerns Allergies No Known Medication Allergies Problems Ongoing - Any problem that you are currently receiving treatment for. Dysuria Flank pain GERD (gastroesophageal reflux disease) Hematuria High blood pressure History of renal stone History of seizures History of UTI Hypothyroid Incomplet (more content not included)... Normal [facility] Patient Educationon 07-04-19 24 Patient Education Nephrology Dietary Guidelines to Help Prevent Kidney Stones Kidney stones are deposits of minerals and salts that form inside your kidneys. Your risk of developing kidney stones may be greater depending on your diet, your lifestyle, the medicines you take, and whether you have certain medical conditions. Most people can lower their risks of developing kidney stones by following these dietary guidelines. Your dietitian may give you more specific instructions depending on your overall health and the type of kidney stones you tend to develop. What are tips for following this plan? Reading food labels ? Choose foods with no salt added or low-salt labels. Limit your salt (sodium) intake to less than 1,500 mg a day. ? Choose foods with calcium for each meal and snack. Try to eat about 300 mg of calcium at each meal. Foods that contain 200?500 mg of calcium a serving include: ? 8 oz (237 mL) of milk, kjjckuh-ljxbzxdsolbe-x airy milk, and calcium-fortifiedfruit juice. Calcium-fortified means that calcium has been added to these drinks. ? 8 oz (237 mL) of kefir, yogurt, and soy yogurt. ? 4 oz (114 g) of tofu. ? 1 oz (28 g) of cheese. ? 1 cup (150 g) of dried figs. ? 1 cup (91 g) of cooked broccoli. ? One 3 oz (85 g) can of sardines or mackerel. Most people need 1,000?1,500 mg of calcium a day. Talk to your dietitian about how much calcium is recommended for you. Shopping ? Buy plenty of fresh fruits and vegetables. Most people do not need to avoid fruits and vegetables, even if these foods contain nutrients that may contribute to kidney stones. ? When shopping for convenience foods, choose: ? Whole pieces of fruit. ? Pre-made salads with dressing on the side. ? Low-fat fruit and yogurt smoothies. ? Avoid buying frozen meals or prepared deli foods. These can be high in sodium. ? Look for foods with live cultures, such as yogurt and kefir. ? Choose high-fiber grains, such as whole-wheat breads, oat bran, and wheat cereals. Cooking ? Do not add salt to food when cooking. Place a salt shaker on the table and allow each person to add their own salt to taste. ? Use vegetable protein, such as beans, textured vegetable protein (TVP), or tofu, instead of meat in pasta, casseroles, and soups. Meal planning ? Eat less salt, if told by your dietitian. To do this: ? Avoid eating processed or pre-made food. ? Avoid eating fast food. ? Eat less animal protein, including cheese, meat, poultry, or fish, if told by your dietitian. To do this: ? Limit the number of times you have meat, poultry, fish, or cheese each week. Eat a diet free of meat at least 2 days a week. ? Eat only one serving each day of meat, poultry, fish, or seafood. ? When you prepare animal proteins, cut pieces into small portion sizes. For most meat and fish, one serving is about the size of the palm of your hand. ? Eat at least five servings of fresh fruits and vegetables each day. To do this: ? Keep fruits and vegetables on hand for snacks. ? Eat one piece of fruit or a handful of berries with breakfast. ? Have a salad and fruit at lunch. ? Have two kinds of vegetables at dinner. ? You may be told to limit foods that are high in a substance called oxalate. These include: ? Spinach (cooked), rhubarb, beets, sweet potatoes, and [place]serratian chard. ? Peanuts. ? Potato chips, tunisian fries, and baked potatoes with skin on. ? Nuts and nut products. ? Chocolate. ? If you regularly take a diuretic medicine, make sure to eat at least 1 or 2 servings of fruits or vegetables that are high in potassium each day. These include: ? Avocado. ? Banana. ? Roebling, prune, carrot, or tomato juice. ? Baked potato. ? Cabbage. ? Beans and split peas. Lifestyle ? Drink enough fluid to keep your urine pale yellow. This is the most important thing you can do. Spread your fluid intake throughout the day. ? If you drink alcohol: ? Limit how much you have to: ? 0?1 drink a day for women who are not . ? 0?2 drinks a day for men. ? Know how much alcohol is in your drink. In the [place] one drink equals one 12 oz bottle of beer (355 mL), one 5 oz glass of wine (148 mL), or one 1? oz glass of hard liquor (44 mL). ? Lose weight if told by your health care provider. Work with your dietitian to find an eating plan and weight loss strategies that work best for you. General information ? Talk to your health care provider and dietitian about taking daily supplements. Depending on your health and the cause of your kidney stones, you may be told: ? Do not take high-dose supplements of vitamin C (1,000 mg a day or more). ? To take a calcium supplement. ? To take a daily probiotic supplement. ? To take other supplements such as magnesium, fish oil, or vitamin B6. ? Take [id number]-apmdtwi and prescription medicines only as told by your health care provider. These include supplements. What foods sh (more content not included)... Normal [facility] Urology Office/Clinic Noteon 07-04-2023 Urology Office/Clinic Note Chief Complaint F/U HPI Staff 53 year old female here for F/U with LithoLink. LithoLink done 06/14/23 Previous DX: kidney stones and urge incontinence. S/P Rt. ESWL 12/17/20 and Rt. laser Litho/basket 01/28/21. Pt. taking HCTZ 12.5mg BID, Oxybutynin 5mg QD and Flomax 0.4mg BID. Urine culture done 02/10/23 showing >100,000 cfu/ml E Coli. Pt. states is out of Oxybutynin and will need a refill. Dysuria: Incomplete bladder emptying: no Hematuria: no Frequency: 2-3 hours Urgency: yes Nocturia: 2x's Stream: Pt. states not a good stream when not taking Oxybutynin. Post void dripping: no Wearing pads/ Depends: occasionally when she is coughing Urge incontinence: a few times a month Stress incontinence: yes Incontinence without Sensory Awareness: no Abdominal pain: Pt. states having abd pain. Pt. states she has been having hard BM. Flank pain: no History of Present Illness staff HPI reviewed and agree. Review of Systems PHQ Score Initial Depression Screen Score: 0 SCORE no fever, chills, malaise, myalgia. no rash/lesions. no chest pain, palpitations, or SOB. no abdominal pain, nausea, vomiting. no unilateral calf swelling, redness, pain Physical Exam Vitals & Measurements HT: 63 in HT: 160 cm WT: 163 kg WT: 358.6 lb BMI: 63.67 General: nontoxic, NAD Mouth: moist mucosa Lungs: normal respiratory effort Cardio: regular rate, good distal perfusion Abdomen: nondistended, no suprapubic distention or tenderness, no CVA tenderness Neurologic: Grossly normal Skin: No rashes or suspicious lesions Assessment/Plan GPC pt 1. Kidney stones (N20.0: Calculus of kidney) S/p right ESWL 12/17/20 and R Laser Litho/basket 01/28/21. KUB 05/25/21 - neg for obvious stones. CT 10/27/21 - neg for stones. Previous stone- ammonium acid urate & struvite. Metabolic w/up 03/15/21 - severely high urine Ca, high sodium levels. -Started on HCTZ 25mg bid. Metabolic w/up 03/16/22 - severely high urine Ca (worse than prior), high urine sodium (slightly improved), high oxalate, severely high urine uric acid, and lower pH. -Started on Cytra-K 30meq bid (pt's pharmacy was unable to get potassium citrate powder packets). Litholink 06/14/23 - Good volume (similar to prior levels). High urine ca (but improved compared to previous). High urine sodium (slightly improved). High urine oxalate (worse). Severely high uric acid (worse). Low pH. Urine creatinine excretion varied by >20% between this sample and past samples suggest a discrepancy in collection process so the automated interpretive report was not included. pt did not wish to repeat test at this time due to cost. I am able to interpret the results manually and went through them with pt at length IO today. -Had blood work done at [facility] on Monday but results are not yet available. Pt states she has made a lot of dietary changes - has decreased sodium intake, stopped calcium supplement, and has been trying to eat less protein to reduce uric acid (but says this is hard because she is trying to lose weight and is Diabetic so her options are limited). Advised pt uric acid is still high and dietary changes for weight loss take precedence over kidney stone prevention IMO so would recommend starting Allopurinol to reduce uric acid levels in urine. urine pH is also low. recommend alkalinization. pt was previously supposed to be on potassium citrate. does not remember ever starting this. is not on it now. looks like maybe there was some interaction issues w other meds she was on so will start Klor-Con EF. -Cont HCTZ 25mg bid -Start Allopurinol 200mg daily -Start Klor-Con EF 50meq daily. check urine for pH in 6 wks to ensure increasing and electrolyte panel to ensure we aren't causing hyperkalemia. -1 yr w/ KUB and repeat Litholink w/ blood work. 2. Urge incontinence (N39.41: Urge incontinence) BBS 13-14. Taking Flomax 0.4mg bid and Oxybutynin 5mg bid. Feels sxs are well controlled with medical management. No intolerable side effects. Does not wish to change anything at this time. -Cont Flomax and Oxybutynin. Refills sent. 3. History of UTI (Z87.440: Personal history of urinary (tract) infections) Pt called our office 02/09/23 c/o discharge, odorous urine, urgency, and abdominal pain. UCx 02/10/23 - >100k E. coli, tx'd w/ Bactrim x7 days. UA today negative for blood and infection. Follow-up With When Contact Information DHARA PERKINS PA-C, URL [address] [facility] [place] [address] [phone] Additional Instructions: 1 yr w/ KUB and 24 hr urine Patient Education Dietary Guidelines to Help Prevent Kidney Stones Documentation recorded by the jose c Hoffman accurately reflects the services(s) I performed and decisions made by me. Authenticated by Dhara Perkins PA-C on 07/04/2023 14:02:37. ITierney, personally scribed for Dhara Perkins PA-C on 07/04/2023 13:42:03. . Problem List/Past Medical History (more content not included)... Normal [facility] Comment on above: Result Comment: Elec tronically Signed By: DHARA PERKINS PA-C\.br\Date and Time Signed: 07/04/23 14:04 EDT Lab Reportson 06-23-2023 Lab Reports [id number]#1.0 [id number] Normal [facility] Glucose Glucometer (BldC) [M ass/Vol]Ordered By: Felix Jaquez on 12-09-2022 Glucose [Mass/Vol] 142 mg/dL [facility] Comment on above: Random Glucose Refer ence Range is dependent on time and content of last meal. Glucose of more than 200 mg/dL in a nonstressed, ambulatory subject supports the diagnosis of Diabetes Mellitus. Glucose Poct Glucometerson 1 02-08-2022 Commemt1 Glu2: Cleaned Meter Normal [facility] Comment on above: Result Comment: PERF ORMED BY: [facility] [address] [place] [address] PATHOLOGIST HEALTH PROGRAM DIRECTOR HARMAN CHRISTOPHER M.D. Performed By: #### G VANNA #### Point of Care testing , Glucose [Mass/Vol] 142 mg/dL Normal [facility] Comment on above: Result Comment: [place] Glucose Reference Range is dependent on time and content of last meal. Glucose of more than 200 mg/dL in a nonstressed, ambulatory subject supports the diagnosis of Diabetes Mellitus. Performed By: #### G VANNA #### Point of Care testing , Henrique 12-09-2022 L -- ---- Specimen: [id number] Received: 12/09/22 Status: ANKIT Simpson Num: [id number] Spec Type: Surgical Subm Dr: Felix Jaquez MD Tissues: A Colon Biopsy (DESC POLYP) Procedures: HE/2, Gross/Micro L4 ---- Age/ Patient Sex Location Account Attending Physician ---- Sadie Akhtar 52/F [id number] Felix Jaquez MD ---- SPEC NUM: [id number] RECD: 12/09/22 STATUS: ANKIT SIMPSON NUM: [id number] GEORGE: 12/09/22 DR: Felix Jaquez MD ENTERED: 12/09/22 [facility] DR: HARLEY TYPE: Surgical DEPT: S ORDERED: HE/2, Gross/Micro L4 ORDERED: HE/2, Gross/Micro L4 Pathological Diagnosis Descending colon polyp biopsy: - Small tubular adenomatous polyp Clinical Information Screen Gross Description Received in formalin labeled with the patient's name, date of and descending polyp is one bey tissue measuring 0.4 x 0.3 x 0.2 cm admixed with fecal material. Entirely submitted in one cassette labeled A1. Microscopic Description Two H E slides reviewed. The microscopic examination confirms the diagnosis. CPT Codes 01758 ---- ---- Specimen: [id number] Received: 12/09/22 Status: ANKIT Rubysusi Num: [id number] Spec Type: Surgical Subm Dr: Felix Jaquez MD Tissues: A Colon Biopsy (DESC POLYP) Procedures: Fernanda HANSEN/Lucio L4 ---- Patient: Sadie Akhtar [id number] (Continued) ---- Signed (signature on file) Thom Dave MD 12/12/22 [id number] Normal [facility] No Panel InformationOrdered By: Felix Jaquez on 12-09-2022 Bedside Glucose Comment Glu2: cleaned meter [facility] PTH INTACTon 04-30-2022 PTH, Intact 27 pg/mL Normal 15-65 [facility] Comment on above: Performed By: #### P OCGLUC #### [facility] [address] [address] [address] Wilbert Dave LIPID PROFILEon 04-29-2022 CHOL-HDL RATIO NORM SEE BELOW Normal [facility] Comment on above: Result Comment: 3.3 - 4.4 LOW RISK 4.4 - 7.1 AVERAGE RISK 7.1 - 11.0 MODERATE RISK >11.0 HIGH RISK Performed By: #### B LDCX1 #### [facility] [address] [address] [address] Wilbert Dave Cholesterol [Mass/Vol] 158 mg/dL Normal <=200 [facility] Comment on above: Performed By: #### B LDCX1 #### [facility] [address] [address] [address] Wilbert Dave Cholesterol in HDL [Mass/Vol] 38 mg/dL Critically low 40-60 [facility] Comment on above: Performed By: #### B LDCX1 #### [facility] [address] [address] [address] Wilbert Dave Cholesterol in LDL [Mass/Vol] 74.6 mg/dL Normal [facility] Comment on above: Performed By: #### B LDCX1 #### [facility] [address] [place], [place] [address] Dr. Wilbert Dave Cholesterol.total/Cho lesterol in HDL [Mass ratio] 4.2 {ratio} Normal [facility] Comment on above: Performed By: #### B LDCX1 #### [facility] [address] [address] [address] Wilbert Dave HDL NORMAL > or = 60 mg/dl - LO W CARDIOVASCULAR RISK <40 mg/dl - HIGH CARDIOVASCULAR RISK Normal [facility] Comment on above: Performed By: #### B LDCX1 #### [facility] [address] [address] [address] Wilbert Dave LDL CALC NORMAL SEE BELOW Normal [facility] Comment on above: Result Comment: <100 mg/dl OPTIMAL 100 - 129 mg/dl NEAR OR ABOVE OPTIMAL 130 - 159 mg/dl BORDERLINE HIGH 160 - 189 mg/dl HIGH >190 mg/dl VERY HIGH Performed By: #### B LDCX1 #### [facility] [address] [place] [address] Dr. Wilbert Dave Triglyceride [Mass/Vol] 227 mg/dL Critically high <=150 [facility] Comment on above: Performed By: #### B LDCX1 #### [facility] [address] [place] [address] Dr. Wilbert Dave VLDL CALC 45.4 mg/dL Normal [facility] Comment on above: Performed By: #### B LDCX1 #### [facility] [address] [place] [address] Dr. Wilbert Dave MAGNESIUMon 04-29-2022 Magnesium [Mass/Vol] 1.7 mg/dL Critically low 1.8-2.4 [facility] Comment on above: Performed By: #### B LDCX1 #### [facility] [address] [place] [address] Dr. Wilbert Dave PROF CHEM 8 (BAS METB)on Anion gap [Moles/Vol] 13.9 mmol/L Normal [facility] Comment on above: Performed By: #### P HVEN #### [facility] [address] [place] [address] Dr. Wilbert Dave Calcium [Mass/Vol] 9.2 mg/dL Normal 8.5-10.1 [facility] Comment on above: Performed By: #### P HVEN #### [facility] [address] [place] [address] Dr. Wilbert Dave Chloride [Moles/Vol] 103 mmol/L Normal 98-107 [facility] Comment on above: Performed By: #### P HVEN #### [facility] [address] [place] [address] Dr. Wilbert Dave CO2 [Moles/Vol] 26.9 mmol/L Normal 21.0-32.0 [place] Comment on above: Performed By: #### P HVEN #### [facility] [address] [address] [address] Wilbert Dave Creatinine [Mass/Vol] 0.57 mg/dL Normal 0.55-1.02 [facility] Comment on above: Performed By: #### P HVEN #### [facility] [address] [place] [address] Dr. Wilbert Dave EGFR-AF RUSSIAN >60 Normal >=60 [place] Comment on above: Performed By: #### P HVEN #### [facility] [address] [address] [address] Wilbert Dave EGFR-NON AF RUSSIAN >60 Normal >=60 [facility] Comment on above: Performed By: #### P HVEN #### [facility] [address] [place] [address] Dr. Wilbert Dave Glucose [Mass/Vol] 246 mg/dL Critically high 74-106 [facility] Comment on above: Performed By: #### P HVEN #### [facility] [address] [place] [address] Dr. Wilbert Dave Potassium [Moles/Vol] 3.8 mmol/L Normal 3.5-5.1 [facility] Comment on above: Performed By: #### P HVEN #### [facility] [address] [place] [address] Dr. Wilbert Dave Sodium [Moles/Vol] 140 mmol/L Normal 136-145 [facility] Comment on above: Performed By: #### P HVEN #### [facility] [address] [place] [address] Dr. Wilbert Dave Urea nitrogen [Mass/Vol] 15.0 mg/dL Normal 7.0-18.0 [facility] Comment on above: Performed By: #### P HVEN #### [facility] [address] [place] [address] Dr. Wilbert Dave Urea nitrogen/Creatinine [Mass ratio] 26.3 mg/mg Normal [facility] Comment on above: Performed By: #### P HVEN #### [facility] [address] [place] [address] Dr. Wilbert Dave BOX TEST SENT OUTon 03-14-19 23 SENT TO REF LAB 03/14/2022 Normal [facility] [place] Comment on above: Performed By: #### P OCGLUC #### [facility] [address] [address] [address] Wilbert Dave PAP ACOG PANEL 2: 30 to 65on 03-03-2022 . . Normal [facility] Comment on above: Result Comment: Perf ormed at: WB Performed By: #### P OCGLUC #### [facility] [address] [address] [address] Wilbert Dave Age Gdln ACOG Testing 30-65 Normal [facility] Comment on above: Performed By: #### P OCGLUC #### [facility] [address] [address] [address] Wlibert Dave DIAGNOSIS: Comment Normal [facility] Comment on above: Result Comment: NEGA TIVE FOR INTRAEPITHELIAL LESION OR MALIGNANCY. Performed at: WB Performed By: #### P OCGLUC #### [facility] [address] [address] [address] Wilbert Dave HPV Aptima Negative Normal Negative [facility] Comment on above: Result Comment: This nucleic acid amplification test detects fourteen high-risk HPV types (16,18,31,33,35,39,45,51,52,56,58,59,66,68) without differentiation. Performed at: =G Performed By: #### P OCGLUC #### [facility] [address] [address] [address] Wilbert Dave HPV Genotype Reflex Comment Normal [facility] Comment on above: Result Comment: Crit eria not met, HPV Genotype not performed. Performed at: WB Performed By: #### P OCGLUC #### [facility] [address] [address] [address] Wilbert Dave Methodology: Comment Normal [facility] Comment on above: Result Comment: This liquid based ThinPrep(R) pap test was screened with the use of an image guided system. Performed at: WB Performed By: #### P OCGLUC #### [facility] [address] [place] [address] Dr. Wilbert Dave Note: Comment Normal [facility] Comment on above: Result Comment: The Pap smear is a screening test designed to aid in the detection of premalignant and malignant conditions of the uterine cervix. It is not a diagnostic procedure and should not be used as the sole means of detecting cervical cancer. Both false-positive and false-negative reports do occur. . Performed at: WB Performed By: #### P OCGLUC #### [facility] [address] [place], [place] [id number] Dr. Wilbert Dave Performed by: Comment Normal [facility] Comment on above: Result Comment: Gisella Wood, Rn Nicu (ASCP) Performed at: WB Performed By: #### P OCGLUC #### [facility] [address] [place], [place] [id number] Dr. Wilbert Dave Specimen adequacy: Comment Normal [facility] Comment on above: Result Comment: Sati sfactory for evaluation. No endocervical component is identified. Performed at: WB Performed By: #### P OCGLUC #### [facility] [address] [place] [address] Dr. Wilbert Dave ALLERGEN, RESP. AREA V w/ RE FLEXon 02-05-2022 Class Description Comment Normal [facility] Comment on above: Result Comment: Kobe martinez of Specific IgE Class Description of Class ----- < 0.10 0 Negative 0.10 - 0.31 0/I Equivocal/Low 0.32 - 0.55 I Low 0.56 - 1.40 II Moderate 1.41 - 3.90 III High 3.91 - 19.00 IV Very High 19.01 - 100.00 V Very High >100.00 Very High Performed By: #### P OCGLUC #### [facility] [address] [place] [address] [address] [address] Wilbert Dave [id number]-OdI D pteronyssinus <0.10 Normal Class 0 [facility] Comment on above: Performed By: #### P OCGLUC #### [facility] [address] [address] [address] Wilbert Dave W877-IyY D farinae <0.10 Normal Class 0 [facility] Comment on above: Performed By: #### P OCGLUC #### [facility] [address] [address] [address] Wilbert Dave T553-ZwM Cat Dander <0.10 Normal Class 0 [facility] Comment on above: Performed By: #### P OCGLUC #### [facility] [address] [address] [address] Wilbert Dave R734-TcW Dog Dander <0.10 Normal Class 0 [facility] Comment on above: Performed By: #### P OCGLUC #### [facility] [address] [place] [address] Dr. Wilbert Dave L868-ScC Mouse Urine <0.10 Normal Class 0 [facility] Comment on above: Performed By: #### P OCGLUC #### [facility] [address] [address] [address] Wilbert Dave U686-StI [place] Grass <0.10 Normal Class 0 [facility] Comment on above: Performed By: #### P OCGLUC #### [facility] [address] [address] [address] Wilbert Dave H935-OqJ Earnest Grass <0.10 Normal Class 0 [facility] Comment on above: Performed By: #### P OCGLUC #### [facility] [address] [address] [address] Wilbert Dave W449-WeY Cockroach, Lebanese <0.10 Normal Class 0 [facility] Comment on above: Performed By: #### P OCGLUC #### [facility] [address] [address] [address] Wilbert Dave Immunoglobulin E, Total 16 IU/mL Normal 6-495 [facility] Comment on above: Performed By: #### P OCGLUC #### [facility] [address] [address] [address] Wilbert Dave M855-RpD Penicillium chrysogen <0.10 Normal Class 0 [facility] Comment on above: Performed By: #### P OCGLUC #### [facility] [address] [address] [address] Wilbert Dave B265-VbJ Cladosporium herbarum <0.10 Normal Class 0 [facility] Comment on above: Performed By: #### P OCGLUC #### [facility] [address] [address] [address] Wilbert Dave B270-EpC Aspergillus fumigatus <0.10 Normal Class 0 [facility] Comment on above: Performed By: #### P OCGLUC #### [facility] [address] [address] [address] Wilbert Dave U469-UzU Alternaria alternata <0.10 Normal Class 0 [facility] Comment on above: Performed By: #### P OCGLUC #### [facility] [address] [address] [address] Wilbert Dave I759-OoS Maple/Dougherty <0.10 Normal Class 0 [facility] Comment on above: Performed By: #### P OCGLUC #### [facility] [address] [address] [address] Wilbert Dave D390-EpC Common Silver Birch <0.10 Normal Class 0 [facility] Comment on above: Performed By: #### P OCGLUC #### [facility] [address] [address] [address] Wilbert Dave G013-YbI [place], [place] <0.10 Normal Class 0 [facility] Comment on above: Performed By: #### P OCGLUC #### [facility] [address] [address] [address] Wilbert Dave O078-RcW [place], White <0.10 Normal Class 0 [facility] Comment on above: Performed By: #### P OCGLUC #### [facility] [address] [address] [address] Wilbert Dave H423-TyM Elm, Citizen Of [place] <0.10 Normal Class 0 [facility] Comment on above: Performed By: #### P OCGLUC #### [facility] [address] [address] [address] Wilbert Dave G664-HqH [place] <0.10 Normal Class 0 [facility] [place] Comment on above: Performed By: #### P OCGLUC #### [facility] [address] [address] [address] Wilbert Dave Q309-QjG [place] <0.10 Normal Class 0 [facility] Comment on above: Performed By: #### P OCGLUC #### [facility] [address] [address] [address] Wilbert Dave T457-VrA Gable <0.10 Normal Class 0 [facility] Comment on above: Performed By: #### P OCGLUC #### [facility] [address] [address] [address] Wilbert Dave T518-ZvE [place], White <0.10 Normal Class 0 [facility] Comment on above: Performed By: #### P OCGLUC #### [facility] [address] [address] [address] Wilbert Dave P360-QwW Pecan, Laie <0.10 Normal Class 0 [facility] Comment on above: Performed By: #### P OCGLUC #### [facility] [address] [address] [address] Wilbert Dave G545-BbK [place] <0.10 Normal Class 0 [facility] Comment on above: Performed By: #### P OCGLUC #### [facility] [address] [address] [address] Wilbert Dave Q927-JaY Ragweed, Short <0.10 Normal Class 0 [facility] Comment on above: Performed By: #### P OCGLUC #### [facility] [address] [address] [address] Wilbert Dave L119-GzK Thistle, Kenyan <0.10 Normal Class 0 [facility] Comment on above: Performed By: #### P OCGLUC #### [facility] [address] [address] [address] Wilbert Dave X352-LcH Pigweed, Common <0.10 Normal Class 0 [facility] Comment on above: Performed By: #### P OCGLUC #### [facility] [address] [place] [address] Dr. Wilbert Dave C701-WqH Sheep [place] <0.10 Normal Class 0 [facility] Comment on above: Performed By: #### P OCGLUC #### [facility] [address] [place] [address] Dr. Wilbert Dave IMMUNOGLOBULINS IGA/IGM/IGG/ IGE QUANTITAon 02-05-2022 Immunoglobulin A, Qn, Serum 271 mg/dL Normal 87-352 [facility] Comment on above: Result Comment: Perf ormed at: CB Performed By: #### B LDCX1 #### [facility] [address] [place] [address] Dr. Wilbert Dave Immunoglobulin E, Total 13 IU/mL Normal 6-495 [facility] Comment on above: Result Comment: Perf ormed at: BN Performed By: #### B LDCX1 #### [facility] [address] [place] [address] Dr. Wilbert Dave Immunoglobulin G, Qn, Serum 774 mg/dL Normal 586-1602 [facility] Comment on above: Result Comment: Perf ormed at: CB Performed By: #### B LDCX1 #### [facility] [address] [place] [address] Dr. Wilbert Dave Immunoglobulin M, Qn, Serum 74 mg/dL Normal 26-217 [facility] Comment on above: Result Comment: Perf ormed at: CB Performed By: #### B LDCX1 #### [facility] [address] [place] [address] Dr. Wilbert Dave [id number] 2021 Leezy-8-Auwecikrgsj, Serum 162 mg/dL Normal 101-187 [facility] Comment on above: Performed By: #### L ACT #### [facility] [address] [place] [address] Dr. Wilbert Dave HEMOGLOBINon 02-02-2022 Hemoglobin (Bld) [Mass/Vol] 13.8 g/dL Normal 12.0-16.0 [facility] Comment on above: Performed By: #### B [id number] #### [facility] [address] [address] [address] Wilbert Dave US PELVIS AND TRANSVAGon US PELVIS AND TRANSVAG EXAMINATION: US PELVIS AND TRANSVAG HISTORY: Pelvic and perineal pain ; left lower quadrant pain COMPARISON: No relevant comparison available. TECHNIQUE: Transabdominal and transvaginal sonographic examination. FINDINGS: UTERUS: 1.0 cm round hypoechoic mass in anterior fundal myometrium favoring a leiomyoma. Uterus size: 7.5 x 4.0 x 4.6 cm ENDOMETRIUM: Normal homogeneous appearance. Endometrial thickness: 4 mm RIGHT OVARY: Grossly normal size and appearance. Blood flow present within ovary on color Doppler. Ovary size: 4.4 x 2.7 x 4.6 cm LEFT OVARY: Not seen. CUL-DE-SAC: Unremarkable. No significant free fluid. BLADDER: Unremarkable. OTHER: None. IMPRESSION: 1. Suboptimal examination due to patient body habitus. 2. Small leiomyoma within anterior fundal myometrium. 3. Left ovary could not be identified. No suspicious adnexal findings. Electronically authenticated by: MARIA DE JESUS LYNNE Date: 2022-01-27 17:00 Normal [facility] VAGINITIS/VAGINOSIS DNA PROB Gadiel 01-14-2022 Alivia species Positive Abnormal Negative [facility] Comment on above: Performed By: #### B [id number] #### [facility] [address] [address] [address] Wilbert Dave Gardnerella vaginalis Negative Normal Negative [facility] Comment on above: Performed By: #### B LDCX1 #### [facility] [address] [address] [address] Wilbert Dave Trichomonas vaginalis Negative Normal Negative [facility] Comment on above: Performed By: #### B LDCX1 #### [facility] [address] [address] [address] Wilbert Dave [id number] DNA ANAL YSISon 01-12-2022 AAT, DNA Analysis Comment Normal [facility] Comment on above: Result Comment: Resu lt: c.1096 G>A (p.[id number]), Z allele - Not detected c.863 A>T (p.[id number]), S allele - Not detected Not associated with increased risk of developing clinically relevant symptoms of alpha-1 antitrypsin deficiency. See Additional Clinical Information and Comments. Performed By: #### L ACT #### [facility] [address] [place] [address] Dr. Wilbert Dave Additional Information: Comment Normal [facility] Comment on above: Result Comment: Robin valero Clinical Information: Alpha-1 antitrypsin deficiency is an autosomal recessive metabolic disorder with variable severity and age at onset. Signs and symptoms may include increased risk for chronic obstructive lung disease that typically manifests after age 30, liver disease, and liver cancer. Liver disease can be present in infancy as cholestasis (jaundice) or in adulthood as cirrhosis and fibrosis. Lung and liver disease may be accelerated by environmental exposures such as smoking and excessive alcohol use. Established treatments for COPD and emphysema are used to treat lung disease; lung and/or liver transplantation may be an option for those with with severe disease. Intravenous augmentation therapy may be available for patients who meet criteria. . Comments: The ZZ and SZ genotypes account for more than 95% of individuals with severe alpha-1 antitrypsin deficiency. To rule out other variants, further testing of symptomatic individuals heterozygous for one variant (S or Z) or with negative results may include phenotyping (PI typing), AAT level testing, and/or expanded genotyping. . Genetic counseling is recommended to discuss the potential clinical implications of positive results, as well as recommendations for testing family members. Genetic Coordinators are available for health care providers to discuss results at [phone] ([phone]). . Test Details: Two variants analyzed: c.1096 G>A (p.Kpc121Uix), commonly referred to as the Z allele or PI*Z c.863 A>T (p.Lzf955Opj), commonly referred to as the S allele or PI*S . Methods/Limitations: DNA analysis of the S and Z alleles in the SERPINA1 gene (NM_[id number]) was performed by multiplex allele-specific PCR amplification followed by gel electrophoresis. Results must be combined with clinical information for the most accurate interpretation. Molecular-based testing is highly accurate, but as in any laboratory test, rare diagnostic errors may occur. False positive or false negative results may occur for reasons that include genetic variants, blood transfusions, bone marrow transplantation, somatic or tissue-specific mosaicism, mislabeled samples, or erroneous representation of family relationships. . This test was developed and its performance characteristics determined by [facility]. It has not been cleared or approved by the Food and Drug Administration. . References: Corrine RA, Rama G, Rusty ML, Dallas M, Rolo CE, K, Sharla DK, Natan SL, Diana JM, Ramírez CHEEMA, Lana C, Milagro J. The Diagnosis and Management of Alpha-1 Antitrypsin Deficiency in the Adult. Chronic Obstr Pulm Dis. 2016 Jul 12;3(3):668-682. doi: 10.92720/jcopdf.3..0182. PMID: 42663566; PMCID: [id number]. Ramírez CHEEMA, Lydia Rodriguez, Jewel MARTINEZ. Alpha-1 Antitrypsin Deficiency. 2005Dec 02 [Updated 2019June 26]. In: Bjorn MP, Boris HH, Steven FARNSWORTH, et al., editors. Tho(R) [Internet]. [place] (ID): [facility]; [id number]. Available from: https://www.ncbi.nlm.nih.gov/books/RHD5889/ Performed By: #### L ACT #### [facility] [address] [address] [address] Wilbert Dave Electronically Signed By Comment [facility] Comment on above: Result Comment: Teto Crandall, PhD, [facility] Performed By: #### L ACT #### [facility] [address] [address] [address] Wilbert Dave ALLERGEN, RESP. AREA V w/ RE FLEXon 01-04-2022 Class Description Comment Normal [facility] Comment on above: Result Comment: Kobe martinez of Specific IgE Class Description of Class ----- < 0.10 0 Negative 0.10 - 0.31 0/I Equivocal/Low 0.32 - 0.55 I Low 0.56 - 1.40 II Moderate 1.41 - 3.90 III High 3.91 - 19.00 IV Very High 19.01 - 100.00 V Very High >100.00 Very High Performed By: #### P HVEN #### [facility] [address] [address] [address] Wilbert Dave D102-UpB D pteronyssinus <0.10 Normal Class 0 [facility] Comment on above: Performed By: #### P HVEN #### [facility] [address] [place] [address] Dr. Wilbert Dave M049-JzR D farinae <0.10 Normal Class 0 [facility] Comment on above: Performed By: #### P HVEN #### [facility] [address] [place] [address] Dr. Wilbert Dave P535-HoO Cat Dander <0.10 Normal Class 0 [facility] Comment on above: Performed By: #### P HVEN #### [facility] [address] [place] [address] Dr. Wilbert Dave K653-OmF Dog Dander <0.10 Normal Class 0 [facility] Comment on above: Performed By: #### P HVEN #### [facility] [address] [place] [address] Dr. Wilbert Dave U599-BnD Mouse Urine <0.10 Normal Class 0 [facility] Comment on above: Performed By: #### P HVEN #### [facility] [address] [place] [address] Dr. Wilbert Dave O682-JbN [place] Grass <0.10 Normal Class 0 [facility] Comment on above: Performed By: #### P HVEN #### [facility] [address] [place] [address] Dr. Wilbert Dave W327-WoR Earnest Grass <0.10 Normal Class 0 [facility] Comment on above: Performed By: #### P HVEN #### [facility] [address] [address] [address] Wilbert Dave K145-UaK Cockroach, Lebanese <0.10 Normal Class 0 [facility] Comment on above: Performed By: #### P HVEN #### [facility] [address] [address] [address] Wilbert Dave Immunoglobulin E, Total 14 IU/mL Normal 6-495 [facility] Comment on above: Performed By: #### P HVEN #### [facility] [address] [address] [address] Wilbert Dave P882-JpG Penicillium chrysogen <0.10 Normal Class 0 [facility] Comment on above: Performed By: #### P HVEN #### [facility] [address] [address] [address] Wilbert Dave Q988-VkA Cladosporium herbarum <0.10 Normal Class 0 [facility] Comment on above: Performed By: #### P HVEN #### [facility] [address] [address] [address] Wilbert Dave X311-OcV Aspergillus fumigatus <0.10 Normal Class 0 [facility] Comment on above: Performed By: #### P HVEN #### [facility] [address] [address] [address] Wilbert Dave Q004-NmA Alternaria alternata <0.10 Normal Class 0 [facility] Comment on above: Performed By: #### P HVEN #### [facility] [address] [address] [address] Wilbert Dave M183-OmU Maple/Dougherty <0.10 Normal Class 0 [facility] Comment on above: Performed By: #### P HVEN #### [facility] [address] [address] [address] Wilbert Dave R663-LoE Common Silver Birch <0.10 Normal Class 0 [facility] Comment on above: Performed By: #### P HVEN #### [facility] [address] [address] [address] Wilbert Dave N813-IxY [place], Mountain <0.10 Normal Class 0 [facility] Comment on above: Performed By: #### P HVEN #### [facility] [address] [address] [address] Wilbert Dave Q249-PrI Dracut, White <0.10 Normal Class 0 [facility] Comment on above: Performed By: #### P HVEN #### [facility] [address] [address] [address] Wilbert Dave L465-JeV Elm, Citizen Of [place] <0.10 Normal Class 0 [facility] Comment on above: Performed By: #### P HVEN #### [facility] [address] [address] [address] Wilbert Dave Y578-WhK [place] <0.10 Normal Class 0 [facility] Comment on above: Performed By: #### P HVEN #### [facility] [address] [address] [address] Wilbert Dave D599-FhQ [place] <0.10 Normal Class 0 [facility] Comment on above: Performed By: #### P HVEN #### [facility] [address] [address] [address] Wilbert Dave B736-ChE Gable <0.10 Normal Class 0 [facility] Comment on above: Performed By: #### P HVEN #### [facility] [address] [address] [address] Wilbert Daev V297-UjU [place], White <0.10 Normal Class 0 [facility] Comment on above: Performed By: #### P HVEN #### [facility] [address] [address] [address] Wilbert Dave U988-BjP Pecan, Laie <0.10 Normal Class 0 [facility] Comment on above: Performed By: #### P HVEN #### [facility] [address] [address] [address] Wilbert Dave L531-CgH [place] <0.10 Normal Class 0 [facility] Comment on above: Performed By: #### P HVEN #### [facility] [address] [address] [address] Wilbert Dvae O141-GkI Ragweed, Short <0.10 Normal Class 0 [facility] Comment on above: Performed By: #### P HVEN #### [facility] [address] [address] [address] Wilbert Dave O943-GjX Thistle, Kenyan <0.10 Normal Class 0 [facility] Comment on above: Performed By: #### P HVEN #### [facility] [address] [address] [address] Wilbert Dave H813-QzE Pigweed, Common <0.10 Normal Class 0 [facility] Comment on above: Performed By: #### P HVEN #### [facility] [address] [place] [address] Dr. Wilbert Dave N871-ZaT Sheep [place] <0.10 Normal Class 0 [facility] Comment on above: Performed By: #### P HVEN #### [facility] [address] [place] [address] Dr. Wilbert Dave IMMUNOGLOBULINS IGA/IGM/IGG/ IGE QUANTITAon 01-03-2022 Immunoglobulin A, Qn, Serum 285 mg/dL Normal 87-352 [facility] Comment on above: Result Comment: Perf ormed at: CB Performed By: #### P OCGLUC #### [facility] [address] [place] [address] Dr. Wilbert Dave Immunoglobulin E, Total 15 IU/mL Normal 6-495 [facility] Comment on above: Result Comment: Perf ormed at: BN Performed By: #### P OCGLUC #### [facility] [address] [address] [address] Wilbert Dave Immunoglobulin G, Qn, Serum 834 mg/dL Normal 586-1602 [facility] Comment on above: Result Comment: Perf ormed at: CB Performed By: #### P OCGLUC #### [facility] [address] [place] [address] Dr. Wilbert Dave Immunoglobulin M, Qn, Serum 73 mg/dL Normal 26-217 [facility] Comment on above: Result Comment: Perf ormed at: CB Performed By: #### P OCGLUC #### [facility] [address] [place] [address] Dr. Wilbert Dave CULTURE URINEon 11-01-2021 CULTURE URINE Isolate 1 Enterococcus faecalis 15,000 cfu/mL of ORGANISM 1 Enterococcus faecalis ANTIBIOTIC M.I.C RX STATUS Beta-Lactamase Neg NEG F Benzylpenicillin 2 S F Ampicillin <=2 S F Gentamicin High Level (synergy) SYN-S S F Streptomycin High Level (synergy) SYN-S S F Ciprofloxacin >=8 R F Levofloxacin >=8 R F Quinupristin/Dalfopris tin 4 R F Linezolid 2 S F Vancomycin 1 S F Tetracycline >=16 R F Nitrofurantoin <=16 S F Normal [facility] Comment on above: Performed By: #### P OCGLUC #### [facility] [address] [place] [address] Dr. Wilbert Dave MAGNESIUMon 10-31-2021 Magnesium [Mass/Vol] 1.9 mg/dL Normal 1.8-2.4 [facility] Comment on above: Performed By: #### P OCGLUC #### [facility] [address] [place] [address] Dr. Wilbert Dave POINT OF CARE GLUCOSEon 10-08 Glucose [Mass/Vol] 235 mg/dL Critically high 74-106 [facility] Comment on above: Performed By: #### B LDCX1 #### [facility] [address] [place] [address] Dr. Wilbert Dave Glucose [Mass/Vol] 216 mg/dL Critically high 74-106 [facility] Comment on above: Performed By: #### B LDCX1 #### [facility] [address] [place] [address] Dr. Wilbert Dave PROF CHEM 8 (BAS METB)on Anion gap [Moles/Vol] 13.3 mmol/L Normal [facility] Comment on above: Performed By: #### P OCGLUC #### [facility] [address] [address] [address] Wilbert Dave Calcium [Mass/Vol] 8.5 mg/dL Normal 8.5-10.1 [facility] Comment on above: Performed By: #### P OCGLUC #### [facility] [address] [address] [address] Wilbert Dave Chloride [Moles/Vol] 108 mmol/L Critically high 98-107 [facility] Comment on above: Performed By: #### P OCGLUC #### [facility] [address] [place] [address] Dr. Wilbert Dave CO2 [Moles/Vol] 23.2 mmol/L Normal 21.0-32.0 [place] Comment on above: Performed By: #### P OCGLUC #### [facility] [address] [place] [address] Dr. Wilbert Dave Creatinine [Mass/Vol] 0.67 mg/dL Normal 0.55-1.02 [facility] Comment on above: Performed By: #### P OCGLUC #### [facility] [address] [address] [address] Wilbert Dave EGFR-AF RUSSIAN >60 Normal >=60 [place] Comment on above: Performed By: #### P OCGLUC #### [facility] [address] [place] [address] Dr. Wilbert Dave EGFR-NON AF RUSSIAN >60 Normal >=60 [facility] Comment on above: Performed By: #### P OCGLUC #### [facility] [address] [address] [address] Wilbert Dave Glucose [Mass/Vol] 209 mg/dL Critically high 74-106 [facility] Comment on above: Performed By: #### P OCGLUC #### [facility] [address] [place] [address] Dr. Wilbert Dave Potassium [Moles/Vol] 3.5 mmol/L Normal 3.5-5.1 [facility] Comment on above: Performed By: #### P OCGLUC #### [facility] [address] [place] [address] Dr. Wilbert Dave Sodium [Moles/Vol] 141 mmol/L Normal 136-145 [facility] Comment on above: Performed By: #### P OCGLUC #### [facility] [address] [address] [address] Wilbert Dave Urea nitrogen [Mass/Vol] 19.0 mg/dL Critically high 7.0-18.0 [facility] Comment on above: Performed By: #### P OCGLUC #### [facility] [address] [address] [address] Wilbert Dave Urea nitrogen/Creatinine [Mass ratio] 28.4 mg/mg Normal [facility] Comment on above: Performed By: #### P OCGLUC #### [facility] [address] [place] [address] Dr. Wilbert Dave MAGNESIUMon 10-30-2021 Magnesium [Mass/Vol] 2.0 mg/dL Normal 1.8-2.4 [facility] Comment on above: Performed By: #### P HVEN #### [facility] [address] [place] [address] Dr. Wilbert Dave POINT OF CARE GLUCOSEon 10-08 Glucose [Mass/Vol] 232 mg/dL Critically high [address] [place] [address] Comment on above: Performed By: #### P OCGLUC #### [facility] [address] [place] [address] Dr. Wilbert Dave Glucose [Mass/Vol] 226 mg/dL Critically high -106 [facility] Comment on above: Performed By: #### P OCGLUC #### [facility] [address] [place] [address] Dr. Wilbert Dave Glucose [Mass/Vol] 289 mg/dL Critically high -106 [facility] Comment on above: Performed By: #### P OCGLUC #### [facility] [address] [place] [address] Dr. Wilbert Dave Glucose [Mass/Vol] 307 mg/dL Critically high -106 [facility] Comment on above: Performed By: #### P HVEN #### [facility] [address] [place] [address] Dr. Wilbert Dave PROF CHEM 8 (BAS METB)on Anion gap [Moles/Vol] 10.4 mmol/L Normal [facility] Comment on above: Performed By: #### P HVEN #### [facility] [address] [address] [address] Wilbert Dave Calcium [Mass/Vol] 8.1 mg/dL Critically low 8.5-10.1 [facility] Comment on above: Performed By: #### P HVEN #### [facility] [address] [address] [address] Wilbert Dave Chloride [Moles/Vol] 107 mmol/L Normal 98-107 [facility] Comment on above: Performed By: #### P HVEN #### [facility] [address] [address] [address] Wilbert Dave CO2 [Moles/Vol] 25.7 mmol/L Normal 21.0-32.0 [place] Comment on above: Performed By: #### P HVEN #### [facility] [address] [address] [address] Wilbert Dave Creatinine [Mass/Vol] 0.92 mg/dL Normal 0.55-1.02 [facility] Comment on above: Performed By: #### P HVEN #### [facility] [address] [address] [address] Wilbert Dave EGFR-AF RUSSIAN >60 Normal >=60 [place] Comment on above: Performed By: #### P HVEN #### [facility] [address] [address] [address] Wilbert Dave EGFR-NON AF RUSSIAN >60 Normal >=60 [facility] Comment on above: Performed By: #### P HVEN #### [facility] [address] [address] [address] Wilbert Dave Glucose [Mass/Vol] 316 mg/dL Critically high 74-106 [facility] Comment on above: Performed By: #### P HVEN #### [facility] [address] [address] [address] Wilbert Dave Potassium [Moles/Vol] 3.1 mmol/L Critically low 3.5-5.1 [facility] Comment on above: Performed By: #### P HVEN #### [facility] [address] [address] [address] Wilbert Dave Sodium [Moles/Vol] 140 mmol/L Normal 136-145 [facility] Comment on above: Performed By: #### P HVEN #### [facility] [address] [address] [address] Wilbert Dave Urea nitrogen [Mass/Vol] 17.0 mg/dL Normal 7.0-18.0 [facility] Comment on above: Performed By: #### P HVEN #### [facility] [address] [place] [address] Dr. Wilbert Dave Urea nitrogen/Creatinine [Mass ratio] 18.5 mg/mg Normal [facility] Comment on above: Performed By: #### P HVEN #### [facility] [address] [place] [address] Dr. Wilbert Dave ACETONE SERUMon 10-29-2021 ACETONE Negative Normal NEGATIVE [facility] Comment on above: Performed By: #### P OCGLUC #### [facility] [address] [place] [address] Dr. Wilbert Dave CBC AUTO DIFFon 10-29-2021 BASO # 0.0 103/ul Normal 0.0-0.1 [facility] Comment on above: Performed By: #### P OCGLUC #### [facility] [address] [place] [address] Dr. Wilbert Dave Basophils/100 WBC (Bld) 0.5 % Normal 0.2-2.0 [facility] Comment on above: Performed By: #### P OCGLUC #### [facility] [address] [place] [address] Dr. Wilbert Dave EO # 0.3 103/ul Normal 0.0-0.7 [facility] Comment on above: Performed By: #### P OCGLUC #### [facility] [address] [place] [address] Dr. Wilbert Dave Eosinophils/100 WBC (Bld) 2.9 % Normal 0.9-7.0 [facility] Comment on above: Performed By: #### P OCGLUC #### [facility] [address] [address] [address] Wilbert Dave Erythrocyte distribution width (RBC) [Ratio] 14.4 % Normal 11.0-15.0 [facility] Comment on above: Performed By: #### P OCGLUC #### [facility] [address] [address] [address] Wilbert Dave Hematocrit (Bld) [Volume fraction] 36.5 % Normal 36.0-48.0 [facility] Comment on above: Performed By: #### P OCGLUC #### [facility] [address] [address] [address] Wilbert Dave Hemoglobin (Bld) [Mass/Vol] 12.2 g/dL Normal 12.0-16.0 [facility] Comment on above: Performed By: #### P OCGLUC #### [facility] [address] [address] [address] Wilbert Dave IG # 0.08 10e3/ul Critically high 0.00-0.03 [facility] Comment on above: Performed By: #### P OCGLUC #### [facility] [address] [address] [address] Wilbert Dave IG % 0.9 % Critically high 0.0-0.5 [facility] Comment on above: Performed By: #### P OCGLUC #### [facility] [address] [address] [address] Wilbert Dave LYMPH # 2.1 103/ul Normal 1.2-3.8 [facility] Comment on above: Performed By: #### P OCGLUC #### [facility] [address] [address] [address] Wilbert Dave Lymphocytes/100 WBC (Bld) 23.4 % Normal 20.5-60.0 [facility] Comment on above: Performed By: #### P OCGLUC #### [facility] [address] [address] [address] Wilbert Dave MANUAL DIFF REQ NO Normal [facility] Comment on above: Performed By: #### P OCGLUC #### [facility] [address] [address] [address] Wilbert Dave MCH (RBC) [Entitic mass] 29.0 pg Normal 26.7-34.0 [facility] Comment on above: Performed By: #### P OCGLUC #### [facility] [address] [address] [address] Wilbert Dave MCHC (RBC) [Mass/Vol] 33.4 g/dL Normal 29.9-35.2 [facility] Comment on above: Performed By: #### P OCGLUC #### [facility] [address] [place] [address] Dr. Wilbert Dave MCV (RBC) [Entitic vol] 86.7 fL Normal 81.0-99.0 [facility] Comment on above: Performed By: #### P OCGLUC #### [facility] [address] [place] [address] Dr. Wilbert Dave MONO # 0.7 103/ul Normal 0.3-0.8 [facility] Comment on above: Performed By: #### P OCGLUC #### [facility] [address] [place] [address] Dr. Wilbert Dave Monocytes/100 WBC (Bld) 8.0 % Normal 1.7-12.0 [facility] Comment on above: Performed By: #### P OCGLUC #### [facility] [address] [place] [address] Dr. Wilbert Dave NEUT # 5.7 103/ul Normal 1.4-6.5 [facility] Comment on above: Performed By: #### P OCGLUC #### [facility] [address] [address] [address] Wilbert Dave Neutrophils/100 WBC (Bld) 64.3 % Normal 43.0-75.0 [facility] Comment on above: Performed By: #### P OCGLUC #### [facility] [address] [place] [address] Dr. Wilbert Dave Platelet mean volume (Bld) [Entitic vol] 11.4 fL Normal 9.5-13.5 [facility] Comment on above: Performed By: #### P OCGLUC #### [facility] [address] [place] [address] Dr. Wilbert Dave PLT 196 103/ul Normal 150-450 [facility] Comment on above: Performed By: #### P OCGLUC #### [facility] [address] [place] [address] Dr. Wilbert Dave RBC 4.21 106/ul Normal 4.20-5.40 [facility] Comment on above: Performed By: #### P OCGLUC #### [facility] [address] [place] [address] Dr. Wilbert Dave WBC 8.8 103/ul Normal 4.0-11.0 [facility] Comment on above: Performed By: #### P OCGLUC #### [facility] [address] [place] [address] Dr. Wilbert Dave CULTURE BLOODon 10-29-2021 Microscopic examination of blood, culture Culture Observations: NO GROWTH AT 5 DAYS. Normal [facility] Comment on above: Performed By: #### B [id number] #### [facility] [address] [place] [address] Dr. Wilbert Dave Performed By: #### P OCGLUC #### [facility] [address] [place] [address] Dr. Wilbert Dave Microscopic examination of blood, culture Culture Observations: NO GROWTH AT 5 DAYS. Normal [facility] Comment on above: Performed By: #### B [id number] #### [facility] [address] [place] [address] Dr. Wilbert Dave Microscopic examination of blood, culture Culture Observations: NO GROWTH AT 5 DAYS. [facility] Comment on above: Performed By: #### B [id number] #### [facility] [address] [place] [address] Dr. Wilbert Dave CULTURE URINEon 10-29-2021 CULTURE URINE Isolate 1 Klebsiella pneumoniae >100,000 cfu/mL of ORGANISM 1 Klebsiella pneumoniae ANTIBIOTIC M.I.C RX STATUS Ampicillin >=32 R F Ampicillin/Sulbactam 4 S F Piperacillin/Tazobacta m <=4 S F Cefazolin <=4 S F Ceftazidime <=1 S F Ceftriaxone <=1 S F Ertapenem <=0.5 S F Imipenem <=0.25 S F Amikacin <=2 S F Gentamicin <=1 S F Tobramycin <=1 S F Ciprofloxacin <=0.25 S F Levofloxacin <=0.12 S F Nitrofurantoin 64 I F Trimethoprim/Sulfameth oxazole <=20 S F Normal [facility] Comment on above: Performed By: #### U RCX #### [facility] [address] [place] [address] Dr. Wilbert Dave Covid-19 PCR ([facility])on 10-08 SARS-CoV-2 (COVID-19) RNA LUIGI+probe Ql (Unsp spec) Detected Critically abnormal NOT DETECTED [facility] Comment on above: Result Comment: This test is not yet approved or cleared by the [place] FDA. When there are no FDA-approved or cleared tests available, and other criteria are met, FDA can make tests available under an emergency access mechanism called an Emergency Use Authorization (EUA). The EUA for this test is supported by the [place] of Health and Human Service's declaration that circumstances exist to justify the emergency use of in vitro diagnostics for the detection and/or diagnosis of the virus that causes COVID-19. This EUA will remain in effect for the duration of the COVID-19 declaration justifying emergency of IVDs, unless it is terminated or revoked by the FDA (after which the test may no longer be used). Performed By: #### B [email or web address] #### [facility] [address] [place] [address] [id number] [address] Wilbert Dave ER URINE PROFILEon 2 Bilirubin Ql (U) Negative Normal NEGATIVE [facility] Comment on above: Performed By: #### L ACT #### [facility] [address] [place] [address] [id number] [address] Wilbert Dave Clarity (U) SL CLOUDY Abnormal CLEAR [facility] Comment on above: Performed By: #### L ACT #### [facility] [address] [address] [address] Wilbert Dave Color (U) YELLOW Normal YELLOW [facility] Comment on above: Performed By: #### L ACT #### [facility] [address] [address] [address] Wilbert ASH A micrscopic examination will be performed if indicated. Normal [facility] Comment on above: Performed By: #### L ACT #### [facility] [address] [address] [address] Wilbert Dave Glucose Ql (U) Negative Normal NEGATIVE [facility] Comment on above: Performed By: #### L ACT #### [facility] [address] [place] [address] Dr. Wilbert Dave Hemoglobin Ql (U) LARGE Abnormal NEGATIVE [facility] Comment on above: Performed By: #### L ACT #### [facility] [address] [address] [address] Wilbert Dave Ketones Ql (U) Negative Normal NEGATIVE [facility] Comment on above: Performed By: #### L ACT #### [facility] [address] [place] [address] Dr. Wilbert Dave LEUKOCYTES Negative Normal NEGATIVE [facility] Comment on above: Performed By: #### L ACT #### [facility] [address] [place] [address] Dr. Wilbert Dave Nitrite Ql (U) Negative Normal NEGATIVE [facility] Comment on above: Performed By: #### L ACT #### [facility] [address] [place] [address] Dr. Wilbert Dave pH (U) 6.0 [pH] Normal 5-9 [facility] Comment on above: Performed By: #### L ACT #### [facility] [address] [place] [address] Dr. Wilbert Dave SPEC GRAVITY 1.020 Normal 1.005-<=1.02 5 [facility] Comment on above: Performed By: #### L ACT #### [facility] [address] [address] [address] Wilbert Dave UA PROTEIN TRACE Normal NEGATIVE/ TRACE [facility] Comment on above: Performed By: #### L ACT #### [facility] [address] [address] [address] Wilbert Dave UR MICRO IND INDICATED Normal [facility] Comment on above: Performed By: #### L ACT #### [facility] [address] [address] [address] Wilbert Dave Urobilinogen Qn (U) 0.2 {Jeanine'U}/dL Normal 0.2 - 1. 0 [facility] Comment on above: Performed By: #### L ACT #### [facility] [address] [address] [address] Wilbert Dave LACTATE/LACTIC ACIDon 2021 Lactate [Moles/Vol] 1.7 mmol/L Normal 0.4-1.9 [facility] Comment on above: Performed By: #### P HVEN #### [facility] [address] [place] [address] Dr. Wilbert Dave PH VENOUS BLOODon 10-29-2021 PCO2 VENOUS 37.5 mmHg Critically low 40.0-52.0 [facility] [place] Comment on above: Performed By: #### P HVEN #### [facility] [address] [place] [address] Dr. Wilbert Dave pH VENOUS 7.469 Critically high 7.330-7.430 [place] Comment on above: Performed By: #### P HVEN #### [facility] [address] [place] [address] Dr. Wilbert Dave POINT OF CARE GLUCOSEon 10-08 Glucose [Mass/Vol] 145 mg/dL Critically high 74-106 [facility] Comment on above: Performed By: #### B [id number] #### [facility] [address] [place] [address] Dr. Wilbert Dave PROF 14(COMP METB)on 022 Albumin [Mass/Vol] 2.7 g/dL Critically low 3.4-5.0 [facility] Comment on above: Performed By: #### P OCGLUC #### [facility] [address] [address] [address] Wilbert Dave Albumin/Globulin [Mass ratio] 0.6 {ratio} Normal [facility] Comment on above: Performed By: #### P OCGLUC #### [facility] [address] [address] [address] Wilbert Dave ALP [Catalytic activity/Vol] 110 U/L Normal 46-116 [facility] Comment on above: Performed By: #### P OCGLUC #### [facility] [address] [address] [address] Wilbert Dave ALT [Catalytic activity/Vol] 26 U/L Normal 14-59 [facility] Comment on above: Performed By: #### P OCGLUC #### [facility] [address] [address] [address] Wilbert Dave Anion gap [Moles/Vol] 8.2 mmol/L Normal [facility] Comment on above: Performed By: #### P OCGLUC #### [facility] [address] [address] [address] Wilbert Dave AST [Catalytic activity/Vol] 16 U/L Normal 15-37 [facility] Comment on above: Performed By: #### P OCGLUC #### [facility] [address] [address] [address] Wilbert Dave Bilirubin [Mass/Vol] 0.4 mg/dL Normal 0.2-1.0 [facility] Comment on above: Performed By: #### P OCGLUC #### [facility] [address] [address] [address] Wilbert Dave Calcium [Mass/Vol] 8.7 mg/dL Normal 8.5-10.1 [facility] Comment on above: Performed By: #### P OCGLUC #### [facility] [address] [address] [address] Wilbert Dave Chloride [Moles/Vol] 104 mmol/L Normal 98-107 [facility] Comment on above: Performed By: #### P OCGLUC #### [facility] [address] [address] [address] Wilbert Dave CO2 [Moles/Vol] 28.9 mmol/L Normal 21.0-32.0 [place] Comment on above: Performed By: #### P OCGLUC #### [facility] [address] [address] [address] Wilbert Dave Creatinine [Mass/Vol] 0.69 mg/dL Normal 0.55-1.02 [facility] Comment on above: Performed By: #### P OCGLUC #### [facility] [address] [address] [address] Wilbert Dave EGFR-AF RUSSIAN >60 Normal >=60 [place] Comment on above: Performed By: #### P OCGLUC #### [facility] [address] [address] [address] Wilbert Dave EGFR-NON AF RUSSIAN >60 Normal >=60 [facility] Comment on above: Performed By: #### P OCGLUC #### [facility] [address] [address] [address] Wilbert Dave Globulin (S) [Mass/Vol] 4.5 g/dL Normal [facility] Comment on above: Performed By: #### P OCGLUC #### [facility] [address] [address] [address] Wilbert Dave Glucose [Mass/Vol] 180 mg/dL Critically high 74-106 [facility] Comment on above: Performed By: #### P OCGLUC #### [facility] [address] [address] [address] Wilbert Dave Potassium [Moles/Vol] 3.1 mmol/L Critically low 3.5-5.1 [facility] Comment on above: Performed By: #### P OCGLUC #### [facility] [address] [address] [address] Wilbert Dave Protein [Mass/Vol] 7.2 g/dL Normal 6.4-8.2 [facility] Comment on above: Performed By: #### P OCGLUC #### [facility] [address] [address] [address] Wilbert Dave Sodium [Moles/Vol] 138 mmol/L Normal 136-145 [facility] Comment on above: Performed By: #### P OCGLUC #### [facility] [address] [place] [address] Dr. Wilbert Dave Urea nitrogen [Mass/Vol] 11.0 mg/dL Normal 7.0-18.0 [facility] Comment on above: Performed By: #### P OCGLUC #### [facility] [address] [place] [address] Dr. Wilbert Dave Urea nitrogen/Creatinine [Mass ratio] 15.9 mg/mg Normal [facility] Comment on above: Performed By: #### P OCGLUC #### [facility] [address] [place] [address] Dr. Wilbert Dave URINE MICROSCOPIC ONLYon BACTERIA SMALL Abnormal NONE SEEN [facility] Comment on above: Performed By: #### P OCGLUC #### [facility] [address] [place] [address] Dr. Wilbert Dave Bacteria identified Cx Nom (U) INDICATED Normal [facility] Comment on above: Performed By: #### P OCGLUC #### [facility] [address] [place] [address] Dr. Wilbert Dave CAST NONE SEEN Normal NONE SEEN [facility] Comment on above: Performed By: #### P OCGLUC #### [facility] [address] [place] [address] Dr. Wilbert Dave Crystals LM Nom (Urine sed) NONE SEEN Normal NONE SEEN [facility] Comment on above: Performed By: #### P OCGLUC #### [facility] [address] [place] [address] Dr. Wilbert Dave Epithelial cells LM Ql (Urine sed) FEW Abnormal NONE SEEN /RARE [facility] Comment on above: Performed By: #### P OCGLUC #### [facility] [address] [place] [address] Dr. Wilbert Dave MUCOUS NONE SEEN Normal NONE SEEN [facility] Comment on above: Performed By: #### P OCGLUC #### [facility] [address] [address] [address] Wilbert Dave RBC 20-50 Abnormal 0-2 [facility] Comment on above: Performed By: #### P OCGLUC #### [facility] [address] [place] [address] Dr. Wilbert Dave WBC 5-10 Abnormal NONE SEEN [facility] Comment on above: Performed By: #### P OCGLUC #### [facility] [address] [address] [address] Wilbert Dave CBC AUTO DIFFon 10-27-2021 BASO # 0.1 103/ul Normal 0.0-0.1 [facility] Comment on above: Performed By: #### P OCGLUC #### [facility] [address] [place] [address] Dr. Wilbert Dave Basophils/100 WBC (Bld) 0.4 % Normal 0.2-2.0 [facility] Comment on above: Performed By: #### P OCGLUC #### [facility] [address] [place] [address] Dr. Wilbert Dave EO # 0.1 103/ul Normal 0.0-0.7 [facility] Comment on above: Performed By: #### P OCGLUC #### [facility] [address] [place] [address] Dr. Wilbert Dave Eosinophils/100 WBC (Bld) 0.7 % Critically low 0.9-7.0 [facility] Comment on above: Performed By: #### P OCGLUC #### [facility] [address] [place] [address] Dr. Wilbert Dave Erythrocyte distribution width (RBC) [Ratio] 14.5 % Normal 11.0-15.0 [facility] Comment on above: Performed By: #### P OCGLUC #### [facility] [address] [place] [address] Dr. Wilbert Dave Hematocrit (Bld) [Volume fraction] 36.9 % Normal 36.0-48.0 [facility] Comment on above: Performed By: #### P OCGLUC #### [facility] [address] [address] [address] Wilbert Dave Hemoglobin (Bld) [Mass/Vol] 12.8 g/dL Normal 12.0-16.0 [facility] Comment on above: Performed By: #### P OCGLUC #### [facility] [address] [address] [address] Wilbert Dave IG # 0.08 10e3/ul Critically high 0.00-0.03 [facility] Comment on above: Performed By: #### P OCGLUC #### [facility] [address] [address] [address] Wilbert Dave IG % 0.6 % Critically high 0.0-0.5 [facility] Comment on above: Performed By: #### P OCGLUC #### [facility] [address] [address] [address] Wilbert Dave LYMPH # 1.9 103/ul Normal 1.2-3.8 [facility] Comment on above: Performed By: #### P OCGLUC #### [facility] [address] [address] [address] Wilbert Dave Lymphocytes/100 WBC (Bld) 15.0 % Critically low 20.5-60.0 [facility] Comment on above: Performed By: #### P OCGLUC #### [facility] [address] [address] [address] Wilbert Dave MANUAL DIFF REQ NO Normal [facility] Comment on above: Performed By: #### P OCGLUC #### [facility] [address] [address] [address] Wilbert Dave MCH (RBC) [Entitic mass] 29.7 pg Normal 26.7-34.0 [facility] Comment on above: Performed By: #### P OCGLUC #### [facility] [address] [address] [address] Wilbert Dave MCHC (RBC) [Mass/Vol] 34.7 g/dL Normal 29.9-35.2 [facility] Comment on above: Performed By: #### P OCGLUC #### [facility] [address] [address] [address] Wilbert Dave MCV (RBC) [Entitic vol] 85.6 fL Normal 81.0-99.0 [facility] Comment on above: Performed By: #### P OCGLUC #### [facility] [address] [address] [address] Wilbert Dave MONO # 0.9 103/ul Critically high 0.3-0.8 [facility] Comment on above: Performed By: #### P OCGLUC #### [facility] [address] [place] [address] Dr. Wilbert Dave Monocytes/100 WBC (Bld) 7.1 % Normal 1.7-12.0 [facility] Comment on above: Performed By: #### P OCGLUC #### [facility] [address] [place] [address] Dr. Wilbert Dave NEUT # 9.4 103/ul Critically high 1.4-6.5 [facility] Comment on above: Performed By: #### P OCGLUC #### [facility] [address] [place] [address] Dr. Wilbert Dave Neutrophils/100 WBC (Bld) 76.2 % Critically high 43.0-75.0 [facility] Comment on above: Performed By: #### P OCGLUC #### [facility] [address] [place] [address] Dr. Wilbert Dave Platelet mean volume (Bld) [Entitic vol] 10.4 fL Normal 9.5-13.5 [facility] Comment on above: Performed By: #### P OCGLUC #### [facility] [address] [place] [address] Dr. Wilbert Dave PLT 185 103/ul Normal 150-450 [facility] Comment on above: Performed By: #### P OCGLUC #### [facility] [address] [place] [address] Dr. Wilbert Dave RBC 4.31 106/ul Normal 4.20-5.40 [facility] Comment on above: Performed By: #### P OCGLUC #### [facility] [address] [place], [place] [address] Dr. Wilbert Dave WBC 12.3 103/ul Critically high 4.0-11.0 [place] Comment on above: Performed By: #### P OCGLUC #### [facility] [address] [place], [place] [address] ABD/PELVIS WO CONon 10-27 CT ABD/PELVIS WO CON EXAMINATION: CT ABD/PELVIS WO CON HISTORY: CALCULUS OF KIDNEY ; acute left flank pain, fever COMPARISON: CT abdomen pelvis 01/15/2021 TECHNIQUE: Axial, Coronal, and Sagittal images were obtained without and/or with IV contrast as indicated by examination type. Dose reduction techniques were achieved by using automated exposure control and/or adjustment of mA and/or kV according to patient size and/or use of iterative reconstruction technique. FINDINGS: LUNG BASES: No visible pulmonary or pleural disease. LIVER: No enlargement, atrophy, suspicious density, or significant focal lesion. BILIARY: No dilatation or calcification. PANCREAS: No lesion, fluid collection, or abnormal duct dilatation. SPLEEN: No enlargement or focal lesion. ADRENALS: Small left adrenal nodule favoring an adenoma. KIDNEYS: Right kidney contains 2 tiny nonobstructing stones. Mild edema surrounding left kidney without appreciable stones, hydronephrosis, or abnormal appearance of the ureter. BOWEL/MESENTERY: No visible mass, obstruction, or bowel wall thickening. AORTA/VASCULAR: No aneurysm or dissection. RETROPERITONEUM: No mass or adenopathy. LYMPH NODES: No adenopathy. URINARY BLADDER: No visible focal wall thickening, lesion, or calculus. PELVIC ORGANS: No visible mass. Pelvic organs appropriate for patient age. ABDOMINAL WALL: No mass or hernia. BONES: No bony lesion or fracture. OTHER: Negative. IMPRESSION: 1. Mild left perinephric edema of uncertain etiology; no stones, obstructive uropathy, or visible mass. No abnormal dilation or periureteral stranding to suggest recently passed stone. Pyelonephritis? Unremarkable urinary bladder; no CT findings to suggest cystitis. Electronically authenticated by: MARIA DE JESUS LYNNE Date: 2021-10-27 16:32 Normal [facility] CULTURE BLOODon 10-27-2021 Microscopic examination of blood, culture Culture Observations: NO GROWTH AT 5 DAYS. Normal [facility] Comment on above: Performed By: #### P OCGLUC #### [facility] [address] [address] [address] Wilbert Dave Microscopic examination of blood, culture Culture Observations: NO GROWTH AT 5 DAYS. Normal [facility] Comment on above: Performed By: #### B [id number] #### [facility] [address] [address] [address] Wilbert Dave ER URINE PROFILEon 2 Bilirubin Ql (U) SMALL Abnormal NEGATIVE [facility] Comment on above: Performed By: #### P OCGLUC #### [facility] [address] [place] [address] Dr. Wilbert Dave Clarity (U) CLEAR Normal CLEAR [facility] Comment on above: Performed By: #### P OCGLUC #### [facility] [address] [place] [address] Dr. Wilbert Dave Color (U) YELLOW Normal YELLOW [facility] Comment on above: Performed By: #### P OCGLUC #### [facility] [address] [place] [address] Dr. Wilbert BECKAHMarc A micrscopic examination will be performed if indicated. Normal [facility] Comment on above: Performed By: #### P OCGLUC #### [facility] [address] [place] [address] Dr. Wilbert Dave Glucose Ql (U) 500 mg/dl Abnormal NEGATIVE [facility] Comment on above: Performed By: #### P OCGLUC #### [facility] [address] [address] [address] Wilbert Dave Hemoglobin Ql (U) LARGE Abnormal NEGATIVE [facility] Comment on above: Performed By: #### P OCGLUC #### [facility] [address] [address] [address] Wilbert Dave Ketones Ql (U) TRACE Abnormal NEGATIVE [facility] Comment on above: Performed By: #### P OCGLUC #### [facility] [address] [place] [address] Dr. Wilbert Dave LEUKOCYTES TRACE Abnormal NEGATIVE [facility] Comment on above: Performed By: #### P OCGLUC #### [facility] [address] [address] [address] Wilbert Dave Nitrite Ql (U) Positive Abnormal NEGATIVE [facility] Comment on above: Performed By: #### P OCGLUC #### [facility] [address] [address] [address] Wilbert Dave pH (U) 5.5 [pH] Normal 5-9 [facility] Comment on above: Performed By: #### P OCGLUC #### [facility] [address] [address] [address] Wilbert Dave Protein (U) [Mass/Vol] 100 mg/dL Abnormal NEGATIVE/ TRACE [facility] Comment on above: Performed By: #### P OCGLUC #### [facility] [address] [place] [address] Dr. Wilbert Dave SPEC GRAVITY 1.025 Normal 1.005-<=1.02 5 [facility] Comment on above: Performed By: #### P OCGLUC #### [facility] [address] [place] [address] Dr. Wilbert Dave UR MICRO IND INDICATED Normal [facility] Comment on above: Performed By: #### P OCGLUC #### [facility] [address] [place] [address] Dr. Wilbert Dave Urobilinogen Qn (U) 1.0 {Jeanine'U}/dL Normal 0.2 - 1. 0 [facility] Comment on above: Performed By: #### P OCGLUC #### [facility] [address] [place] [address] Dr. Wilbert Dave LACTATE/LACTIC ACIDon 2021 Lactate [Moles/Vol] 1.5 mmol/L Normal 0.4-1.9 [facility] Comment on above: Performed By: #### L ACT #### [facility] [address] [place] [address] Dr. Wilbert Dave URon 10-27-2021 , QUAL Negative Normal NEGATIVE [facility] [place] Comment on above: Performed By: #### L ACT #### [facility] [address] [place] [address] Dr. Wilbert Dave PROF 14(COMP METB)on 022 Albumin [Mass/Vol] 2.8 g/dL Critically low 3.4-5.0 [facility] Comment on above: Performed By: #### P HVEN #### [facility] [address] [place] [address] Dr. Wilbert Dave Albumin/Globulin [Mass ratio] 0.7 {ratio} Normal [facility] Comment on above: Performed By: #### P HVEN #### [facility] [address] [place] [address] Dr. Wilbert Dave ALP [Catalytic activity/Vol] 100 U/L Normal 46-116 [facility] Comment on above: Performed By: #### P HVEN #### [facility] [address] [place] [address] Dr. Wilbert Dave ALT [Catalytic activity/Vol] 24 U/L Normal 14-59 [facility] Comment on above: Performed By: #### P HVEN #### [facility] [address] [place] [address] Dr. Wilbert Dave Anion gap [Moles/Vol] 10.6 mmol/L Normal [facility] Comment on above: Performed By: #### P HVEN #### [facility] [address] [place] [address] Dr. Wilbert Dave AST [Catalytic activity/Vol] 14 U/L Critically low 15-37 [facility] Comment on above: Performed By: #### P HVEN #### [facility] [address] [place] [address] Dr. Wilbert Dave Bilirubin [Mass/Vol] 0.8 mg/dL Normal 0.2-1.0 [facility] Comment on above: Performed By: #### P HVEN #### [facility] [address] [place] [address] Dr. Wilbert Dave Calcium [Mass/Vol] 9.1 mg/dL Normal 8.5-10.1 [facility] Comment on above: Performed By: #### P HVEN #### [facility] [address] [address] [address] Wilbert Dave Chloride [Moles/Vol] 102 mmol/L Normal 98-107 [facility] Comment on above: Performed By: #### P HVEN #### [facility] [address] [address] [address] Wilbert Dave CO2 [Moles/Vol] 26.3 mmol/L Normal 21.0-32.0 [place] Comment on above: Performed By: #### P HVEN #### [facility] [address] [address] [address] Wilbert Dave Creatinine [Mass/Vol] 0.73 mg/dL Normal 0.55-1.02 [facility] Comment on above: Performed By: #### P HVEN #### [facility] [address] [address] [address] Wilbert Dave EGFR-AF RUSSIAN >60 Normal >=60 [facility] Comment on above: Performed By: #### P HVEN #### [facility] [address] [address] [address] Wilbert Dave EGFR-NON AF RUSSIAN >60 Normal >=60 [facility] Comment on above: Performed By: #### P HVEN #### [facility] [address] [address] [address] Wilbert Dave Globulin (S) [Mass/Vol] 4.3 g/dL Normal [facility] Comment on above: Performed By: #### P HVEN #### [facility] [address] [address] [address] Wilbert Dave Glucose [Mass/Vol] 327 mg/dL Critically high 74-106 [facility] Comment on above: Performed By: #### P HVEN #### [facility] [address] [address] [address] Wilbert Dave Potassium [Moles/Vol] 3.0 mmol/L Critically low 3.5-5.1 [facility] Comment on above: Performed By: #### P HVEN #### [facility] [address] [address] [address] Wilbert Dave Protein [Mass/Vol] 7.1 g/dL Normal 6.4-8.2 [facility] Comment on above: Performed By: #### P HVEN #### [facility] [address] [place] [address] Dr. Wilbert Dave Sodium [Moles/Vol] 136 mmol/L Normal 136-145 [facility] Comment on above: Performed By: #### P HVEN #### [facility] [address] [place] [address] Dr. Wilbert Dave Urea nitrogen [Mass/Vol] 7.0 mg/dL Normal 7.0-18.0 [facility] Comment on above: Performed By: #### P HVEN #### [facility] [address] [place] [address] Dr. Wilbert Dave Urea nitrogen/Creatinine [Mass ratio] 9.6 mg/mg Normal [facility] Comment on above: Performed By: #### P HVEN #### [facility] [address] [place] [address] Dr. Wilbert Dave URINE MICROSCOPIC ONLYon BACTERIA LARGE Abnormal NONE SEEN [facility] Comment on above: Performed By: #### P OCGLUC #### [facility] [address] [place] [address] Dr. Wilbert Dave Bacteria identified Cx Nom (U) INDICATED Normal [facility] Comment on above: Performed By: #### P OCGLUC #### [facility] [address] [place] [address] Dr. Wilbert Dave CAST NONE SEEN Normal NONE SEEN [facility] Comment on above: Performed By: #### P OCGLUC #### [facility] [address] [place] [address] Dr. Wilbert Dave Crystals LM Nom (Urine sed) NONE SEEN Normal NONE SEEN [facility] Comment on above: Performed By: #### P OCGLUC #### [facility] [address] [place] [address] Dr. Wilbert Dave Epithelial cells LM Ql (Urine sed) FEW Abnormal NONE SEEN /RARE [facility] Comment on above: Performed By: #### P OCGLUC #### [facility] [address] [place] [address] Dr. Wilbert Dave MUCOUS NONE SEEN Normal NONE SEEN [facility] Comment on above: Performed By: #### P OCGLUC #### [facility] [address] [place] [address] Dr. Wilbert Dave RBC (U) [#/Vol] /uL Abnormal 0-2 [facility] Comment on above: Performed By: #### P OCGLUC #### [facility] [address] [place] [address] Dr. Wilbert Dave WBC 5-10 Abnormal NONE SEEN [facility] Comment on above: Performed By: #### P OCGLUC #### [facility] [address] [place] [address] Dr. Wilbert Dave ACETONE SERUMon 08-18-2021 ACETONE Negative Normal NEGATIVE [facility] Comment on above: Performed By: #### L ACT #### [facility] [address] [place] [address] Dr. Wilbert Dave CBC AUTO DIFFon 08-18-2021 BASO # 0.0 103/ul Normal 0.0-0.1 [facility] Comment on above: Performed By: #### C BC #### [facility] [address] [place] [address] Dr. Wilbert Dave Basophils/100 WBC (Bld) 0.5 % Normal 0.2-2.0 [facility] Comment on above: Performed By: #### C BC #### [facility] [address] [place] [address] Dr. Wilbert Dave EO # 0.3 103/ul Normal 0.0-0.7 [facility] Comment on above: Performed By: #### C BC #### [facility] [address] [place] [address] Dr. Wilbert Dave Eosinophils/100 WBC (Bld) 3.7 % Normal 0.9-7.0 [facility] Comment on above: Performed By: #### C BC #### [facility] [address] [place] [address] Dr. Wilbert Dave Erythrocyte distribution width (RBC) [Ratio] 14.7 % Normal 11.0-15.0 [facility] Comment on above: Performed By: #### C BC #### [facility] [address] [place] [address] Dr. Wilbert Dave Hematocrit (Bld) [Volume fraction] 39.5 % Normal 36.0-48.0 [facility] Comment on above: Performed By: #### C BC #### [facility] [address] [place] [address] Dr. Wilbert Dave Hemoglobin (Bld) [Mass/Vol] 13.1 g/dL Normal 12.0-16.0 [facility] Comment on above: Performed By: #### C BC #### [facility] [address] [place] [address] Dr. Wilbert Dave IG # 0.06 10e3/ul Critically high 0.00-0.03 [facility] Comment on above: Performed By: #### C BC #### [facility] [address] [place] [address] Dr. Wilbert Dave IG % 0.8 % Critically high 0.0-0.5 [facility] Comment on above: Performed By: #### C BC #### [facility] [address] [place] [address] Dr. Wilbert Dave LYMPH # 1.7 103/ul Normal 1.2-3.8 [facility] Comment on above: Performed By: #### C BC #### [facility] [address] [place] [address] Dr. Wilbert Dave Lymphocytes/100 WBC (Bld) 22.9 % Normal 20.5-60.0 [facility] Comment on above: Performed By: #### C BC #### [facility] [address] [place] [address] Dr. Wilbert Dave MANUAL DIFF REQ NO Normal [facility] Comment on above: Performed By: #### C BC #### [facility] [address] [place] [address] Dr. Wilbert Dave MCH (RBC) [Entitic mass] 29.0 pg Normal 26.7-34.0 [facility] Comment on above: Performed By: #### C BC #### [facility] [address] [place] [address] Dr. Wilbert Dave MCHC (RBC) [Mass/Vol] 33.2 g/dL Normal 29.9-35.2 [facility] Comment on above: Performed By: #### C BC #### [facility] [address] [place] [address] Dr. Wilbert Dave MCV (RBC) [Entitic vol] 87.6 fL Normal 81.0-99.0 [facility] Comment on above: Performed By: #### C BC #### [facility] [address] [place] [address] Dr. Wilbert Dave MONO # 0.5 103/ul Normal 0.3-0.8 [facility] Comment on above: Performed By: #### C BC #### [facility] [address] [place] [address] Dr. Wilbert Dave Monocytes/100 WBC (Bld) 6.2 % Normal 1.7-12.0 [facility] Comment on above: Performed By: #### C BC #### [facility] [address] [place] [address] Dr. Wilbert Dave NEUT # 4.9 103/ul Normal 1.4-6.5 [facility] Comment on above: Performed By: #### C BC #### [facility] [address] [place] [address] Dr. Wilbert Dave Neutrophils/100 WBC (Bld) 65.9 % Normal 43.0-75.0 [facility] Comment on above: Performed By: #### C BC #### [facility] [address] [place] [address] Dr. Wilbert Dave Platelet mean volume (Bld) [Entitic vol] 10.9 fL Normal 9.5-13.5 [facility] Comment on above: Performed By: #### C BC #### [facility] [address] [place] [address] Dr. Wilbert Dave PLT 174 103/ul Normal 150-450 [facility] Comment on above: Performed By: #### C BC #### [facility] [address] [place] [address] Dr. Wilbert Dave RBC 4.51 106/ul Normal 4.20-5.40 [facility] Comment on above: Performed By: #### C BC #### [facility] [address] [place] [address] Dr. Wilbert Dave WBC 7.4 103/ul Normal 4.0-11.0 [facility] Comment on above: Performed By: #### C BC #### [facility] [address] [place] [address] Dr. Wilbert Dave ER URINE PROFILEon 2 Bilirubin Ql (U) Negative Normal NEGATIVE [place] Comment on above: Performed By: #### P OCGLUC #### [facility] [address] [place] [address] Dr. Wilbert Dave Clarity (U) CLEAR Normal CLEAR [facility] Comment on above: Performed By: #### P OCGLUC #### [facility] [address] [place] [address] Dr. Wilbert Dave Color (U) YELLOW Normal YELLOW [facility] Comment on above: Performed By: #### P OCGLUC #### [facility] [address] [place] [address] Dr. Wilbert ASH A micrscopic examination will be performed if indicated. Normal [facility] Comment on above: Performed By: #### P OCGLUC #### [facility] [address] [place] [address] Dr. Wilbert Dave Glucose Ql (U) >1000 Abnormal NEGATIVE [facility] Comment on above: Performed By: #### P OCGLUC #### [facility] [address] [place] [address] Dr. Wilbert Dave Hemoglobin Ql (U) Negative Normal NEGATIVE [facility] Comment on above: Performed By: #### P OCGLUC #### [facility] [address] [place] [address] Dr. Wilbert Dave Ketones Ql (U) Negative Normal NEGATIVE [facility] Comment on above: Performed By: #### P OCGLUC #### [facility] [address] [address] [address] Wilbert Dave LEUKOCYTES Negative Normal NEGATIVE [facility] Comment on above: Performed By: #### P OCGLUC #### [facility] [address] [place] [address] Dr. Wilbert Dave Nitrite Ql (U) Negative Normal NEGATIVE [facility] Comment on above: Performed By: #### P OCGLUC #### [facility] [address] [place] [address] Dr. Wilbert Dave pH (U) 6.0 [pH] Normal 5-9 [facility] Comment on above: Performed By: #### P OCGLUC #### [facility] [address] [place] [address] Dr. Wilbert Dave SPEC GRAVITY 1.015 Normal 1.005-<=1.02 5 [facility] Comment on above: Performed By: #### P OCGLUC #### [facility] [address] [place] [address] Dr. Wilbert Dave UA PROTEIN Negative Normal NEGATIVE/ TRACE [facility] Comment on above: Performed By: #### P OCGLUC #### [facility] [address] [place] [address] Dr. Wilbert Dave UR MICRO IND NOT INDICATED Normal [facility] Comment on above: Performed By: #### P OCGLUC #### [facility] [address] [place] [address] Dr. Wilbert Dave Urobilinogen Qn (U) 0.2 {Jeanine'U}/dL Normal 0.2 - 1. 0 [facility] Comment on above: Performed By: #### P OCGLUC #### [facility] [address] [place] [address] Dr. Wilbert Dave LACTATE/LACTIC ACIDon 2021 Lactate [Moles/Vol] 2.5 mmol/L Critically high 0.4-1.9 [facility] Comment on above: Performed By: #### L ACT #### [facility] [address] [address] [address] Wilbert Dave PH VENOUS BLOODon 08-18-2021 PCO2 VENOUS 40.1 mmHg Normal 40.0-52.0 [facility] Comment on above: Performed By: #### P HVEN #### [facility] [address] [address] [address] Wilbert Dave pH VENOUS 7.475 Critically high 7.330-7.430 [place] Comment on above: Performed By: #### P HVEN #### [facility] [address] [place] [address] Dr. Wilbert Dave POINT OF CARE GLUCOSEon 08-06 Glucose [Mass/Vol] 246 mg/dL Critically high 74-106 [facility] Comment on above: Performed By: #### L ACT #### [facility] [address] [place] [address] Dr. Wilbert Dave Glucose [Mass/Vol] 311 mg/dL Critically high 74-106 [facility] Comment on above: Performed By: #### L ACT #### [facility] [address] [address] [address] Wilbert Dave PREG HCG QUALon 08-18-2021 , QUAL Negative Normal NEGATIVE [facility] Comment on above: Performed By: #### L ACT #### [facility] [address] [place] [address] Dr. Wilbert Dave PROF 14(COMP METB)on 022 Albumin [Mass/Vol] 3.2 g/dL Critically low 3.4-5.0 [facility] Comment on above: Performed By: #### L ACT #### [facility] [address] [place] [address] Dr. Wilbert Dave Albumin/Globulin [Mass ratio] 0.9 {ratio} Normal [facility] Comment on above: Performed By: #### L ACT #### [facility] [address] [address] [address] Wilbert Dave ALP [Catalytic activity/Vol] 95 U/L Normal 46-116 [facility] Comment on above: Performed By: #### L ACT #### [facility] [address] [address] [address] Wilbert Dave ALT [Catalytic activity/Vol] 41 U/L Normal 14-59 [facility] Comment on above: Performed By: #### L ACT #### [facility] [address] [address] [address] Wilbert Dave Anion gap [Moles/Vol] 16.6 mmol/L Normal [facility] Comment on above: Performed By: #### L ACT #### [facility] [address] [address] [address] Wilbert Dave AST [Catalytic activity/Vol] 26 U/L Normal 15-37 [facility] Comment on above: Performed By: #### L ACT #### [facility] [address] [address] [address] Wilbert Dave Bilirubin [Mass/Vol] 0.3 mg/dL Normal 0.2-1.0 [facility] Comment on above: Performed By: #### L ACT #### [facility] [address] [address] [address] Wilbert Dave Calcium [Mass/Vol] 8.9 mg/dL Normal 8.5-10.1 [facility] Comment on above: Performed By: #### L ACT #### [facility] [address] [place] [address] Dr. Wilbert Dave Chloride [Moles/Vol] 104 mmol/L Normal 98-107 [facility] Comment on above: Performed By: #### L ACT #### [facility] [address] [address] [address] Wilbert Dave CO2 [Moles/Vol] 25.5 mmol/L Normal 21.0-32.0 [facility] Comment on above: Performed By: #### L ACT #### [facility] [address] [address] [address] Wilbert Dave Creatinine [Mass/Vol] 0.84 mg/dL Normal 0.55-1.02 [facility] Comment on above: Performed By: #### L ACT #### [facility] [address] [address] [address] Wilbert Dave EGFR-AF RUSSIAN >60 Normal >=60 [place] Comment on above: Performed By: #### L ACT #### [facility] [address] [address] [address] Wilbert Dave EGFR-NON AF RUSSIAN >60 Normal >=60 [facility] Comment on above: Performed By: #### L ACT #### [facility] [address] [address] [address] Wilbert Dave Globulin (S) [Mass/Vol] 3.6 g/dL Normal [facility] Comment on above: Performed By: #### L ACT #### [facility] [address] [address] [address] Wilbert Dave Glucose [Mass/Vol] 305 mg/dL Critically high 74-106 [facility] Comment on above: Performed By: #### L ACT #### [facility] [address] [place] [address] Dr. Wilbert Dave Potassium [Moles/Vol] 4.1 mmol/L Normal 3.5-5.1 [facility] Comment on above: Performed By: #### L ACT #### [facility] [address] [place] [address] Dr. Wilbert Dave Protein [Mass/Vol] 6.8 g/dL Normal 6.4-8.2 [facility] Comment on above: Performed By: #### L ACT #### [facility] [address] [place] [address] Dr. Wilbert Dave Sodium [Moles/Vol] 142 mmol/L Normal 136-145 [facility] Comment on above: Performed By: #### L ACT #### [facility] [address] [address] [address] Wilbert Dave Urea nitrogen [Mass/Vol] 17.0 mg/dL Normal 7.0-18.0 [facility] Comment on above: Performed By: #### L ACT #### [facility] [address] [place] [address] Dr. Wilbert Dave Urea nitrogen/Creatinine [Mass ratio] 20.2 mg/mg Normal [facility] Comment on above: Performed By: #### L ACT #### [facility] [address] [place] [address] Dr. Wilbert Dave XR KUB 1 VIEWon 05-25-2021 XR KUB 1 VIEW EXAMINATION: XR KUB 1 VIEW HISTORY: Kidney stone follow-up COMPARISON: No relevant comparison available. FINDINGS: KIDNEY/URETER - RIGHT: No visible renal or ureteral calcifications. KIDNEY/URETER - LEFT: No visible renal or ureteral calcifications. PELVIS: No visible ureteral stones. Stable right pelvic calcification favoring a phlebolith. BOWEL: No abnormal dilation or deviation. BONES: No acute abnormality. OTHER: Negative. No abnormal gaseous collections. IMPRESSION: 1. No visible urinary tract calculi. Electronically authenticated by: MARIA DE JESUS LYNNE Date: 2021-05-25 17:05 Normal [facility] Vital Signs Date Time Vital Sign Value Performing Clinician Facility 05-17-2024 10:23-0400 Body height 165.1 cm Dina Borrego MD Work Phone: [facility] 05-17-2024 10:23-0400 Body mass index (BMI) [Ratio] 60.41 kg/m2 Dina Borrego MD Work Phone: [facility] 05-17-2024 10:23-0400 Body weight 164.66 kg Dina Borrego MD Work Phone: [facility] 05-17-2024 10:23-0400 Diastolic blood pressure 78 mm[Hg] Dina Borrego MD Work Phone: [facility] 05-17-2024 10:23-0400 Heart rate 78 /min Dina Borrego MD Work Phone: [facility] 05-17-2024 10:23-0400 SaO2% (BldA) [Mass fraction] 98 % Dina Borrego MD Work Phone: [facility] 05-17-2024 10:23-0400 Systolic blood pressure 124 mm[Hg] Dina Borrego MD Work Phone: [facility] 05-10-2024 10:57-0400 Body height 165.1 cm Gloria Petznick DO Work Phone: [facility] 05-10-2024 10:57-0400 Body mass index (BMI) [Ratio] 60.41 kg/m2 Gloria Petznick DO Work Phone: [facility] 05-10-2024 10:57-0400 Body temperature 98.29 [degF] Gloria Petznick DO Work Phone: [facility] 05-10-2024 10:57-0400 Body weight 164.66 kg Gloria Petznick DO Work Phone: [facility] 05-10-2024 10:57-0400 Diastolic blood pressure 80 mm[Hg] Gloria Petznick DO Work Phone: [facility] 05-10-2024 10:57-0400 Heart rate 74 /min Gloria Petznick DO Work Phone: [facility] 05-10-2024 10:57-0400 SaO2% (BldA) [Mass fraction] 95 % Gloria Petznick DO Work Phone: [facility] 05-10-2024 10:57-0400 Systolic blood pressure 122 mm[Hg] Gloria Petznick DO Work Phone: [facility] 04-25-2024 13:58-0400 Body height 165.1 cm Maria De Jesus Guy MD Work Phone: [facility] 04-25-2024 13:58-0400 Body mass index (BMI) [Ratio] 60.91 kg/m2 Maria De Jesus Guy MD Work Phone: [facility] 04-25-2024 13:58-0400 Body weight 166.02 kg Maria De Jesus Guy MD Work Phone: [facility] 04-25-2024 13:58-0400 Diastolic blood pressure 84 mm[Hg] Maria De Jesus Guy MD Work Phone: [facility] 04-25-2024 13:58-0400 Systolic blood pressure 146 mm[Hg] Maria De Jesus Guy MD Work Phone: [facility] 04-18-2024 13:42-0400 Body mass index (BMI) [Ratio] 59.08 kg/m2 Brenda Hubbard MD Work Phone: [facility] 04-18-2024 13:42-0400 Body weight 161.03 kg Brenda Hubbard MD Work Phone: [facility] 04-18-2024 13:42-0400 Diastolic blood pressure 80 mm[Hg] Brenda Hubbard MD Work Phone: [facility] 04-18-2024 13:42-0400 Systolic blood pressure 130 mm[Hg] Brenda Hubbard MD Work Phone: [facility] 12-05-2023 13:50-0400 Body height 165.1 cm Izzy Lowe PA Work Phone: [facility] 12-05-2023 13:50-0400 Body mass index (BMI) [Ratio] 59.74 kg/m2 Izzy Lowe PA Work Phone: [facility] 12-05-2023 13:50-0400 Body weight 162.84 kg Izzy Lowe PA Work Phone: [facility] 12-05-2023 13:50-0400 Diastolic blood pressure 88 mm[Hg] Izzy Lowe PA Work Phone: [facility] 12-05-2023 13:50-0400 Systolic blood pressure 152 mm[Hg] Izzy Lowe PA Work Phone: [facility] 11-24-2023 13:49-0400 Body height 165.1 cm Gloria Petznick DO Work Phone: [facility] 11-24-2023 13:49-0400 Body mass index (BMI) [Ratio] 60.57 kg/m2 Gloria Petznick DO Work Phone: [facility] 11-24-2023 13:49-0400 Body temperature 98.4 [degF] Gloria Petznick DO Work Phone: [facility] 11-24-2023 13:49-0400 Body weight 165.11 kg Gloria Petznick DO Work Phone: [facility] 11-24-2023 13:49-0400 Diastolic blood pressure 68 mm[Hg] Gloria Petznick DO Work Phone: [facility] 11-24-2023 13:49-0400 Heart rate 83 /min Gloria Petznick DO Work Phone: [facility] 11-24-2023 13:49-0400 SaO2% (BldA) [Mass fraction] 97 % Gloria Petznick DO Work Phone: [facility] 11-24-2023 13:49-0400 Systolic blood pressure 128 mm[Hg] Gloria Petznick DO Work Phone: [facility] 09-28-2023 16:18-0400 Body mass index (BMI) [Ratio] 59.08 kg/m2 Brenda Hubbard MD Work Phone: [facility] 09-28-2023 16:18-0400 Body weight 161.03 kg Brenda Hubbard MD Work Phone: [facility] 09-28-2023 16:18-0400 Diastolic blood pressure 80 mm[Hg] Brenda Hubbard MD Work Phone: [facility] 09-28-2023 16:18-0400 Systolic blood pressure 140 mm[Hg] Brenda Hubbard MD Work Phone: [facility] 03-17-2023 09:50-0500 Body height 165.1 cm Chetna Coats [employer] Work Phone: [facility] 03-17-2023 09:50-0500 Body mass index (BMI) [Ratio] 57.94 kg/m2 Chetnaangelita Coats TILE AND MARBLE INSTALLER-LADLE BUILDER Work Phone: [facility] 03-17-2023 09:50-0500 Body weight 157.94 kg Chetnaangelita Coats TILE AND MARBLE INSTALLER-LADLE BUILDER Work Phone: [facility] 03-17-2023 09:50-0500 Diastolic blood pressure 99 mm[Hg] Chetna Coats TILE AND MARBLE INSTALLER-LADLE BUILDER Work Phone: [facility] Comment on above: Patient was talking during BP 03-17-2023 09:50-0500 Heart rate 60 /min Chetna Coats APRN-LADLE BUILDER Work Phone: [facility] 03-17-2023 09:50-0500 SaO2% (BldA) [Mass fraction] 97 % Chetna Coats APRN-LADLE BUILDER Work Phone: [facility] 03-17-2023 09:50-0500 Systolic blood pressure 149 mm[Hg] Chetna Coats APRN-LADLE BUILDER Work Phone: [facility] Comment on above: Patient was talking during BP 02-16-2023 15:26-0500 Body height 165.1 cm Elle Davenport MD Work Phone: [facility] 02-16-2023 15:26-0500 Body mass index (BMI) [Ratio] 58.24 kg/m2 Elle Davenport MD Work Phone: [facility] 02-16-2023 15:26-0500 Body weight 158.76 kg Elle Davenport MD Work Phone: [facility] 02-16-2023 15:26-0500 Diastolic blood pressure 70 mm[Hg] Elle Davenport MD Work Phone: [facility] 02-16-2023 15:26-0500 Heart rate 67 /min Elle Davenport MD Work Phone: [facility] 02-16-2023 15:26-0500 SaO2% (BldA) [Mass fraction] 96 % Elle Davenport MD Work Phone: [facility] 02-16-2023 15:26-0500 Systolic blood pressure 132 mm[Hg] Elle Davenport MD Work Phone: [facility] 12-09-2022 11:15-0400 Diastolic blood pressure 78 mm[Hg] DO Marisa Rumschlag Work Phone: [facility] 12-09-2022 11:15-0400 Heart rate 63 /min DO Marisa Rumschlag Work Phone: [facility] 12-09-2022 11:15-0400 Respiratory rate 16 /min DO Marisa Rumschlag Work Phone: [facility] 12-09-2022 11:15-0400 SaO2% (BldA) [Mass fraction] 100 % DO Marisa Rumschlag Work Phone: [facility] 12-09-2022 11:15-0400 Systolic blood pressure 135 mm[Hg] DO Marisa Rumschlag Work Phone: [facility] 12-09-2022 09:24-0400 Body height 165.1 cm DO Marisa Rumschlag Work Phone: [facility] 12-09-2022 09:24-0400 Body temperature 97.6 [degF] DO Marisa Rumschlag Work Phone: [facility] 12-09-2022 09:24-0400 Body weight 165.56 kg DO Marisa Rumschlag Work Phone: [facility] 06-02-2021 14:45-0400 Body height 165.1 cm Felix Jaquez Other [employer] Other 06-02-2021 14:45-0400 Body mass index (BMI) [Ratio] 61.4 kg/m2 Felix Jaquez Other [employer] Other 06-02-2021 14:45-0400 Body weight 167.38 kg Felix Jaquez Other [employer] Other 06-02-2021 14:45-0400 Diastolic blood pressure 69 mm[Hg] Felix Jaquez Other [employer] Other 06-02-2021 14:45-0400 Systolic blood pressure 139 mm[Hg] Felix Jaquez Other [employer] Other 05-26-2021 14:24-0400 Blood Pressure Location DHARA PERKINS [facility] 05-26-2021 14:24-0400 Diastolic blood pressure 88 mm[Hg] DHARA PERKINS [facility] 05-26-2021 14:24-0400 Heart rate 78 /min DHARA PERKINS [facility] 05-26-2021 14:24-0400 Systolic blood pressure 143 mm[Hg] DHARA PERKINS [facility] Encounters Encounter Date Encounter Type Care Provider Facility Start: 06-28-2024 ambulatory DHARA Nuno ty:SADIE Rosario Start: 06-12-2024 End: 06-12-2024 Refill Izzy HINTON Work Phone: [facility] Comment on above: Anxiety Start: 06-11-2024 End: 06-11-2024 Refill Chetna Harry Coats TILE AND MARBLE INSTALLER-LADLE BUILDER Work Phone: [facility] Comment on above: Persistent asthma wi thout complication, unspecified asthma severity Start: 06-10-2024 End: 06-12-2024 Refill Earnest Johnson TILE AND MARBLE INSTALLER-LADLE BUILDER Work Phone: [facility] Comment on above: Med Refill Start: 06-07-2024 End: 06-07-2024 ambulatory [facility] Start: 06-06-2024 End: 06-06-2024 ambulatory [facility] Start: 05-17-2024 End: 05-17-2024 ambulatory [facility] Start: 05-17-2024 End: 05-17-2024 Office outpatient visit 25 minutes Dina Borrego MD Work Phone: [facility] Comment on above: Shortness of breath (Primary Dx); Primary hypertension Start: 05-16-2024 End: 05-16-2024 Telephone encounter Dhara Bazzi CMA [facility] Start: 05-10-2024 End: 05-10-2024 Office outpatient visit 25 minutes Gloria Sarabia DO Work Phone: [facility] Comment on above: Class 3 severe obesi ty due to excess calories with serious comorbidity and body mass index (BMI) of 60.0 to 69.9 in adult (Primary Dx); Type 2 diabetes mellitus with peripheral neuropathy (CMS/HCC); Type 2 diabetes mellitus with hyperglycemia, with long-term current use of insulin (CMS/HCC) Start: 05-10-2024 End: 05-10-2024 ambulatory GLORIA SARABIA Not Available Start: 04-29-2024 End: 04-29-2024 Refill Megan Del Toro RN [facility] Comment on above: Med Refill Start: 04-25-2024 End: 04-25-2024 Office outpatient visit 25 minutes Maria De Jesus Guy MD Work Phone: [facility] [place] Comment on above: Lumbar radiculopathy ; Lumbar spondylosis; Vertigo; Chronic migraine without aura without status migrainosus, not intractable (CMS/HCC); Obstructive sleep apnea syndrome; Cervical radiculopathy at C6; Alteration of awareness; Anxiety Start: 04-25-2024 End: 04-25-2024 ambulatory MARIA DE JESUS GUY Not Available Start: 04-22-2024 End: 04-22-2024 Refill Laxmi Vallejo LPN [facility] Comment on above: Med Refill Start: 04-18-2024 End: 04-18-2024 Office outpatient visit 15 minutes Brenda Hubbard MD Work Phone: [facility] Comment on above: ASCUS of cervix with negative high risk HPV; Encounter for screening for cervical cancer Start: 04-18-2024 End: 04-18-2024 ambulatory BRENDA HUBBARD Not Available Start: 04-17-2024 End: 04-18-2024 [facility] Comment on above: Asthma, unspecified asthma severity, unspecified whether complicated, unspecified whether persistent (Primary Dx) Start: 04-17-2024 End: 04-17-2024 Refill Chetnaangelita Coats TILE AND MARBLE INSTALLER-LADLE BUILDER Work Phone: [facility] Start: 04-10-2024 End: 04-10-2024 Emergency department patient visit [facility] Start: 03-15-2024 End: 03-18-2024 Refill Izzy Lowe PA Work Phone: [facility] Comment on above: Anxiety Start: 02-29-2024 End: 02-29-2024 Bamboo flowsheet Maria De Jesus Guy MD Work Phone: [facility] Start: 02-29-2024 End: 02-29-2024 Bamboo flowsheet Maria De Jesus Guy MD Work Phone: [facility] Start: 02-29-2024 End: 02-29-2024 ambulatory MARIA DE JESUS GUY Not Available Start: 02-29-2024 End: 02-29-2024 Patient encounter procedure Maria De Jesus Guy MD Work Phone: [facility] Comment on above: Lumbar radiculopathy (Primary Dx); Radicular pain Start: 02-19-2024 End: 02-19-2024 Refill Izzy Lowe PA Work Phone: [facility] Comment on above: Neuropathic pain; Anxiety Start: 12-05-2023 End: 12-05-2023 Bamboo flowsheet Izzy Lowe PA Work Phone: [facility] Start: 12-05-2023 End: 12-05-2023 Bamboo flowsheet Izzy Uman[place]ucky PA Work Phone: [facility] Start: 12-05-2023 End: 12-05-2023 Office outpatient visit 15 minutes Izzy Uman[place]ucky PA Work Phone: [facility] Comment on above: Radicular pain (Prim jaime Dx); Lumbar spondylosis; Vertigo; Chronic migraine without aura without status migrainosus, not intractable (CMS/HCC); Obstructive sleep apnea syndrome; Cervical radiculopathy at C6; Anxiety Start: 12-05-2023 End: 12-05-2023 ambulatory IZZY CHARLES Not Available Start: 11-24-2023 End: 11-24-2023 Office outpatient visit 25 minutes Gloria Sarabia DO Work Phone: [facility] 230 Comment on above: Class 3 severe obesi ty due to excess calories with serious comorbidity and body mass index (BMI) of 60.0 to 69.9 in adult (CMS/HCC) (Primary Dx); Type 2 diabetes mellitus with peripheral neuropathy (CMS/HCC); 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); Type 2 diabetes mellitus with hyperglycemia, with long-term current use of insulin (CMS/HCC) Start: 11-24-2023 End: 11-24-2023 ambulatory GLORIA SARABIA Not Available Start: 10-27-2023 End: 10-27-2023 Telephone encounter Gloria Sarabia DO Work Phone: [facility] 230 Start: 10-04-2023 End: 10-04-2023 Bamboo flowsheet Juliette Cantor CATTYMAN Work Phone: [facility] Start: 10-04-2023 End: 10-04-2023 Bamboo flowsheet Juliette Cantor CATTYMAN Work Phone: [facility] Start: 10-04-2023 End: 10-04-2023 Office outpatient visit 25 minutes Juliette Cantor CATTYMAN Work Phone: [facility] Comment on above: Left knee pain, unsp ecified chronicity (Primary Dx); Arthritis of left knee Start: 10-04-2023 End: 10-04-2023 ambulatory JULIETTE CANTOR Not Available Start: 09-28-2023 End: 09-28-2023 Patient encounter procedure Brenda Hubbard MD Work Phone: [facility] Comment on above: ASCUS of cervix with negative high risk HPV; Screening for malignant neoplasm of cervix Start: 09-28-2023 End: 09-28-2023 ambulatory BRENDA HUBBARD Not Available Start: 09-18-2023 End: 09-18-2023 ambulatory DHARA PERKINS Facility:[facility] Start: 09-18-2023 End: 09-18-2023 Lab Drop off DHARA PERKINS [facility] Start: 09-18-2023 End: 09-18-2023 ambulatory MARISA RUMSCHLAG Facility:[facility] Start: 09-18-2023 End: 09-18-2023 Patient encounter procedure DHARA PERKINS [facility] Start: 09-14-2023 End: 09-14-2023 ambulatory BRENDA HUBBARD Not Available Start: 08-24-2023 End: 08-24-2023 ambulatory BRENDA HUBBARD Not Available Start: 08-15-2023 ambulatory MARISA RUMSCHLAG Facilit y:[facility] Start: 07-18-2023 End: 07-20-2023 Refill Chetna Coats TILE AND MARBLE INSTALLER-LADLE BUILDER Work Phone: [facility] Comment on above: Persistent asthma wi thout complication, unspecified asthma severity Start: 07-04-2023 End: 07-04-2023 ambulatory MARISA RUMSCHLAG Facility:[facility] Start: 07-04-2023 End: 07-04-2023 Patient encounter procedure DHARA PERKINS [facility] Start: 06-22-2023 End: 06-22-2023 ambulatory IZZY CHARLES Not Available Start: 06-16-2023 End: 06-16-2023 Telephone encounter Jane CAVAZOS [facility] Start: 05-07-2023 Refill Mireya Barnett Work Phone: [facility] Comment on above: Med Refill Start: 04-05-2023 Refill Marko Souza rt TILE AND MARBLE INSTALLER-LADLE BUILDER Work Phone: [facility] Comment on above: Med Refill Start: 03-20-2023 Telephone encounter Virgilio Flaherty MA [facility] Start: 03-17-2023 End: 03-17-2023 ambulatory [facility] Start: 03-17-2023 End: 03-17-2023 Office outpatient visit 25 minutes [facility] TILE AND MARBLE INSTALLER-LADLE BUILDER Work Phone: [facility] Comment on above: LINDA (obstructive sle ep apnea) (Primary Dx); Persistent asthma without complication, unspecified asthma severity; CPAP use counseling; BMI 50.0-59.9, adult ([facility]) Start: 03-14-2023 Refill Eva Jenkins RN [facility] Start: 02-16-2023 End: 02-16-2023 Office outpatient visit 25 minutes Elle Davenport MD Work Phone: [facility] Comment on above: Essential hypertensi on (Primary Dx); Left ventricular systolic dysfunction; Hyperlipidemia, unspecified hyperlipidemia type; Mixed hyperlipidemia; PVC (premature ventricular contraction); Palpitations; Shortness of breath Start: 02-15-2023 Telephone encounter Dhara Bazzi CMA [facility] Start: 02-13-2023 Refill Marko Souza rt TILE AND MARBLE INSTALLER-LADLE BUILDER Work Phone: [facility] Comment on above: Med Refill Start: 12-09-2022 End: 12-09-2022 ambulatory Marisa Rumschlag Facility:[facility] Start: 12-09-2022 End: 12-09-2022 Admission to same day surgery center DO Marisa Rumschlag Work Phone: [facility] Work Phone: Start: 12-09-2022 End: 12-09-2022 ambulatory DO Marisa Rumschlag Work Phone: [facility] Work Phone: Start: 11-10-2022 End: 11-10-2022 ambulatory Felix Jaquez Other [employer] Other Start: 11-10-2022 Telephone encounter [facility] Start: 04-29-2022 End: 04-30-2022 ambulatory DHARA PERKINS Facility:[facility] Start: 04-13-2022 End: 04-13-2022 Patient encounter procedure DHARA PERKINS [facility] Start: 03-14-2022 End: 03-15-2022 ambulatory DHARA PERKINS Facility:[facility] Start: 02-25-2022 End: 02-25-[address] SHELDON ANDERSEN . Facility:[facility] Start: 02-02-2022 End: 02-03-2022 ambulatory CHETNA COATS Facility:[facility] Start: 01-26-2022 End: 01-27-[address] SHELDON ANDERSEN . Facility:[facility] Start: 01-12-2022 End: 01-12-[address] SHELDON ANDERSEN . Facility:[facility] Start: 12-29-2021 End: 12-30-2021 ambulatory CHETNA COATS Facility:[facility] Start: 10-29-2021 End: 10-31-2021 ambulatory NILSON DUPONT . Facility:[facility] Start: 10-27-2021 End: 10-27-[address] MARIA DE JESUS LYNNE Facility:[facility] Start: 08-19-[address] GLORIA Barrett ility:[facility] Start: 08-18-2021 End: 08-18-[address] RENNY DANIEL . Facility:[facility] Start: 06-02-2021 End: 06-02-2021 ambulatory Felix Jaquez Other Located [facility] [employer] Other Start: 06-02-2021 [facility] visit new patient Felix Jaquez [facility] Start: 05-26-2021 End: 05-26-2021 Patient encounter procedure DHARA PERKINS [facility] Start: 05-25-2021 End: 05-26-[address] DOCTOR MATTHEWS Facility:[facility] Procedures Date Procedure Procedure Detail Performing Clinician Start: 05-17-2024 Follow-up visit Follow-up DINA BORREGO Start: 05-10-2024 Hemoglobin glycosylated a1c Gloria Sarabia DO Work Phone: Start: 02-29-2024 End: 02-29-2024 Needle emg ea extremty w/paraspinl area complete Maria De Jesus Guy MD Work Phone: Start: 11-24-2023 Hemoglobin glycosylated a1c Gloria Sarabia DO Work Phone: Start: 10-04-2023 Arthrocentesis aspir &/inj major jt/bursa w/o us Juliette Cantor [employer] Work Phone: Start: 10-04-2023 Radiologic examinati on knee 1/2 views Juliette Cantor [employer]MAN Work Phone: Start: 09-14-2023 Mammography Juliette mccray [employer] Work Phone: Start: 08-24-2023 Microscopic observat ion [Identifier] in Cervix by Cyto stain Juliette Cantor [employer]YMAN Work Phone: Start: 02-16-2023 Ecg routine ecg w/le ast 12 lds w/i&r Elle Davenport MD Work Phone: Start: 12-09-2022 Screening colonoscopy D O Marisa Gillis Work Phone: Start: 01-28-2021 Cystoscopy DHARA GUADARRAMA Start: 12-17-2020 Extracorporeal shock wave lithotripsy of calculus of kidney DHARA PEKRINS Start: 10-03-2020 Cystoscope, device ( physical object) DHARA PERKINS Start: 02-28-2020 Cystourethroscopy wi th dilation of urethral stricture DHARA PERKINS Start: 12-22-2016 Cystoscopic removal of ureteric stent DHARA PERKINS Start: 11-30-2016 Cystourethroscopy wi th dilation of urethral stricture DHARA PERKINS Start: 11-30-2016 Placement of stent RED PERKINS Comment on above: Cysto Rt stent place ment Start: 02-06-1999 Deliveries by sherie hernandez (finding) DHARA PERKINS Start: 02-06-1999 Ligation of fallopian tube DHARA PERKINS Start: 02-06-1977 Tonsillectomy DHARA PERKINS Repair of meniscus DHARA PERKINS Plan of Treatment Date Care Activity Detail Author Start: 05-24-2032 DTaP,Tdap and Td Vaccines (2 - Td or Tdap) DTaP,Tdap and Td Vaccines (2 - Td or Tdap) [facility] Start: 04-18-2029 Screening for malignant neoplasm of cervix [facility] Start: 08-23-2028 Screening for malignant neoplasm of cervix [facility] Start: 08-23-2026 Screening for malignant neoplasm of cervix Pap Smear [facility] Start: 06-06-2025 Adult BMI Screening Adult BMI Screening [facility] Start: 06-06-2025 Tobacco Screening Tobacco Screening [facility] Start: 05-17-2025 Adult BMI Screening Adult BMI Screening [facility] Start: 05-17-2025 Tobacco Screening Tobacco Screening [facility] Start: 04-10-2025 Adult BMI Screening Adult BMI Screening [facility] Start: 04-10-2025 Tobacco Screening Tobacco Screening [facility] Start: 10-07-2024 Influenza vaccination [facility] Start: 09-13-2024 Screening for malignant neoplasm of breast Mammogram [facility] Start: 08-29-2024 End: 08-29-2024 Patient encounter procedure 08/29/2024 2:15 PM EDT Office Visit [facility] [address] [place] [phone] Brenda Hubbard MD [address] [place] [address] [facility] Start: 08-16-2024 End: 08-16-2024 Patient encounter procedure 08/16/2024 10:45 AM EDT Office Visit [facility] [address] [place] [address] Gloria Sarabia, [address] [place] [address] [facility] Start: 07-17-2024 End: 07-17-2024 Patient encounter procedure 07/17/2024 2:00 PM EDT Office Visit [facility] [address] [address] Chetna Coats, TILE AND MARBLE INSTALLER-LADLE BUILDER [address] [place] [address], [address] [address] [facility] Start: 05-24-2024 End: 05-17-2025 NM Heart Perfusion W stress and W radionuclide IV Nuc stress [facility] Routine Shortness of breath Primary hypertension Expected: 05/24/2024, Expires: 05/17/2025 [facility] Work Phone: Comment on above: Expected: 05/24/2024, Expires: Start: 05-17-2024 End: 05-17-2024 Patient encounter procedure 05/17/2024 10:15 AM EDT Office Visit [facility] [address] [place] [address] Dina Borrego MD [address] [facility] [place] [address] [facility] Start: 05-10-2024 End: 05-10-2024 Patient encounter procedure 05/10/2024 10:45 AM EDT Office Visit [facility] [address] [place] [address] Gloria Sarabia, DO [address] [place] [address] Type 2 diabetes mellitus with peripheral neuropathy (CMS/HCC) [facility] 230 Comment on above: Type 2 diabetes mellitus with peripheral neuropathy (CMS/HCC) Start: 04-25-2024 End: 04-25-2024 Patient encounter procedure [facility]ELLE [facility] Start: 04-06-2024 Adult BMI Screening Adult BMI Screening [facility] Start: 04-04-2024 End: 04-04-2024 Patient encounter procedure 04/04/2024 2:15 PM EST Office Visit [facility] [address] [place] [phone] Brenda Hubbard MD [address] [place] [address] [facility] Start: 03-29-2024 End: 03-29-2024 Patient encounter procedure 03/29/2024 9:30 AM EST Office Visit [facility] [address] [place] [phone] Gloria Sarabia, DO [address] [place] [address] [facility] [address] Start: 03-17-2024 Adult BMI Screening Adult BMI Screening [facility] Start: 03-17-2024 Tobacco Screening Tobacco Screening [facility] Start: 02-29-2024 End: 02-29-2024 Patient encounter procedure 02/29/2024 12:30 PM EST Procedure Visit D[facility]ELLE [facility] [address] [place] [phone] Maria De Jesus Guy MD [address] [place] [id number] [facility] Start: 02-23-2024 End: 02-23-2024 Patient encounter procedure 02/23/2024 10:30 AM EST Office Visit [facility] [address] [place] [address] Gloria Sarabia, DO [address] [place], [place] [phone] [facility] [address] Start: 02-17-2024 Adult BMI Screening Adult BMI Screening [facility] Start: 02-17-2024 Tobacco Screening Tobacco Screening [facility] Start: 12-05-2023 End: 12-05-2023 Patient encounter procedure [facility] [address] Comment on above: Arrived Start: 11-09-2023 End: 11-09-2023 Patient encounter procedure 11/09/2023 1:00 PM EDT Office Visit [facility] [place] [address] [facility] [place] [phone] Izzy Charles PA [address] [place] [address] [facility] [address] [facility] Start: 11-03-2023 End: 11-03-2023 Patient encounter procedure 11/03/2023 1:30 PM EDT Office Visit [facility] [address] [place] [address] Gloria Sarabia, DO [address] [place], [place] [phone] [facility] [address] Start: 10-27-2023 End: 10-27-2023 Patient encounter procedure 10/27/2023 3:15 PM EDT Office Visit [facility] [address] [place] [address] lGoria Sarabia DO [address] [place] [address] [facility] 230 Start: 10-08-2023 COVID-19 Vaccine ( season) COVID-19 Vaccine () [facility] Start: 10-08-2023 Influenza vaccination [facility] Start: 10-04-2023 End: 10-04-2023 Patient encounter procedure 10/04/2023 1:00 PM EDT Office Visit [facility] [address] [facility] [address] [place] [address] Juliette Cantor, CATTYMAN [address] [facility] [address] [place] [address] Left knee pain, unspecified chronicity (Primary Dx); Arthritis of left knee [facility] Comment on above: Left knee pain, unspecified chronicity ( Primary Dx); Arthritis of left knee Start: 07-04-2023 Tobacco Screening Tobacco Screening [facility] Start: 06-30-2023 Adult BMI Screening Adult BMI Screening [facility] Start: 06-16-2023 End: 06-16-2023 Patient encounter procedure 06/16/2023 9:00 AM EDT Office Visit [facility] [address] [address] Chetna Coats, TILE [employer] MARBLE INSTALLER-LADLE BUILDER [address] [place] [address], [address] [place] [address] [facility] Start: 04-07-2023 End: 04-07-2023 Patient encounter procedure 04/07/2023 10:00 AM EST Appointment [facility] [address] [place] [phone] Elle Davenport MD [address] [place] [address] [facility] Start: 04-07-2023 Subsequent hospital visit by physician 04/07/2023 10:00 AM EST Hospital Encounter [facility] [address] [place] [address] Elle Davenport MD [address] [place] [address] [facility] Start: 03-17-2023 End: 03-17-2023 Patient encounter procedure 03/17/2023 9:45 AM EST Office Visit [facility] [place] [address] Chetna Coats, TILE AND MARBLE INSTALLER-LADLE BUILDER [address] [place] [address], [address] [address] [facility] Start: 02-17-2023 End: 02-17-2023 Patient encounter procedure 02/17/2023 9:00 AM EST Appointment [facility] - Pulmonary Function [address] [place] [address] [facility] - Pulmonary Function Start: 02-16-2023 End: 02-16-2023 Patient encounter procedure 02/16/2023 3:15 PM EST Office Visit [facility] Card[facility] [address] [id number] Elle Davenport MD [address] [place] [address] [facility] Start: 02-16-2023 End: 02-17-2024 Echo complete W/O contrast Echo complete W/O contrast Echocardiography Routine Left ventricular systolic dysfunction Shortness of breath Expected: 02/16/2023, Expires: 02/17/2024 [facility] Comment on above: Expected: 02/16/2023, Expires: Start: 02-16-2023 End: 02-17-2024 Event Monitor (In Office) Event Monitor (In Office) Cardiac Services Routine Palpitations Expected: 02/16/2023, Expires: 02/17/2024 [facility] Comment on above: Expected: 02/16/2023, Expires: Start: 12-09-2022 [facility] Start: 10-07-2022 COVID-19 Vaccine ( season) COVID-19 Vaccine ( season) [facility] Start: 10-07-2022 COVID-19 Vaccine ( season) COVID-19 Vaccine ( season) [facility] Start: 10-07-2022 Influenza vaccination Influenza Vaccine [facility] Start: 02-13-2022 Administration of varicella zoster vaccine Zoster (Shingles) Vaccine (1 of 2) [facility] Start: 02-13-1993 Screening for malignant neoplasm of cervix Pap Smear [facility] Start: 02-13-1990 Adult BMI Follow Up Plan Adult BMI Follow Up Plan [facility] Start: 1984 Depression Screening Depression Screening [facility] Start: 1972 Screening for malignant neoplasm of colon [facility] End: 02-17-2024 Basic metabolic 2000 panel - Serum or Plasma Basic Metabolic Panel Lab Routine Palpitations 1 Occurrences starting 02/16/2023 until 02/17/2024 [facility] Comment on above: 1 Occurrences starting 02/16/2023 until 02/17/2024 End: 02-17-2024 CBC panel - Blood by Automated count CBC Lab Routine Shortness of breath 1 Occurrences starting 02/16/2023 until 02/17/2024 [facility] Comment on above: 1 Occurrences starting 02/16/2023 until 02/17/2024 IGP, APT HPV,RFX 16/18,45 IGP, APT HPV,RFX 16/18,45 Lab Routine ASCUS of cervix with negative high risk HPV Encounter for screening for cervical cancer Ordered: 04/18/2024 [employer] Work Phone: Comment on above: Ordered: 04/18/2024 End: 06-12-2025 Lipid panel Lipid panel Lab Routine Hyperlipidemia, unspecified hyperlipidemia type Mixed hyperlipidemia 1 Occurrences starting 06/12/2024 until 06/12/2025 [email or web address] Work Phone: Comment on above: 1 Occurrences starting 06/12/2024 until 06/12/2025 Patient Education Colon polyps H emorrhoids (DC) Diverticulosis (DC) [facility] Work Phone: POCT EKG POCT EKG ECG Rou aubrie Left ventricular systolic dysfunction Hyperlipidemia, unspecified hyperlipidemia type Mixed hyperlipidemia Essential hypertension 02/16/2023 Crude Area End: 04-17-2025 Pulmonary function test Spirometry (Flow Volume Loop) w/ DLCO (diffusion study) Pulmonary function test Spirometry (Flow Volume Loop) w/ DLCO (diffusion study) PFT Routine Asthma, unspecified asthma severity, unspecified whether complicated, unspecified whether persistent 1 Occurrences starting 04/18/2024 until 04/17/2025 [employer] Work Phone: Comment on above: 1 Occurrences starting 04/18/2024 until 04/17/2025 End: 02-16-2024 Thyrotropin [Units/volume] in Serum or Plasma TSH Lab Routine Palpitations 1 Occurrences starting 02/16/2023 until 02/16/2024 [employer] [facility] Work Phone: Comment on above: 1 Occurrences starting 02/16/2023 until 02/16/2024 Tissue exam Tissue exam Path ology and Cytology Routine ASCUS of cervix with negative high risk HPV Screening for malignant neoplasm of cervix Ordered: 09/28/2023 [employer] Work Phone: Comment on above: Ordered: 09/28/2023 Immunizations Immunization Date Immunization Notes Care Provider Rinku saeed 05-24-2022 hepatitis B vaccine, adult dosage Juliette Apling CATTYMAN Work Phone: [facility] 05-24-2022 tetanus toxoid, reduced diphtheria toxoid, and acellular pertussis vaccine, adsorbed Juliette Cantor CATTYMAN Work Phone: [facility] 06-06-2021 SARS-CoV-2 (COVID-19 ) mRNA-1273 vaccine DHARA GREGORIO [facility] 02-17-2021 SARS-CoV-2 (COVID-19 ) mRNA-1273 vaccine DHARA GREGORIO [facility] Comment on above: Result Comment: 2022: [id number] 07-07-2020 SARS-CoV-2 (COVID-19 ) mRNA-1273 vaccine DHARA GREGORIO [facility] 06-10-2020 SARS-CoV-2 (COVID-19 ) mRNA-1273 vaccine DHARA GREGORIO [facility] 06-06-2020 SARS-CoV-2 (COVID-19 ) mRNA-1273 vaccine DHARA GREGORIO [facility] 05-13-2020 SARS-CoV-2 (COVID-19 ) mRNA-1273 vaccine DHARA GREGORIO [facility] 11-12-2008 influenza virus vaccine, whole virus Juliette Cantor [employer]YMAN Work Phone: [facility] 11-12-2008 influenza, whole DHARA PE RRY [facility] 11-12-2008 influenza virus vaccine, unspecified formulation Marko Langley APRN-LADLE BUILDER Work Phone: [facility] NEGATED: Highlighted row has not occurred!05-26-2021 influenza virus vaccine, unspecified formulation DHARA PERKINS [facility] Payers Date Payer Category Payer Private Health Insurance [id number] 2011 Commercial Managed C are - POS [employer] [id number] 2011 Managed Care HMO (unspecified) [id number] 315 2011 Private Health Insurance AETNA A ETNA POS II [id number] 2011-Present [phone] [address] [place] [address] [id number] 1972 Unknown [id number] 2.16.840.1.039514.3.57 9.2.593 1972 Unknown [id number] 2.16.840.1.319558.3.57 9.2.593 1972 Unknown [id number] 2.16.840.1.399039.3.57 9.2.593 1972 Unknown [id number] 2.16.840.1.677745.3.57 9.2.593 1972 Unknown [id number] 2.16.840.1.311871.3.57 9.2.593 1972 Unknown [id number] 2.16.840.1.809594.3.57 9.2.593 1972 Unknown [id number] 2.16.840.1.140854.3.57 9.2.593 1972 Unknown [id number] 2.16.840.1.086218.3.57 9.2.593 1972 Unknown [id number] 2.16.840.1.904502.3.57 9.2.593 1972 Unknown [id number] 2.16.840.1.255015.3.57 9.2.593 1972 Unknown [id number] 2.16.840.1.837428.3.57 9.2.593 1972 Unknown [id number] 2.16.840.1.338656.3.57 9.2.593 1972 Unknown [id number] 2.16.840.1.242143.3.57 9.2.593 1972 Unknown [id number] 2.16.840.1.997085.3.57 9.2.1286 1972 Unknown [id number] 2.16.840.1.699412.3.57 9.2.727 1972 Unknown [id number] 2.16.840.1.433234.3.57 9.2.727 1972 Unknown [id number] 2.16.840.1.925539.3.57 9.2.727 1972 Unknown [id number] 2.16.840.1.267745.3.57 9.2.727 1972 Unknown [id number] 2.16.840.1.168011.3.57 9.2.727 1972 Unknown [id number] 2.16.840.1.390871.3.57 9.2.1286 1972 Unknown [id number] 2.16.840.1.404628.3.57 9.2.1286 1972 Unknown [id number] 2.16.840.1.233393.3.57 9.2.1286 1972 Unknown [id number] 2.16.840.1.350684.3.57 9.2.1286 1972 Unknown [id number] 2.16.840.1.486684.3.57 9.2.1286 1972 Unknown [id number] 2.16.840.1.017924.3.57 9.2.1286 1972 Unknown [id number] 2.16840.1.103129.3.57 9.2.128 1972 Unknown [id number] 2.16840.1.267649.3.57 9.2.1286 1970 Unknown [id number] 2.16840.1.342556.3.57 9.2.1259 1970 Unknown [id number] 2.16840.1.266309.3.57 9.2.1259 1970 Unknown [id number] 2.16840.1.169499.3.57 9.2.1259 1970 Unknown [id number] 2.16840.1.838896.3.57 9.2.1259 1970 Unknown [id number] 2.16840.1.578331.3.57 9.2.1259 1970 Unknown [id number] 2.16.840.1.275423.3.57 9.2.1259 1970 Unknown [id number] 2.16.840.1.429957.3.57 9.2.1259 1970 Unknown [id number] 2.16840.1.184843.3.57 9.2.1259 1970 Unknown [id number] 2.16.840.1.395488.3.57 9.2.1259 1970 Unknown [id number] 2.16.840.1.461805.3.57 9.2.1259 1970 Unknown [id number] 2.16.840.1.535835.3.57 9.2.1259 1970 Unknown [id number] 2.16.840.1.065775.3.57 9.2.1259 1959 Private Health Insurance [id number] 2.16.840.1.310866.19 1959 Self-pay Unknown [id number] 2.16.840.1.910555.3.57 9.2.531 Social History Date Type Detail Facility Start: 05-26-2021 End: 07-18-2022 Tobacco smoking status Ex-smoker (finding) [facility] Tobacco smoking status Never [facility] Start: 11-24-2023 End: 05-10-2024 Sex Assigned At Female [facility] Start: 1970 Sex Assigned At Female [facility] Start: 02-06-1991 End: 02-06-2011 History of tobacco use Current smoker [facility] Start: 02-06-1991 End: 02-06-2011 History of tobacco use Cigarette Smoker [facility] Start: 07-18-2022 End: 06-06-2024 Tobacco use and exposure Smokeless tobacco non-user [facility] Start: 11-24-2023 End: 05-10-2024 Alcoholic beverage intake [facility] Start: 11-24-2023 End: 05-10-2024 History of Social function [facility] How often to you hav e a drink containing alcohol? Monthly or less [facility] How many standard dr inks containing alcohol do you have on a typical day? 1 or 2 [facility] How often do you hav e 6 or more drinks on 1 occasion? Never [facility] Start: 1970 Sex assigned at Not on file P [facility] How often do you hav e 6 or more drinks on 1 occasion? Less than monthly [facility] Do you belong to any clubs or organizations such as denominational groups, unions, [employer] or athletic groups, or school groups? Yes [facility] Are you now , , , , never or living with a partner? [facility] Start: 11-24-2020 Alcohol Comment rarely [facility] Start: 09-11-2014 Sex Female (finding) [facility] Medical Equipment Procedure Code Equipment Code Equipment Origin al Text Equipment Identifier Dates FDA Start: 10-03-2020 CYSTOSCOPY STENT INSERTION Sheldon ELIZALDE MD 10/03/20 Unknown Ureter R FDA Start: 10-03-2020 CYSTOSCOPY STENT INSERTION Sheldon ELIZALDE MD 10/03/20 Unknown Ureter R FDA Start: 10-03-2020 CYSTOSCOPY STENT INSERTION Sheldon ELIZALDE MD 10/03/20 Unknown Ureter R FDA Start: 10-03-2020 CYSTOSCOPY STENT INSERTION Sheldon ELIZALDE MD 10/03/20 Unknown Ureter R FDA Start: 10-03-2020 1 each by Other route in the morning. [id number] Start: 10-04-2022 End: 10-04-2023 USE DIRECTED TO TEST IN THE MORNING [id number] Start: 05-06-2024 Goals Date Patient Goal Desired Activity /State Personal health goal Comment on above: Formatting of this n ote might be different from the original. Evaluation of progress towards goal: Plan to discharge home with supportive spouse. Functional Status Date Assessment Result Facility 07-04-2023 Functional Status N/A [facility] 04-13-2022 Functional Status N/A [facility] Clinical Notes 05-26-2021 to 06-10-2024 Telephone Encounter - Melissa Sánchez RN - 06/10/2024 12:27 AM EDTTelephone Encounter - Melissa Sánchez RN - 06/10/2024 12:27 AM Lori Borrego MD - 05/17/2024 10:15 AM EDTPatient Instructions Note Date & Type Note Facility 06-10-2024 Miscellaneous Notes Ov-05/17/24 Lipid-02/17/23 New lipid order placed and letter sent 06/12/24 documented in this encounter [facility] 06-10-2024 Telephone encounter Note Ov-05/17/24 Lipid-02/17/23 New lipid order placed and letter sent 06/12/24 [facility] 05-17-2024 History of Present illness Narrative Sadie Akhtar Date of visit: 05/17/2024 Date of : 1970 Age: 54 y.o. Patient Active Problem List Diagnosis Headache BMI 50.0-59.9, adult ([facility]) Primary hypertension Mixed hyperlipidemia PVC (premature ventricular contraction) Palpitations Shortness of breath No Known Allergies Current Outpatient Medications Medication Sig Dispense Refill acetaminophen (TYLENOL) 500 mg tablet Take 1 tablet (500 mg total) by mouth every 6 (six) hours as needed for pain. 30 tablet 0 albuterol (PROVENTIL HFA;VENTOLIN HFA) 90 mcg/actuation inhaler Inhale 2 puffs every 6 (six) hours as needed for wheezing. 18 g 6 allopurinoL (ZYLOPRIM) 100 mg tablet Take 2 tablets (200 mg total) by mouth in the morning and 2 tablets (200 mg total) before bedtime. ALPRAZolam (XANAX) 0.25 mg tablet Take 1 tablet (0.25 mg total) by mouth nightly as needed for anxiety. cranberry 500 mg capsule Take by mouth daily. cyclobenzaprine (FLEXERIL) 10 mg tablet Take 1 tablet (10 mg total) by mouth as needed. duloxetine HCl (CYMBALTA ORAL) Take by mouth daily. fluticasone propionate (FLONASE) 50 mcg/actuation nasal spray Administer 2 sprays into each nostril in the morning and 2 sprays before bedtime. hydroCHLOROthiazide (HYDRODIURIL) 25 mg tablet Take 1 tablet (25 mg total) by mouth 2 (two) times a day before meals. inhalational spacing device (AEROCHAMBER MV) spacer 1 each by miscellaneous route 2 (two) times a day. 1 each 2 insulin glargine,hum.rec.anlog (BASAGLAR KWIKPEN U-100 INSULIN) 100 unit/mL (3 mL) insulin pen ipratropium-albuteroL (DUONEB) 0.5 mg-3 mg(2.5 mg base)/3 mL nebulizer Inhale 3 mL by nebulization in the morning and 3 mL at noon and 3 mL before bedtime. (Patient taking differently: Inhale 3 mL by nebulization 3 (three) times a day as needed.) 360 mL 1 levothyroxine (SYNTHROID, LEVOTHROID) 25 MCG tablet Take 1 tablet (25 mcg total) by mouth in the morning. Indications: a condition with low thyroid hormone levels. metoprolol succinate XL (TOPROL XL) 25 mg 24 hr tablet Take 1 tablet (25 mg total) by mouth in the morning and 1 tablet (25 mg total) before bedtime. 180 tablet 0 MIRALAX 17 gram/dose powder MIX 17 CAPSULS MIXED IN BEVERAGE OF CHOICE ONCE A DAY 30 DAY(S) montelukast (SINGULAIR) 10 mg tablet Take 1 tablet (10 mg total) by mouth nightly Indications: controller medication for asthma. MOUNJARO 7.5 mg/0.5 mL pen injector Inject 7.5 mg under the skin once a week. NovoLOG Mix 70-30FlexPen U-100 100 unit/mL (70-30) insulin pen Inject 35 Units under the skin in the morning and 35 Units in the evening. Inject before meals. omeprazole 20 mg tablet,disintegrat, delay rel Take 20 mg by mouth 2 (two) times a day Indications: gastroesophageal reflux disease, heartburn. OXcarbazepine (TRILEPTAL) 300 mg tablet One tablet in AM, two in PM oxybutynin (DITROPAN) 5 mg tablet 2 (two) times a day. rosuvastatin (CRESTOR) 20 mg tablet TAKE 1 TABLET (20 MG TOTAL) BY MOUTH IN THE MORNING. INDICATIONS: EXCESSIVE FAT IN THE BLOOD. 90 tablet 3 tamsulosin (FLOMAX) 0.4 mg capsule Take 1 capsule (0.4 mg total) by mouth in the morning and 1 capsule (0.4 mg total) before bedtime. Indications: stones in the urinary tract. valsartan (DIOVAN) 320 mg tablet Take 1 tablet (320 mg total) by mouth in the morning. 90 tablet 0 No current facility-administered medications for this visit. Chief Complaint Patient presents with Follow-up OV F/U 1 YR NO TESTS L/S LLD, PT RECENTLY IN ER [facility], SCHED W/PT History of Present Illness Sadie is here for follow-up. She was some chronic shortness of breath. She was recently in the hospital. She was feeling back to her baseline but still gets winded when she pushes herself. She was can not walk around the grocery store though lot of her limitations are due to her knees. She was not have orthopnea or PND. She was no edema at any point. No chest pain or pressure. She feels like her breathing is relatively stable but he has been a persistent issue for some time. She was follow up with Pulmonary planned with regards to her asthma. Past Medical History: Diagnosis Date Asthma CHF (congestive heart failure) ([facility]) Chronic kidney disease Diabetes mellitus type 2, controlled ([facility]) GERD (gastroesophageal reflux disease) Hyperlipidemia Hypertension Hypothyroidism Seizures ([facility]) Sleep apnea No data recorded No data recorded No data recorded Past Surgical History: Procedure Laterality Date SECTION LITHOTRIPSY Family History Problem Relation Age of Onset Heart disease Mother Hyperlipidemia Mother Hypertension Mother Pneumonia Mother Heart disease Father Hyperlipidemia Father Hypertension Father Stroke Father Breast cancer Neg Hx Social History Socioeconomic History Marital status: Spouse name: Not on file Number of children: Not on file Years of education: Not on file Highest education level: Not on file Occupational History Not on file Tobacco Use Smoking status: Former Current packs/day: 0.00 Average packs/day: 0.5 packs/day for 20.0 years (10.0 ttl pk-yrs) Types: Cigarettes Start date: 1991 Quit date: 2011 Years since quittin.2 Smokeless tobacco: Never Vaping Use Vaping status: Never Used Substance and Sexual Activity Alcohol use: Yes Comment: rarely Drug use: Never Sexual activity: Defer Other Topics Concern Caffeine Use Yes Social History Narrative Not on file Social Drivers of Health Financial Resource Strain: Not on file Food Insecurity: No Food Insecurity (05/17/2024) Hunger Screening Food Insecurity - Worry: Never True Food Insecurity - Inability: Never True Transportation Needs: Not on file Physical Activity: Not on file Stress: Not on file Social Connections: Moderately Integrated (12/30/2019) Social Connection and Isolation Panel [NHANES] Frequency of Communication with Friends and Family: More than three times a week Frequency of Social Gatherings with Friends and Family: More than three times a week Attends [employer] Services: Never Active Member of Clubs or Organizations: Yes Attends Club or Organization Meetings: 1 to 4 times per year Marital Status: Interpersonal Safety: Not At Risk (12/30/2019) Humiliation, Afraid, Rape, and Kick questionnaire Fear of Current or Ex-Partner: No Emotionally Abused: No Physically Abused: No Sexually Abused: No Housing Instability: Not on file Review of Systems Review of Systems Constitutional: Negative. HENT: Negative. Eyes: Negative. Cardiovascular: Positive for chest pain. Respiratory: Positive for shortness of breath. Endocrine: Negative. Hematologic/Lymphatic: Negative. Skin: Negative. Musculoskeletal: Positive for back pain. Gastrointestinal: Negative. Genitourinary: Negative. Neurological: Positive for dizziness. Psychiatric/Behavioral: Negative. Allergic/Immunologic: Positive for environmental allergies. Vascular: Negative. CARDIOVASCULAR: Please review HPI. Physical Examination General appearance: Alert, oriented and cooperative. In no acute distress. Skin: Warm and dry to touch. Head: Normocephalic, without obvious abnormality, atraumatic. Ears, Nose, Mouth, Throat: Throat clear without erythema or exudate. Dentition intact. Eyes: Conjunctivae unremarkable, EOM intact. Neck: Neck supple, trachea midline. Respiratory: Clear to auscultation bilaterally, no use of accessory muscles. Cardiovascular: RRR with normal S1 and S2 with no murmurs. Gastrointestinal: Soft, non-tender. Bowel sounds normal. Musculoskeletal: No peripheral edema. Neurologic: Oriented to time, person and place, affect appropriate. No focal/major motor defects noted. Psychiatric: Appropriate mood, memory and judgement. VITAL SIGNS: BP 124/78 Pulse 78 Ht 165.1 cm (5' 5 ) Wt (!) 164.7 kg (363 lb) SpO2 98% BMI 60.41 kg/m No orders of the defined types were placed in this encounter. There are no discontinued medications. IMPRESSIONS/PLAN 1. Shortness of breath - Nuc stress Lexiscan; Future 2. Primary hypertension - Nuc stress Lexiscan; Future Normal LVEF 04/2023 echocardiogram, minimal gradient across the aortic valve, valve looks like it opens adequately, report was revised SOB Asthma DM2 Hyperlipidemia Primary hypertension Hypothyroidism Obstructive sleep apnea Seizure disorder Obesity BMI 60 Palpitations, improved, possibly associated with PACs/PVCs 12/2023 event monitor, minimal overall burden History of preeclampsia CXR 04/10/24 without congestion BNP normal 2020 I suspect her shortness of breath is mostly on the basis of deconditioning, BMI, and pulmonary status but she was never had an ischemic evaluation. I talked to her about getting a Lexiscan stress test. Will set this up. Obviously, she was at high-risk for attenuation. There is a significant finding on the stress will bring him back in talk about it. Palpitations are more recently significantly improved and would follow her conservatively from that standpoint. TODAYS ORDERS Orders Placed This Encounter Procedures Nuc stress Lexiscan FOLLOW UP Return in about 1 year (around 05/17/2025). PCP: [facility] Referring Physician: No referring provider defined for this encounter. Pt given central scheduling's phone number, pt prefers to schedule stress test at home. documented in this encounter [facility] 05-16-2024 Miscellaneous Notes Left message for patient to remind them to bring their most current medication list with them to their appointment. documented in this encounter [facility] 05-16-2024 Telephone encounter Note Left message for patient to remind them to bring their most current medication list with them to their appointment. [facility] 05-10-2024 History of Present illness Narrative Associated Problem(s): Type 2 diabetes mellitus with peripheral neuropathy (CMS/HCC) During the appointment today all pertinent labs, [...] if they have any problems or questions. Sadie Akhtar is struggling to gain control of [...] risk for kidney stones. 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 Will increase insulin. Images from the original note were not included. Sadie Akhtar is a 54 y.o. female presents with chief complaint of Diabetes HPI: Diabetes Mellitus Follow-up: Sadie Akhtar is here for follow-up evaluation of diabetes mellitus. The initial diagnosis of diabetes was made between [id number] Diabetes complications: peripheral neuropathy Hx diabetes medications not tolerated: She has been checking her blood glucose couple times a day. Bg running 200-220 in the am and 220-260 predinner She is not always eating when she takes her insulin and gets nervous about eating when her bg are high. She has a protein shake but thinks there are > 30 grams of carbs in it. Doesn't cook much due to being busy. Last A1c: 8.5 (11/24/23) Last eye exam: 03/01/2022 Current concerns include: Forgot her meter at home today She was sick in april with a uri and on prednisone, just got over a uti was on a abx and diflucan. BG levels: higher since last visit. 180- 280. Would like information on intermittent fasting and information on protein but she has a hx of kidney stones with increase protein amounts Diet: vegetables, less red meat, limit carbs Drinks: water, tea, decaf coffee with sugar free creamer Exercise: pool Hypoglycemia: none She doesn't really know what to eat since she was told by her urologist to avoid protein to decrease the risk for kidney stones . 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 ([facility]) Localization-related focal epilepsy with simple partial seizures ([facility]) Hypothyroidism ([facility]) History of seizures Incomplete bladder emptying Kidney stone Left ventricular systolic dysfunction GERD (gastroesophageal reflux disease) Flank pain Essential hypertension ([facility]) Type 2 diabetes mellitus with peripheral neuropathy ([facility]) Chronic neck pain Arthritis of left knee Obesity due to excess calories with serious comorbidity Headache Migraine Cervical radiculopathy at C6 Lumbar spondylosis Median neuropathy Seizure disorder ([facility]) Back ache Cervical spondylosis Radiculitis, lumbosacral Vertigo Idiopathic intracranial hypertension LINDA (obstructive sleep apnea) Pseudotumor cerebri Benign paroxysmal positional vertigo due to bilateral vestibular disorder Tinnitus of right ear Anxiety PVC (premature ventricular contraction) Vitamin D deficiency Type 2 diabetes mellitus with hyperglycemia, with long-term current use of insulin ([facility]) Social History Tobacco Use Smoking status: Former Types: Cigarettes Smokeless tobacco: Never Vaping Use Vaping status: Never Used Substance Use Topics Alcohol use: Yes Drug use: Never No Known Allergies Synopsis SmartLink Latest Ref Rng & Units 05/10/2024 04/10/2024 17:00 Antidiabetic medications Insulin Aspart Prot & Aspart 35 units breakfast and dinner ((70-30) 100 UNIT/ML SUPN)-Discontinued (Dose adjustm) 35 units breakfast and dinner ((70-30) 100 UNIT/ML SUPN) Insulin Aspart Prot & Aspart 45 units breakfast and dinner ((70-30) 100 UNIT/ML SUPN) Tirzepatide 7.5 mg Weekly SC (7.5 MG/0.5ML SOAJ) 7.5 mg Weekly SC (7.5 MG/0.5ML SOAJ) Labs [facility] [place] HEMOGLOBIN A1C/HEMOGLOBIN.TOTAL:MFR:PT:BLD:Q N: 9.1 Creatinine 0.40 - 1.00 mg/dL 0.59 METHOD TRACEABLE TO [facility] STANDARD Outpatient prescription Medication marked as long-term This result is from an external source. The ASCVD Risk score (Tanna LEONARDO, et al., 2019) failed to calculate for the following reasons: Cannot find a previous HDL lab Cannot find a previous total cholesterol lab REVIEW OF SYMPTOMS: Review of Systems Constitutional: Positive for fatigue. Negative for appetite change and unexpected weight change. Eyes: Negative for visual disturbance. Respiratory: Negative for cough, shortness of breath and wheezing. Cardiovascular: Negative for chest pain, palpitations and leg swelling. Neurological: Positive for numbness. Endocrine: Negative for polydipsia, polyphagia and polyuria. OBJECTIVE: 05/10/2024 10:57 AM 04/25/2024 1:58 PM 04/18/2024 1:42 PM Vitals BMI 60.41 kg/m2 60.91 kg/m2 59.08 kg/m2 Systolic 122 146 130 Diastolic 80 84 80 Heart Rate 74 Temp 98.3 F Height (in) 5' 5 5' 5 Weight (lb) 363 366 355 Visit Report Report Report Report Physical Exam Constitutional: General: She is not in acute distress. Appearance: Normal appearance. She is obese. Cardiovascular: Rate and Rhythm: Normal rate and regular rhythm. Heart sounds: No murmur heard. No friction rub. No gallop. Pulmonary: Breath sounds: Normal breath sounds. No wheezing, rhonchi or rales. Musculoskeletal: General: No swelling. Neurological: Mental Status: She is alert. ASSESSMENT AND PLAN: Problem List Items Addressed This Visit Class 3 severe obesity due to excess calories with serious comorbidity and body mass index (BMI) of 60.0 to 69.9 in adult - Primary Type 2 diabetes mellitus with peripheral neuropathy (CMS/HCC) During the appointment today all pertinent labs, [...] if they have any problems or questions. Sadie Akhtar is struggling to gain control of [...] risk for kidney stones. 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 Will increase insulin. Relevant Medications NovoLOG MIX 70/30 FLEXPEN (70-30) 100 UNIT/ML injection Other Relevant Orders POCT glycosylated hemoglobin (Hb A1C) docked device (Completed) Ambulatory referral to Nutrition Services Type 2 diabetes mellitus with hyperglycemia, with long-term current use of insulin ([facility]) Follow up in about 3 months (around 08/09/2024) for Recheck. Patient's Medications New Prescriptions No medications on file Previous Medications ACCU-CHEK GUIDE TEST TEST STRIP USE DIRECTED TO TEST IN THE MORNING ALLOPURINOL (ZYLOPRIM) 100 MG TABLET Take 200 mg by mouth Daily ALPRAZOLAM (XANAX) 0.25 MG TABLET TAKE 1 TABLET (0.25 MG) BY MOUTH NEEDED AT BEDTIME FOR ANXIETY FOR UP TO 14 DAYS BLOOD PRESSURE MONITORING (BLOOD PRESSURE DIGITAL SOLN) KIT CRANBERRY (RA CRANBERRY) 500 MG CAPSULE Take by mouth Daily. CYCLOBENZAPRINE (FLEXERIL) 10 MG TABLET TAKE 1 TABLET BY MOUTH EVERY DAY AT BEDTIME NEEDED DULOXETINE (CYMBALTA) [address] CAPSULE TAKE 1 CAPSULE BY MOUTH EVERY DAY FOR 90 DAYS FLUTICASONE-SALMETEROL 250-50 MCG/ACT AEROSOL POWDER Inhale 1 puff in the morning and 1 puff in the evening. HYDROCHLOROTHIAZIDE (HYDRODIURIL) 25 MG TABLET Take 25 mg by mouth in the morning and 25 mg before bedtime. IPRATROPIUM-ALBUTEROL (DUO-NEB) 0.5-2.5 MG/3 ML NEBULIZER SOLUTION Take 3 mL by nebulization in the morning and 3 mL at noon and 3 mL in the evening and 3 mL before bedtime. LEVOTHYROXINE (SYNTHROID, LEVOXYL) 25 MCG TABLET Take 25 mcg by mouth in the morning. Take before meals. METOPROLOL SUCCINATE XL (TOPROL-XL) 25 MG 24 HR TABLET Take 25 mg by mouth in the morning and 25 mg before bedtime. MONTELUKAST (SINGULAIR) 10 MG TABLET Take 10 mg by mouth 1 (one) time each day at the same time. OMEPRAZOLE (PRILOSEC) [address] CAPSULE Take 20 mg by mouth in the morning and 20 mg in the evening. Take before meals. OXCARBAZEPINE (TRILEPTAL) 300 MG TABLET TAKE 1 TABLET BY MOUTH IN THE MORNING AND 2 TABLETS BEFORE BEDTIME OXYBUTYNIN (DITROPAN) 5 MG TABLET Take 5 mg by mouth in the morning and 5 mg before bedtime. POLYETHYLENE GLYCOL, PEG, 3350 (MIRALAX) 17 GM/SCOOP POWDER Take 17 g by mouth 1 (one) time. ROSUVASTATIN (CRESTOR) 20 MG TABLET Take 20 mg by mouth in the morning. TAMSULOSIN (FLOMAX) 0.4 MG 24 HR CAPSULE Take 0.4 mg by mouth in the morning and 0.4 mg before bedtime. TIRZEPATIDE (MOUNJARO) 7.5 MG/0.5ML SOLUTION AUTO-INJECTOR Inject 7.5 mg under the skin 1 (one) time per week VALSARTAN (DIOVAN) 320 MG TABLET Take 320 mg by mouth in the morning. Modified Medications Modified Medication Previous Medication NOVOLOG MIX 70/30 FLEXPEN (70-30) 100 UNIT/ML INJECTION NovoLOG MIX 70/30 FLEXPEN (70-30) 100 UNIT/ML injection 45 units breakfast and dinner 35 units breakfast and dinner Discontinued Medications No medications on file I have reviewed and reconciled the history and medication list with the patient today. documented in this encounter [facility] 04-25-2024 History of Present illness Narrative Images from the original note were not included. Subjective Sadie Akhtar is a 54 y.o. year old female Chief Complaint Patient presents with Follow-up Past Medical History: Diagnosis Date Alteration of awareness Brachial neuritis Breast cancer screening by mammogram Carpal tunnel syndrome Cervical radiculopathy Cervical spondylosis CHF (congestive heart failure) (CMS/HCC) Chronic neck pain Diabetes mellitus (CMS/HCC) Encounter for gynecological examination (general) (routine) without abnormal findings GERD (gastroesophageal reflux disease) Hypertension (CMS/HCC) Hypothyroid (CMS/HCC) Kidney stones Migraine (CMS/HCC) Morbid obesity with BMI of 60.0-69.9, adult (CMS/HCC) Neuropathy Obstructive sleep apnea on CPAP LINDA (obstructive sleep apnea) Peripheral neuropathy Seizures (CMS/HCC) Vaginal delivery childbirth Past Surgical History: Procedure Laterality Date SECTION, LOW TRANSVERSE x2 DILATION AND CURETTAGE OF UTERUS KIDNEY STONE SURGERY stent removed 01/28/2021 KNEE SURGERY Left 11/15/2016 LITHOTRIPSY 12/17/2020 MENISCECTOMY 2006 or 2008 MR ANGIOGRAM HEAD WO IV CONTRAST 12/30/2019 MR ANGIOGRAM HEAD WO IV CONTRAST 12/30/2019 TONSILECTOMY, ADENOIDECTOMY, BILATERAL MYRINGOTOMY AND TUBES TUBAL LIGATION Family History Problem Relation Name Age of Onset Diabetes Mother Diabetes Father Hypertension Father Stroke Father Cancer Maternal Grandmother Social History Tobacco Use Smoking status: Former Types: Cigarettes Smokeless tobacco: Never Substance Use Topics Alcohol use: Yes Medication Documentation Review Audit Reviewed by Aniya Daniel MA (Amalgamator) on 04/25/24 at 1400 Medication Order Taking? Sig Documenting Provider Last Dose Status allopurinol (Zyloprim) 100 MG tablet [id number] Take 200 mg by mouth Daily Gloria Sarabia DO Active ALPRAZolam (Xanax) 0.25 MG tablet [id number] TAKE 1 TABLET (0.25 MG) BY MOUTH NEEDED AT BEDTIME FOR ANXIETY FOR UP TO 14 DAYS MARY JANE Key 04/01/24 2359 Blood Pressure Monitoring (Blood Pressure Digital Soln) kit [id number] Gloria M Petznick, DO Active Cranberry (RA Cranberry) 500 MG capsule [id number] No Take by mouth Daily. Historical MD Ayde Taking Active cyclobenzaprine (Flexeril) 10 MG tablet [id number] Take 1 tablet (10 mg) by mouth at bedtime MARY JANE Key Active DULoxetine (Cymbalta) [address] capsule [id number] TAKE 1 CAPSULE BY MOUTH EVERY DAY FOR 90 DAYS MARY JANE Key Active Fluticasone-Salmeterol 250-50 MCG/ACT aerosol powder [id number] No Inhale 1 puff in the morning and 1 puff in the evening. Aly Messer MD Taking Active hydroCHLOROthiazide (HYDRODiuril) 25 MG tablet [id number] No Take 25 mg by mouth in the morning and 25 mg before bedtime. Aly Messer MD Taking Active ipratropium-albuterol (Duo-Neb) 0.5-2.5 mg/3 mL nebulizer solution [id number] No Take 3 mL by nebulization in the morning and 3 mL at noon and 3 mL in the evening and 3 mL before bedtime. Historical MD Ayde Taking Active levothyroxine (Synthroid, Levoxyl) 25 MCG tablet [id number] No Take 25 mcg by mouth in the morning. Take before meals. Historical MD Ayde Taking Active metoprolol succinate XL (Toprol-XL) 25 MG 24 hr tablet [id number] No Take 25 mg by mouth in the morning and 25 mg before bedtime. Historical MD Ayde Taking Active montelukast (Singulair) 10 MG tablet [id number] No Take 10 mg by mouth 1 (one) time each day at the same time. Historical ProviderMD Taking Active nitrofurantoin, macrocrystal-monohydrate, (Macrobid) 100 MG capsule [id number] Take 1 capsule (100 mg) by mouth in the morning and 1 capsule (100 mg) before bedtime. Do all this for 7 days. Brenda Hubbard MD Active NovoLOG MIX 70/30 FLEXPEN (70-30) 100 UNIT/ML injection [id number] 35 units breakfast and dinner Gloria Sarabia, Active omeprazole (PriLOSEC) [address] capsule [id number] No Take 20 mg by mouth in the morning and 20 mg in the evening. Take before meals. Historical ProviderMD Taking Active OXcarbazepine (Trileptal) 300 MG tablet [id number] TAKE 1 TABLET BY MOUTH IN THE MORNING AND 2 TABLETS BEFORE BEDTIME MARY JANE Key Active oxybutynin (Ditropan) 5 MG tablet [id number] No Take 5 mg by mouth in the morning and 5 mg before bedtime. Historical Provider, Taking Active polyethylene glycol, PEG, 3350 (MiraLax) 17 GM/SCOOP powder [id number] No Take 17 g by mouth 1 (one) time. Historical Provider, Taking Active rosuvastatin (Crestor) 20 MG tablet [id number] No Take 20 mg by mouth in the morning. Historical Provider, Taking Active tamsulosin (Flomax) 0.4 MG 24 hr capsule [id number] No Take 0.4 mg by mouth in the morning and 0.4 mg before bedtime. Historical Provider, Taking Active Tirzepatide (Mounjaro) 7.5 MG/0.5ML solution auto-injector [id number] Inject 7.5 mg under the skin 1 (one) time per week Gloria Sarabia DO Active valsartan (Diovan) 320 MG tablet [id number] No Take 320 mg by mouth in the morning. Historical ProviderMD Taking Active HPI ALTERATION OF AWARENESS -she denies any recent confusion -denies loss of consciousness MIGRAINES -On Trileptal and cyproheptadine -these have been ok -stiffness in the neck -takes Flexeril -she is also not sleeping well RADICULAR PAIN -sciatica on right side -pain down her right leg -she denies falls -denies any numbness or tingling -taking cymbalta -she does stretches at night -pool therapy helps -she has not been doing this recently -she wants to go back as her right sided pain is increasing. 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 Eyes: Negative for visual disturbance. Respiratory: Positive for shortness of breath. Negative for cough. Cardiovascular: Negative for chest pain. Musculoskeletal: Positive for arthralgias and back pain. Neurological: Positive for headaches. Negative for seizures, syncope and numbness. Psychiatric/Behavioral: Positive for sleep disturbance. Negative for agitation, confusion and hallucinations. The patient is nervous/anxious. Objective Visit Vitals BP 146/84 (BP Location: Left arm, Patient Position: Sitting) Ht 5' 5 Wt 366 lb BMI 60.91 kg/m OB Status Postmenopausal Smoking Status Former BSA 2.76 m Heart-RRR Neurological Exam Mental Status Awake, alert and oriented to person, place and time. Oriented to person, place and time. Recent and remote memory are intact. Speech is normal. Language is fluent with no aphasia. Cranial Nerves CN III, IV, : Normal lids and orbits bilaterally. Pupils equal round and reactive to light bilaterally. CN VII: Full and symmetric facial movement. CN VIII: Hearing is normal. CN XI: Shoulder shrug strength is normal. Sensory Sensation is intact to light touch, pinprick, vibration and proprioception in all four extremities. Gait Normal casual, toe, heel and tandem gait. Motor Examination RUE Strength deltoid, biceps, triceps, wrist extensors, wrist extensors, wrist flexor, bread racker strength 5/5. LUE Strength deltoid, biceps, triceps, wrist extensors, wrist extensors, wrist flexor, bread racker strength 5/5. RLE Strength illopsoas, quadriceps, tibialis anterior, and gastrocnemius strength 5/5. LLE Strength illopsoas, quadriceps, tibialis anterior, and gastrocnemius strength 5/5. Tone Normal tone x4 extremities. Reflexes: RUE biceps reflex 2, LUE biceps reflex 2, RLE knee reflex 2, LLE knee reflex 2, Assessment and Plan Chronic migraine without aura without status migrainosus, not intractable (CMS/HCC) Patient continues with about 2 migraines a month with light and sound sensitivity located behind the eyes without nausea or vomiting. She is currently taking Trileptal 300mg 1 PO QAM and 2 tabs PO QHS for neuropathic pain. She was seen in hospital 12/2019 for facial numbness and tingling and evaluated for idiopathic intracranial hypertension. Head CT from 04/2020 revealed no acute intracranial abnormalities. Brain MRI with and without contrast 12/2019 revealed small amount of fluid along both optic nerves without tortuosity and a partially empty sella. She was started on acetazolamide. Lumbar puncture revealed normal opening pressure at 16cm and normal closing pressure at 9cm. Some nonspecific inflammatory markers including IgG Syn Rate, CSF MBP and Serum Alb were noted to be elevated. Updated brain MRI 12/29/2020 was normal. She was weaned off of Topamax due to kidney stones. She denies worsening headaches. Lumbar spondylosis lumbar x-ray 05/2017 revealed mild to moderate spondylosis and facet osteoarthritis. Vertigo VNG from 06/2019 revealed significant peripheral vestibular dysfunction with positive tamara-hallpike. She completed vestibular therapy. She continues with cyproheptadine. TCD and carotid ultrasound 09/2020 was stable without significant stenosis. She is having sinus congestion and this is contributing to vertigo and tinnitus. Obstructive sleep apnea syndrome Patient is compliant with CPAP machine nightly. She is having sleep disruption as she can't shut her mind off . Tinnitus of right ear Cervical radiculopathy at C6 EMG of RUE 05/2017 revealed evidence of median neuropathy and C5-C6 radiculopathy. Cervical x-ray 05/2017 revealed degenerative spondylosis and facets. Alteration of awareness Patient with onset of alteration of awareness that began around September 2020 and manifests as symptoms of brain fog, feeling out of it and occasional limb shaking. She was seen in the ER and was told this was anxiety. Brain MRI 12/29/2020 was normal. Routine EEG was normal. She had COVID and has had multiple medication changes. No further events. Radicular pain the patient states that a while ago she was told that she had sciatica pain. she has had increase in radicular pain down her left leg and is overall worse at night. She states that this is sharp and spasm in nature. .She notes that she is hoping to be more active and lose weight. EMG of the BLE 09/2021 was normal. She has been very busy at work and this is causing stress. She had some benefit with Cymbalta but she has not done PT for a few months and her symptoms have increased to her RLE. Updated EMG of the BLE revealed mild right S1 radiculopathy. Anxiety the patient has history of anxiety and panic attack manifested as diffuse body shaking with no loss of consciousness that responded to Ativan in the ER. She has used Xanax sparingly with benefit and has started process to see counselor. Her symptoms are intermittent. Stable Plan: 1. She did not restart PT after last visit but reports that she will try this. Notes that Aqua therapy was beneficial in the past. 2. I have reviewed the EMG of the BLE with the patient. 3. Continue Cymbalta 60mg PO daily for neuropathic pain. 4. Continue Xanax 0.25mg PO daily prn. 5. Continue to follow with counseling. 6. Continue Trileptal 300mg PO to 1 tab QAM and 2 tabs PO QHS for neuropathic pain 7. Continue Flexeril 10mg PO QHS as needed for muscle spasm 8. Consider medication adjustment at next visit based on course of symptoms Dr. Guy obtained history and examined the patient, I am acting as scribe for Dr. Audelia Daniel PROSPECTING DRILLER documented in this encounter [facility] 04-18-2024 History of Present illness Narrative Images from the original note were not included. Brenda Hubbard MD Obstetrics and Gynecology Patient: Sadie Akhtar : 1970 (54 y.o.) Exam Date: 04/18/2024 Reason for Visit - Chief Complaint Patient presents with repeat pap 09/28/23- colpo 08/24/23-ASCUS The patient mentions experiencing sinus syndrome, which has been affecting them. They describe feeling fatigued, noting that it catches up to you. The patient also reports having difficulty relaxing. The patient's grandson lives with multiple family members, including the patient and another grandparent. The grandson attends school, and the patient is involved in caring for him along with other family members. Visit Vitals Wt 355 lb BMI 59.08 kg/m OB Status Postmenopausal Smoking Status Former BSA 2.72 m History of Present Illness, Associated Treatments and Results - OB History Para Term AB Living 3 3 3 0 0 0 SAB IAB Ectopic Multiple Live Births 0 0 0 0 0 # Outcome Date GA Lbr Seth/2nd Weight Sex Type Anes PTL Lv 3 Term 2 Term 1 Term Constitutional: Negative. HENT: Negative. Eyes: Negative. Respiratory: Negative. Cardiovascular: Negative. Gastrointestinal: Negative. Endocrine: Negative. Genitourinary: Negative. Musculoskeletal: Negative. Skin: Negative. Allergic/Immunologic: Negative. Neurological: Negative. Hematological: Negative. Psychiatric/Behavioral: Negative. No Known Allergies Current Outpatient Medications: allopurinol (Zyloprim) 100 MG tablet, Take 200 mg by mouth Daily, Disp: , Rfl: ALPRAZolam (Xanax) 0.25 MG tablet, TAKE 1 TABLET (0.25 MG) BY MOUTH NEEDED AT BEDTIME FOR ANXIETY FOR UP TO 14 DAYS, Disp: 14 tablet, Rfl: 0 Blood Pressure Monitoring (Blood Pressure Digital Soln) kit, , Disp: , Rfl: Cranberry (RA Cranberry) 500 MG capsule, Take by mouth Daily., Disp: , Rfl: cyclobenzaprine (Flexeril) 10 MG tablet, Take 1 tablet (10 mg) by mouth at bedtime, Disp: 30 tablet, Rfl: 0 DULoxetine (Cymbalta) [address] capsule, TAKE 1 CAPSULE BY MOUTH EVERY DAY FOR 90 DAYS, Disp: 90 capsule, Rfl: 1 Fluticasone-Salmeterol 250-50 MCG/ACT aerosol powder , Inhale 1 puff in the morning and 1 puff in the evening., Disp: , Rfl: hydroCHLOROthiazide (HYDRODiuril) 25 MG tablet, Take 25 mg by mouth in the morning and 25 mg before bedtime., Disp: , Rfl: ipratropium-albuterol (Duo-Neb) 0.5-2.5 mg/3 mL nebulizer solution, Take 3 mL by nebulization in the morning and 3 mL at noon and 3 mL in the evening and 3 mL before bedtime., Disp: , Rfl: levothyroxine (Synthroid, Levoxyl) 25 MCG tablet, Take 25 mcg by mouth in the morning. Take before meals., Disp: , Rfl: metoprolol succinate XL (Toprol-XL) 25 MG 24 hr tablet, Take 25 mg by mouth in the morning and 25 mg before bedtime., Disp: , Rfl: montelukast (Singulair) 10 MG tablet, Take 10 mg by mouth 1 (one) time each day at the same time., Disp: , Rfl: NovoLOG MIX 70/30 FLEXPEN (70-30) 100 UNIT/ML injection, 35 units breakfast and dinner, Disp: 30 mL, Rfl: 3 omeprazole (PriLOSEC) [address] capsule, Take 20 mg by mouth in the morning and 20 mg in the evening. Take before meals., Disp: , Rfl: OXcarbazepine (Trileptal) 300 MG tablet, TAKE 1 TABLET BY MOUTH IN THE MORNING AND 2 TABLETS BEFORE BEDTIME, Disp: 270 tablet, Rfl: 5 oxybutynin (Ditropan) 5 MG tablet, Take 5 mg by mouth in the morning and 5 mg before bedtime., Disp: , Rfl: polyethylene glycol, PEG, 3350 (MiraLax) 17 GM/SCOOP powder, Take 17 g by mouth 1 (one) time., Disp: , Rfl: rosuvastatin (Crestor) 20 MG tablet, Take 20 mg by mouth in the morning., Disp: , Rfl: tamsulosin (Flomax) 0.4 MG 24 hr capsule, Take 0.4 mg by mouth in the morning and 0.4 mg before bedtime., Disp: , Rfl: Tirzepatide (Mounjaro) 7.5 MG/0.5ML solution auto-injector, Inject 7.5 mg under the skin 1 (one) time per week, Disp: 2 mL, Rfl: 3 valsartan (Diovan) 320 MG tablet, Take 320 mg by mouth in the morning., Disp: , Rfl: Past Medical History: Diagnosis Date Alteration of awareness Brachial neuritis Breast cancer screening by mammogram Carpal tunnel syndrome Cervical radiculopathy Cervical spondylosis CHF (congestive heart failure) (CMS/HCC) Chronic neck pain Diabetes mellitus (CMS/HCC) Encounter for gynecological examination (general) (routine) without abnormal findings GERD (gastroesophageal reflux disease) Hypertension (CMS/HCC) Hypothyroid (CMS/HCC) Kidney stones Migraine (CMS/HCC) Morbid obesity with BMI of 60.0-69.9, adult (CMS/HCC) Neuropathy Obstructive sleep apnea on CPAP LINDA (obstructive sleep apnea) Peripheral neuropathy Seizures (CMS/HCC) Vaginal delivery childbirth Past Surgical History: Procedure Laterality Date SECTION, LOW TRANSVERSE x2 DILATION AND CURETTAGE OF UTERUS KIDNEY STONE SURGERY stent removed 01/28/2021 KNEE SURGERY Left 11/15/2016 LITHOTRIPSY 12/17/2020 MENISCECTOMY 2006 or 2007 MR ANGIOGRAM HEAD WO IV CONTRAST 12/30/2019 MR ANGIOGRAM HEAD WO IV CONTRAST 12/30/2019 TONSILECTOMY, ADENOIDECTOMY, BILATERAL MYRINGOTOMY AND TUBES TUBAL LIGATION Family History Problem Relation Name Age of Onset Diabetes Mother Diabetes Father Hypertension Father Stroke Father Cancer Maternal Grandmother Social History Tobacco Use Smoking Status Former Types: Cigarettes Smokeless Tobacco Never Physical Exam - General appearance, mentation, extraocular movements, facial strength and movement, hearing, upper and lower extremity strength and tone, sensation to gross testing, coordination, and gait are normal or at baseline unless noted below. Physical Exam Constitutional: Appearance: Normal appearance. Genitourinary: Right Labia: No rash. Left Labia: No rash. No vaginal discharge. No vaginal prolapse present. No vaginal atrophy present. No cervical lesion. HENT: Head: Normocephalic and atraumatic. Neurological: Mental Status: She is alert and oriented to person, place, and time. Psychiatric: Mood and Affect: Mood normal. Behavior: Behavior normal. Assessment/Plan ICD-10-CM 1. ASCUS of cervix with negative high risk HPV R87.610 2. Encounter for screening for cervical cancer Z12.4 Pt presents for pap due to previous abnormal pap Pt will be informed of results within 72 hours Repap 6 months documented in this encounter [facility] 04-17-2024 Miscellaneous Notes Need an appointment. Patient scheduled for a follow up on 07/17/2024 with KAYLYN in [place]. documented in this encounter [facility] 04-17-2024 Telephone encounter Note Need an appointment. [facility] 04-17-2024 Telephone encounter Note Patient scheduled for a follow up on 07/17/2024 with KAYLYN in [place]. [facility] 02-29-2024 History of Present illness Narrative Images from the original note were not included. Reason for Appointment: EMG Patient: Sadie Akhtar : 1970 EMG Computer: [employer] Referring Physician: Izzy Charles PA-C EMG: MAC malt loader: Aniya Daniel CMA Office Location: [place] Reason for EMG: c/ol pain in the legs, worse on the right. Low back and hip pain. Sciatica. Difficulty sitting or standing for long periods. Hx of left knee surgery. Hx of DM, not taking blood thinners. Comments: Procedure explained to the patient who expressed understanding documented in this encounter [facility] 02-19-2024 Telephone encounter Note Xanax last filled 09/07/23 per [facility] 02-19-2024 Miscellaneous Notes Xanax last filled 09/07/23 per [facility] documented in this encounter [facility] 11-26-2023 History of Present illness Narrative Associated Problem(s): Type 2 diabetes mellitus with peripheral neuropathy (CMS/HCC) During the appointment today all pertinent labs, [...] if they have any problems or questions. Sadie Akhtar is struggling to gain control of [...] her diet and keeping a food journal. Images from the original note were not included. Sadie Akhtar is a 53 y.o. female presents with chief complaint of Diabetes HPI: Diabetes Mellitus Follow-up: Sadie Akhtar is here for follow-up evaluation of diabetes mellitus. The initial diagnosis of diabetes was made between [id number] Diabetes complications: peripheral neuropathy She has been checking her blood glucose couple days a week. Last A1c: 8.7 on 08/01/22 Last eye exam: 03/01/2022 Current concerns include: States her bg levels are fluctuating. She has been sick for the past 2 weeks negative covid test Diet: vegetables, less red meat, limit carbs Drinks: water, tea, decaf coffee with sugar free creamer Exercise: none Hypoglycemia: none Diabetes Associated symptoms include fatigue. Pertinent negatives for diabetes include no chest pain, no polydipsia, no polyphagia and no polyuria. SUBJECTIVE: PROBLEM LIST SOCIAL ALLERGIES: Patient Active Problem List Diagnosis Weak urine stream Urinary urgency Stress incontinence Primary osteoarthritis Other urethral stricture, female Obstructive sleep apnea syndrome Nocturia Neuropathy Class 3 severe obesity due to excess calories with serious comorbidity and body mass index (BMI) of 60.0 to 69.9 in adult ([facility]) Moderate persistent asthma without complication (CMS/HCC) Mixed hyperlipidemia (CMS/HCC) Microscopic hematuria group home current use of insulin (CMS/HCC) Localization-related focal epilepsy with simple partial seizures (CMS/HCC) Hypothyroidism (CMS/HCC) History of seizures Incomplete bladder emptying Kidney stone Left ventricular systolic dysfunction GERD (gastroesophageal reflux disease) Flank pain Essential hypertension (CMS/HCC) Type 2 diabetes mellitus with peripheral neuropathy (CMS/HCC) Chronic neck pain Arthritis of left knee Obesity due to excess calories with serious comorbidity Headache Migraine (CMS/HCC) Cervical radiculopathy at C6 Lumbar spondylosis Median neuropathy Seizure disorder (CMS/HCC) Back ache Cervical spondylosis Radiculitis, lumbosacral Vertigo Idiopathic intracranial hypertension LINDA (obstructive sleep apnea) Pseudotumor cerebri Benign paroxysmal positional vertigo due to bilateral vestibular disorder Tinnitus of right ear Anxiety PVC (premature ventricular contraction) Vitamin D deficiency Type 2 diabetes mellitus with hyperglycemia, with long-term current use of insulin ([facility]) Social History Tobacco Use Smoking status: Former Types: Cigarettes Smokeless tobacco: Never Vaping Use Vaping status: Never Used Substance Use Topics Alcohol use: Yes Drug use: Never No Known Allergies Synopsis [facility] 11/24/2023 10/02/2023 Antidiabetic medications Insulin Aspart Prot & Aspart 35 units breakfast and dinner ((70-30) 100 UNIT/ML SUPN) Insulin Glargine 60 Units Daily SC-Discontinued 60 Units Daily SC Semaglutide 2 mg Weekly SC (8 MG/3ML SOPN) -Discontinued Semaglutide 2 mg q7 days SC (8 MG/3ML SOPN) -Discontinued Semaglutide 2 mg q7 days SC (8 MG/3ML SOPN)-Discontinued 2 mg q7 days SC (8 MG/3ML SOPN) Tirzepatide 7.5 mg Weekly SC (7.5 MG/0.5ML SOAJ) Labs MHPT A1C 8.5 Outpatient prescription Medication marked as long-term REVIEW OF SYMPTOMS: Review of Systems Constitutional: Positive for fatigue. Negative for appetite change and unexpected weight change. Eyes: Negative for visual disturbance. Respiratory: Positive for cough, shortness of breath and wheezing. Cardiovascular: Negative for chest pain, palpitations and leg swelling. Neurological: Positive for numbness. Endocrine: Negative for polydipsia, polyphagia and polyuria. OBJECTIVE: 11/24/2023 1:49 PM 09/28/2023 4:18 PM 08/24/2023 3:25 PM Vitals BMI 60.57 kg/m2 59.08 kg/m2 59.91 kg/m2 Systolic 128 140 142 Diastolic 68 80 82 Heart Rate 83 Temp 98.4 F Height (in) 5' 5 Weight (lb) 364 355 360 Visit Report Report Report Physical Exam Constitutional: General: She is not in acute distress. Appearance: Normal appearance. She is obese. Cardiovascular: Rate and Rhythm: Normal rate and regular rhythm. Heart sounds: No murmur heard. No friction rub. No gallop. Pulmonary: Breath sounds: Normal breath sounds. No wheezing, rhonchi or rales. Musculoskeletal: General: No swelling. Neurological: Mental Status: She is alert. ASSESSMENT AND PLAN: Problem List Items Addressed This Visit Class 3 severe obesity due to excess calories with serious comorbidity and body mass index (BMI) of 60.0 to 69.9 in adult ([facility]) - Primary group home current use of insulin ([facility]) Type 2 diabetes mellitus with peripheral neuropathy ([facility]) During the appointment today all pertinent labs, [...] if they have any problems or questions. Sadie Akhtar is struggling to gain control of [...] her diet and keeping a food journal. Relevant Medications Tirzepatide (Mounjaro) 7.5 MG/0.5ML solution auto-injector insulin aspart protamine-insulin aspart (NovoLOG MIX 70/30 FLEXPEN) (70-30) 100 UNIT/ML injection Other Relevant Orders POCT glycosylated hemoglobin (Hb A1C) docked device (Completed) Type 2 diabetes mellitus with hyperglycemia, with long-term current use of insulin ([facility]) Follow up in about 3 months (around 02/24/2024) for Recheck. Patient's Medications New Prescriptions INSULIN ASPART PROTAMINE-INSULIN ASPART (NOVOLOG MIX 70/30 FLEXPEN) (70-30) 100 UNIT/ML INJECTION 35 units breakfast and dinner TIRZEPATIDE (MOUNJARO) 7.5 MG/0.5ML SOLUTION AUTO-INJECTOR Inject 7.5 mg under the skin 1 (one) time per week Previous Medications ALLOPURINOL (ZYLOPRIM) 100 MG TABLET Take 200 mg by mouth Daily ALPRAZOLAM (XANAX) 0.25 MG TABLET TAKE 1 TABLET (0.25 MG) BY MOUTH NEEDED AT BEDTIME FOR ANXIETY FOR UP TO 14 DAYS BLOOD PRESSURE MONITORING (BLOOD PRESSURE DIGITAL SOLN) KIT CRANBERRY (RA CRANBERRY) 500 MG CAPSULE Take by mouth Daily. CYCLOBENZAPRINE (FLEXERIL) 10 MG TABLET TAKE 1 TABLET BY MOUTH EVERY DAY AT BEDTIME NEEDED DULOXETINE (CYMBALTA) [address] CAPSULE TAKE 1 CAPSULE BY MOUTH EVERY DAY FOR 90 DAYS FLUTICASONE-SALMETEROL 250-50 MCG/ACT AEROSOL POWDER Inhale 1 puff in the morning and 1 puff in the evening. HYDROCHLOROTHIAZIDE (HYDRODIURIL) 25 MG TABLET Take 25 mg by mouth in the morning and 25 mg before bedtime. IPRATROPIUM-ALBUTEROL (DUO-NEB) 0.5-2.5 MG/3 ML NEBULIZER SOLUTION Take 3 mL by nebulization in the morning and 3 mL at noon and 3 mL in the evening and 3 mL before bedtime. LEVOTHYROXINE (SYNTHROID, LEVOXYL) 25 MCG TABLET Take 25 mcg by mouth in the morning. Take before meals. METOPROLOL SUCCINATE XL (TOPROL-XL) 25 MG 24 HR TABLET Take 25 mg by mouth in the morning and 25 mg before bedtime. MONTELUKAST (SINGULAIR) 10 MG TABLET Take 10 mg by mouth 1 (one) time each day at the same time. OMEPRAZOLE (PRILOSEC) [address] CAPSULE Take 20 mg by mouth in the morning and 20 mg in the evening. Take before meals. OXCARBAZEPINE (TRILEPTAL) 300 MG TABLET TAKE 1 TABLET BY MOUTH IN THE MORNING AND 2 TABLETS BEFORE BEDTIME OXYBUTYNIN (DITROPAN) 5 MG TABLET Take 5 mg by mouth in the morning and 5 mg before bedtime. POLYETHYLENE GLYCOL, PEG, 3350 (MIRALAX) 17 GM/SCOOP POWDER Take 17 g by mouth 1 (one) time. ROSUVASTATIN (CRESTOR) 20 MG TABLET Take 20 mg by mouth in the morning. TAMSULOSIN (FLOMAX) 0.4 MG 24 HR CAPSULE Take 0.4 mg by mouth in the morning and 0.4 mg before bedtime. VALSARTAN (DIOVAN) 320 MG TABLET Take 320 mg by mouth in the morning. Modified Medications No medications on file Discontinued Medications AMOXICILLIN-CLAVULANATE (AUGMENTIN) 500-125 MG TABLET Take 1 tablet by mouth every 8 (eight) hours CHOLECALCIFEROL (VITAMIN D-3) 25 MCG (1000 UT) CAPSULE Take 1,000 Units by mouth 1 (one) time each day at the same time. DULOXETINE (CYMBALTA) [address] CAPSULE TAKE 1 CAPSULE BY MOUTH EVERY DAY FLUCONAZOLE (DIFLUCAN) 150 MG TABLET TAKE 1 TAB(S) ORALLY ONCE TAKE 1 TAB - IF STILL SYMPTOMATIC AFTER 48 HOURS, PLEASE TAKE SECOND TAB. INSULIN GLARGINE (LANTUS SOLOSTAR) 100 UNIT/ML PEN Inject 60 Units under the skin in the morning. KLOR-CON/EF 25 MEQ EFFERVESCENT TABLET Take 25 mEq by mouth Daily SEMAGLUTIDE, 2 MG/DOSE, (OZEMPIC, 2 MG/DOSE,) 8 MG/3ML SOLUTION PEN-INJECTOR Inject 2 mg under the skin every 7 (seven) days I have reviewed and reconciled the history and medication list with the patient today. documented in this encounter [facility] 10-27-2023 Telephone encounter Note Pt called to cancel same day stating she didn't have the funds to cover her copay. Rescheduled for 11/02 [facility] 10-27-2023 Miscellaneous Notes Pt called to cancel same day stating she didn't have the funds to cover her copay. Rescheduled for 11/02 documented in this encounter [facility] 10-04-2023 History of Present illness Narrative Associated Order(s): L Inj/Asp: L knee Post-Procedure Diagnose(s): Arthritis of left knee Subjective Patient ID: Sadie Akhtar is a 53 y.o. female. Left Knee: Last depo medrol injection 06/15/22 with 75% improvement which lasts for a few months. NKI. She goes to [facility] therapy and notes this helps, notes she has not been in a while. Denies new injury. Pain has been getting worse for the past month, NKI. Pain is deep in the joint . Pain comes and goes. She has been alternating TYL and motrin. Using biofreeze. Has been waking her at night. Admits locking/catching. Admits cracking/popping. Pain occas radiates distally into her anterior lower leg. Notes her lower leg will throb when sitting. Pain at rest 6/10. Pain at worst 10+/10 with activity and prolonged standing. Admits numbness anterior knee. Admits giving out sensation. There is stiffness and loss of motion. She uses a walker when she has to walk/stand a lot. Left knee pain issues since a meniscus tear in 2005 (had surgery for this). Flared up at the same time as the right 12/2020. Prior treatment(s) included: AP xr noms 01/25/21, xrays [facility] 01/07/21, depo medrol injection 02/2021, depo medrol injection 09/01/21, biofreeze, XR [facility]OM[facility] 10/04/23 Here with her grandson Maria De Jesus Objective Left Knee Exam Muscle Strength The patient has normal left knee strength. Knee Musculoskeletal Exam Gait Limp: right Inspection Left Erythema: none Effusion: mild Edema: none Ecchymosis: none Palpation Left Crepitus: patellofemoral Tenderness: present Medial joint line: moderate Range of Motion Left Active extension: 0 Active flexion: 110 Strength Left Left knee strength is normal. L Inj/Asp: L knee on 10/04/2023 1:28 PM Indications: pain Details: 20 G needle, anterolateral approach Medications: 40 mg methylPREDNISolone acetate 40 MG/ML UTILIZING ASEPTIC TECHNIQUE PT GIVEN INJECTION IN LEFT KNEE, NEUROVASC INTACT S/P INJ, TOLERATED WELL Procedure, treatment alternatives, risks and benefits explained, specific risks discussed. Consent was given by the patient. XR knee 1 or 2 views left Imaging Result: October 04, 2023 x-rays AP weight-bearing bilateral knees and lateral of the left knee demonstrate medial compartment narrowing bilateral knees with subchondral sclerosis and more than 50 percent collapse of the joint space. No fractures detected. Impression: Advanced osteoarthritis bilateral knees Pelon Farrell D.O. Assessment/Plan Encounter Diagnoses: ICD-10-CM 1. Left knee pain, unspecified chronicity M25.562 XR knee 1 or 2 views left 2. Arthritis of left knee M17.12 L Inj/Asp: L knee Discussion of options, pt notes she would like an injection, side effects of bleeding and infection discussed, would like to proceed with the injection, using aspectic technique 40 mg of depo medrol was injected into the left lateral knee, pt tolerated well, bandaid applied, may do activities as tolerated, f/u prn documented in this encounter [facility] 09-28-2023 History of Present illness Narrative Images from the original note were not included. Brenda Hubbard MD Obstetrics and Gynecology Patient: Sadie Akhtar : 1970 (53 y.o.) Exam Date: 09/28/2023 Reason for Visit - Chief Complaint Patient presents with Colposcopy ASCUS negative Visit Vitals BP 140/80 Wt 355 lb BMI 59.08 kg/m OB Status Postmenopausal Smoking Status Former BSA 2.72 m History of Present Illness, Associated Treatments and Results - OB History Para Term AB Living 3 3 3 0 0 0 SAB IAB Ectopic Multiple Live Births 0 0 0 0 0 # Outcome Date GA Lbr Seth/2nd Weight Sex Type Anes PTL Lv 3 Term 2 Term 1 Term Colposcopy Procedure Note Indications: Pap smear on 08/24/23 showed ASC-US. The prior pap showed neg. Prior cervical/vaginal disease: no . Prior cervical treatment: no. Procedure Details The risks and benefits of the procedure and Verbal informed consent obtained. Speculum placed in vagina and excellent visualization of cervix achieved, cervix swabbed x 3 with acetic acid solution. Colposcopic exam was normal .SQ junction was inside endocervix Findings: Cervix: SCJ notvisualized 360 degrees no lesions Vaginal inspection: no Vulvar colposcopy: no Specimens: ECC,Cervical Complications: none. Plan: Specimens labelled and sent to Pathology. Will base further treatment on Pathology findings. Treatment options discussed with patient. Review of Systems - Constitutional: Negative. HENT: Negative. Eyes: Negative. Respiratory: Negative. Cardiovascular: Negative. Gastrointestinal: Negative. Endocrine: Negative. Genitourinary: Negative. Musculoskeletal: Negative. Skin: Negative. Allergic/Immunologic: Negative. Neurological: Negative. Hematological: Negative. Psychiatric/Behavioral: Negative. No Known Allergies Current Outpatient Medications: ALPRAZolam (Xanax) 0.25 MG tablet, TAKE 1 TABLET (0.25 MG) BY MOUTH NEEDED AT BEDTIME FOR ANXIETY FOR UP TO 14 DAYS, Disp: 14 tablet, Rfl: 0 cholecalciferol (Vitamin D-3) 25 MCG (1000 UT) capsule, Take 1,000 Units by mouth 1 (one) time each day at the same time., Disp: , Rfl: Cranberry (RA Cranberry) 500 MG capsule, Take by mouth Daily., Disp: , Rfl: cyclobenzaprine (Flexeril) 10 MG tablet, TAKE 1 TABLET BY MOUTH EVERY DAY AT BEDTIME NEEDED, Disp: 90 tablet, Rfl: 0 DULoxetine (Cymbalta) [address] capsule, TAKE 1 CAPSULE BY MOUTH EVERY DAY, Disp: 90 capsule, Rfl: 1 Fluticasone-Salmeterol 250-50 MCG/ACT aerosol powder , Inhale 1 puff in the morning and 1 puff in the evening., Disp: , Rfl: hydroCHLOROthiazide (HYDRODiuril) 25 MG tablet, Take 25 mg by mouth in the morning and 25 mg before bedtime., Disp: , Rfl: insulin glargine (Lantus SoloStar) 100 UNIT/ML pen, Inject 60 Units under the skin in the morning., Disp: 30 mL, Rfl: 3 ipratropium-albuterol (Duo-Neb) 0.5-2.5 mg/3 mL nebulizer solution, Take 3 mL by nebulization in the morning and 3 mL at noon and 3 mL in the evening and 3 mL before bedtime., Disp: , Rfl: Klor-Con/EF 25 MEQ effervescent tablet, Take 25 mEq by mouth Daily, Disp: , Rfl: levothyroxine (Synthroid, Levoxyl) 25 MCG tablet, Take 25 mcg by mouth in the morning. Take before meals., Disp: , Rfl: metoprolol succinate XL (Toprol-XL) 25 MG 24 hr tablet, Take 25 mg by mouth in the morning., Disp: , Rfl: montelukast (Singulair) 10 MG tablet, Take 10 mg by mouth 1 (one) time each day at the same time., Disp: , Rfl: omeprazole (PriLOSEC) [address] capsule, Take 20 mg by mouth in the morning and 20 mg in the evening. Take before meals., Disp: , Rfl: OXcarbazepine (Trileptal) 300 MG tablet, TAKE 1 TABLET BY MOUTH IN THE MORNING AND 2 TABLETS BEFORE BEDTIME, Disp: 270 tablet, Rfl: 5 oxybutynin (Ditropan) 5 MG tablet, Take 5 mg by mouth in the morning and 5 mg before bedtime., Disp: , Rfl: polyethylene glycol, PEG, 3350 (MiraLax) 17 GM/SCOOP powder, Take 17 g by mouth 1 (one) time., Disp: , Rfl: rosuvastatin (Crestor) 20 MG tablet, Take 20 mg by mouth in the morning., Disp: , Rfl: Semaglutide, 2 MG/DOSE, (Ozempic, 2 MG/DOSE,) 8 MG/3ML solution pen-injector, Inject 2 mg under the skin every 7 (seven) days, Disp: 3 mL, Rfl: 0 tamsulosin (Flomax) 0.4 MG 24 hr capsule, Take 0.4 mg by mouth in the morning and 0.4 mg before bedtime., Disp: , Rfl: valsartan (Diovan) 320 MG tablet, Take 320 mg by mouth in the morning., Disp: , Rfl: Past Medical History: Diagnosis Date Alteration of awareness Brachial neuritis Breast cancer screening by mammogram Carpal tunnel syndrome Cervical radiculopathy Cervical spondylosis CHF (congestive heart failure) (CMS/HCC) Chronic neck pain Diabetes mellitus (CMS/HCC) Encounter for gynecological examination (general) (routine) without abnormal findings GERD (gastroesophageal reflux disease) Hypertension (CMS/HCC) Hypothyroid (CMS/HCC) Kidney stones Migraine (CMS/HCC) Morbid obesity with BMI of 60.0-69.9, adult (CMS/HCC) Neuropathy Obstructive sleep apnea on CPAP LINDA (obstructive sleep apnea) Peripheral neuropathy Seizures (CMS/HCC) Vaginal delivery childbirth Past Surgical History: Procedure Laterality Date SECTION, LOW TRANSVERSE x2 DILATION AND CURETTAGE OF UTERUS KIDNEY STONE SURGERY stent removed 01/28/2021 KNEE SURGERY Left 11/15/2016 LITHOTRIPSY 12/17/2020 MENISCECTOMY 2006 or 2008 MR ANGIOGRAM HEAD WO IV CONTRAST 12/30/2019 MR ANGIOGRAM HEAD WO IV CONTRAST 12/30/2019 TONSILECTOMY, ADENOIDECTOMY, BILATERAL MYRINGOTOMY AND TUBES TUBAL LIGATION Family History Problem Relation Name Age of Onset Diabetes Mother Diabetes Father Hypertension Father Stroke Father Cancer Maternal Grandmother Social History Tobacco Use Smoking Status Former Types: Cigarettes Smokeless Tobacco Never Physical Exam - General appearance, mentation, extraocular movements, facial strength and movement, hearing, upper and lower extremity strength and tone, sensation to gross testing, coordination, and gait are normal or at baseline unless noted below. Physical Exam Constitutional: Appearance: Normal appearance. Genitourinary: Right Labia: No rash. Left Labia: No rash. No vaginal discharge. No vaginal prolapse present. No vaginal atrophy present. No cervical lesion. HENT: Head: Normocephalic and atraumatic. Neurological: Mental Status: She is alert and oriented to person, place, and time. Psychiatric: Mood and Affect: Mood normal. Behavior: Behavior normal. Assessment/Plan Discussed pap results and need for more frequent pap tests /treatments. Tolerated procedure well. Patient advised to call office with any problems/concerns or signs of infection- fever, chills, abnormal discharge, pain etc.. Patient will return in 6 months for repeat pap. Will call with results. ICD-10-CM 1. ASCUS of cervix with negative high risk HPV R87.610 Tissue exam 2. Screening for malignant neoplasm of cervix Z12.4 Tissue exam Colposcopy performed. Patient will be informed of the results within 72 hours. Repap in 6 months documented in this encounter [facility] 07-04-2023 Hospital Discharge instructions Patient Education 07/04/2023 13:41:49 Dietary Guidelines to Help Prevent Kidney Stones Dietary Guidelines to Help Prevent Kidney Stones Kidney stones are deposits of minerals and salts that form inside your kidneys. Your risk of developing kidney stones may be greater depending on your diet, your lifestyle, the medicines you take, and whether you have certain medical conditions. Most people can lower their risks of developing kidney stones by following these dietary guidelines. Your dietitian may give you more specific instructions depending on your overall health and the type of kidney stones you tend to develop. What are tips for following this plan? Reading food labels Choose foods with no salt added or low-salt labels. Limit your salt (sodium) intake to less than 1,500 mg a day. Choose foods with calcium for each meal and snack. Try to eat about 300 mg of calcium at each meal. Foods that contain 200 500 mg of calcium a serving include: ?8 oz (237 mL) of milk, qsvkhos-ofbfvzcxekfe-xbvou milk, and calcium-fortifiedfruit juice. Calcium-fortified means that calcium has been added to these drinks. ?8 oz (237 mL) of kefir, yogurt, and soy yogurt. ?4 oz (114 g) of tofu. ?1 oz (28 g) of cheese. ?1 cup (150 g) of dried figs. ?1 cup (91 g) of cooked broccoli. ?One 3 oz (85 g) can of sardines or mackerel. Most people need 1,000 1,500 mg of calcium a day. Talk to your dietitian about how much calcium is recommended for you. Shopping Buy plenty of fresh fruits and vegetables. Most people do not need to avoid fruits and vegetables, even if these foods contain nutrients that may contribute to kidney stones. When shopping for convenience foods, choose: ?Whole pieces of fruit. ?Pre-made salads with dressing on the side. ?Low-fat fruit and yogurt smoothies. Avoid buying frozen meals or prepared deli foods. These can be high in sodium. Look for foods with live cultures, such as yogurt and kefir. Choose high-fiber grains, such as whole-wheat breads, oat bran, and wheat cereals. Cooking Do not add salt to food when cooking. Place a salt shaker on the table and allow each person to add their own salt to taste. Use vegetable protein, such as beans, textured vegetable protein (TVP), or tofu, instead of meat in pasta, casseroles, and soups. Meal planning Eat less salt, if told by your dietitian. To do this: ?Avoid eating processed or pre-made food. ?Avoid eating fast food. Eat less animal protein, including cheese, meat, poultry, or fish, if told by your dietitian. To do this: ?Limit the number of times you have meat, poultry, fish, or cheese each week. Eat a diet free of meat at least 2 days a week. ?Eat only one serving each day of meat, poultry, fish, or seafood. ?When you prepare animal proteins, cut pieces into small portion sizes. For most meat and fish, one serving is about the size of the palm of your hand. Eat at least five servings of fresh fruits and vegetables each day. To do this: ?Keep fruits and vegetables on hand for snacks. ?Eat one piece of fruit or a handful of berries with breakfast. ?Have a salad and fruit at lunch. ?Have two kinds of vegetables at dinner. You may be told to limit foods that are high in a substance called oxalate. These include: ?Spinach (cooked), rhubarb, beets, sweet potatoes, and Montserratian chard. ?Peanuts. ?Potato chips, tunisian fries, and baked potatoes with skin on. ?Nuts and nut products. ?Chocolate. If you regularly take a diuretic medicine, make sure to eat at least 1 or 2 servings of fruits or vegetables that are high in potassium each day. These include: ?Avocado. ?Banana. ?Roebling, prune, carrot, or tomato juice. ?Baked potato. ?Cabbage. ?Beans and split peas. Lifestyle Drink enough fluid to keep your urine pale yellow. This is the most important thing you can do. Spread your fluid intake throughout the day. If you drink alcohol: ?Limit how much you have to: ?0 1 drink a day for women who are not . ?0 2 drinks a day for men. ?Know how much alcohol is in your drink. In the [place] one drink equals one 12 oz bottle of beer (355 mL), one 5 oz glass of wine (148 mL), or one 1 oz glass of hard liquor (44 mL). Lose weight if told by your health care provider. Work with your dietitian to find an eating plan and weight loss strategies that work best for you. General information Talk to your health care provider and dietitian about taking daily supplements. Depending on your health and the cause of your kidney stones, you may be told: ?Do not take high-dose supplements of vitamin C (1,000 mg a day or more). ?To take a calcium supplement. ?To take a daily probiotic supplement. ?To take other supplements such as magnesium, fish oil, or vitamin B6. Take ogfl-eje-yapflgm and prescription medicines only as told by your health care provider. These include supplements. What foods should I limit? Limit your intake of the following foods, or eat them as told by your dietitian. Vegetables Spinach. Rhubarb. Beets. Canned vegetables. Pickles. Olives. Baked potatoes with skin. Grains Wheat bran. Baked goods. Salted crackers. Cereals high in sugar. Meats and other proteins Nuts. Nut butters. Large portions of meat, poultry, or fish. Salted, precooked, or cured meats, such as sausages, meat loaves, and hot dogs. Dairy Cheeses. Beverages Regular soft drinks. Regular vegetable juice. Seasonings and condiments Seasoning blends with salt. Salad dressings. Soy sauce. Ketchup. Barbecue sauce. Other foods Canned soups. Canned pasta sauce. Casseroles. Pizza. Lasagna. Frozen meals. Potato chips. Somali fries. The items listed above may not be a complete list of foods and beverages you should limit. Contact a dietitian for more information. What foods should I avoid? Talk to your dietitian about specific foods you should avoid based on the type of kidney stones you have and your overall health. Fruits Grapefruit. The item listed above may not be a complete list of foods and beverages you should avoid. Contact a dietitian for more information. Summary Kidney stones are deposits of minerals and salts that form inside your kidneys. You can lower your risk of kidney stones by making changes to your diet. The most important thing you can do is drink enough fluid. Drink enough fluid to keep your urine pale yellow. Talk to your dietitian about how much calcium you should have each day, and eat less salt and animal protein as told by your dietitian. This information is not intended to replace advice given to you by your health care provider. Make sure you discuss any questions you have with your health care provider. Document Revised: 05/05/2022 Document Reviewed: 05/05/2022 [employer] Patient Education 2022 [employer]. Follow Up Care 02/09/2023 16:32:43 With:DHARA PERKINS PA-C, URL Address: [address] [facility] [place] [address] [phone] When: Unknown Comments:1 yr w/ KUB and 24 hr urine [facility] 06-16-2023 Miscellaneous Notes Images from the original note were not included. Floral Clerk checked on the status of the patient's PAP machine. [facility] stated that the order is being processed. Floral Clerk called and left voicemail for patient informing her that her order for her PAP machine is being processed by [place]. documented in this encounter [facility] 06-16-2023 Telephone encounter Note Images from the original note were not included. Floral Clerk checked on the status of the patient's PAP machine. [facility] stated that the order is being processed. [facility] 06-16-2023 Telephone encounter Note Floral Clerk called and left voicemail for patient informing her that her order for her PAP machine is being processed by [place]. [facility] 03-20-2023 Miscellaneous Notes SENT [facility]OPAP ORDERS TO [facility] 03.17.23 documented in this encounter [facility] 03-20-2023 Telephone encounter Note SENT AUTOPAP ORDERS TO [facility] 03.17.23 [facility] 03-17-2023 History of Present illness Narrative Chief Complaint: Sdaie Akhtar is a 53 y.o. female present for follow up visit regarding LINDA and Asthma HPI: Patient is accompanied by: Self The patient reports that she has been doing fairly well in regards to her breathing. She is not using her Albuterol, but is using Advair daily. She denies any fever, chills, chest pain, shortness of breath, phlegm, cough or hemoptysis. Denies any ER visits or hospitalizations since she last visit in our office. Patient has a nebulizer that they are using and benefiting from. Supplemental O2 use: none Frequency of respiratory infections: Few times per year Has tried following inhalers in past: Advair, Symbicort, Breo, and Albuterol Sleep Issues: The patient reports that she is adherent to her nocturnal ventilatory support for 9 hours a night 7 days per week. She reports feeling the benefits of wearing it nightly and denies any am fatigue or excessive daytime sleepiness. Denies any aerophagia. Denies any issues with mask fit or PAP. She denies sleepiness while driving. Supplemental O2 use: none Current PAP interface: She uses a Nasal Mask. She does not use a chinstrap. She does not use the heated inline humidifier. Cleaning supplies with soap and water. EPWORTH SLEEPINESS SCALE Sitting and Reading: Slight Chance Watching TV: Slight Chance Sitting inactive in a public place (theater, meeting): Never As a passenger in a car for an hour without a break: Never Lying down in the afternoon to rest: Slight Chance Sitting and talking to someone: Never Sitting quietly after lunch (without alcohol): Slight Chance In a car, while stopped for a few minutes in traffic: Never Total: 4 OARRS REVIEWED: Reviewed: no PMH @ Past Medical History: Diagnosis Date Asthma CHF (congestive heart failure) ([facility]) Chronic kidney disease Diabetes mellitus type 2, controlled ([facility]) GERD (gastroesophageal reflux disease) Hyperlipidemia Hypertension Hypothyroidism Seizures ([facility]) Sleep apnea PERTINENT HISTORY: Her pertinent medical history includes Past Medical History: Diagnosis Date Asthma CHF (congestive heart failure) ([facility]) Chronic kidney disease Diabetes mellitus type 2, controlled ([facility]) GERD (gastroesophageal reflux disease) Hyperlipidemia Hypertension Hypothyroidism Seizures ([facility]) Sleep apnea CURRENT MEDICATIONS: Reviewed with patient. Current Outpatient Medications: acetaminophen (TYLENOL) 500 mg tablet, Take 1 tablet (500 mg total) by mouth every 6 (six) hours as needed for pain., Disp: 30 tablet, Rfl: 0 cranberry 500 mg capsule, Take by mouth daily., Disp: , Rfl: cyclobenzaprine (FLEXERIL) 10 mg tablet, Take 1 tablet (10 mg total) by mouth as needed., Disp: , Rfl: duloxetine HCl (CYMBALTA ORAL), Take by mouth daily., Disp: , Rfl: fluticasone propionate (FLONASE) 50 mcg/actuation nasal spray, Administer 2 sprays into each nostril in the morning and 2 sprays before bedtime., Disp: , Rfl: hydroCHLOROthiazide (HYDRODIURIL) 25 mg tablet, Take 1 tablet (25 mg total) by mouth 2 (two) times a day before meals., Disp: , Rfl: inhalational spacing device (AEROCHAMBER MV) spacer, 1 each by miscellaneous route 2 (two) times a day., Disp: 1 each, Rfl: 2 ipratropium-albuteroL (DUONEB) 0.5 mg-3 mg(2.5 mg base)/3 mL nebulizer, Inhale 3 mL by nebulization in the morning and 3 mL at noon and 3 mL before bedtime. (Patient taking differently: Inhale 3 mL by nebulization 3 (three) times a day as needed.), Disp: 360 mL, Rfl: 1 levothyroxine (SYNTHROID, LEVOTHROID) 25 MCG tablet, Take 1 tablet (25 mcg total) by mouth in the morning. Indications: a condition with low thyroid hormone levels., Disp: , Rfl: metoprolol succinate XL (TOPROL XL) 25 mg 24 hr tablet, Take 1 tablet (25 mg total) by mouth in the morning and 1 tablet (25 mg total) before bedtime., Disp: 180 tablet, Rfl: 3 MIRALAX 17 gram/dose powder, MIX 17 CAPSULS MIXED IN BEVERAGE OF CHOICE ONCE A DAY 30 DAY(S), Disp: , Rfl: montelukast (SINGULAIR) 10 mg tablet, Take 1 tablet (10 mg total) by mouth nightly Indications: controller medication for asthma., Disp: , Rfl: omeprazole 20 mg tablet,disintegrat, delay rel, Take 20 mg by mouth 2 (two) times a day Indications: gastroesophageal reflux disease, heartburn., Disp: , Rfl: OXcarbazepine (TRILEPTAL) 300 mg tablet, One tablet in AM, two in PM, Disp: , Rfl: oxybutynin (DITROPAN) 5 mg tablet, 2 (two) times a day. , Disp: , Rfl: OZEMPIC 2 mg/dose (8 mg/3 mL) pen injector, INJECT 2 MG SUBCUTANEOUSLY WEEKLY, Disp: , Rfl: rosuvastatin (CRESTOR) 20 mg tablet, Take 1 tablet (20 mg total) by mouth in the morning. Indications: excessive fat in the blood., Disp: 90 tablet, Rfl: 3 tamsulosin (FLOMAX) 0.4 mg capsule, Take 1 capsule (0.4 mg total) by mouth in the morning and 1 capsule (0.4 mg total) before bedtime. Indications: stones in the urinary tract., Disp: , Rfl: valsartan (DIOVAN) 320 mg tablet, TAKE 1 TABLET (320 MG TOTAL) BY MOUTH IN THE MORNING, Disp: 90 tablet, Rfl: 0 fluticasone propion-salmeteroL (ADVAIR DISKUS) 250-50 mcg/dose DISKUS, Inhale 1 puff in the morning and 1 puff before bedtime., Disp: 60 each, Rfl: 3 insulin glargine,hum.rec.anlog (BASAGLAR KWIKPEN U-100 INSULIN) 100 unit/mL (3 mL) insulin pen, INJECT 60 UNITS SUBCUTANEOUSLY ONCE A DAY (Patient not taking: Reported on 03/17/2023), Disp: , Rfl: sulfamethoxazole-trimethoprim (BACTRIM DS) 800-160 mg per tablet, Take 1 tablet by mouth in the morning and 1 tablet before bedtime. (Patient not taking: Reported on 03/17/2023), Disp: , Rfl: Vitals: 03/17/23 0950 BP: (!) 149/99 Pulse: 60 SpO2: 97% Weight: (!) 157.9 kg (348 lb 3.2 oz) Height: 165.1 cm (5' 5 ) ALLERGIES Reviewed with patient. Patient has no known allergies. FAMILY HISTORY Family History Problem Relation Age of Onset Heart disease Mother Hyperlipidemia Mother Hypertension Mother Pneumonia Mother Heart disease Father Hyperlipidemia Father Hypertension Father Stroke Father Breast cancer Neg Hx SOCIAL HISTORY: Social History Socioeconomic History Marital status: Spouse name: Not on file Number of children: Not on file Years of education: Not on file Highest education level: Not on file Occupational History Not on file Tobacco Use Smoking status: Former Packs/day: 0.50 Years: 20.00 Additional pack years: 0.00 Total pack years: 10.00 Types: Cigarettes Quit date: 2011 Years since quittin.1 Smokeless tobacco: Never Vaping Use Vaping Use: Never used Substance and Sexual Activity Alcohol use: Yes Comment: rarely Drug use: Never Sexual activity: Defer Other Topics Concern Caffeine Use Yes Social History Narrative Not on file Social Determinants of Health Financial Resource Strain: Not on file Food Insecurity: No Food Insecurity (02/16/2023) Hunger Screening Food Insecurity - Worry: Never True Food Insecurity - Inability: Never True Transportation Needs: Not on file Physical Activity: Not on file Stress: Not on file Social Connections: Moderately Integrated (12/30/2019) Social Connection and Isolation Panel [NHANES] Frequency of Communication with Friends and Family: More than three times a week Frequency of Social Gatherings with Friends and Family: More than three times a week Attends [employer] Services: Never Active Member of Clubs or Organizations: Yes Attends Club or Organization Meetings: 1 to 4 times per year Marital Status: Interpersonal Safety: Not At Risk (12/30/2019) Humiliation, Afraid, Rape, and Kick questionnaire Fear of Current or Ex-Partner: No Emotionally Abused: No Physically Abused: No Sexually Abused: No Housing Instability: Not on file TRAVEL HISTORY: Denies recent travel. ROS: Review of Systems Constitutional: Negative for chills, fatigue and fever. Respiratory: Negative for cough, shortness of breath and wheezing. Cardiovascular: Negative for chest pain/discomfort. All other systems are reviewed and are negative except as noted. PHYSICAL EXAM Vital signs BP (!) 149/99 Comment: Patient was talking during BP Pulse 60 Ht 165.1 cm (5' 5 ) Wt (!) 157.9 kg (348 lb 3.2 oz) SpO2 97% BMI 57.94 kg/m Physical Exam Vitals and nursing note reviewed. Constitutional: Appearance: Normal appearance. She is obese. Cardiovascular: Heart sounds: Normal heart sounds. Pulmonary: Breath sounds: Normal breath sounds. Musculoskeletal: Cervical back: Neck supple. Skin: General: Skin is warm and dry. Neurological: Mental Status: She is alert and oriented to person, place, and time. Psychiatric: Mood and Affect: Mood normal. Behavior: Behavior normal. Assessment: Neurological alert and oriented LAB RESULTS: Lab Results Component Value Date CO2 24 02/17/2023 Lab Results Component Value Date TSH 0.76 02/17/2023 IMAGING/PFT EDUCATION: Event Monitor (In Office) Result Date: 03/08/2023 1. This is a wireless event monitor done between 02/21/2023 and 03/06/2023. The diagnosis given is palpitations. 2. The baseline and prevailing rhythm was normal sinus rhythm. 3. PACs and PVCs noted. 4. The patient had numerous complaints of dizziness and lightheadedness and chest pain and shortness of breath and heart racing when in normal sinus rhythm and sometimes with PACs and PVCs Pulmonary function test Complete PFT w/ BD (Spirometry (Flow Volume Loop) pre/post short acting bronchodilator w/ DLCO (diffusion study) and Lung Volume) Result Date: 03/08/2023 Patient gave good effort and data is reproducible FEV1/FVC is 71 with FEV1 78% predicted or 2.01 L and forced vital capacity 83% predicted or 2.81 L. post bronchodilator response is not statistically significant Vital capacity is normal at 83% predicted or 2.83 L in total lung capacity 95% predicted or 4.91 L. residual volume is 113% predicted Diffusion capacity is low end of normal at 78 Impression: Mild obstructive airflow defect is demonstrated without significant post bronchodilator response. Please correlate with clinical and radiographic data X-ray chest 2 views Result Date: 02/17/2023 History: Persistent asthma without complication, unspecified asthma severity. Exam/Technique: PA and lateral views of the chest are obtained. Comparison: Chest x-ray 06/30/2022. Findings: Cardiac size is within normal range. Lungs are clear There is no focal areas of airspace disease, pleural effusion or pneumothorax. IMPRESSION: Unremarkable chest x-ray. Finalized by Leonardo Figueroa MD on 02/17/2023 4:19 PM Event Monitor (In Office) 1. This is a wireless event monitor done between 02/21/2023 and 03/06/2023. The diagnosis given is palpitations. 2. The baseline and prevailing rhythm was normal sinus rhythm. 3. PACs and PVCs noted. 4. The patient had numerous complaints of dizziness and lightheadedness and chest pain and shortness of breath and heart racing when in normal sinus rhythm and sometimes with PACs and PVCs Pulmonary function test Complete PFT w/ BD (Spirometry (Flow Volume Loop) pre/post short acting bronchodilator w/ DLCO (diffusion study) and Lung Volume) Patient gave good effort and data is reproducible FEV1/FVC is 71 with FEV1 78% predicted or 2.01 L and forced vital capacity 83% predicted or 2.81 L. post bronchodilator response is not statistically significant Vital capacity is normal at 83% predicted or 2.83 L in total lung capacity 95% predicted or 4.91 L. residual volume is 113% predicted Diffusion capacity is low end of normal at 78 Impression: Mild obstructive airflow defect is demonstrated without significant post bronchodilator response. Please correlate with clinical and radiographic data DATA: Data card was not available for PAP usage data download. 03/12/2020 Titration Study: Weight: 365lbs, BiPAP 14/10cm H2O DME: JOB Nuñez was seen today for asthma. Diagnoses and all orders for this visit: LINDA (obstructive sleep apnea) - PAP Mask and Supplies, new BiPAP 14/10 Persistent asthma without complication, unspecified asthma severity - fluticasone propion-salmeteroL (ADVAIR DISKUS) 250-50 mcg/dose DISKUS; Inhale 1 puff in the morning and 1 puff before bedtime. CPAP use counseling BMI 50.0-59.9, adult ([facility]) Asthma, does not appear in Current exacerbation LINDA with adherence to nocturnal ventilatory support. Type 2 diabetes GERD HTN History of Seizures Former smoker Obesity Body mass index is 57.94 kg/m . PLAN Discussed diagnosis, its evaluation, treatment and usual course. All questions answered. Educational material distributed. Orders Placed This Encounter Procedures PAP Mask and Supplies, new BiPAP 14/10 Scheduling Instructions: Length of Need: 12 months -Full Face Interface1/3mos -Full Face Cushion 1/mo -Nasal Cushion 2/mo, -Nasal Mask 1/3mos -Pillows 2/mo -Htd Tubing 1/3mos -Headgear 1/6mos -Chin Strap1/6mos -Non-Disposable Filter1/6mos -Disposable Filter2/mo -Water Chamber1/6mos -Std Tubing 1/3 mos -Add heat humidification with tubing Order Specific Question: Please specify Answer: PAP Mask and Supplies, new BiPAP 14/10 Order Specific Question: The face to face evaluation was performed on Answer: 03/17/2023 Orders Placed or Reconciled This Encounter Medications fluticasone propion-salmeteroL (ADVAIR DISKUS) 250-50 mcg/dose DISKUS Sig: Inhale 1 puff in the morning and 1 puff before bedtime. Dispense: 60 each Refill: 3 Continue BiPAP 14/10 new machine ordered. Continue Advair and PRN use of Albuterol. Independently reviewed and interpreted PFT, CXR and ES Diet and exercise were discussed in detail.. Any age appropriate or routine screening per PCP. Follow up in3 Months time. If her condition should change prior to this she is encouraged to give our office a call. EDUCATION: Driving precautions were reviewed. I advised the patient not to drive if sleepy, and to well puller head if sleepiness occurs while driving. Above plan as discussed with the patient who acknowledged understanding and agreement. Health risks associated with untreated LINDA were discussed (cardiopulmonary, cerebrovascular, and anesthesia/sedative-related). CC: DO Chetna BANGURA [facility] Office: [phone] 10:16 AM on 03/17/2023 This note is dictated with the use of M*Modal.Please note that this dictation was completed with computer voice recognition software. Quite often unanticipated grammatical, syntax, homophones, and other interpretive errors are inadvertently transcribed by the computer software. Please disregard these errors. Please excuse any errors that have escaped final proofreading. ERON Elaine 03/17/23 1020 documented in this encounter [facility] 03-17-2023 Instructions ERON Elaine - 03/17/2023 9:45 AM EST If you re looking for general health and wellness resources, please visit [email or web address]. documented in this encounter [facility] 03-14-2023 Miscellaneous Notes ----- Message from Owen Velazquez MD sent at 03/14/2023 9:53 AM EST ----- Patient can take Toprol XL 25 mg b.i.d. and monitor blood pressure and heart rate closely. Thank you LM w/ instructions. New script to [facility] documented in this encounter [facility] 03-14-2023 Telephone encounter Note ----- Message from Owen Velazquez MD sent at 03/14/2023 9:53 AM EST ----- Patient can take Toprol XL 25 mg b.i.d. and monitor blood pressure and heart rate closely. Thank you [facility] [place] [facility] 03-14-2023 Telephone encounter Note LM w/ instructions. New script to [facility] [place] 02-16-2023 History of Present illness Narrative Sadie Akhtar Date of visit: 02/16/2023 Date of : 1970 Age: 53 y.o. Patient Active Problem List Diagnosis Headache BMI 50.0-59.9, adult ([facility]) Essential hypertension Mixed hyperlipidemia Left ventricular systolic dysfunction PVC (premature ventricular contraction) Palpitations Shortness of breath No Known Allergies Current Outpatient Medications Medication Sig Dispense Refill acetaminophen (TYLENOL) 500 mg tablet Take 1 tablet (500 mg total) by mouth every 6 (six) hours as needed for pain. 30 tablet 0 cranberry 500 mg capsule Take by mouth daily. cyclobenzaprine (FLEXERIL) 10 mg tablet Take 1 tablet (10 mg total) by mouth as needed. duloxetine HCl (CYMBALTA ORAL) Take by mouth daily. fluticasone propion-salmeteroL (ADVAIR DISKUS) 250-50 mcg/dose DISKUS INHALE 1 PUFF IN THE MORNING AND BEFORE BEDTIME 60 each 3 fluticasone propionate (FLONASE) 50 mcg/actuation nasal spray Administer 2 sprays into each nostril in the morning and 2 sprays before bedtime. hydroCHLOROthiazide (HYDRODIURIL) 25 mg tablet Take 1 tablet (25 mg total) by mouth 2 (two) times a day before meals. inhalational spacing device (AEROCHAMBER MV) spacer 1 each by miscellaneous route 2 (two) times a day. 1 each 2 insulin glargine,hum.rec.anlog (BASAGLAR KWIKPEN U-100 INSULIN) 100 unit/mL (3 mL) insulin pen INJECT 60 UNITS SUBCUTANEOUSLY ONCE A DAY ipratropium-albuteroL (DUONEB) 0.5 mg-3 mg(2.5 mg base)/3 mL nebulizer Inhale 3 mL by nebulization in the morning and 3 mL at noon and 3 mL before bedtime. (Patient taking differently: Inhale 3 mL by nebulization 3 (three) times a day as needed.) 360 mL 1 levothyroxine (SYNTHROID, LEVOTHROID) 25 MCG tablet Take 1 tablet (25 mcg total) by mouth in the morning. Indications: a condition with low thyroid hormone levels. metoprolol succinate XL (TOPROL XL) 25 mg 24 hr tablet TAKE 1 TABLET BY MOUTH EVERY DAY IN THE MORNING 90 tablet 3 MIRALAX 17 gram/dose powder MIX 17 CAPSULS MIXED IN BEVERAGE OF CHOICE ONCE A DAY 30 DAY(S) montelukast (SINGULAIR) 10 mg tablet Take 1 tablet (10 mg total) by mouth nightly Indications: controller medication for asthma. omeprazole 20 mg tablet,disintegrat, delay rel Take 20 mg by mouth 2 (two) times a day Indications: gastroesophageal reflux disease, heartburn. OXcarbazepine (TRILEPTAL) 300 mg tablet One tablet in AM, two in PM oxybutynin (DITROPAN) 5 mg tablet 2 (two) times a day. OZEMPIC 2 mg/dose (8 mg/3 mL) pen injector INJECT 2 MG SUBCUTANEOUSLY WEEKLY rosuvastatin (CRESTOR) 20 mg tablet Take 1 tablet (20 mg total) by mouth in the morning. Indications: excessive fat in the blood. 90 tablet 3 sulfamethoxazole-trimethoprim (BACTRIM DS) 800-160 mg per tablet Take 1 tablet by mouth in the morning and 1 tablet before bedtime. tamsulosin (FLOMAX) 0.4 mg capsule Take 1 capsule (0.4 mg total) by mouth in the morning and 1 capsule (0.4 mg total) before bedtime. Indications: stones in the urinary tract. valsartan (DIOVAN) 320 mg tablet TAKE 1 TABLET (320 MG TOTAL) BY MOUTH IN THE MORNING 90 tablet 0 No current facility-administered medications for this visit. Chief Complaint Patient presents with Follow-up OV F/U 1 YR LABS DONE @ [facility] L/S RRS SCHED W/PT History of Present Illness I had the opportunity to meet this 53-year-old today. She was last in the office 01/20/2022. She denies chest pain but does have shortness of breath. She was working out at the pool doing water walking until the . She states that she notes the decrease in her state of health since stopping and is anxious to return. She has increased psychosocial stress at home as her 23-year-old daughter has moved back home with the patient's grandson. 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 She is noted palpitations. These can occur with exertion or at rest. She feels it primarily as a fluttering in her neck She is unaccompanied today CV TESTING HISTORY: ECHO: No results found. STRESS: No results found. HOLTER: No results found. CARDIAC CATH: No results found. CAROTID: No results found. CXR: No results found. Lipid Profile: No data recorded No data recorded No data recorded EK02/16/2023 Sinus rhythm with frequent PVCs Past Medical History: Diagnosis Date Asthma CHF (congestive heart failure) ([facility]) Chronic kidney disease Diabetes mellitus type 2, controlled ([facility]) GERD (gastroesophageal reflux disease) Hyperlipidemia Hypertension Hypothyroidism Seizures ([facility]) Sleep apnea Past Surgical History: Procedure Laterality Date SECTION LITHOTRIPSY Family History Problem Relation Age of Onset Heart disease Mother Hyperlipidemia Mother Hypertension Mother Pneumonia Mother Heart disease Father Hyperlipidemia Father Hypertension Father Stroke Father Breast cancer Neg Hx Social History Socioeconomic History Marital status: Spouse name: Not on file Number of children: Not on file Years of education: Not on file Highest education level: Not on file Occupational History Not on file Tobacco Use Smoking status: Former Packs/day: 0.50 Years: 20.00 Additional pack years: 0.00 Total pack years: 10.00 Types: Cigarettes Quit date: 2011 Years since quittin.0 Smokeless tobacco: Never Vaping Use Vaping Use: Never used Substance and Sexual Activity Alcohol use: Yes Comment: rarely Drug use: Never Sexual activity: Defer Other Topics Concern Caffeine Use Yes Social History Narrative Not on file Social Determinants of Health Financial Resource Strain: Not on file Food Insecurity: No Food Insecurity (02/16/2023) Hunger Screening Food Insecurity - Worry: Never True Food Insecurity - Inability: Never True Transportation Needs: Not on file Physical Activity: Not on file Stress: Not on file Social Connections: Moderately Integrated (12/30/2019) Social Connection and Isolation Panel [NHANES] Frequency of Communication with Friends and Family: More than three times a week Frequency of Social Gatherings with Friends and Family: More than three times a week Attends [employer] Services: Never Active Member of Clubs or Organizations: Yes Attends Club or Organization Meetings: 1 to 4 times per year Marital Status: Interpersonal Safety: Not At Risk (12/30/2019) Humiliation, Afraid, Rape, and Kick questionnaire Fear of Current or Ex-Partner: No Emotionally Abused: No Physically Abused: No Sexually Abused: No Review of Systems Review of Systems Constitutional: Negative for chills, fever and malaise/fatigue. HENT: Negative for hearing loss, hoarse voice and nosebleeds. Eyes: Negative for blurred vision and double vision. Respiratory: Negative for cough, shortness of breath and wheezing. Hematologic/Lymphatic: Bruises/bleeds easily. Skin: Negative for color change and rash. Musculoskeletal: Positive for back pain, joint swelling and muscle weakness. Gastrointestinal: Negative for change in bowel habit, constipation and diarrhea. Neurological: Positive for dizziness, headaches and light-headedness. Negative for loss of balance and numbness. Psychiatric/Behavioral: Negative for depression. The patient is nervous/anxious. Allergic/Immunologic: Negative for environmental allergies. CARDIOVASCULAR: Please review HPI. Physical Examination General appearance: Alert, oriented and cooperative. In no acute distress. Pleasant Skin: Warm and dry to touch. Neck: No JVD, No carotid bruit. Neck supple, trachea midline. Respiratory: Clear to auscultation bilaterally, no use of accessory muscles. Cardiovascular: RRR with normal S1 and S2 with no murmurs. Musculoskeletal: No peripheral edema. VITAL SIGNS: BP 132/70 (BP Site: Left Arm, BP Postition: Sitting) Pulse 67 Ht 165.1 cm (5' 5 ) Wt (!) 158.8 kg (350 lb) SpO2 96% BMI 58.24 kg/m Orders Placed or Reconciled This Encounter Medications insulin glargine,hum.rec.anlog (BASAGLAR KWIKPEN U-100 INSULIN) 100 unit/mL (3 mL) insulin pen Sig: INJECT 60 UNITS SUBCUTANEOUSLY ONCE A DAY OZEMPIC 2 mg/dose (8 mg/3 mL) pen injector Sig: INJECT 2 MG SUBCUTANEOUSLY WEEKLY sulfamethoxazole-trimethoprim (BACTRIM DS) 800-160 mg per tablet Sig: Take 1 tablet by mouth in the morning and 1 tablet before bedtime. Medications Discontinued During This Encounter Medication Reason icosapent ethyL (VASCEPA) 1 gram capsule ipratropium-albuteroL (DUONEB) 0.5 mg-3 mg(2.5 mg base)/3 mL nebulizer Duplicate Listing semaglutide 1 mg/dose (2 mg/1.5 mL) pen injector Therapy completed zinc sulfate 50 mg zinc (220 mg) tablet Therapy completed IMPRESSIONS/PLAN 1. Left ventricular systolic dysfunction - POCT EKG - Echo complete W/O contrast; Future 2. Hyperlipidemia, unspecified hyperlipidemia type - POCT EKG 3. Mixed hyperlipidemia - POCT EKG 4. Essential hypertension - POCT EKG 5. PVC (premature ventricular contraction) 6. Palpitations - TSH; Future - Basic Metabolic Panel; Future - Event Monitor (In Office); Future 7. Shortness of breath - CBC; Future - Echo complete W/O contrast; Future 1. Mild left ventricular dysfunction on echocardiogram done at [facility] 02/2020 2. Chronic heart failure with reduced ejection fraction 3. Type 2 diabetes 4. Hyperlipidemia -rosuvastatin -laboratory studies 10/2022 5. Primary hypertension 6. Hypothyroid 7. Obstructive sleep apnea 8. Seizure disorder 9. BMI greater than 55 10. Palpitations TODAYS ORDERS Orders Placed This Encounter Procedures TSH Basic Metabolic Panel CBC Event Monitor (In Office) POCT EKG Echo complete W/O contrast FOLLOW UP Return for 2-3 months, DEB Ok. PCP: MARISA GILLIS DO Referring Physician: Marisa Gillis DO [address] [place] [address] documented in this encounter [facility] 02-16-2023 Instructions Elle Davenport MD - 02/16/2023 3:15 PM EST Happy belated birthday! documented in this encounter [facility] 02-15-2023 Miscellaneous Notes Called patient to remind them to bring their most current copy of their medication list with them to their appt. Patient verbalizes understanding. documented in this encounter [facility] 02-15-2023 Telephone encounter Note Called patient to remind them to bring their most current copy of their medication list with them to their appt. Patient verbalizes understanding. [facility] 02-13-2023 Miscellaneous Notes Pt has appt 02/16/23 documented in this encounter [facility] 02-13-2023 Telephone encounter Note Pt has appt 02/16/23 [facility] 12-09-2022 Procedure note [facility] 04-13-2022 Hospital Discharge instructions Patient Education 04/13/2022 13:30:46 Kidney Stones, Jfud-vf-Ffvu Kidney Stones Kidney stones are rock-like masses that form inside of the kidneys. Kidneys are organs that make pee (urine). A kidney stone may move into other parts of the urinary tract, including: The tubes that connect the kidneys to the bladder (ureters). The bladder. The tube that carries urine out of the body (urethra). Kidney stones can cause very bad pain and can block the flow of pee. The stone usually leaves your body (passes) through your pee. You may need to have a doctor take out the stone. What are the causes? Kidney stones may be caused by: A condition in which certain glands make too much parathyroid hormone (primary hyperparathyroidism). A buildup of a type of crystals in the bladder made of a chemical called uric acid. The body makes uric acid when you eat certain foods. Narrowing (stricture) of one or both of the ureters. A kidney blockage that you were born with. Past surgery on the kidney or the ureters, such as gastric bypass surgery. What increases the risk? You are more likely to develop this condition if: You have had a kidney stone in the past. You have a family history of kidney stones. You do not drink enough water. You eat a diet that is high in protein, salt (sodium), or sugar. You are overweight or very overweight (obese). What are the signs or symptoms? Symptoms of a kidney stone may include: Pain in the side of the belly, right below the ribs (flank pain). Pain usually spreads (radiates) to the groin. Needing to pee often or right away (urgently). Pain when going pee (urinating). Blood in your pee (hematuria). Feeling like you may vomit (nauseous). Vomiting. Fever and chills. How is this treated? Treatment depends on the size, location, and makeup of the kidney stones. The stones will often pass out of the body through peeing. You may need to: Drink more fluid to help pass the stone. In some cases, you may be given fluids through an IV tube put into one of your veins at the hospital. Take medicine for pain. Make changes in your diet to help keep kidney stones from coming back. Sometimes, medical procedures are needed to remove a kidney stone. This may involve: A procedure to break up kidney stones using a beam of light (laser) or shock waves. Surgery to remove the kidney stones. Follow these instructions at home: Medicines Take aztj-hkw-edgypcf and prescription medicines only as told by your doctor. Ask your doctor if the medicine prescribed to you requires you to avoid driving or using heavy machinery. Eating and drinking Drink enough fluid to keep your pee pale yellow. You may be told to drink at least 8 10 glasses of water each day. This will help you pass the stone. If told by your doctor, change your diet. This may include: ?Limiting how much salt you eat. ?Eating more fruits and vegetables. ?Limiting how much meat, poultry, fish, and eggs you eat. Follow instructions from your doctor about eating or drinking restrictions. General instructions Collect pee samples as told by your doctor. You may need to collect a pee sample: ?24 hours after a stone comes out. ?8 12 weeks after a stone comes out, and every 6 12 months after that. Strain your pee every time you pee (urinate), for as long as told. Use the strainer that your doctor recommends. Do not throw out the stone. Keep it so that it can be tested by your doctor. Keep all follow-up visits as told by your doctor. This is important. You may need follow-up tests. How is this prevented? To prevent another kidney stone: Drink enough fluid to keep your pee pale yellow. This is the best way to prevent kidney stones. Eat healthy foods. Avoid certain foods as told by your doctor. You may be told to eat less protein. Stay at a healthy weight. Where to find more information National Kidney Foundation (NKF): www.kidney.org Urology Care Foundation (UCF): www.urologyhealth.org Contact a doctor if: You have pain that gets worse or does not get better with medicine. Get help right away if: You have a fever or chills. You get very bad pain. You get new pain in your belly (abdomen). You pass out (faint). You cannot pee. Summary Kidney stones are rock-like masses that form inside of the kidneys. Kidney stones can cause very bad pain and can block the flow of pee. The stones will often pass out of the body through peeing. Drink enough fluid to keep your pee pale yellow. This information is not intended to replace advice given to you by your health care provider. Make sure you discuss any questions you have with your health care provider. Document Released: 07/11/2008 Document Revised: 06/11/2019 Document Reviewed: 06/11/2019 [employer] Patient Education 2019 [employer]. Follow Up Care 05/26/2021 15:04:28 With:GREGORIO HERMAN, DHARA Locke, URL Address: [address] [place] [place] [address] When: Unknown [facility] 06-02-2021 Evaluation note Encounter Date Diagnosis Assessment Notes May, Constipation (ICD-10 - K59.00) Start Miralax powder daily. Titration dosing discussed with patient May, Change in bowel habits (ICD-10 - R19.4) [facility] Other 04-20-2022 Hospital Discharge instructions Patient Education 05/26/2021 14:54:44 Kidney Stones, Epze-ga-Wlvn Kidney Stones Kidney stones are rock-like masses that form inside of the kidneys. Kidneys are organs that make pee (urine). A kidney stone may move into other parts of the urinary tract, including: The tubes that connect the kidneys to the bladder (ureters). The bladder. The tube that carries urine out of the body (urethra). Kidney stones can cause very bad pain and can block the flow of pee. The stone usually leaves your body (passes) through your pee. You may need to have a doctor take out the stone. What are the causes? Kidney stones may be caused by: A condition in which certain glands make too much parathyroid hormone (primary hyperparathyroidism). A buildup of a type of crystals in the bladder made of a chemical called uric acid. The body makes uric acid when you eat certain foods. Narrowing (stricture) of one or both of the ureters. A kidney blockage that you were born with. Past surgery on the kidney or the ureters, such as gastric bypass surgery. What increases the risk? You are more likely to develop this condition if: You have had a kidney stone in the past. You have a family history of kidney stones. You do not drink enough water. You eat a diet that is high in protein, salt (sodium), or sugar. You are overweight or very overweight (obese). What are the signs or symptoms? Symptoms of a kidney stone may include: Pain in the side of the belly, right below the ribs (flank pain). Pain usually spreads (radiates) to the groin. Needing to pee often or right away (urgently). Pain when going pee (urinating). Blood in your pee (hematuria). Feeling like you may vomit (nauseous). Vomiting. Fever and chills. How is this treated? Treatment depends on the size, location, and makeup of the kidney stones. The stones will often pass out of the body through peeing. You may need to: Drink more fluid to help pass the stone. In some cases, you may be given fluids through an IV tube put into one of your veins at the hospital. Take medicine for pain. Make changes in your diet to help keep kidney stones from coming back. Sometimes, medical procedures are needed to remove a kidney stone. This may involve: A procedure to break up kidney stones using a beam of light (laser) or shock waves. Surgery to remove the kidney stones. Follow these instructions at home: Medicines Take fygb-bra-imbflrd and prescription medicines only as told by your doctor. Ask your doctor if the medicine prescribed to you requires you to avoid driving or using heavy machinery. Eating and drinking Drink enough fluid to keep your pee pale yellow. You may be told to drink at least 8 10 glasses of water each day. This will help you pass the stone. If told by your doctor, change your diet. This may include: ?Limiting how much salt you eat. ?Eating more fruits and vegetables. ?Limiting how much meat, poultry, fish, and eggs you eat. Follow instructions from your doctor about eating or drinking restrictions. General instructions Collect pee samples as told by your doctor. You may need to collect a pee sample: ?24 hours after a stone comes out. ?8 12 weeks after a stone comes out, and every 6 12 months after that. Strain your pee every time you pee (urinate), for as long as told. Use the strainer that your doctor recommends. Do not throw out the stone. Keep it so that it can be tested by your doctor. Keep all follow-up visits as told by your doctor. This is important. You may need follow-up tests. How is this prevented? To prevent another kidney stone: Drink enough fluid to keep your pee pale yellow. This is the best way to prevent kidney stones. Eat healthy foods. Avoid certain foods as told by your doctor. You may be told to eat less protein. Stay at a healthy weight. Where to find more information National Kidney Foundation (NKF): www.kidney.org Urology Care Foundation (UCF): www.urologyhealth.org Contact a doctor if: You have pain that gets worse or does not get better with medicine. Get help right away if: You have a fever or chills. You get very bad pain. You get new pain in your belly (abdomen). You pass out (faint). You cannot pee. Summary Kidney stones are rock-like masses that form inside of the kidneys. Kidney stones can cause very bad pain and can block the flow of pee. The stones will often pass out of the body through peeing. Drink enough fluid to keep your pee pale yellow. This information is not intended to replace advice given to you by your health care provider. Make sure you discuss any questions you have with your health care provider. Document Released: 07/11/2008 Document Revised: 06/11/2019 Document Reviewed: 06/11/2019 [employer] Patient Education 2020 [employer]. Follow Up Care 05/18/2021 13:14:14 With:DHARA PERKINS PA-C, URL Address: [place] [address] When: Unknown [facility] evaluation + Plan note Future Appointments Appointment Date:08/04/2021 02:00:00 PM Scheduled Provider:DHARA PERKINS PA-C Location:[facility] Appointment Type:URO Office Visit Future Scheduled Tests Laboratory* Urine Culture 12/14/20 [facility] evaluation + Plan note Future Appointments Appointment Date:10/19/2022 01:00:00 PM Scheduled Provider:DHARA PERKINS PA-C Location:[facility] Appointment Type:URO Office Visit Diagnostic Tests Pending * PTH Intact 04/13/22 [facility] evaluation noteNo InformationNort [employer] Other Evaluation noteNo assessment information [facility] Work Phone: Evaluation note* Diagnosis Class 3 severe obesity due to excess calories with serious comorbidity and body mass index (BMI) of 60.0 to 69.9 in adult ([facility])- Primary Type 2 diabetes mellitus with peripheral neuropathy ([facility]) 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 ([facility]) Type 2 diabetes mellitus with hyperglycemia, with long-term current use of insulin ([facility]) documented in this encounter [facility] HealthcareEvaluation note* Diagnosis Class 3 severe obesity due to excess calories with serious comorbidity and body mass index (BMI) of 60.0 to 69.9 in adult ([facility])- Primary Type 2 diabetes mellitus with peripheral neuropathy (CMS/HCC) 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 ([facility]) Type 2 diabetes mellitus with hyperglycemia, with long-term current use of insulin ([facility]) Radicular pain- Primary Unspecified neuralgia, neuritis, and radiculitis Lumbar spondylosis Lumbosacral spondylosis without myelopathy Vertigo Dizziness and giddiness Chronic migraine without aura without status migrainosus, not intractable ([facility]) Obstructive sleep apnea syndrome Obstructive sleep apnea (adult) (pediatric) Cervical radiculopathy at C6 Brachial neuritis or radiculitis nos Anxiety Anxiety state, unspecified documented in this encounter [facility] HealthcareEvaluation note* Diagnosis Left knee pain, unspecified chronicity- Primary Arthritis of left knee documented in this encounter [facility] HealthcareEvaluation note* Diagnosis ASCUS of cervix with negative high risk HPV Screening for malignant neoplasm of cervix Screening for malignant neoplasm of the cervix documented in this encounter [facility] HealthcareEvaluation note* Diagnosis Class 3 severe obesity due to excess calories with serious comorbidity and body mass index (BMI) of 60.0 to 69.9 in adult ([facility])- Primary Type 2 diabetes mellitus with peripheral neuropathy ([facility]) group home current use of insulin ([facility]) Type 2 diabetes mellitus with hyperglycemia, with long-term current use of insulin ([facility]) Neuropathic pain Anxiety Anxiety state, unspecified documented in this encounter [facility] HealthcareEvaluation note* Diagnosis Class 3 severe obesity due to excess calories with serious comorbidity and body mass index (BMI) of 60.0 to 69.9 in adult ([facility])- Primary Type 2 diabetes mellitus with peripheral neuropathy ([facility]) 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 ([facility]) Type 2 diabetes mellitus with hyperglycemia, with long-term current use of insulin ([facility]) Lumbar radiculopathy- Primary Thoracic or lumbosacral neuritis or radiculitis, unspecified Radicular pain Unspecified neuralgia, neuritis, and radiculitis documented in this encounter [facility] HealthcareEvaluation note* Diagnosis Essential hypertension, benign [facility] Diagnosis Essential hypertension- Primary Unspecified essential hypertension Left ventricular systolic dysfunction Hyperlipidemia, unspecified hyperlipidemia type Mixed hyperlipidemia PVC (premature ventricular contraction) Other premature beats Palpitations Shortness of breath documented [facility]* Diagnosis Class 3 severe obesity due to excess calories with serious comorbidity and body mass index (BMI) of 60.0 to 69.9 in adult ([facility])- Primary Type 2 diabetes mellitus with peripheral neuropathy ([facility]) group home current use of insulin ([facility]) Type 2 diabetes mellitus with hyperglycemia, with long-term current use of insulin ([facility]) Anxiety Anxiety state, unspecified documented in this encounter [facility] Healthcare[facility] note* Diagnosis Persistent asthma without complication, unspecified asthma severity documented in this encounter [facility]* Diagnosis LINDA (obstructive sleep apnea)- Primary Obstructive sleep apnea (adult) (pediatric) Persistent asthma without complication, unspecified asthma severity CPAP use counseling BMI 50.0-59.9, adult ([facility]) [facility] encounter [facility] Diagnosis Essential hypertension, benign [facility] in [facility]* Diagnosis Asthma, unspecified asthma severity, unspecified whether complicated, unspecified whether persistent- Primary documented in this [facility]* Diagnosis Class 3 severe obesity due to excess calories with serious comorbidity and body mass index (BMI) of 60.0 to 69.9 in adult ([facility])- Primary Type 2 diabetes mellitus with peripheral neuropathy ([facility]) group home current use of insulin ([facility]) Type 2 diabetes mellitus with hyperglycemia, with long-term current use of insulin ([facility]) ASCUS of cervix with negative high risk HPV Encounter for screening for cervical cancer documented in this encounter [facility]* Diagnosis Class 3 severe obesity due to excess calories with serious comorbidity and body mass index (BMI) of 60.0 to 69.9 in adult- Primary Type 2 diabetes mellitus with peripheral neuropathy ([facility]) group home current use of insulin ([facility]) Type 2 diabetes mellitus with hyperglycemia, with long-term current use of insulin ([facility]) Lumbar radiculopathy Thoracic or lumbosacral neuritis or radiculitis, unspecified Lumbar spondylosis Lumbosacral spondylosis without myelopathy Vertigo Dizziness and giddiness Chronic migraine without aura without status migrainosus, not intractable ([facility]) Obstructive sleep apnea syndrome Obstructive sleep apnea (adult) (pediatric) Cervical radiculopathy at C6 Brachial neuritis or radiculitis nos Alteration of awareness Anxiety Anxiety state, unspecified Type 2 diabetes mellitus with peripheral neuropathy ([facility]) documented in this encounter [facility]* Diagnosis Class 3 severe obesity due to excess calories with serious comorbidity and body mass index (BMI) of 60.0 to 69.9 in adult- Primary Type 2 diabetes mellitus with peripheral neuropathy ([facility]) group home current use of insulin (CMS/HCC) Type 2 diabetes mellitus with hyperglycemia, with long-term current use of insulin ([facility]) Class 3 severe obesity due to excess calories with serious comorbidity and body mass index (BMI) of 60.0 to 69.9 in adult- Primary Type 2 diabetes mellitus with peripheral neuropathy (CMS/HCC) Type 2 diabetes mellitus with hyperglycemia, with long-term current use of insulin ([facility]) documented in this encounter [facility]* Diagnosis Shortness of breath- Primary Primary hypertension Unspecified essential hypertension [facility]* Diagnosis Persistent asthma without complication, unspecified asthma severity documented in this encounter [facility]* Diagnosis Hyperlipidemia, unspecified hyperlipidemia type- Primary Mixed hyperlipidemia documented in this encounter [facility]* Diagnosis Class 3 severe obesity due to excess calories with serious comorbidity and body mass index (BMI) of 60.0 to 69.9 in adult- Primary Type 2 diabetes mellitus with peripheral neuropathy (CMS/HCC) group home current use of insulin ([facility]) Type 2 diabetes mellitus with hyperglycemia, with long-term current use of insulin ([facility]) Class 3 severe obesity due to excess calories with serious comorbidity and body mass index (BMI) of 60.0 to 69.9 in adult- Primary Type 2 diabetes mellitus with peripheral neuropathy (CMS/HCC) Type 2 diabetes mellitus with hyperglycemia, with long-term current use of insulin ([facility]) Anxiety Anxiety state, unspecified documented in this encounter [facility] Author Felix Jaquez [facility] December 09, 2022 10:27am Note Date/Time December 09, 2022 1 0:27am [facility] [address] [place] [address] Gastroenterology H&P Signed Patient: Sadie Akhtar MR#: [id number] : 1970 Acct:[id number] Age/Sex: 52 / F Adm Date: 3 Loc: Room: Type: [facility] Attending Dr: Felix Jaquez MD Copies to: DO Felix Potter MD~ Date of Service: 12/09/2022 HISTORY & PHYSICAL: Patient's history with special attention to the cardiovascular, pulmonary systems and the current problem was reviewed with the patient immediately prior to the procedure. Present medications and doses reviewed in the EMR. Allergies and pertinent laboratory tests were also reviewedat this time in the EMR. The physical examination, as below, was then performed. Indication, assessment and HPI: 52-year-old female presents for screening colonoscopy Family history of GI malignancy? No PHYSICAL EXAMINATION Mouth and Pharynx : Moist mucus membranes, normal dentition Cardiac: Regular rate, regular rhythm Pulmonary: Clear to auscultation bilaterally, no wheezing Neurological: Alert and oriented x3, no focal deficits noted Abdomen: Abdomen soft, non-tender REVIEW OF SYSTEMS Constitutional: Denies malaise, fevers Cardiovascular: Denies chest pain, palpitations Respiratory: Denies shortness of breath, wheezing Gastrointestinal: Per HPI Genitourinary: Denies dysuria, polyuria Musculoskeletal: Denies joint swelling, joint stiffness Neurological: Denies numbness, tingling Integumentary: Denies rashes, skin lesions Endocrine: Denies fatigue, weight loss Written informed consent obtained from the patient. Risks (including but not limited to perforation, infection, bloating, bleeding, need for emergent surgeryand loss of life), benefits and alternatives explained and questions answered. The patient verbalized understanding. Based on history patient is an appropriate candidate for the procedure. Felix Jaquez MD Documented By: Felix Jaquez MD 12/09/22 1026 Signed By: <Electronically signed by Felix Jaquez MD> 12/09/22 1027 [facility] Work Phone: History general Narrative - Reported* Type Description Date Medical History Constipation Medical History Seasonal allergies Medical History GERD (gastroesophageal reflux di sease) Medical History Diabetes Medical History Hypothyroid Medical History Neuropathy Surgical History knee surgery Surgical History x 2 Surgical History tonsillectomy and adenoidectomy Surgical History D&C 2016 Hospitalization History see above surgical histo ry [place] Other Hospital course Narrative No data available for this section [facility] Discharge instructions Additional Instructions DISCHARGE INSTRUCTIONS FOR COLONOSCOPY WHAT TO EXPECT: - You may feel full, gassy or cramping after your procedure. In some cases, this may be from a few hours to a day. Walking may help relieve the discomfort. - If you have polyp(s) removed you may note some minor bloody discharge after your first bowel movements. - You should begin to recover from anesthesia within 1 hour of the procedure, however may feel groggy for the next 24 hours. DO's AND DON'Ts: - Call your doctor right away if you have a hard abdomen, severe pain, are passing lots of bright red blood or clots. - Call your doctor if you develop any rashes, hives or difficulty breathing. - Let your doctor know if you have not had a bowel movement by 3 days after your procedure. - If you take 81 mg aspirin for your heart it is safe to resume this medication. - If you take other blood thinner medications your doctor will instruct you when these can safely be resumed. - Do NOT drive for 24 hours. - Do NOT operate machinery such as power tools, [employer] mowers, snow blowers, sewing machines, etc. for 24 hours. - Avoid alcoholic beverages and drugs for allergies, nerves, or sleep. - Do NOT stay alone. Do NOT leave your child unattended. - Do NOT make important personal or business decisions or sign any legal documents. - Eat solid foods and drink liquids in smaller amounts than usual until normal appetite returns. If you should experience an upset stomach, liquids high in sugar content (soda, Taz-Aid, non-acid juices) are recommended. - You can resume normal activities tomorrow. FOLLOW UP & RECOMMENDATIONS: -Follow-up with the GI office as needed. -Notify the doctor if you have any problems. -Follow up with PCP. -Office number [phone].[facility] Work Phone: Hospital Discharge instructions No data available for this section [facility] InstructionsNot on filedocumented in this encounter [facility] filedocumented in this encounter [facility] filedocumented in this encounter [facility] on filedocumented in this encounter [facility] on filedocumented in this encounter [facility] filedocumented in this encounter [facility] filedocumented in this encounter [facility] on filedocumented in this encounter [facility] No data available for this section [facility] [employer] [employer] Summary Purpose Family History No Family History Records Found Relationship Condition Age at Onset Recorded Date/T jaky father Hypertension Unknown Diabetes mellitus Unknown Cerebrovascular accident (CVA) Unknown Not Specified Hypertension Unknown Asthma Unknown Colitis Unknown brother Cerebral aneurysm Unknown Advance Directives No Advanced Directives Records Found Advance Directive Response Recorded Date/ Time Advance Directives No April 23 021 11:43am Latest Code Status on File Code Status Date Activated Date Inactivated Comments Full Code 12/30/2019 4:52 AM 12/31/2019 6:44 PM Latest Code Status on File Code Status Date Activated Date Inactivated Comments Full Code 12/30/2019 4:52 AM 12/31/2019 6:44 PM Date Activated Date Inactivated Comments 12/30/2019 4:52 AM 12/31/2019 6:44 PM Date Activated Date Inactivated Comments 12/30/2019 4:52 AM 12/31/2019 6:44 PM Chief Complaint and Reason for Visit Chief Complaint Screening Reason for Referral Specialty Diagnoses / Procedures Referred By Liban jimenez Referred To Contact Diagnoses Palpitations Procedures Event Monitor (In Office) Elle Davenport MD [address] [place] [address] Referral ID Status Reason Start Date Expiration Date V isits Requested Visits Authorized [id number] Pending Review 02/16/2023 02/16/2024 1 1 Specialty Diagnoses / Procedures Referred By Liban t Referred To Contact Diagnoses Left ventricular systolic dysfunction Shortness of breath Procedures Echo complete W/O contrast Elle Davenport MD [address] [place] [address] Referral ID Status Reason Start Date Expiration Date V isits Requested Visits Authorized [id number] Pending Review 02/16/2023 02/16/2024 1 1 Specialty Diagnoses / Procedures Referred By Liban t Referred To Contact Orthopaedic Surgery Diagnoses Arthritis of left knee Procedures L Inj/Asp: L knee Juliette Cantor, CATTYMAN [address] [place] [address] Referral ID Status Reason Start Date Expiration Date Visits Re quested Visits Authorized [id number] Closed 10/04/2023 04/01/2024 1 1 Additional Source Comments REASON FOR VISIT (unrecogniz ed section and content) Reason Comments Diabetes Reason Comments Migraine Leg Pain Reason Comments Pain Reason Comments Colposcopy Reason Comments Med Refill Reason Comments Follow-up OV F/U 1 YR LABS DON E @ [facility] L/S RRS SCHED W/PT Reason Comments Asthma CXR: 02/17/2023FT: 02/17/2023 Reason Comments repeat pap Reason Onset Date Comments Med Refill 04/22/2024 Reason Onset Date Comments Med Refill 04/29/2024 Reason Comments Follow-up Reason Comments Follow-up OV F/U 1 YR NO TESTS L/S LLD, PT RECENTLY IN ER [facility], SCHED W/PT Patient Care team informatio n (unrecognized section and content) Team Status: Active Member Role Status Dates Marisa Gillis DO Primary Care Provider Active Team Status: Inactive Member Role Status Dates Marisa Gillis DO Primary Care Provider Active Felix Jaquez MD Attending Provider Active 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 Start Date End Date Marisa Gillis DO [address] [place], [place] [id number] PCP - General Family Medicine 08/01/22 Maria De Jesus Guy MD [address] [place] [address] Referring Physician Neurology 04/27/23 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 Start Date End Date Marisa Gillis DO [address] [place], [place] [id number] PCP - General Family Medicine 08/01/22 Maria De Jesus Guy MD [address] [place] [address] Referring Physician Neurology 04/27/23 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 Start Date End Date Marisa Gillis DO [address] [place] [address] PCP - General Family Medicine 08/01/22 Maria De Jesus Guy MD [address] [place] [address] Referring Physician Neurology 04/27/23 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 Start Date End Date Marisa Gillis, [address] [place] [address] PCP - General Family Medicine 08/01/22 Maria De Jesus Guy MD [address] [place] [address] Referring Physician Neurology 04/27/23 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 Start Date End Date Marisa Gillis DO [address] [place] [address] PCP - General Family Medicine 08/01/22 Maria De Jesus Guy MD [address] [place] [address] Referring Physician Neurology 04/27/23 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 Start Date End Date Marisa Gillis DO [address] [place] [address] PCP - General Family Medicine 08/01/22 Maria De Jesus Guy MD [address] [place] [address] Referring Physician Neurology 04/27/23 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 Start Date End Date Marisa Gillis DO [address] [place] [address] PCP - General Family Medicine 08/01/22 Maria De Jesus Guy MD [address] [place] [address] Referring Physician Neurology 04/27/23 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 Start Date End Date Marisa Gillis DO [address] [place] [address] PCP - General Family Medicine 08/01/22 Maria De Jesus Guy MD [address] [place] [address] Referring Physician Neurology 04/27/23 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 Start Date End Date Marisa Gillis DO [address] [place] [address] PCP - General Family Medicine 08/01/22 Maria De Jesus Guy MD [address] [place] [address] Referring Physician Neurology 04/27/23 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 Start Date End Date Marisa Gillis DO [address] [place] [address] PCP - General Family Medicine 11/01/20 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 Start Date End Date Marisa Gillis DO [address] [place] [address] PCP - General Family Medicine 11/01/20 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 Start Date End Date Marisa Gillis DO [address] [place] [address] PCP - General Family Medicine 11/01/20 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 Start Date End Date Marisa Gillis DO [address] [place] [address] PCP - General Family Medicine 08/01/22 Maria De Jesus Guy MD [address] [place] [address] Referring Physician Neurology 04/27/23 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 Start Date End Date Marisa Gillis DO [address] [place] [address] PCP - General Family Medicine 11/01/20 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 Start Date End Date Marisa Gillis DO [address] [place] [address] PCP - General Family Medicine 11/01/20 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 Start Date End Date Marisa Gillis DO [address] [place] [address] PCP - General Family Medicine 11/01/20 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 Start Date End Date Marisa Gillis DO [address] [place] [address] PCP - General Family Medicine 11/01/20 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 Start Date End Date Services, Pending Sale To [facility] [address] [place] PCP - General Family Medicine 04/10/24 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 Start Date End Date Services, Pending Sale To [facility] [address] [place] PCP - General Family Medicine 04/10/24 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 Start Date End Date Services, Pending Sale To [facility] [address] [place] PCP - General Family Medicine 04/10/24 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 Start Date End Date Marisa Gillis DO [address] [place] [address] PCP - General Family Medicine 08/01/22 Maria De Jesus Guy MD [address] [place] [address] Referring Physician Neurology 04/27/23 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 Start Date End Date Marisa Gillis DO [address] [place] [address] PCP - General Family Medicine 08/01/22 Maria De Jesus Guy MD [address] [place] [address] Referring Physician Neurology 04/27/23 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 Start Date End Date Services, Pending Sale To [facility] [address] [place] PCP - General Family Medicine 04/10/24 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 Start Date End Date Services, Pending Sale To [facility] [address] [place] PCP - General Family Medicine 04/10/24 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 Start Date End Date Nikia GillistyDO [address] [place] [address] PCP - General Family Medicine 08/01/22 Maria De Jesus Guy MD [address] [place] [address] Referring Physician Neurology 04/27/23 INFORMATION SOURCE (unrecogn ized section and content) DATE CREATED AUTHOR 05/03/2022 [facility] DATE CREATED AUTHOR AUTHOR'S ORGANIZ ATION 12/18/2022 [facility] DATE CREATED AUTHOR AUTHOR'S ORGANIZ ATION 03/20/2023 [facility] DATE CREATED AUTHOR AUTHOR'S ORGANIZ ATION 04/09/2024 [facility] DATE CREATED AUTHOR AUTHOR'S ORGANIZ ATION 04/27/2024 [facility] DATE CREATED AUTHOR AUTHOR'S ORGANIZ ATION 05/13/2024 [facility] DATE CREATED AUTHOR AUTHOR'S ORGANIZ ATION 06/23/2024 [facility] FOR RECORDS PERTAINING TO PATIENTS WHO ARE OR HAVE BEEN ENROLLED IN A CHEMICAL DEPENDENCY/SUBSTANCEABUSE PROGRAM, SOME INFORMATION MAY BE OMITTED. This clinical summary was aggregated from multiple sources. Caution should be exercised in using it in the provision of clinical care. This summary normalizes information from multiple sources, and as a consequence, information in this document may materially change the coding, format and clinical context of patient data. In addition, data may be omitted in some cases. CLINICAL DECISIONS SHOULD BE BASED ON THE PRIMARY CLINICAL RECORDS. [employer] provides no warranty or guarantee of the accuracy or completeness of information in this document.
--- NOTE | 2024-06-26 15:58 | XR_ITS ---
The [address] [address] Patient Name: SADIE FORRESTER MRN: [id number] date: 1970 Sex: F Assigned Patient Location: LAB Current Patient Location: LAB Accession/Order Number: [id number] Exam Date: 06/26/2024 16:07 Report Date: 06/26/2024 16:09 At the request of: BAHMAN HINTON Procedure: XR abdomen 1V XR abdomen 1V 06/26/2024 3:59 PM SIGNS AND SYMPTOMS: ^Kidney Stone PROTOCOL: Frontal radiographs of the abdomen and pelvis COMPARISON: 07/24/2023 FINDINGS: There are at least 3 radiodensities along the left renal shadow suggesting stones measuring up to 4 mm in greatest dimension. Vascular calcifications are present in the pelvis. Degenerative changes are noted in the lumbar spine, sacroiliac joints, and hips. XR/XR abdomen 1V IMPRESSION: There are at least 3 radiodensities along the left renal shadow suggesting stones measuring up to 4 mm in greatest dimension. Impression dictated by: Nehemiah Whitmore M.D. 06/26/2024 4:09 PM Dictation Location: [place] [address] Electronically authenticated by: [id number] Y Date: 06/26/2024 16:09
[2024-06-26 16:04] LABS: Calcium 9.1 mg/dL (8.5-10.1); Carbon Dioxide 27.1 mmol/L (21.0-32.0); Chloride 108 mmol/L (98-107); Estimated GFR (African America 54 (>=60 mL/min/1.73m^2); Estimated GFR (Non-African Ame 45 (>=60 mL/min/1.73m^2); Phosphorus 3.7 mg/dL (2.6-4.7); Sodium 144 mmol/L (136-145); Uric Acid 4.3 mg/dL (2.6-6.0)
[2024-06-27 11:08] LABS: PTH, Intact 39 pg/mL (15-65)
== END 2024-06-26 15:21 | disposition home or self-care (01) ==
LOC: LAB 15:22
PROVIDERS: PCP Family Medicine; Visit Provider Physician Assistant
DX: N20.0 Calculus of kidney (principal)
CPT/HCPCS: 36415; 74018; 82310; 82374; 82435; 82565; 83970; 84100; 84295; 84520; 84550

== ENCOUNTER 2024-08-20 09:57 | Emergency (ER) | payer OTHER, SELFPAY ==
[2024-08-20 10:03] VITALS: BP 136/79; PULSE 87; TEMP 37.1; O2SAT 98; BMI 53.3
[2024-08-20] MEDS: 0.9 % SODIUM CHLORIDE 1,000 ML 1000 ML IV (10:30)
--- NOTE | 2024-08-20 10:44 | ED_ITS ---
HPI HPI - General Adult General Chief complaint: Weakness Stated complaint: HYPERGLYCEMIA Time Seen by Provider: 08/20/24 10:05 Source: patient Mode of arrival: walk-in Limitations: no limitations History of Present Illness HPI narrative: 54-year-old female presents to the emergency department for elevated blood sugars for 3 days. She has been a bit fatigued and thinks she might have a UTI. She has had frequency of urination and normally does not have high blood sugars like this. She states they have been from 200-250, which is unusual for her. No unusual back pain and no fever or cough or shortness of breath. She has had some slight cramps in her lower abdomen with urination but no abdominal pain. Related Data Home Medications ?Medication ?Instructions ?Recorded ?Confirmed cyclobenzaprine 10 mg tablet mg 08/20/24 duloxetine 30 mg capsule,delayed mg PO 08/20/24 release hydrochlorothiazide 25 mg tablet mg 08/20/24 insulin aspar prot-insulin aspart subcut 08/20/24 100 unit/mL (70-30) subcutaneous pen (Novolog Mix 70-30FlexPen U-100) levothyroxine 25 mcg tablet mcg 08/20/24 mounj 08/20/24 Previous Rx's ?Medication ?Instructions ?Recorded cephalexin 500 mg capsule 500 mg PO TID 7 days #21 cap s 08/20/24 Allergies Allergy/AdvReac Type Severity Reaction Status Date / Time No Known Drug Allergies Allergy Verified 08/20/24 10:03 Review of Systems ROS Narrative A ten point review of systems is negative except as noted above. PFSH PFSH Social History Little interest or pleasure in doing things: not at all Feeling down, depressed, or hopeless: not at all Exam Narrative Exam Narrative: Nurses note and vital signs reviewed and patient is not hypoxic. General: The patient appears well and in no apparent distress. Patient is resting comfortably on cart. Skin: Warm, dry, no pallor noted. There is no rash noted. Head: Normocephalic, atraumatic Eye: Normal conjunctiva, no drainage Ears, Nose, Mouth, and Throat: oral mucosa is moist. Nares patent. Cardiovascular: Regular Rate and Rhythm Respiratory: Patient is in no distress, no accessory muscle use, lungs are clear to auscultation, no wheezing, rales or rhonchi Back: non-tender GI: Obese and nontender Musculoskeletal: The patient has no evidence of calf tenderness, no pitting edema, symmetrical pulses noted bilaterally Neurological: A&O, normal speech Psychiatric: Cooperative Constitutional Vital Signs, click to edit/add: Last Vital Signs Temp 98.7 F 08/20/24 10:03 Pulse 87 08/20/24 10:03 Resp 18 08/20/24 10:03 BP 136/79 08/20/24 10:03 Pulse Ox 98 08/20/24 10:03 O2 Del Method Room Air 08/20/24 10:03 Course Vital Signs Vital signs: Vital Signs Temperature 98.7 F 08/20/24 10:03 Pulse Rate 87 08/20/24 10:03 Respiratory Rate 18 08/20/24 10:03 Blood Pressure 136/79 08/20/24 10:03 Pulse Oximetry 98 08/20/24 10:03 Oxygen Delivery Method Room Air 08/20/24 10:03 Temperature 98.7 F 08/20/24 10:03 Pulse Rate 87 08/20/24 10:03 Respiratory Rate 18 08/20/24 10:03 Blood Pressure 136/79 08/20/24 10:03 Pulse Oximetry 98 08/20/24 10:03 Oxygen Delivery Method Room Air 08/20/24 10:03 Medical Decision Making MDM Narrative Medical decision making narrative: UTI is identified. This is most likely the reason for her elevated blood sugar. She was given IV fluids and IV Rocephin and discharged home on Keflex. Treatment diagnosis and follow-up were discussed with the patient. Differential Diagnosis Differential Diagnosis: UTI, viral illness, dehydration, electrolyte imbalance Lab Data Lab results reviewed: Yes I reviewed the patient's lab results Labs: Lab Results 08/20/24 08/20/24 08/20/24 Range/Units 10:05 10:10 10:15 WBC 9.0 (4.0-11.0) 10^3/uL RBC 4.97 (4.20-5.40) 10^6/uL Hgb 15.3 (12.0-16.0) g/dL Hct 42.3 (36.0-48.0) % MCV 85.1 (81.0-99.0) fL MCH 30.8 (26.7-34.0) pg MCHC 36.2 H (29.9-35.2) g/dL RDW 15.0 (11.0-15.0) % Plt Count 171 (150-450) 10^3/uL MPV 10.9 (9.5-13.5) fL Neut % (Auto) 62.4 (43.0-75.0) % Lymph % (Auto) 23.9 (20.5-60.0) % [place] % (Auto) 10.7 (1.7-12.0) % Eos % (Auto) 1.3 (0.9-7.0) % Baso % (Auto) 0.8 (0.2-2.0) % Neut # (Auto) 5.6 (1.4-6.5) 10^3/uL Lymph # (Auto) 2.2 (1.2-3.8) 10^3/uL [place] # (Auto) 1.0 H (0.3-0.8) 10^3/uL Eos # (Auto) 0.1 (0.0-0.7) 10^3/uL Baso # (Auto) 0.1 (0.0-0.1) 10^3/uL Abs Immat Gran (auto) 0.08 H (0.00-0.03) 10^3/uL Imm/Tot Granulo (auto) 0.9 H (0.0-0.5) % Sodium 140 (136-145) mmol/L Potassium 3.3 L (3.5-5.1) mmol/L Chloride 98 (98-107) mmol/L Carbon Dioxide 31.3 (21.0-32.0) mmol/L Anion Gap 14.0 BUN 22.0 H (7.0-18.0) mg/dL Creatinine 1.14 H (0.55-1.02) mg/dL Est GFR ( Amer) >60 (>=60 mL/min/1.73m^2) Est GFR (Non-Af Amer) 50 L (>=60 mL/min/1.73m^2) BUN/Creatinine Ratio 19.3 Glucose 257 H (74-106) mg/dL Calcium 9.0 (8.5-10.1) mg/dL Urine Color [place] A (YELLOW) Urine Clarity Clear (CLEAR) Urine pH 6.0 (5.0-9.0) Ur Specific [employer] 1.025 (1.005-1.025) Urine Protein 30 A (NEG/TRACE) mg/dL Urine Glucose (UA) 500 A (NEGATIVE) mg/dL Urine Ketones Negative (NEGATIVE) mg/dL Urine Occult Blood Negative (NEGATIVE) Urine Nitrite Negative (NEGATIVE) Urine Bilirubin Negative (NEGATIVE) Urine Urobilinogen 2.0 A (0.2-1.0) EU/dL Ur Leukocyte Esterase Negative (NEGATIVE) Urine RBC 2-5 A (0-2) #/HPF Urine WBC 10-20 A (NONE SEEN) #/HPF Ur Squamous Epith Cells Few A (NONE/RARE) #/LPF Urine Crystals None seen (None Seen) #/HPF Urine Bacteria Moderate A (NONE SEEN) #/HPF Urine Casts None seen (NONE SEEN) #/LPF Urine Mucus Large A (NONE SEEN) Ur Culture Indicated[place] [place] Glucose 269 H (74-106) mg/dL Discharge Plan Discharge Chief Complaint: Weakness Clinical Impression: Urinary tract infection Patient Disposition: Home, Self-Care Time of Disposition Decision: 11:26 Condition: Good Mode of Transportation: Private Vehicle Prescriptions / Home Meds: New cephalexin 500 mg capsule 500 mg PO TID 7 Days Qty: 21 0RF No Action cyclobenzaprine 10 mg tablet levothyroxine 25 mcg tablet hydrochlorothiazide 25 mg tablet insulin asp prt-insulin aspart [Novolog Mix 70-30FlexPen U-100] 100 unit/mL (70-30) insulin pen SUBCUT duloxetine 30 mg capsule,delayed release(DR/EC) PO mounj Print Language: Occitan Instructions: Urinary Tract Infection in Women (ED) Referrals: DANI MAJOR PA [Primary Care Provider] - 1 week
[2024-08-20 10:55] LABS: Hematocrit 42.3 % (36.0-48.0); Hemoglobin 15.3 g/dL (12.0-16.0); Immature Granulocytes Abs Auto 0.08 10^3/uL (0.00-0.03); Immature Granulocytes Pct Auto 0.9 % (0.0-0.5); Lymphocytes Absolute Auto 2.2 10^3/uL (1.2-3.8); Mean Corpuscular HGB Conc 36.2 g/dL (29.9-35.2); Mean Corpuscular Hemoglobin 30.8 pg (26.7-34.0); Mean Corpuscular Volume 85.1 fL (81.0-99.0); Platelet Count 171 10^3/uL (150-450); Red Blood Count 4.97 10^6/uL (4.20-5.40); White Blood Count 9.0 10^3/uL (4.0-11.0)
[2024-08-20 11:00] LABS: Glucose Urine UA 500 mg/dL (NEGATIVE)
[2024-08-20 11:07] LABS: Anion Gap 14.0; Blood Urea Nitrogen 22.0 mg/dL (7.0-18.0); Calcium 9.0 mg/dL (8.5-10.1); Carbon Dioxide 31.3 mmol/L (21.0-32.0); Chloride 98 mmol/L (98-107); Estimated GFR (African America >60 (>=60 mL/min/1.73m^2); Estimated GFR (Non-African Ame 50 (>=60 mL/min/1.73m^2); Glucose 257 mg/dL (74-106); Potassium 3.3 mmol/L (3.5-5.1); Sodium 140 mmol/L (136-145)
[2024-08-20 11:16] LABS: Cast Seen? NONE SEEN #/LPF (NONE SEEN); Crystals Seen? None Seen #/HPF (None Seen); Urine Culture Indicated YES-FRMC
[2024-08-20 11:30] VITALS: BP 116/67; PULSE 78; O2SAT 98
== END 2024-08-20 11:48 | disposition home or self-care (01) ==
PROVIDERS: Emergency Provider Emergency Medicine
DX: N39.0 Urinary tract infection, site not specified (principal)
CPT/HCPCS: 36415; 80048; 81001; 82948; 85025; 87086; 96374; 99285; J0696